=== PATIENT | male | born 1950 | race Caucasian/White ===

== ENCOUNTER → 2024-01-17 | Outpatient (CLI) | payer OTHER, SELFPAY ==
[2024-01-17 16:38] LABS: Basophils # (Auto) 0.1 Thou/mm3 (0.0-0.2); Basophils % (Auto) 1 % (0-2.5); Eosinophils # (Auto) 0.2 Thou/mm3 (0.0-0.5); Eosinophils % (Auto) 3 % (0-10); Hematocrit 36.3 % (41.0-53.0); Hemoglobin 12.1 g/dL (13.5-16.0); Immature Granulocytes % (Auto) 0 % (0-0); Immature Granulocytes Auto 0.01 Thou/mm3 (0.00-0.00); Lymphocytes # (Auto) 1.8 Thou/mm3 (1.0-4.8); Lymphocytes % (Auto) 34 % (10-50); Mean Corpuscular HGB Conc 33.3 g/dl (31.0-37.0); Mean Corpuscular Hemoglobin 30.6 pg (25.0-35.0); Mean Corpuscular Volume 92 fL (80-100); Monocytes # (Auto) 0.6 Thou/mm3 (0.0-0.8); Monocytes % (Auto) 12 % (0-12); Neutrophils # (Auto) 2.6 Thou/mm3 (1.8-7.7); Neutrophils % (Auto) 50 % (37-80); Nucleated Red Blood Cell % 0 /100 WBC (0); Platelet Count 246 Thou/mm3 (140-440); RDW Standard Deviation 44.9 fL (35.1-43.9); Red Blood Count 3.95 Miln/mm3 (4.50-5.90); White Blood Count 5.2 Thou/mm3 (3.8-10.6)
[2024-01-17 17:13] LABS: Albumin, Serum 4.1 gm/dL (3.4-4.8); Anion Gap 5 (7-16); BUN/Creatinine Ratio 16 Ratio (12-20); Blood Urea Nitrogen 21 mg/dL (9-23); Calcium 9.1 mg/dL (8.3-10.6); Calcium (Corrected) 9.1 mg/dL (8.5-10.1); Carbon Dioxide 26.2 mMol/L (20.0-31.0); Chloride 105 mMol/L (98-107); Creatinine (Component) 1.3 mg/dL (0.6-1.3); Glucose 94 mg/dL (74-106); Osmolality,Calculated 274 (275-295); Phosphorous 3.8 mg/dL (2.4-5.1); Potassium 4.4 mMol/L (3.4-5.1); Sodium 136 mMol/L (136-145); eGFR 58 See Note
[2024-01-17 19:48] LABS: Total Iron Binding Capacity 245 mcg/dL (250-425)
[2024-01-17 19:59] LABS: Iron 42 mcg/dL (65-175); Percent Iron Saturation 17 % (20-55); Unsaturated Iron Binding 203 (225-295)
== END | disposition home or self-care (01) ==
LOC: COPL 15:22
PROVIDERS: PCP Family Medicine; Referring Provider Internal Medicine; Visit Provider Internal Medicine
DX: N40.0 Benign prostatic hyperplasia without lower urinary tract symptoms (principal); N18.32 Chronic kidney disease, stage 3b; N13.30 Unspecified hydronephrosis
CPT/HCPCS: 36415; 80069; 83540; 83550; 85025

== ENCOUNTER 2024-01-20 09:19 | Outpatient (AMB) | payer OTHER, SELFPAY ==
[2024-01-20 09:48] VITALS: BP 130/81; PULSE 86; RESP 18; TEMP 36.6; O2SAT 98; BMI 23.1
--- NOTE | 2024-01-20 09:48 | PD.ORTHCLVIS ---
Vital signs 01/20/24 09:48 Height 1.78 m Height Method Stated Weight 73.17 kg Weight Measurement Method Standing Scale BMI 23.1 BP 130/81 Blood Pressure Source Automatic Cuff Blood Pressure Location Right Upper Arm Position Sitting Respiration 18 Pulse 86 Pulse Source Monitor Temp 97.9 F Temp Source Temporal Artery Scan Pulse Oximetry (%) 98 Oxygen Delivery Method Room Air Med/Allergies Allergies & Medications Allergies No Known Allergies Allergy (Verified 01/20/24 09:49) Medication Reconciliation lorazepam 1 mg tablet 1 mg PO .PRN 01/01/19 [History Confirmed 01/20/24] levothyroxine 125 mcg tablet 125 mcg PO QDAY 01/04/20 [History Confirmed 01/20/24] cyclobenzaprine 10 mg tablet 1 tab PO DAILY 09/28/21 [History Confirmed 01/20/24] gabapentin 300 mg capsule 1 cap PO BID 09/28/21 [History Confirmed 01/20/24] hydrocodone 7.5 mg-acetaminophen 325 mg tablet 1 tab PO Q6H PRN Pain 09/28/21 [History Confirmed 01/20/24] Subjective Visit Visit for: follow up visit (PRE OP) Immunization / Flu Flu Vaccine in the Last 12 Months: Yes Flu Vaccine Exclusion Criteria: Already Received History of Present Illness Chief complaint: LEFT KNEE PAIN Manpreet is a pleasant 73-year-old male with bilateral knee pain. The knee pain is worse on the left. He has had 2 prior arthroscopic surgeries. The pain has been ongoing for over 3 years. The pain is primarily in the medial aspect of his knee. There is varus deformity. The pain is affecting his quality life and happiness he has tried meloxicam, surgery, and anti-inflammatories. He has also had over 6 injections Personal History Occupation: TEACHER Hobbies: MUSIC/PIANO Red flag PMH: smoker (FORMER SMOKER 35 YEARS AGO ) Pain Pain level (0-10): 2 Pain duration: ON AND OFF Pain location: inside (medial) Pain quality: aching Pain timing: night, increases with activity and stairs Associated signs & symptoms: none Ambulatory data Ambulatory device: none Treatments Improvement with previous injections: No Improvement with PT: No Improvement with NSAIDS: no Review of Systems Review of Systems: All systems negative unless otherwise noted in HPI. Exam Exam Patient is in no acute distress and is cooperative with the examination today. Breathing is nonlabored. In no respiratory distress. Bilateral extremities were evaluated and demonstrates sensation intact to light touch. Palpable pedal pulses are present. No significant edema is present. Bilateral hips were examined. The patient has no pain with log roll of the hips. Internal rotation to 30 degrees and external rotation to 30 degrees is painless. Negative FADIR. The left knee was examined. The left knee is in [varus] alignment. Range of motion from [0-115] degrees. Knee is stable to varus and valgus as well as AP translation with <5mm. Patient has a [negative] McMurrays. There is [no] pain with patellofemoral compression and [no] crepitus noted. The knee is [tender] to palpation [medially]. The right knee was also examined. The right knee is in [varus] alignment. Range of motion from [0-120] degrees. Knee is stable to varus and valgus as well as AP translation with <5mm. Patient has a [negative] McMurrays. There is [no] pain with patellofemoral compression and [no] crepitus noted. The knee is [tender] to palpation [medially]. Bilateral knee x-rays demonstrate significant joint space narrowing medially. There is complete obliteration of the joint space and varus deformity Assessment and Plan Problem List (1) Degenerative arthritis of knee, bilateral: Status: Acute Plan: Patient is a pleasant 73-year-old male with bilateral knee pain and bilateral knee arthritis. The knee pain is worse on the left. We discussed nonoperative and operative options. We previously discussed surgery in great detail and scheduled him for surgery. He would like to postpone his surgery as he is doing very well currently Advanced Care Planning Discussion Advance care planning discussed with:: patient Office Procedures GNS Level of Care Nursing/Assessment Patient Status: Established Patient Nursing Assessment/Reassesment: Medication Reconciliation, Update PMH in EMR and Vital Signs Coordination of Care: Complex Care and Chronic Disease 1-5, Education Complex Pt/Fam, Consent,records obtained, informed consent, 1 Ins Authorization, Results/Orders obtained and Staff clarify orders Established Patient Charge Established Patient Point Assignment: 110 Established Patient Point Charge: EP Level 3 (80-115) Past Medical History Past Medical History Have you ever been diagnosed with any of the following: Neurological Problems Meningitis: No Seizures: No Paralysis: No Migraine: No Cardiology Problems Congestive Heart Failure: No Edema: No Cellulitis: No Respiratory Problems Chronic Obstructive Pulmonary Disease (COPD): No Asthma: No Tuberculosis: No Pulmonary Embolism: No Sleep Apnea: No Smoking: No Smoking Cessation Counseling: No Smoking Exposure: No Stomache/Intestinal Problems Hepatitis: Yes Diverticulosis: Yes Hemorrhoids: Yes Gastroesophageal Reflux Disease: Yes Genital/Urinary Problems Renal Disease: No Benign Prostatic Hyperplasia: No Musculoskeletal Problems Arthritis: Yes Fractures: No Head,Eye,Nose,Throat Problems Cataracts: Yes Endocrine Problems Diabetes Mellitus Type 1: No Diabetes Mellitus Type 2: No Hypothyroidism: Yes (TAKES MED) Blood Problems Anemia: No Sickle Cell Disease: No Psychologic Problems Depression: Yes Anxiety: Yes Post Traumatic Stress Disorder: No Other Problems Hospitalization: No Shingles: No Falls: No Blood Transfusions: No Blood Transfusion Reaction: No Anesthesia Reactions: No Chemotherapy: No Radiation Therapy: No MRSA: No Chicken Pox: No Measles: Yes Mumps: Yes Cancer: No Surgical History Pacemaker: No Thyroidectomy: No
== END 2024-01-20 10:37 | disposition home or self-care (01) ==
LOC: HODSRG 09:19
PROVIDERS: PCP Family Medicine; Referring Provider Family Medicine; Supervising Provider Orthopaedic Surgery Adult Reconstructive Orthopaedic Surgery; Visit Provider Orthopaedic Surgery Adult Reconstructive Orthopaedic Surgery
DX: M17.0 Bilateral primary osteoarthritis of knee (principal); M25.562 Pain in left knee; M25.561 Pain in right knee; K21.9 Gastro-esophageal reflux disease without esophagitis; E03.9 Hypothyroidism, unspecified
CPT/HCPCS: 99213; G0463

== ENCOUNTER 2024-02-24 14:01 | Outpatient (AMB) | payer OTHER, SELFPAY ==
[2024-02-24 14:10] VITALS: BP 133/83; PULSE 83; RESP 19; TEMP 36.1; O2SAT 98; BMI 23.1
--- NOTE | 2024-02-24 14:10 | RHCORTHONT_ITS ---
Vital signs 02/24/24 14:10 Height 1.78 m Height Method Stated Weight 73.227 kg Weight Measurement Method Standing Scale BMI 23.1 BP 133/83 H Blood Pressure Source Automatic Cuff Blood Pressure Location Left Upper Arm Position Sitting Respiration 19 Pulse 83 Pulse Source Monitor Temp 96.9 F Temp Source Temporal Artery Scan Pulse Oximetry (%) 98 Oxygen Delivery Method Room Air Med/Allergies Allergies & Medications Allergies No Known Allergies Allergy (Verified 02/24/24 14:11) Medication Reconciliation lorazepam 1 mg tablet 1 mg PO .PRN 01/01/19 [History Confirmed 02/24/24] levothyroxine 125 mcg tablet 125 mcg PO QDAY 01/04/20 [History Confirmed 02/24/24] cyclobenzaprine 10 mg tablet 1 tab PO DAILY 09/28/21 [History Confirmed 02/24/24] gabapentin 300 mg capsule 1 cap PO BID 09/28/21 [History Confirmed 02/24/24] hydrocodone 7.5 mg-acetaminophen 325 mg tablet 1 tab PO Q6H PRN Pain 09/28/21 [History Confirmed 02/24/24] Exam Exam Patient is in no acute distress and is cooperative with the examination today. Breathing is nonlabored. In no respiratory distress. Bilateral extremities were evaluated and demonstrates sensation intact to light touch. Palpable pedal pulses are present. No significant edema is present. Bilateral hips were examined. The patient has no pain with log roll of the hips. Internal rotation to 30 degrees and external rotation to 30 degrees is painless. Negative FADIR. The left knee was examined. The left knee is in [varus] alignment. Range of motion from [0-115] degrees. Knee is stable to varus and valgus as well as AP translation with <5mm. Patient has a [negative] McMurrays. There is [no] pain with patellofemoral compression and [no] crepitus noted. The knee is [tender] to palpation [medially]. The right knee was also examined. The right knee is in [varus] alignment. Range of motion from [0-120] degrees. Knee is stable to varus and valgus as well as AP translation with <5mm. Patient has a [negative] McMurrays. There is [no] pain with patellofemoral compression and [no] crepitus noted. The knee is [tender] to palpation [medially]. Bilateral knee x-rays demonstrate significant joint space narrowing medially. There is complete obliteration of the joint space and varus deformity Assessment and Plan Problem List (1) Degenerative arthritis of knee, bilateral: Status: Acute Plan: Patient is a pleasant 73-year-old male with bilateral knee pain and bilateral knee arthritis. The knee pain is worse on the left. We discussed nonoperative and operative options. We previously discussed surgery in great detail and scheduled him for surgery. He would like to postpone his surgery as he is doing very well currently. She would like bilateral knee injections today Recommend knee cortisone injections as patient would like to proceed with conservative treatment at this time. The risks and benefits of the procedure were reviewed with the patient and patient gave verbal consent to continue with the procedure. Procedure: performed by Dr. Persaud Using sterile technique the Bilateral knees were thoroughly prepped with alcohol, and approximately 1 cc of Kenalog 40 mg/mL and 4 cc of 1% lidocaine was injected into each knee without resistance into the medial tibial femoral joint space. The patient tolerated the procedure. Advanced Care Planning Discussion Advance care planning discussed with:: patient Office Procedures GNS Level of Care Nursing/Assessment Patient Status: Established Patient Nursing Assessment/Reassesment: Medication Reconciliation, Update PMH in EMR and Vital Signs Coordination of Care: Complex Care and Chronic Disease 1-5, Education Complex Pt/Fam, Consent,records obtained, informed consent, Results/Orders obtained and Staff clarify orders Established Patient Charge Established Patient Point Assignment: 95 Established Patient Point Charge: EP Level 3 (80-115) Surgical Proc/IM SQ injection Major Surgical Procedure: Yes (BILATERAL KNEE INJECTIONS ) Medication Given Medication Given Medication Given: Yes Documented Dose Given: 8 Route: Infiitration Medication Given Medication Given Medication Given: Yes Documented Dose Given: 2 Route: Infiitration Office Meds Xylocaine 10 mg/mL (1 %) injection solution Performing Provider: Jarad Persaud MD Performing Location: [facility] Administered by: Jarad Persaud MD on 02/24/24 14:38 Dose Route Admin Location Dispensed Lot Number Expiration Date [facility] Medical Review Coordinator 40 mL Infiltration 40 mL [id number] [employer] triamcinolone acetonide 40 mg/mL suspension for injection Performing Provider: Jarad Persaud MD Performing Location: [facility] Administered by: Jarad Persaud MD on 02/24/24 14:38 Dose Route Admin Location Dispensed Lot Number Expiration Date [facility] Medical Review Coordinator 80 mg intra-articular 2 mL [id number] TEVA PARENTERAL MA Intake Visit Data Collection New Patient or Established: Established Patient (seen at [facility] within 3 years) Reason for Visit:: F/U KNEE PAIN/INJECTION Seen by Clinical Staff ONLY (RN/MA): No Lacing Cutter Required: No PCP or OBGYN visit in last 3 months: Yes Hx Now: No Do You Feel Safe at Home: Yes Authorities Contacted: N/A Questionairres Past Medical History Past Medical History Have you ever been diagnosed with any of the following: Neurological Problems Meningitis: No Seizures: No Paralysis: No Migraine: No Cardiology Problems Congestive Heart Failure: No Edema: No Cellulitis: No Respiratory Problems Chronic Obstructive Pulmonary Disease (COPD): No Asthma: No Tuberculosis: No Pulmonary Embolism: No Sleep Apnea: No Smoking: No Smoking Cessation Counseling: No Smoking Exposure: No Stomache/Intestinal Problems Hepatitis: Yes Diverticulosis: Yes Hemorrhoids: Yes Gastroesophageal Reflux Disease: Yes Genital/Urinary Problems Renal Disease: No Benign Prostatic Hyperplasia: No Musculoskeletal Problems Arthritis: Yes Fractures: No Head,Eye,Nose,Throat Problems Cataracts: Yes Endocrine Problems Diabetes Mellitus Type 1: No Diabetes Mellitus Type 2: No Hypothyroidism: Yes (TAKES MED) Blood Problems Anemia: No Sickle Cell Disease: No Psychologic Problems Depression: Yes Anxiety: Yes Post Traumatic Stress Disorder: No Other Problems Hospitalization: No Shingles: No Falls: No Blood Transfusions: No Blood Transfusion Reaction: No Anesthesia Reactions: No Chemotherapy: No Radiation Therapy: No MRSA: No Chicken Pox: No Measles: Yes Mumps: Yes Cancer: No Surgical History Pacemaker: No Thyroidectomy: No Subjective Visit Visit for: follow up visit and knee Immunization / Flu Flu Vaccine in the Last 12 Months: Yes Flu Vaccine Exclusion Criteria: Already Received History of Present Illness Chief complaint: bilateral knee injections Patient is a 74yo female with bilateral knee pain and bilateral knee osteoarthritis. He is doing well. He would like to get bilateral knee injections. He is still working and would like to wait until February of Next year before proceeding with surgery. Pain Pain level (0-10): 5 Pain duration: COMES AND GOES Pain location: inside (medial) Pain quality: sharp and aching Pain timing: night, increases with activity and stairs Associated signs & symptoms: stiffness Ambulatory data Ambulatory device: none Treatments Improvement with previous injections: No Improvement with PT: No Improvement with NSAIDS: no Review of Systems Review of Systems: All systems negative unless otherwise noted in HPI.
== END 2024-02-24 14:32 | disposition home or self-care (01) ==
LOC: HODSRG 14:01
PROVIDERS: PCP Family Medicine; Referring Provider Family Medicine; Supervising Provider Orthopaedic Surgery Adult Reconstructive Orthopaedic Surgery; Visit Provider Orthopaedic Surgery Adult Reconstructive Orthopaedic Surgery
DX: M17.0 Bilateral primary osteoarthritis of knee (principal); M25.562 Pain in left knee; M25.561 Pain in right knee; E03.9 Hypothyroidism, unspecified; K21.9 Gastro-esophageal reflux disease without esophagitis
CPT/HCPCS: 20610; 99213; J3301; J3490; G0463

== ENCOUNTER 2024-03-18 15:22 | Emergency (ER) | payer OTHER, SELFPAY ==
[2024-03-18 15:41] VITALS: BP 158/84; PULSE 79; RESP 18; TEMP 36.8; O2SAT 98; BMI 23.6
--- NOTE | 2024-03-18 16:11 | EDNOTE_ITS ---
ED Neck Injury Pain RME/HPI General Chief Complaint: Neck Pain/Injury Stated Complaint: CHRONIC NECK/BACK PAIN FOR 3 DAYS Time Seen by Provider: 03/18/24 15:34 Source: patient Arrival date/time: 03/18/24 15:22 This is a 74-year-old male presents to the emergency department with complaints of chronic neck pain worsened over 3 days. Reports he normally takes tramadol, Flexeril has taken it once last night however his pain has not improved. He does report he has history of chronic spinal stenosis in which he has had an MRI and CT in the past last 1 was in October. Patient denies any shortness of breath no numbness or tingling to bilateral arms, no fever or chills.. He does have an appointment on Tuesday for follow-up with his PCP. He requesting a prescription for prednisone in which has helped his symptoms in the past. Mode of arrival: ambulatory Related Data Home Medications ?Medication ?Instructions ?Recorded ?Confirmed lorazepam 1 mg tablet 1 mg PO .PRN 01/01/19 02/24/24 levothyroxine 125 mcg tablet 125 mcg PO QDAY 01/04/20 02/24/24 cyclobenzaprine 10 mg tablet 1 tab PO DAILY 09/28/21 02/24/24 gabapentin 300 mg capsule 1 cap PO BID 09/28/21 02/24/24 hydrocodone 7.5 mg-acetaminophen 1 tab PO Q6H PRN Pain 09/28/21 02/24/24 325 mg tablet Previous Rx's ?Medication ?Instructions ?Recorded prednisone 20 mg tablet 20 mg PO QDAY 5 days #10 tabs 03/18/24 Allergies Allergy/AdvReac Type Severity Reaction Status Date / Time No Known Allergies Allergy Verified 03/18/24 15:25 Review of Systems Review of Systems Systems Reviewed: All systems reviewed, normal except as documented Narrative Review of Systems: Gen: No fever, no chills, no weight loss EYES: No discharge, no visual changes, no pain HEENT: No ear pain, no congestion, no sore throat, + chronic neck pain PULM: No shortness of breath, no cough, no congestion CV: No chest pain, no dyspnea on exertion, no palpitations GI: No nausea, no vomiting, no diarrhea, no pain, no constipation : No frequency, no urgency,? no dysuria Musc/skel: No joint pain, no back pain Skin: No rash? ED Exam Narrative Physical exam: General: In moderate discomfort due to pain, not in any acute distress Head normocephalic HEENT: Eyes pupils are PERRLA EOMs are intact, swallow symmetrical phonation is somewhat guarded, uvula is midline. All of the subsystems of HEENT are within acceptable limits Neck: Tenderness to palpation of the bilateral paraspinal regions, no spinous process tenderness with palpation. The patient has significant pain with left and right lateral rotation right being of a lesser degree., No erythema no edema no JVD Chest equal chest rise nontender to palpation Respiratory: Clear to auscultation no wheezes crackles or rubs CV: Rate rhythm is regular no murmurs rubs or clicks Extremities: Moving all extremity against resistance cap refill less than 2 seconds neurosensory intact Neuro: Awake alert oriented x3 Glascow coma 15 no focal deficits Course Quality Measures none Orders Category Date Time Status CYCLObenzaPRINE [Flexeril] Med 03/18/24 16:10 Discontinued 5 mg PO X1 ONE MethylPREDNISolone.* [SoluMEDROL Inj] Med 03/18/24 16:10 Discontinued 125 mg IM X1 ONE Vital Signs Vital signs: Vital Signs Temperature 98.3 F 03/18/24 15:41 Pulse Rate 79 03/18/24 15:41 Respiratory Rate 18 03/18/24 15:41 Blood Pressure 158/84 H 03/18/24 15:41 Pulse Oximetry (%) 98 03/18/24 15:41 Oxygen Delivery Method Room Air 03/18/24 15:41 Neck Pain MDM Narrative MDM Narrative:: This is a 74-year-old male presents to the emergency department with complaints of chronic neck pain worsened over 3 days. Reports he normally takes tramadol, Flexeril has taken it once last night however his pain has not improved. He does report he has history of chronic spinal stenosis in which he has had an MRI and CT in the past last one was in October. Patient denies any shortness of breath no numbness or tingling to bilateral arms. He does have an appointment on Tuesday for follow-up with his PCP. Patient reports he has not had a neurosurgery referral as an outpatient. However he will request tomorrow when he has an appointment. I will go ahead and give him some pain control, steroids and muscle relaxer while in ED. Patient patient's vital signs stable no acute distress. ER precautions given to patient return if there is any worsening symptoms despite the use of his medication or steroids. I did advise patient to return in a.m. if his symptoms worsen for MRI. Patient data External records reviewed:: [facility] previous records (Reviewed MRI and previous imaging.) Clinical information provided by:: patient Social determinants that could affect healthcare access:: none Patient has the following chronic illnesses:: Chronic pain, hypothyroidism, BPH, apical stenosis How is presenting disease/condition affected by chronic disease/condition?: exacerbated by Evaluation data The following diagnostics were reviewed and interpreted by me:: other (specify) Lab and/or radiology exams considered but not ordered:: Considered x-ray however this is a chronic condition. Will treat his pain. Interpretation Summary: None Medications / Prescriptions Medications or Prescriptions considered but not ordered:: No Medication administrations:: Medication Administration History Discontinued Medications Cyclobenzaprine HCl (Cyclobenzaprine 5 Mg Tablet) 5 mg PO X1 ONE Stop: 03/18/24 16:11 Last Admin: 03/18/24 16:54 Dose: 5 mg Documented By: Methylprednisolone Sodium Succinate (Methylprednisolone Sod Succ 62.5 Mg/Ml 2ml Vial) 125 mg IM X1 ONE Stop: 03/18/24 16:11 Last Admin: 03/18/24 16:54 Dose: 125 mg Documented By: All medications administered and effective Consultations Consultation(s) initiated? (list below): No Diagnosis Neck Differential Diagnosis: disc disorder of cervical region, whiplash injury to neck, closed subluxation of cervical spine, torticollis and strain of neck muscle Most likely diagnosis given after review of the tests above:: Cervical rectal colopathy, cervical stenosis Admission Indicated Admission indicated?: not indicated Admission Request Was there a request for admission?: No Disposition Plan Disposition Plan: Discharge Discharge Attestation Discharge Attestation: The patient and all family members were given an opportunity to ask questions and understood the discharge instructions. Discharge instructions specifically effects, indications for sooner follow up or return to the emergency department, and the expected course of current diagnosis. Patient condition: Stable Discharge Plan Plan Patient Disposition: HOME (Self Care) Patient condition on transfer: Stable Prescriptions/Referrals Prescriptions/Med Rec: New prednisone 20 mg tablet 20 mg PO QDAY 5 Days Qty: 10 0RF No Action lorazepam 1 mg tablet 1 mg PO .PRN cyclobenzaprine 10 mg tablet 1 tab PO DAILY hydrocodone-acetaminophen 7.5-325 mg tablet 1 tab PO Q6H PRN (Reason: Pain) gabapentin 300 mg capsule 1 cap PO BID Patient Comments: TAKE 1 CAPSULE BY MOUTH THREE TIMES A DAY levothyroxine 125 mcg Tablet 125 mcg PO QDAY Referrals: Jose Nunn MD [Primary Care Provider] - In 1 week Problem List Clinical Impression: Disc disorder of cervical region, Cervical radiculopathy Patient/Caregiver Discharge Instructions Discharge Activity: activity as tolerated Education Materials: ED Neck Pain, ED Radiculopathy, Cervical Additional Instructions: -You will need to rest and have activities modification avoid heavy lifting twisting motions or prolonged sitting or standing. -Will need to follow-up with your doctor tommorow Might need physical therapy May require a NeuroSurgery consults Might need referral for MRI outpatient, Diagnostic imaging (like MRI) might be used to assess the extent of the bulging disc. -Medications sent please use as directed Can include ibuprofen, muscle relaxant Lifestyle modifications Return to the emergency department this any worsening symptoms change in condition. Print Language: Maldivian Stand Alone Forms: Leydi Award Info., Patient Portal Info Letter PA/MARKETING DATA SPECIALIST Supervising Physician SWETHA/MADELEINE Supervising Physician: dr Ontiveros
[2024-03-18] MEDS: CYCLObenzaPRINE 5 MG TABLET PO (16:54)
[2024-03-18] MEDS: MethylPREDNISolone SOD SUCC 62.5 MG/ML 2ML VIAL 125 MG IM (16:54)
== END 2024-03-18 16:55 | disposition home or self-care (01) ==
PROVIDERS: Emergency Provider Emergency Medicine; PCP Family Medicine
DX: M54.12 Radiculopathy, cervical region (principal)
CPT/HCPCS: 96372; 99283; J2919; A9270

== ENCOUNTER → 2024-03-21 | Outpatient (CLI) | payer OTHER, SELFPAY ==
[2024-03-21 17:50] LABS: Amphetamine/Methamp Scrn,U Negative (Negative); Barbiturate Screen,Urine Negative (Negative); Benzodiazepines Screen,Urine Negative (Negative); Benzoylecgonine Screen, Ur Negative (Negative); Fentanyl Screen,Urine Negative (Negative); Opiate Screen,Urine Negative (Negative); THC Screen,Urine Negative (Negative)
== END | disposition home or self-care (01) ==
LOC: SLDO 17:10
PROVIDERS: PCP Family Medicine; Referring Provider Family Medicine; Visit Provider Family Medicine
DX: Z71.51 Drug abuse counseling and surveillance of drug abuser (principal)
CPT/HCPCS: 80307

== ENCOUNTER → 2024-04-27 | Outpatient (CLI) | payer OTHER, SELFPAY ==
[2024-04-27 14:24] LABS: Glucose Estimated Average 105 mg/dL (80-131); Hemoglobin A1C 5.3 % Hgb (4.8-6.0)
[2024-04-27 14:26] LABS: Basophils # (Auto) 0.1 Thou/mm3 (0.0-0.2); Basophils % (Auto) 1 % (0-2.5); Eosinophils # (Auto) 0.2 Thou/mm3 (0.0-0.5); Eosinophils % (Auto) 2 % (0-10); Hematocrit 37.1 % (41.0-53.0); Hemoglobin 12.4 g/dL (13.5-16.0); Immature Granulocytes % (Auto) 0 % (0-0); Immature Granulocytes Auto 0.01 Thou/mm3 (0.00-0.00); Lymphocytes % (Auto) 28 % (10-50); Mean Corpuscular HGB Conc 33.4 g/dl (31.0-37.0); Mean Corpuscular Hemoglobin 30.4 pg (25.0-35.0); Mean Corpuscular Volume 91 fL (80-100); Monocytes # (Auto) 0.7 Thou/mm3 (0.0-0.8); Monocytes % (Auto) 10 % (0-12); Neutrophils # (Auto) 4.1 Thou/mm3 (1.8-7.7); Neutrophils % (Auto) 59 % (37-80); Nucleated Red Blood Cell % 0 /100 WBC (0); Platelet Count 290 Thou/mm3 (140-440); RDW Standard Deviation 48.8 fL (35.1-43.9); Red Blood Count 4.08 Miln/mm3 (4.50-5.90); White Blood Count 7.1 Thou/mm3 (3.8-10.6)
[2024-04-27 14:27] LABS: Alanine Aminotransferase 12 U/L (10-49); Albumin, Serum 3.7 gm/dL (3.4-4.8); Albumin/Globulin Ratio 1.8 (1.2-2.2); Alkaline Phosphatase 75 U/L (46-116); Anion Gap 6 (7-16); Aspartate Amino Transferase 13 U/L (0-34); BUN/Creatinine Ratio 15 Ratio (12-20); Bilirubin,Total 0.4 mg/dL (0.3-1.2); Blood Urea Nitrogen 20 mg/dL (9-23); Calcium 9.1 mg/dL (8.3-10.6); Calcium (Corrected) 9.3 mg/dL (8.5-10.1); Carbon Dioxide 30.5 mMol/L (20.0-31.0); Cardiac Risk Estimate 2.2 RATIO (4.0-6.7); Chloride 104 mMol/L (98-107); Cholesterol 159 mg/dL (132-200); Creatinine (Component) 1.3 mg/dL (0.6-1.3); Globulin 2.1 gm/dL (2.3-3.5); Glucose 91 mg/dL (74-106); HDL Cholesterol 72 mg/dL (40-60); LDL Cholesterol,Calculated 72 mg/dL (0-130); Osmolality,Calculated 282 (275-295); Potassium 4.7 mMol/L (3.4-5.1); Sodium 140 mMol/L (136-145); Total Protein 5.8 gm/dL (5.7-8.2); Triglycerides 74 mg/dL (30-150); eGFR 57 See Note
[2024-05-02 19:53] LABS: PSA, Free 0.64 ng/mL; PSA, Total 10.7 ng/mL (< OR = 4.0)
== END | disposition home or self-care (01) ==
LOC: COPL 12:35
PROVIDERS: PCP Student in an Organized Health Care Education/Training Program; Referring Provider Student in an Organized Health Care Education/Training Program; Visit Provider Student in an Organized Health Care Education/Training Program
DX: M54.2 Cervicalgia (principal); N18.9 Chronic kidney disease, unspecified; R97.20 Elevated prostate specific antigen [PSA]
CPT/HCPCS: 36415; 80053; 80061; 82043; 82570; 83036; 84153; 84154; 85025

== ENCOUNTER 2024-05-25 10:53 | Outpatient (AMB) | payer OTHER, SELFPAY ==
--- NOTE | 2024-05-25 11:25 | ORTHONT_ITS ---
Vital signs 05/25/24 11:37 Height 1.78 m Height Method Stated Weight 75.75 kg Weight Measurement Method Standing Scale BMI 23.9 BP 116/72 Blood Pressure Source Automatic Cuff Blood Pressure Location Right Upper Arm Position Sitting Respiration 18 Pulse 90 Pulse Source Monitor Temp 97.6 F Temp Source Temporal Artery Scan Pulse Oximetry (%) 97 Oxygen Delivery Method Room Air Med/Allergies Allergies & Medications Allergies No Known Allergies Allergy (Verified 05/25/24 11:38) Medication Reconciliation lorazepam 1 mg tablet 1 mg PO .PRN 01/01/19 [History Confirmed 05/25/24] levothyroxine 125 mcg tablet 125 mcg PO QDAY 01/04/20 [History Confirmed 05/25/24] cyclobenzaprine 10 mg tablet 1 tab PO DAILY 09/28/21 [History Confirmed 05/25/24] gabapentin 300 mg capsule 1 cap PO BID 09/28/21 [History Confirmed 05/25/24] hydrocodone 7.5 mg-acetaminophen 325 mg tablet 1 tab PO Q6H PRN Pain 09/28/21 [History Confirmed 05/25/24] Exam Exam Patient is in no acute distress and is cooperative with the examination today. Breathing is nonlabored. In no respiratory distress. Bilateral extremities were evaluated and demonstrates sensation intact to light touch. Palpable pedal pulses are present. No significant edema is present. Bilateral hips were examined. The patient has no pain with log roll of the hips. Internal rotation to 30 degrees and external rotation to 30 degrees is painless. Negative FADIR. The left knee was examined. The left knee is in [varus] alignment. Range of motion from [0-115] degrees. Knee is stable to varus and valgus as well as AP translation with <5mm. Patient has a [negative] McMurrays. There is [no] pain with patellofemoral compression and [no] crepitus noted. The knee is [tender] to palpation [medially]. The right knee was also examined. The right knee is in [varus] alignment. Range of motion from [0-120] degrees. Knee is stable to varus and valgus as well as AP translation with <5mm. Patient has a [negative] McMurrays. There is [no] pain with patellofemoral compression and [no] crepitus noted. The knee is [tender] to palpation [medially]. Bilateral knee x-rays demonstrate significant joint space narrowing medially. There is complete obliteration of the joint space and varus deformity Assessment and Plan Problem List (1) Degenerative arthritis of knee, bilateral: Status: Acute Plan: Patient is a pleasant 73-year-old male with bilateral knee pain and bilateral knee arthritis. The knee pain is worse on the left. We discussed nonoperative and operative options. We previously discussed surgery in great detail and scheduled him for surgery. He would like to postpone his surgery as he is doing very well currently. She would like bilateral knee injections today Recommend knee cortisone injection as patient would like to proceed with conservative treatment at this time. The risks and benefits of the procedure were reviewed with the patient and patient gave verbal consent to continue with the procedure. Procedure: performed by Dr. Persaud Using sterile technique the left knee was thoroughly prepped with alcohol, and approximately 1 cc of Kenalog 40 mg/mL and 4 cc of 1% lidocaine was injected without resistance into the medial tibial femoral joint space. The patient tolerated the procedure. Advanced Care Planning Discussion Advance care planning discussed with:: patient Office Procedures GNS Level of Care Nursing/Assessment Patient Status: Established Patient Nursing Assessment/Reassesment: Medication Reconciliation, Update PMH in EMR and Vital Signs Coordination of Care: Complex Care and Chronic Disease 1-5, Education Complex Pt/Fam, Consent,records obtained, informed consent, Results/Orders obtained and Staff clarify orders Established Patient Charge Established Patient Point Assignment: 95 Established Patient Point Charge: EP Level 3 (80-115) Surgical Proc/IM SQ injection Major Surgical Procedure: Yes Medication Given Medication Given Medication Given: Yes Documented Dose Given: 4 Route: Infiitration Medication Given Medication Given Medication Given: Yes Documented Dose Given: 1 Route: Infiitration Office Meds Xylocaine 10 mg/mL (1 %) injection solution Performing Provider: Jarad Persaud MD Performing Location: [facility] Administered by: Jarad Persaud MD on 05/25/24 11:39 Dose Route Admin Location Dispensed Lot Number Expiration Date [facility] [employer] 20 mL Infiltration 20 mL [id number] 08/06/27 81710-814-68 [facility] triamcinolone acetonide 40 mg/mL suspension for injection Performing Provider: Jarad Persaud MD Performing Location: [facility] Administered by: Jarad Persaud MD on 05/25/24 11:39 Dose Route Admin Location Dispensed Lot Number Expiration Date [facility] [employer] 40 mg intra-articular knee 1 mL [id number] 12/05/25 0120-0375-70 [facility] [place] Intake Visit Data Collection New Patient or Established: Established Patient (seen at [facility] within 3 years) Reason for Visit:: bilateral knee pain Seen by Clinical Staff ONLY (RN/MA): No Verbal consent obtained for Telemed visit?: No [employer] Required: No PCP or OBGYN visit in last 3 months: Yes Hx Now: No Do You Feel Safe at Home: Yes Authorities Contacted: N/A Questionairres Past Medical History Past Medical History Have you ever been diagnosed with any of the following: Neurological Problems Meningitis: No Seizures: No Paralysis: No Migraine: No Cardiology Problems Congestive Heart Failure: No Edema: No Cellulitis: No Respiratory Problems Chronic Obstructive Pulmonary Disease (COPD): No Asthma: No Tuberculosis: No Pulmonary Embolism: No Sleep Apnea: No Smoking: No Smoking Cessation Counseling: No Smoking Exposure: No Stomache/Intestinal Problems Hepatitis: Yes Diverticulosis: Yes Hemorrhoids: Yes Gastroesophageal Reflux Disease: Yes Genital/Urinary Problems Renal Disease: No Benign Prostatic Hyperplasia: No Musculoskeletal Problems Arthritis: Yes Fractures: No Head,Eye,Nose,Throat Problems Cataracts: Yes Endocrine Problems Diabetes Mellitus Type 1: No Diabetes Mellitus Type 2: No Hypothyroidism: Yes (TAKES MED) Blood Problems Anemia: No Sickle Cell Disease: No Psychologic Problems Depression: Yes Anxiety: Yes Post Traumatic Stress Disorder: No Other Problems Hospitalization: No Shingles: No Falls: No Blood Transfusions: No Blood Transfusion Reaction: No Anesthesia Reactions: No Chemotherapy: No Radiation Therapy: No MRSA: No Chicken Pox: No Measles: Yes Mumps: Yes Cancer: No Surgical History Pacemaker: No Thyroidectomy: No Subjective Visit Visit for: follow up visit and knee Immunization / Flu Flu Vaccine in the Last 12 Months: Yes Flu Vaccine Exclusion Criteria: Already Received History of Present Illness Chief complaint: bilateral knee injections Patient is a 74yo female with bilateral knee pain and bilateral knee osteoarthritis. He is doing well. He would like to get A left knee injection as the knee injection has worn off. He is still working and would like to wait until February of Next year before proceeding with surgery. Personal History Red flag PMH: none BMI Counceling provided: No Pain Pain level (0-10): 5 Pain duration: COMES AND GOES Pain location: inside (medial) Pain quality: sharp and aching Pain timing: night, increases with activity and stairs Associated signs & symptoms: stiffness Ambulatory data Ambulatory device: none Treatments Improvement with previous injections: No Improvement with PT: No Improvement with NSAIDS: no Review of Systems Review of Systems: All systems negative unless otherwise noted in HPI.
[2024-05-25 11:37] VITALS: BP 116/72; PULSE 90; RESP 18; TEMP 36.4; O2SAT 97; BMI 23.9
== END 2024-05-25 12:10 | disposition home or self-care (01) ==
PROVIDERS: PCP Family Medicine; Referring Provider Family Medicine; Supervising Provider Orthopaedic Surgery Adult Reconstructive Orthopaedic Surgery; Visit Provider Orthopaedic Surgery Adult Reconstructive Orthopaedic Surgery
DX: M17.0 Bilateral primary osteoarthritis of knee (principal)
CPT/HCPCS: 20610; 99213; J3301; J3490; G0463

== ENCOUNTER → 2024-06-18 | Outpatient (CLI) | payer OTHER, SELFPAY ==
[2024-06-18 10:54] LABS: Misc Send Out* See Sep Rpt
[2024-06-18 10:56] LABS: Misc Send Out* See Sep Rpt
== END | disposition home or self-care (01) ==
LOC: SLDO 10:26
PROVIDERS: Referring Provider Student in an Organized Health Care Education/Training Program; Visit Provider Student in an Organized Health Care Education/Training Program
DX: M54.2 Cervicalgia (principal); F41.9 Anxiety disorder, unspecified
CPT/HCPCS: 80346; 80373; G0480

== ENCOUNTER → 2024-08-16 | Outpatient (BNVA) | payer OTHER, SELFPAY | END | disposition home or self-care (01) | PROVIDERS: PCP Student in an Organized Health Care Education/Training Program; Referring Provider Student in an Organized Health Care Education/Training Program; Visit Provider Urology | DX: N31.9 Neuromuscular dysfunction of bladder, unspecified (principal); N13.30 Unspecified hydronephrosis; C61 Malignant neoplasm of prostate; N18.9 Chronic kidney disease, unspecified; F41.9 Anxiety disorder, unspecified; K21.9 Gastro-esophageal reflux disease without esophagitis; E03.9 Hypothyroidism, unspecified | CPT/HCPCS: 99212; G0463 ==

== ENCOUNTER → 2024-09-03 | Outpatient (CLI) | payer OTHER, SELFPAY ==
[2024-09-03 12:05] LABS: Basophils % (Auto) 1 % (0-2.5); Eosinophils # (Auto) 0.2 Thou/mm3 (0.0-0.5); Eosinophils % (Auto) 3 % (0-10); Hematocrit 36.2 % (41.0-53.0); Hemoglobin 12.5 g/dL (13.5-16.0); Immature Granulocytes % (Auto) 0 % (0-0); Immature Granulocytes Auto 0.02 Thou/mm3 (0.00-0.00); Lymphocytes # (Auto) 2.3 Thou/mm3 (1.0-4.8); Lymphocytes % (Auto) 34 % (10-50); Mean Corpuscular HGB Conc 34.5 g/dl (31.0-37.0); Mean Corpuscular Hemoglobin 32.4 pg (25.0-35.0); Mean Corpuscular Volume 94 fL (80-100); Monocytes # (Auto) 0.8 Thou/mm3 (0.0-0.8); Monocytes % (Auto) 12 % (0-12); Neutrophils # (Auto) 3.4 Thou/mm3 (1.8-7.7); Neutrophils % (Auto) 50 % (37-80); Nucleated Red Blood Cell % 0 /100 WBC (0); Platelet Count 228 Thou/mm3 (140-440); RDW Standard Deviation 48.5 fL (35.1-43.9); Red Blood Count 3.86 Miln/mm3 (4.50-5.90); White Blood Count 6.8 Thou/mm3 (3.8-10.6)
[2024-09-03 12:40] LABS: Ferritin 79 ng/mL (10.5-307.3); Folate 13.75 ng/mL (>5.38); Iron 82 mcg/dL (65-175); Percent Iron Saturation 34 % (20-55); Total Iron Binding Capacity 237 mcg/dL (250-425); Unsaturated Iron Binding 155 (225-295); Vitamin B12 278 pg/mL (211-911)
[2024-09-03 12:42] LABS: Alanine Aminotransferase 11 U/L (10-49); Albumin, Serum 3.6 gm/dL (3.4-4.8); Albumin/Globulin Ratio 1.6 (1.2-2.2); Alkaline Phosphatase 48 U/L (46-116); Anion Gap 5 (7-16); Aspartate Amino Transferase 16 U/L (0-34); BUN/Creatinine Ratio 10 Ratio (12-20); Bilirubin,Total 1.1 mg/dL (0.3-1.2); Blood Urea Nitrogen 13 mg/dL (9-23); Calcium 8.8 mg/dL (8.3-10.6); Calcium (Corrected) 9.1 mg/dL (8.5-10.1); Carbon Dioxide 27.9 mMol/L (20.0-31.0); Chloride 107 mMol/L (98-107); Creatinine (Component) 1.3 mg/dL (0.6-1.3); Globulin 2.2 gm/dL (2.3-3.5); Glucose 94 mg/dL (74-106); Magnesium 1.8 mg/dL (1.6-2.6); Osmolality,Calculated 279 (275-295); Potassium 4.2 mMol/L (3.4-5.1); Sodium 140 mMol/L (136-145); Thyroid Stimulating Hormone 2.49 uIU/mL (0.55-4.78); Total Protein 5.8 gm/dL (5.7-8.2); eGFR 57 See Note
== END | disposition home or self-care (01) ==
LOC: COPL 11:15
PROVIDERS: PCP Student in an Organized Health Care Education/Training Program; Referring Provider Student in an Organized Health Care Education/Training Program; Visit Provider Student in an Organized Health Care Education/Training Program
DX: N18.9 Chronic kidney disease, unspecified (principal); E03.9 Hypothyroidism, unspecified; R53.83 Other fatigue; M62.81 Muscle weakness (generalized)
CPT/HCPCS: 36415; 80053; 81001; 82607; 82728; 82746; 83540; 83550; 83735; 84443; 85025

== ENCOUNTER → 2024-09-12 | Outpatient (CLI) | payer OTHER, SELFPAY ==
[2024-09-12 15:23] LABS: Prostate Specific Antigen 11.39 ng/mL (0-4.00)
== END | disposition home or self-care (01) ==
LOC: COPL 14:14
PROVIDERS: PCP Family Medicine; Referring Provider Surgery; Visit Provider Surgery
DX: C61 Malignant neoplasm of prostate (principal)
CPT/HCPCS: 36415; 84153

== ENCOUNTER → 2024-09-14 | Outpatient (BNVA) | payer OTHER, SELFPAY | END | disposition home or self-care (01) | PROVIDERS: PCP Family Medicine; Referring Provider Family Medicine; Visit Provider Urology | DX: C61 Malignant neoplasm of prostate (principal); N31.9 Neuromuscular dysfunction of bladder, unspecified; R33.9 Retention of urine, unspecified | CPT/HCPCS: 99212; G0463 ==

== ENCOUNTER → 2024-11-23 | Outpatient (CLI) | payer OTHER, SELFPAY ==
--- NOTE | 2024-11-23 15:30 | XR_ITS ---
Examination: Bone scan whole body, radioisotope Date and time of exam: November 23, 2024, 1104 hrs., Comparison February 2020 Indications: Diagnosis malignant prostate 2021, restaging Technique: Study has been performed with intravenous administration of 24.8 mci 99M technetium MDP. Anterior, posterior whole body images are obtained. Images have been obtained including the lower extremities. Findings: Lumbar dextroscoliosis Increased isotope accumulation in the proximal right humerus Minor asymmetric uptake about the knees and ankles Impression: Positive bone scan but nonspecific findings Recommend plain films right shoulder follow-up
== END | disposition home or self-care (01) ==
LOC: SNUC 08:32
PROVIDERS: PCP Student in an Organized Health Care Education/Training Program; Referring Provider Urology; Visit Provider Urology
DX: R93.7 Abnormal findings on diagnostic imaging of other parts of musculoskeletal system (principal); C61 Malignant neoplasm of prostate
CPT/HCPCS: 78306; A9503

== ENCOUNTER → 2024-11-26 | Outpatient (CLI) | payer OTHER, SELFPAY ==
[2024-11-26 09:18] LABS: Anion Gap 6 (7-16); BUN/Creatinine Ratio 11 Ratio (12-20); Blood Urea Nitrogen 14 mg/dL (9-23); Calcium 9.5 mg/dL (8.3-10.6); Carbon Dioxide 28.3 mMol/L (20.0-31.0); Chloride 105 mMol/L (98-107); Creatinine (Component) 1.3 mg/dL (0.6-1.3); Glucose 87 mg/dL (74-106); Osmolality,Calculated 277 (275-295); Potassium 4.1 mMol/L (3.4-5.1); Sodium 139 mMol/L (136-145); eGFR 57 See Note
== END | disposition home or self-care (01) ==
PROVIDERS: PCP Urology; Referring Provider Internal Medicine; Visit Provider Internal Medicine
DX: C61 Malignant neoplasm of prostate (principal)
CPT/HCPCS: 36415; 80048

== ENCOUNTER → 2024-11-27 | Outpatient (CLI) | payer OTHER, SELFPAY ==
--- NOTE | 2024-11-27 08:59 | XR_ITS ---
Examination: CT abdomen, without intravenous contrast. CT pelvis, without intravenous contrast. CT abdomen, with intravenous contrast. CT pelvis, with intravenous contrast. 2-D sagittal coronal reconstructions. Date and time of exam:November 27, 2024 1019 hours, comparison CT pelvis February 19, 2022 INDICATIONS: Diagnosis malignant neoplasm prostate, preop CTDI: vol (mGy) 26.8 DLP: (mGycm) 1067 Technique: Multiple 3.0 axial images of the abdomen and pelvis without intravenous contrast, 3.0 mm slice thickness. Multiple 3.0 postcontrast images abdomen and pelvis also obtained, post intravenous injection 60 cc [id number] 2-D sagittal and coronal reconstructions. Low dose protocols were performed. One or more of the following dose reduction techniques were used; automated exposure control, adjustment of the mA and/or KV according to patient size, use of iterative reconstruction technique. Findings: No focal liver or splenic lesions No gallstones No pancreatic or adrenal mass Mild left hydronephrosis No pathologic abdominal or pelvic lymphadenopathy Aorta normal size Urinary bladder wall thickening up to 12 mm Transverse prostate dimension 4.1 cm No osteoblastic metastatic disease IMPRESSION: Mild left hydronephrosis No abdominal or pelvic lymphadenopathy Mild prostatomegaly Distended urinary bladder with urinary bladder wall thickening, consider cystitis, outflow obstruction secondary to prostatomegaly
== END | disposition home or self-care (01) ==
PROVIDERS: PCP Family Medicine; Referring Provider Urology; Visit Provider Urology
DX: N13.30 Unspecified hydronephrosis (principal); N40.0 Benign prostatic hyperplasia without lower urinary tract symptoms; N32.89 Other specified disorders of bladder
CPT/HCPCS: 74178; A4649; Q9967

== ENCOUNTER → 2024-12-03 | Outpatient (CLI) | payer OTHER, SELFPAY ==
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
== END | disposition home or self-care (01) ==
PROVIDERS: PCP Internal Medicine; Referring Provider Urology; Visit Provider Urology
DX: M19.011 Primary osteoarthritis, right shoulder (principal); M25.811 Other specified joint disorders, right shoulder; C61 Malignant neoplasm of prostate
CPT/HCPCS: 73030

== ENCOUNTER → 2024-12-17 | Outpatient (BNVA) | payer OTHER, SELFPAY | END | disposition home or self-care (01) | PROVIDERS: PCP Student in an Organized Health Care Education/Training Program; Referring Provider Student in an Organized Health Care Education/Training Program; Visit Provider Urology | DX: C61 Malignant neoplasm of prostate (principal); Z90.79 Acquired absence of other genital organ(s) | CPT/HCPCS: 81003; 99212; G0463 ==

== ENCOUNTER 2025-01-07 03:50 | Emergency (ER) | payer OTHER, SELFPAY ==
[2025-01-07 03:51] VITALS: BMI 21.9
[2025-01-07 04:09] VITALS: BP 173/95; PULSE 98; RESP 16; TEMP 36.4; O2SAT 98
--- NOTE | 2025-01-07 04:09 | XR_ITS ---
Examination: CT abdomen and pelvis without contrast. Coronal 3-D reconstructions. Sagittal 2-D reconstructions. Date and time of exam: January 07, 2025, 0428 hours, comparison 11/27/2024 INDICATIONS: Right lower pelvic pain, incarcerated hernia pain, recent prostate surgery with lump in the left groin CTDI: vol (mGy): 5.44 DLP: (mGycm): 343 Technique: Axial images of the abdomen have been obtained, 3 mm slice thickness Intravenous contrast material has not been administered. Low dose protocols were performed. One or more of the following dose reduction techniques were used; automated exposure control, adjustment of the mA and/or KV according to patient size, use of iterative reconstruction technique. Findings: No focal liver or splenic lesions No gallstones No pancreatic or adrenal mass Moderate left hydronephrosis no renal or ureteral calculi Aortic calcification no aneurysmal dilatation No bowel obstruction Large cystic lesion in the left hemipelvis, 8 x 9 cm, smaller cystic lesion right anterior hemipelvis 3 x 2 cm Marked thickening of the urinary bladder wall Fluid-containing left femoral hernia with no bowel obstruction TURP surgical defect Prominent osteopenia IMPRESSION: Moderate left hydronephrosis no renal calculi Large cystic lesions in the pelvis which may represent lymphoceles, clinical correlation advised Marked thickening of the urinary bladder wall, differential would include cystitis, urinary tract outflow obstruction secondary to prostatomegaly Fluid-filled left femoral hernia which does not contain bowel
--- NOTE | 2025-01-07 04:13 | PD.EDRME ---
Rapid Medical Screening Exam RME Arrival date/time: 01/07/25 03:50 This is a case of 74-year-old male who came in in the emergency room due to lower back pain and right groin pain and swelling suggestive of possible inguinal hernia with mild abdominal pain worsening of the symptoms this patient decided to sought consult here in the emergency room Chief Complaint: Skin/Abscess/Foreign Body Vital signs: Vital Signs Temperature 97.6 F 01/07/25 04:09 Pulse Rate 98 01/07/25 04:09 Respiratory Rate 16 01/07/25 04:09 Blood Pressure 173/95 H 01/07/25 04:09 Pulse Oximetry (%) 98 01/07/25 04:09 Oxygen Delivery Method Room Air 01/07/25 04:09 Exam: Mild to moderate tenderness L1-L5 patient abdominal exam is benign nonsurgical no guarding no rebound no rigidity mild tenderness suprapubic area patient have swelling left right inguinal Clinical Impression: Chronic low back pain rule out left inguinal hernia
--- NOTE | 2025-01-07 04:32 | EDNOTE_ITS ---
ED Skin Abcess FB-RME/HPI General Chief complaint: Skin/Abscess/Foreign Body Stated complaint: RECENT PROSTATE SURGERY, LUMP ON LEFT GROIN Time Seen by Provider: 01/07/25 04:18 Arrival date/time: 01/07/25 03:50 RME / HPI RME / HPI narrative: 01/07/25 03:50 This is a case of 74-year-old male who came in in the emergency room due to lower back pain and right groin pain and swelling suggestive of possible inguinal hernia with mild abdominal pain worsening of the symptoms this patient decided to sought consult here in the emergency room See MDM for Dr. Kebede's HPI documentation. Related Data Home Medications ?Medication ?Instructions ?Recorded ?Confirmed lorazepam 1 mg tablet 1 mg PO .PRN 01/01/19 levothyroxine 125 mcg tablet 125 mcg PO QDAY 01/04/20 12/17/24 cyclobenzaprine 10 mg tablet 1 tab PO DAILY 09/28/21 1 gabapentin 300 mg capsule 1 cap PO BID 09/28/21 tramadol 200 mg tablet,extended 200 mg PO QDAY 5 12/17/24 release 24 hr Allergies Allergy/AdvReac Type Severity Reaction Status Date / Time No Known Allergies Allergy Verified 09/14/24 08:27 Review of Systems Review of Systems Systems Reviewed: All systems reviewed, normal except as documented Past Medical History Past Medical History NEUROLOGIC: Negative Neurological Disorders, Meningitis, Seizures, Paralysis or Migraine CARDIAC: Negative Cardiac Disorders, Congestive Heart Failure, Edema or Cellulitis RESPIRATORY: Negative Chronic Obstructive Pulmonary Disease (COPD), Asthma, Tuberculosis, Pulmonary Embolism, Sleep Apnea, Smoking, Smoking Cessation Counseling or Smoking Exposure GASTROINTESTINAL: Positive Gastrointestinal Disorders, Hepatitis, Diverticulosis, Hemorrhoids and Gastroesophageal Reflux Disease GENITOURINARY: Negative Genitourinary Disorders, Renal Disease or Benign Prostatic Hyperplasia MUSCULOSKELETAL: Positive Musculoskeletal Disorders and Arthritis; Negative Fractures ENT: Positive Cataracts ENDOCRINE: Positive Endocrine Disorders and Hypothyroidism (TAKES MED); Negative Diabetes Mellitus Type 1 or Diabetes Mellitus Type 2 HEMATOLOGIC: Negative Blood Disorders, Anemia or Sickle Cell Disease PSYCHO/SOCIAL: Positive Depression and Anxiety; Negative Post Traumatic Stress Disorder OTHER HISTORY: Positive Measles and Mumps; Negative Hospitalization, Autoimmune Disease, Shingles, Falls, Blood Transfusions, Blood Transfusion Reaction, Anesthesia Reactions, Chemotherapy, Radiation Therapy, MRSA, Chicken Pox or Cancer Family History FAMILY HISTORY: Positive Family Respiratory Disorders, Family Cardiac Disorders, Family Gastrointestinal Problems, Family Cancer and Family Surgery; Negative Family Psychiatric Problems or Family Anesthesia Reaction Surgical History SURGICAL: Positive Nose Surgery; Negative Cardiac Surgery, Pacemaker, Endocrine Surgery, Thyroidectomy, Ear Surgery, Abdominal Surgery or Vasectomy Social History SMOKING STATUS: Never smoker ED Exam Narrative Physical exam: See [facility] for Dr. Kebede's physical exam documentation. Course Quality Measures none Orders Category Date Time Status CT abdomen pelvis wo con Stat Exams 01/07/25 04:09 Completed Vital Signs Vital signs: Vital Signs Temperature 97.6 F 01/07/25 04:09 Pulse Rate 98 01/07/25 04:09 Respiratory Rate 16 01/07/25 04:09 Blood Pressure 173/95 H 01/07/25 04:09 Pulse Oximetry (%) 98 01/07/25 04:09 Oxygen Delivery Method Room Air 01/07/25 04:09 Skin / Abscess / Foreign Body MDM Narrative [facility] Narrative:: This section includes all my notes and documentations, including HPI, PE, and ED course. Zurdo Kebede MD HPI: 74yo male here with left groin bulge with pain in the past few hours. No nausea or vomiting. No abdominal pain. No other complaints. ROS: All negative except as documented in HPI. Physical Exam: General: Alert and oriented. No acute distress when remaining still. Eyes: Conjunctivae and lids clear. ENT: No nasal congestion. Neck: Supple. Heart: RRR. Lungs: No respiratory distress. Good air movement. No rhonchi, wheezing, rales. Abdomen: Soft and nontender. Normal bowel sounds. No distension. No rebound or guarding. Back: No CVA tenderness. Skin: Warm and dry. Neuro: Alert and oriented X 3. Genitalia: Left inguinal hernia noted. I reviewed all diagnostic test results. My review of the CT abdomen pelvis report is left femoral hernia not containing bowel. At this point, diagnoses include: Left inguinal hernia Hernia successfully reduced. Patient felt much better. Recommended outpatient follow-up Based on my best medical judgment, made decision no further evaluation or treatment indicated at this time. Patient understands and agrees to the discharge instructions customized and printed, see below. Discharge Instructions from Dr. Kebede: -- You had left inguinal hernia (intestines coming outside through the inguinal tunnel). But it has been reduced, meaning the intestines went back inside. -- Even if the intestines were outside. There is no emergency unless the intestines get twisted, cutting off the blood supply. -- Avoid intra-abdominal pressure (from coughing too hard, pushing too hard during bowel movements, lifting anything heavy, etc). -- You can wear support briefs. -- See a private doctor on 01/08/2025 for recheck. Ask for help to see a surgeon, to discuss elective surgery to prevent future emergencies. -- Seek immediate medical care with new episode of groin bulging or with any concerns. Zurdo Kebede MD Patient data External records reviewed:: [facility] previous records (Per chart review, patient has no relevant previous ED visits.) Clinical information provided by:: patient Social determinants that could affect healthcare access:: none Patient has the following chronic illnesses:: prostate CA How is presenting disease/condition affected by chronic disease/condition?: uneffected by Evaluation data The following diagnostics were reviewed and interpreted by me:: lab results and radiology exam(s) Lab and/or radiology exams considered but not ordered:: none Interpretation Summary: I reviewed all diagnostic test results. My review of the CT abdomen pelvis report is left femoral hernia not containing bowel. Medications / Prescriptions Medications or Prescriptions considered but not ordered:: none Medication administrations:: none Consultations Consultation(s) initiated? (list below): No Diagnosis Skin/Abscess Differential Diagnosis: abscess of skin or subcutaneous tissue, cellulitis, insect bites and other (Hernia) Most likely diagnosis given after review of the tests above:: Left inguinal hernia, reduced. Admission Indicated Admission indicated?: not indicated Explain why admission is indicated or not indicated:: With significant improvement and no condition needing emergent intervention, there was no indication for admission. Admission Request Was there a request for admission?: No Disposition Plan Disposition Plan: Discharge Discharge Attestation Discharge Attestation: The patient and all family members were given an opportunity to ask questions and understood the discharge instructions. Discharge instructions specifically effects, indications for sooner follow up or return to the emergency department, and the expected course of current diagnosis. Patient condition: Stable Discharge Plan Plan Patient Disposition: HOME (Self Care) Prescriptions/Referrals Prescriptions/Med Rec: No Action lorazepam 1 mg tablet 1 mg PO .PRN tramadol 200 mg tablet extended release 24 hr 200 mg PO QDAY cyclobenzaprine 10 mg tablet 1 tab PO DAILY gabapentin 300 mg capsule 1 cap PO BID Patient Comments: TAKE 1 CAPSULE BY MOUTH THREE TIMES A DAY levothyroxine 125 mcg Tablet 125 mcg PO QDAY Referrals: Anand Nunn MD [Primary Care Provider, Family Practice] - In 1 week Problem List Clinical Impression: Left inguinal hernia Patient/Caregiver Discharge Instructions Discharge Activity: activity as tolerated Education Materials: ED Hernia (Adult) Additional Instructions: Discharge Instructions from Dr. Kebede: -- You had left inguinal hernia (intestines coming outside through the inguinal tunnel). But it has been reduced, meaning the intestines went back inside. -- Even if the intestines were outside. There is no emergency unless the intestines get twisted, cutting off the blood supply. -- Avoid intra-abdominal pressure (from coughing too hard, pushing too hard during bowel movements, lifting anything heavy, etc).? -- You can wear support briefs. -- See a private doctor on 01/08/2025 for recheck. Ask for help to see a surgeon, to discuss elective surgery to prevent future emergencies. -- Seek immediate medical care with new episode of groin bulging or with any concerns. Print Language: Setswana Stand Alone Forms: [employer] Award Info., Patient Portal Info Letter
--- NOTE | 2025-01-07 07:22 | PRELIM_ITS ---
CT scan of the abdomen and pelvis without intravenous contrast (axial sections with sagittal and coronal reformats) January 07, 2025 0428 hours Clinical History: Incaerated hernia. Comparison: November 27, 2024 Findings: The lung bases are clear. Stable small cystic lesion in the right inferior liver lobe measuring 1.2 cm. Increased left moderate hydroureteronephrosis without evidence of obstructing calculus. New large well-defined homogeneous cystic lesion in the left anterior hemipelvis adjacent to the left lateral bladder wall measuring 8.2 x 6.0 x 9.3 cm New small well-defined cystic lesion in the right anterior hemipelvis adjacent to the right lateral wall measuring 2.6 x 1.8 cm. Stable diffuse wall thickening of the urinary bladder with surrounding fat stranding. The urinary bladder is compressed and displaced to the right side by the large cystic lesion in the left hemipelvis as described above. The gallbladder, pancreas, spleen, right kidney and adrenals are unremarkable on this noncontrast study. No evidence of bowel obstruction. The appendix is most clearly visualized, no defined evidence inflammatory changes in the right lower quadrant to suggest acute appendicitis. Chronic diverticulosis is noted. There is no mesenteric or retroperitoneal adenopathy. There is no free fluid or free air. 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 New small fluid-filled left femoral hernia. Stable mild bilateral inguinal lymphadenectomy Stable small bilateral hydrocele. Impression: Increased left moderate hydroureteronephrosis without evidence of obstructing calculus. Recommend neurologist consultation and follow-up New well-defined cystic lesions in bilateral hemipelvic regions suggesting seromas/ lymphoceles. New small fluid-filled left femoral hernia without evidence of incarceration. Persistent acute on chronic cystitis. Recommend clinical and laboratory correlation. Other findings as described above Report Electronically Signed By: Galen Blackwell 01/07/2025 7:21:33 AM [EST]
== END 2025-01-07 05:28 | disposition home or self-care (01) ==
PROVIDERS: Emergency Provider Emergency Medicine; PCP Family Medicine
DX: K40.90 Unilateral inguinal hernia, without obstruction or gangrene, not specified as recurrent (principal)
CPT/HCPCS: 74176; 80053; 81001; 83690; 85025; 99282

== ENCOUNTER 2025-01-22 08:44 | Emergency (ER) | payer OTHER, SELFPAY ==
[2025-01-22 08:50] VITALS: BP 130/59; PULSE 109; RESP 18; TEMP 36.7; O2SAT 97; BMI 23.6
--- NOTE | 2025-01-22 09:01 | PD.EDADULT ---
ED General RME/HPI General Chief complaint: General Adult/Misc Complain Stated complaint: CHECKING IN FOR SURGERY BY DR. CAMILO Time Seen by Provider: 01/22/25 08:51 Source: patient Arrival date/time: 01/22/25 08:44 74-year-old male with no known medical history presents to the emergency room with a chief complaint of tenderness and swelling to his left groin. Mode of arrival: ambulatory Limitations: no limitations Related Data Home Medications ?Medication ?Instructions ?Recorded ?Confirmed lorazepam 1 mg tablet 1 mg PO .PRN 01/01/19 12/17/24 levothyroxine 125 mcg tablet 125 mcg PO QDAY 01/04/20 12/17/24 cyclobenzaprine 10 mg tablet 1 tab PO DAILY 09/28/21 12/17/24 gabapentin 300 mg capsule 1 cap PO BID 09/28/21 12/17/24 tramadol 200 mg tablet,extended 200 mg PO QDAY 08/16/24 12/17/24 release 24 hr Previous Rx's ?Medication ?Instructions ?Recorded hydrocodone 5 mg-acetaminophen 325 1 tab PO BID PRN pain #14 tabs 01/22/25 mg tablet Allergies Allergy/AdvReac Type Severity Reaction Status Date / Time No Known Allergies Allergy Verified 01/22/25 08:47 Review of Systems Review of Systems Systems Reviewed: All systems reviewed, normal except as documented Constitutional Constitutional: Reports system reviewed and no additional complaints, except as documented, Denies fatigue, Denies fever(s), Denies headache(s) and Denies weakness Eyes Eyes: Reports system reviewed and no additional complaints, except as documented, Denies blurry vision and Denies change in vision ENT Ears, Nose, Mouth, and Throat: Reports system reviewed and no additional complaints, except as documented, Denies otalgia, Denies headache(s), Denies nasal congestion, Denies throat swelling and Denies vertigo Cardiovascular Cardiovascular: Reports system reviewed and no additional complaints, except as documented, Denies chest pain, Denies dyspnea and Denies dyspnea on exertion Respiratory Respiratory: Reports system reviewed and no additional complaints, except as documented, Denies chest congestion, Denies cough, Denies dyspnea, Denies dyspnea on exertion and Denies wheezing Gastrointestinal Gastrointestinal: Reports system reviewed and no additional complaints, except as documented, Denies abdominal pain, Denies cramping, Denies nausea and Denies vomiting Genitourinary Genitourinary: Reports system reviewed and no additional complaints, except as documented, Denies dysuria and Denies hematuria Musculoskeletal Musculoskeletal: Reports system reviewed and no additional complaints, except as documented and Denies back pain Integumentary/Breasts Skin/Breast: Reports system reviewed and no additional complaints, except as documented and Denies wounds Neurologic Neurologic: Reports system reviewed and no additional complaints, except as documented, Denies confusion, Denies headache(s), Denies lack of coordination, Denies vertigo and Denies weakness Psychiatric Psychiatric: Reports system reviewed and no additional complaints, except as documented, Denies anxiety, Denies confusion, Denies depression, Denies paranoia, Denies suicidal ideation and Denies tactile hallucinations Endocrine Endocrine: Reports system reviewed and no additional complaints, except as documented and Denies fatigue Hematologic/Lymphatic Hematologic/Lymphatic: Reports system reviewed and no additional complaints, except as documented and Denies lymphadenopathy Allergic/Immunologic Allergic/Immunologic: Reports system reviewed and no additional complaints, except as documented, Denies throat swelling, Denies urticaria and Denies wheezing Past Medical History Past Medical History NEUROLOGIC: Negative Neurological Disorders, Meningitis, Seizures, Paralysis or Migraine CARDIAC: Negative Cardiac Disorders, Congestive Heart Failure, Edema or Cellulitis RESPIRATORY: Negative Chronic Obstructive Pulmonary Disease (COPD), Asthma, Tuberculosis, Pulmonary Embolism, Sleep Apnea, Smoking, Smoking Cessation Counseling or Smoking Exposure GASTROINTESTINAL: Positive Gastrointestinal Disorders, Hepatitis, Diverticulosis, Hemorrhoids and Gastroesophageal Reflux Disease GENITOURINARY: Positive Prostate Cancer; Negative Genitourinary Disorders, Renal Disease or Benign Prostatic Hyperplasia MUSCULOSKELETAL: Positive Musculoskeletal Disorders and Arthritis; Negative Fractures ENT: Positive Cataracts ENDOCRINE: Positive Endocrine Disorders and Hypothyroidism; Negative Diabetes Mellitus Type 1 or Diabetes Mellitus Type 2 HEMATOLOGIC: Negative Blood Disorders, Anemia or Sickle Cell Disease PSYCHO/SOCIAL: Positive Depression and Anxiety; Negative Post Traumatic Stress Disorder OTHER HISTORY: Positive Measles, Mumps and Prostate Cancer; Negative Hospitalization, Autoimmune Disease, Shingles, Falls, Blood Transfusions, Blood Transfusion Reaction, Anesthesia Reactions, Chemotherapy, Radiation Therapy, MRSA, Chicken Pox or Cancer Family History FAMILY HISTORY: Positive Family Respiratory Disorders, Family Cardiac Disorders, Family Gastrointestinal Problems, Family Cancer and Family Surgery; Negative Family Psychiatric Problems or Family Anesthesia Reaction Surgical History SURGICAL: Positive Nose Surgery; Negative Cardiac Surgery, Pacemaker, Endocrine Surgery, Thyroidectomy, Ear Surgery, Abdominal Surgery or Vasectomy Social History SMOKING STATUS: Never smoker ED Exam General Limitations: Present no limitations General appearance: Present alert and in no apparent distress Head Head exam: Present atraumatic Eye Eye exam: Present normal appearance, PERRL and EOMI ENT ENT exam: Present normal exam, normal oropharynx and mucous membranes moist Neck Neck exam: Present normal inspection, full ROM and trachea midline Chest Chest inspection: Present normal inspection and symmetric chest wall rise Respiratory Respiratory exam: Present normal lung sounds bilaterally Cardiovascular Cardiovascular exam: Present regular rate, normal rhythm and normal heart sounds Abdominal Exam Abdominal exam: Present soft, tenderness and normal bowel sounds; Absent distention, guarding, rebound or rigidity Abdominal tenderness: Present LLQ and suprapubic Extremities Exam Extremities exam: Present normal inspection and full ROM Back Exam Back exam: Present normal inspection and full ROM Neurological Exam Neurological exam: Present alert, oriented X3 and CN II-XII intact Psychiatric Psychiatric exam: Present normal affect and normal mood Skin Skin exam: Present warm, dry, intact and normal color Course Quality Measures none Orders Category Date Time Status CT abdomen pelvis wo con Stat Exams 01/22/25 09:15 Completed CBC Stat Lab 01/22/25 09:26 Completed CMP [Comprehensive Metabolic Panel] Stat Lab 01/22/25 09:26 Completed Lipase Stat Lab 01/22/25 09:26 Completed PT [Prothrombin Time with INR] Stat Lab 01/22/25 09:26 Completed PTT [Partial Thromboplastin Time] Stat Lab 01/22/25 09:26 Completed HYDROcodone*/APAP 5/325 [[place] 5/325] Med 01/22/25 10:42 Discontinued 1 tab PO X1 ONE Vital Signs Vital signs: Vital Signs Temperature 98.1 F 01/22/25 08:50 Pulse Rate 109 H 01/22/25 08:50 Respiratory Rate 18 01/22/25 08:50 Blood Pressure 130/59 L 01/22/25 08:50 Pulse Oximetry (%) 97 01/22/25 08:50 Oxygen Delivery Method Room Air 01/22/25 08:50 Discharge Plan Plan Patient Disposition: HOME (Self Care) Discharge Disposition comment: Stable Prescriptions/Referrals Prescriptions/Med Rec: New hydrocodone-acetaminophen 5-325 mg tablet 1 tab PO BID MDD 10mg PRN (Reason: pain) Qty: 14 0RF No Action lorazepam 1 mg tablet 1 mg PO .PRN tramadol 200 mg tablet extended release 24 hr 200 mg PO QDAY cyclobenzaprine 10 mg tablet 1 tab PO DAILY gabapentin 300 mg capsule 1 cap PO BID Patient Comments: TAKE 1 CAPSULE BY MOUTH THREE TIMES A DAY levothyroxine 125 mcg Tablet 125 mcg PO QDAY Referrals: Anand Nunn MD [Primary Care Provider, [facility]] - In 1 week Problem List Clinical Impression: Pelvic mass in male Patient/Caregiver Discharge Instructions Additional Instructions: Please follow-up with your general surgeon in the next [address] of your abdomen and pelvis was completed and found a large pelvic mass. I spoke to your surgeon today and you have a scheduled surgery on 01/29/2025. The surgeons office will reach out to you later this week with further details. Pain medication was sent to your pharmacy please pick it up and take it as indicated For any evidence of worsening signs or symptoms return to the emergency room immediately Print Language: Irish Stand Alone Forms: [employer] Info., Work/School Release, Patient Portal Info Letter MDM Narrative MDM hospital course (for use when minimal MDM required): 74-year-old male with no known medical history presents to the emergency room with a chief complaint of tenderness and swelling to his left groin. Patient is hemodynamically stable and in no apparent distress. Patient is afebrile Physical examination shows tenderness and swelling to the left groin. Patient states he has an appointment with Dr. Camilo today for surgery to remove a mass in his groin. I called Dr. Camilo our surgeon on-call and he states that the patient surgery is next Tuesday and not today. A CT of the abdomen and pelvis was completed and shows a mass in the groin area. The patient has a follow-up appointment with Dr. Camilo and will have this mass removed on Tuesday. Pain medication was sent to the patient's pharmacy Patient was discharged and educated to follow-up with primary care provider in the next 24 to 48 hours and return to the emergency room for any evidence of worsening signs or symptoms Clinical Information Provided by: patient Medical Records reviewed None Meds/Rx considered, not ordered None Labs/Rad/Tests considered, not ordered None Chronic Illness/Social Conditions which may negatively complicate care or outcome(s)-explain: None or not applicable EKG EKG not done Labs Labs: none Imaging Imaging interpretation: none Imaging Interpretation(s): Findings: No focal liver or splenic lesions No gallstones No pancreatic mass Minimal nodular thickening left adrenal gland Moderate left hydronephrosis, likely secondary to large cystic mass in the pelvis, 8.8 cm, displacing and indenting the urinary bladder Mild urinary bladder wall thickening The cystic mass in the pelvis extends into a left inguinal hernia No bladder mass Moderate osteopenia IMPRESSION: Moderate left hydronephrosis which appears to be secondary to large cystic mass in the pelvis 8.8 cm displacing and indenting urinary bladder The cystic mass may represent a lymphocele, clinical correlation advised This cystic mass appears to extend into the left inguinal hernia Medication Administration(s) Medication Administration History Discontinued Medications Hydrocodone Bitart/Acetaminophen (Hydrocodone/Apap 5/325 Tablet) 1 tab PO X1 ONE Stop: 01/22/25 10:43 Last Admin: 01/22/25 10:47 Dose: 1 tab Documented By: Rx given Diagnosis Differential Diagnosis ED Complaint MDM: Pelvic mass
--- NOTE | 2025-01-22 09:15 | XR_ITS ---
Examination: CT abdomen and pelvis without contrast. Coronal 3-D reconstructions. Sagittal 2-D reconstructions. Date and time of exam: January 22, 2025, 1007 hours INDICATIONS: Onset left lower abdominal pain today COMPARISON: January 07, 2025 CTDI: vol (mGy): 6.1 DLP: (mGycm): 358 Technique: Axial images of the abdomen have been obtained, 3 mm slice thickness Intravenous contrast material has not been administered. Low dose protocols were performed. One or more of the following dose reduction techniques were used; automated exposure control, adjustment of the mA and/or KV according to patient size, use of iterative reconstruction technique. Findings: No focal liver or splenic lesions No gallstones No pancreatic mass Minimal nodular thickening left adrenal gland Moderate left hydronephrosis, likely secondary to large cystic mass in the pelvis, 8.8 cm, displacing and indenting the urinary bladder Mild urinary bladder wall thickening The cystic mass in the pelvis extends into a left inguinal hernia No bladder mass Moderate osteopenia IMPRESSION: Moderate left hydronephrosis which appears to be secondary to large cystic mass in the pelvis 8.8 cm displacing and indenting urinary bladder The cystic mass may represent a lymphocele, clinical correlation advised This cystic mass appears to extend into the left inguinal hernia
[2025-01-22 09:43] LABS: Basophils # (Auto) 0.0 Thou/mm3 (0.0-0.2); Basophils % (Auto) 0 % (0-2.5); Eosinophils # (Auto) 0.0 Thou/mm3 (0.0-0.5); Eosinophils % (Auto) 0 % (0-10); Hematocrit 38.1 % (41.0-53.0); Hemoglobin 12.4 g/dL (13.5-16.0); Immature Granulocytes Auto 0.04 Thou/mm3 (0.00-0.00); Lymphocytes # (Auto) 0.8 Thou/mm3 (1.0-4.8); Lymphocytes % (Auto) 7 % (10-50); Mean Corpuscular HGB Conc 32.5 g/dl (31.0-37.0); Mean Corpuscular Hemoglobin 30.8 pg (25.0-35.0); Mean Corpuscular Volume 95 fL (80-100); Monocytes # (Auto) 1.3 Thou/mm3 (0.0-0.8); Monocytes % (Auto) 12 % (0-12); Neutrophils # (Auto) 8.6 Thou/mm3 (1.8-7.7); Neutrophils % (Auto) 80 % (37-80); Nucleated Red Blood Cell # 0.00 Thou/mm3 (0.00-0.00); Nucleated Red Blood Cell % 0 /100 WBC (0); Platelet Count 352 Thou/mm3 (140-440); RDW Standard Deviation 45.1 fL (35.1-43.9); Red Blood Count 4.02 Miln/mm3 (4.50-5.90); White Blood Count 10.8 Thou/mm3 (3.8-10.6)
[2025-01-22 09:50] LABS: INR 1.0 (0.9-1.3); Partial Thromboplastin Time 33.3 Seconds (22.0-36.0); Prothrombin Time 10.8 Seconds (9.0-12.2)
[2025-01-22 10:05] LABS: Alanine Aminotransferase < 7 U/L (10-49); Albumin, Serum 4.6 gm/dL (3.4-4.8); Albumin/Globulin Ratio 1.9 (1.2-2.2); Alkaline Phosphatase 93 U/L (46-116); Anion Gap 13 (7-16); Aspartate Amino Transferase 11 U/L (0-34); BUN/Creatinine Ratio 9 Ratio (12-20); Bilirubin,Total 0.7 mg/dL (0.3-1.2); Blood Urea Nitrogen 14 mg/dL (9-23); Calcium 9.4 mg/dL (8.3-10.6); Calcium (Corrected) 9.4 mg/dL (8.5-10.1); Carbon Dioxide 24.4 mMol/L (20.0-31.0); Chloride 97 mMol/L (98-107); Creatinine (Component) 1.5 mg/dL (0.6-1.3); Estimated Creatinine Clearance 42.6 mL/min (>60); Globulin 2.4 gm/dL (2.3-3.5); Glucose 97 mg/dL (74-106); Lipase 22 U/L (12-53); Osmolality,Calculated 268 (275-295); Potassium 4.8 mMol/L (3.4-5.1); Sodium 134 mMol/L (136-145); Total Protein 7.0 gm/dL (5.7-8.2); eGFR 48 See Note
[2025-01-22] MEDS: HYDROcodone/APAP 5/325 TABLET 1 TAB PO (10:47)
== END 2025-01-22 11:13 | disposition home or self-care (01) ==
PROVIDERS: Nurse Practitioner Family; Emergency Provider Emergency Medicine; PCP Family Medicine
DX: R19.00 Intra-abdominal and pelvic swelling, mass and lump, unspecified site (principal)
CPT/HCPCS: 36415; 74176; 80053; 81001; 83690; 85025; 85610; 85730; 87086; 99283; A9270

== ENCOUNTER 2025-01-29 09:35 | Day surgery (SDC) | payer OTHER, SELFPAY ==
--- NOTE | 2025-01-28 07:00 | EKG_ITS ---
[facility] Test Date: 2025-01-28 Pat Name: RAMIREZ MARTELL Department: Room: - Gender: Male Critical [facility] 1950 Requested By: Adrian Camilo Order Number: [id number] Reading MD: Adrian Camilo Measurements Intervals [place] Rate: 97 P: ME: QRS: 21 QRSD: 94 T: 49 QT: 340 QTc: 434 Interpretive Statements ATRIAL FIBRILLATION ABNORMAL RHYTHM ECG Compared to ECG 06/18/2021 19:56:40 Sinus rhythm no longer present /store/S0/[id number].pdf
[2025-01-28 07:28] VITALS: BMI 23.4
[2025-01-28 09:10] LABS: Basophils # (Auto) 0.1 Thou/mm3 (0.0-0.2); Basophils % (Auto) 1 % (0-2.5); Eosinophils # (Auto) 0.2 Thou/mm3 (0.0-0.5); Eosinophils % (Auto) 3 % (0-10); Hematocrit 35.7 % (41.0-53.0); Hemoglobin 11.7 g/dL (13.5-16.0); Immature Granulocytes Auto 0.01 Thou/mm3 (0.00-0.00); Lymphocytes # (Auto) 1.5 Thou/mm3 (1.0-4.8); Lymphocytes % (Auto) 23 % (10-50); Mean Corpuscular HGB Conc 32.8 g/dl (31.0-37.0); Mean Corpuscular Hemoglobin 30.3 pg (25.0-35.0); Mean Corpuscular Volume 93 fL (80-100); Monocytes # (Auto) 0.9 Thou/mm3 (0.0-0.8); Monocytes % (Auto) 13 % (0-12); Neutrophils # (Auto) 4.1 Thou/mm3 (1.8-7.7); Neutrophils % (Auto) 60 % (37-80); Nucleated Red Blood Cell # 0.00 Thou/mm3 (0.00-0.00); Nucleated Red Blood Cell % 0 /100 WBC (0); Platelet Count 475 Thou/mm3 (140-440); RDW Standard Deviation 43.8 fL (35.1-43.9); Red Blood Count 3.86 Miln/mm3 (4.50-5.90); White Blood Count 6.8 Thou/mm3 (3.8-10.6)
[2025-01-28 09:30] LABS: Alanine Aminotransferase < 7 U/L (10-49); Albumin, Serum 4.2 gm/dL (3.4-4.8); Albumin/Globulin Ratio 1.7 (1.2-2.2); Alkaline Phosphatase 84 U/L (46-116); Anion Gap 9 (7-16); Aspartate Amino Transferase 12 U/L (0-34); BUN/Creatinine Ratio 12 Ratio (12-20); Bilirubin,Total 0.4 mg/dL (0.3-1.2); Blood Urea Nitrogen 16 mg/dL (9-23); Calcium 9.1 mg/dL (8.3-10.6); Calcium (Corrected) 9.1 mg/dL (8.5-10.1); Carbon Dioxide 28.0 mMol/L (20.0-31.0); Chloride 100 mMol/L (98-107); Creatinine (Component) 1.3 mg/dL (0.6-1.3); Estimated Creatinine Clearance 47.5 mL/min (>60); Globulin 2.5 gm/dL (2.3-3.5); Glucose 105 mg/dL (74-106); Osmolality,Calculated 275 (275-295); Potassium 4.1 mMol/L (3.4-5.1); Sodium 137 mMol/L (136-145); Total Protein 6.7 gm/dL (5.7-8.2); eGFR 57 See Note
--- NOTE | 2025-01-28 15:20 | SUR.PREOP ---
Pt notified to come in at 0930 tomorrow for surgery.
[2025-01-29] VITALS (8 sets, daily range): BP systolic 118–138; BP diastolic 64–86; PULSE 85–95; RESP 12–18; TEMP 36.1–36.7; O2SAT 97–99; BMI 23.3
--- NOTE | 2025-01-29 10:30 | CHAP ---
Visited with patient and gave encouragement. Patient did want prayer, just a chance to talk.
--- NOTE | 2025-01-29 12:35 | ESOP_ITS ---
Date of Procedure 01/29/25 Pre Op Diagnosis Incarcerated left femoral hernia Post Op Diagnosis Incarcerated left femoral hernia Procedure Primary repair of incarcerated left femoral hernia Findings Incarcerated left femoral hernia with fluid-filled sac. There was no evidence of inguinal adenopathy at this time Procedure Description Patient brought into the operating room in supine position. After administration of general endotracheal anesthesia, patient's left groin prepped and draped in standard surgical manner. After administration of local anesthesia approximately 4 cm incision was made over the femoral hernia defect. Dissection was deepened into soft tissue and Benjamín's fascia was divided. There was no evidence of lymphadenopathy. The hernia sac was identified and circumferentially dissected out surrounding tissue. The sac was opened, there were some fluid that was emanating from the sac, the fluid was suctioned. The sac was ligated near the defect. The defect was very small less than 1 cm. Because the defect was too small to accommodate a mesh plug I elected to primarily repair it. The inferior aspect of the inguinal ligament was approximated to the Dion's ligament with interrupted sutures using 0 Prolene to close the defect. Hemostasis was adequate and satisfactory. Benjamín's fascia reapproximated with interrupted sutures using 2-0 Vicryl. Subcutaneous tissue closed with interrupted sutures using 3-0 Vicryl and incision was closed with 4 Monocryl in subcuticular fashion. Dermabond and sterile pressure dressings applied. Patient tolerated procedure well. He was extubated, breathing spontaneously without difficulty and was transferred to postanesthesia care in stable condition. Instruments, needles and sponge counts were reported to be correct x 2. Anesthesia GETA and local Pathology / specimen Other (Hernia sac) Estimated Blood Loss 5 Condition Stable Disposition PACU Surgeon Adrian Camilo MD Surgical Staff Operation Date: 01/29/25 11:30 Case Staff HUMAN RESOURCE STATISTICIAN: Ezio Aguila RN First Assistant: Gloria Olvera
--- NOTE | 2025-01-29 12:40 | SUR.PHASEI ---
pt arrived to PACU via gurney drowsy but arouses to voice, breathing unlabored, dressing to left groin clean, dry, and intact, report from Jhoana EDWARDS and Azar STARK
--- NOTE | 2025-01-29 13:00 | SUR.PHASEI ---
pt tolerating ice chips without difficulty swallowing or n/v
--- NOTE | 2025-01-29 13:19 | SUR.PHASEII ---
report to Christine RN
--- NOTE | 2025-01-29 14:25 | SUR.PHASEII ---
1319: Assumed care. Pt fully awake, oriented x3. VS stable. Sitting up tolerating po fluids with no difficulty swallowing and no n/v. Dressing to right upper femoral region dry, clean, intact. 1405: VS stable. Dressing remains dry, clean, intact. Denies pain. Pt dressed and abdominal binder placed. Pt assisted to transport chair. Ambulation steady. Pt and friend stated understanding of discharge instructions. Pt also instructed to picker and sorter load and unload his prescription at [facility]. Pt discharged from Pacu in stable condition.
== END 2025-01-29 14:05 | disposition home or self-care (01) ==
PROVIDERS: Anesthesiology; PCP Family Medicine; Referring Provider Surgery; Visit Provider Surgery
PROC: (CPT 49553; principal; 2025-01-29 11:30)
DX: K41.30 Unilateral femoral hernia, with obstruction, without gangrene, not specified as recurrent (principal); Z01.810 Encounter for preprocedural cardiovascular examination; E03.9 Hypothyroidism, unspecified; M54.9 Dorsalgia, unspecified; G89.29 Other chronic pain
CPT/HCPCS: 49553; 36415; 80053; 85025; 93005; A4649; J0131; J0690; J1171; J2250; J2704; J3010; J3490; J1596

== ENCOUNTER 2025-02-04 11:59 | Inpatient (IN) | payer OTHER, MEDICARE, SELFPAY ==
[2025-02-04 12:00] VITALS: BMI 22.8
[2025-02-04 12:09] VITALS: BP 114/76; PULSE 91; RESP 17; TEMP 36.5; O2SAT 99
--- NOTE | 2025-02-04 12:16 | XR_ITS ---
Examination: Duplex scan of the lower extremity, unilateral left Date and time of exam: February 04, 2025, 1326 hours INDICATION: Left leg swelling and pain beginning 3 weeks ago Technique: Duplex scan of the extremity veins using B-mode/grayscale imaging and Doppler spectral analysis and color flow Attention is directed to internal echogenicity, compression and augmentation involving these veins, color flow assessment, spectral analysis Findings: Positive for acute thrombus in the left common femoral, superficial femoral, popliteal, peroneal as well as superficial greater saphenous vein IMPRESSION: Extensive acute deep vein thrombus
--- NOTE | 2025-02-04 12:18 | PD.EDRME ---
Rapid Medical Screening Exam [facility] Arrival date/time: 02/04/25 11:59 74-year-old male with history of hypothyroidism, arthritis, presents to the emergency room with a chief complaint of tenderness and swelling to his left lower extremity x 2 days. Patient also recently had a recent hernia repair I have greeted and performed a focused initial assessment of this patient. A comprehensive ED assessment and evaluation of the patient, analysis of all test results, and completion of the medical decision making process will be conducted by additional ED providers. Chief Complaint: Extremity Injury, Lower Time Seen by Provider: 02/04/25 12:05 Vital signs: Vital Signs Temperature 97.7 F 02/04/25 12:09 Pulse Rate 91 02/04/25 12:09 Respiratory Rate 17 02/04/25 12:09 Blood Pressure 114/76 02/04/25 12:09 Pulse Oximetry (%) 99 02/04/25 12:09 Vital signs reviewed by provider: Yes Exam: Left lower extremity swelling and tenderness. Positive Homans' sign Clear bilaterally Clinical Impression: DVT/cellulitis
[2025-02-04 13:26] LABS: Basophils # (Auto) 0.0 Thou/mm3 (0.0-0.2); Basophils % (Auto) 1 % (0-2.5); Eosinophils # (Auto) 0.3 Thou/mm3 (0.0-0.5); Eosinophils % (Auto) 5 % (0-10); Hematocrit 35.2 % (41.0-53.0); Hemoglobin 11.5 g/dL (13.5-16.0); Immature Granulocytes Auto 0.01 Thou/mm3 (0.00-0.00); Lymphocytes # (Auto) 1.6 Thou/mm3 (1.0-4.8); Lymphocytes % (Auto) 23 % (10-50); Mean Corpuscular HGB Conc 32.7 g/dl (31.0-37.0); Mean Corpuscular Hemoglobin 30.5 pg (25.0-35.0); Mean Corpuscular Volume 93 fL (80-100); Monocytes # (Auto) 0.9 Thou/mm3 (0.0-0.8); Monocytes % (Auto) 12 % (0-12); Neutrophils # (Auto) 4.0 Thou/mm3 (1.8-7.7); Neutrophils % (Auto) 59 % (37-80); Nucleated Red Blood Cell # 0.00 Thou/mm3 (0.00-0.00); Nucleated Red Blood Cell % 0 /100 WBC (0); Platelet Count 461 Thou/mm3 (140-440); RDW Standard Deviation 44.6 fL (35.1-43.9); Red Blood Count 3.77 Miln/mm3 (4.50-5.90); White Blood Count 6.8 Thou/mm3 (3.8-10.6)
[2025-02-04 13:55] LABS: INR 1.0 (0.9-1.3); Partial Thromboplastin Time 29.3 Seconds (22.0-36.0); Prothrombin Time 10.3 Seconds (9.0-12.2)
[2025-02-04 14:03] LABS: D-Dimer 3240 ng/mL (<600)
[2025-02-04 14:30] LABS: Alanine Aminotransferase < 7 U/L (10-49); Albumin, Serum 4.0 gm/dL (3.4-4.8); Albumin/Globulin Ratio 1.6 (1.2-2.2); Alkaline Phosphatase 86 U/L (46-116); Anion Gap 7 (7-16); Aspartate Amino Transferase 15 U/L (0-34); BUN/Creatinine Ratio 10 Ratio (12-20); Bilirubin,Total 0.2 mg/dL (0.3-1.2); Blood Urea Nitrogen 14 mg/dL (9-23); Calcium 9.0 mg/dL (8.3-10.6); Calcium (Corrected) 9.0 mg/dL (8.5-10.1); Carbon Dioxide 27.6 mMol/L (20.0-31.0); Chloride 109 mMol/L (98-107); Creatinine (Component) 1.4 mg/dL (0.6-1.3); Estimated Creatinine Clearance 45.3 mL/min (>60); Globulin 2.5 gm/dL (2.3-3.5); Glucose 94 mg/dL (74-106); Osmolality,Calculated 287 (275-295); Potassium 4.8 mMol/L (3.4-5.1); Sodium 144 mMol/L (136-145); Total Protein 6.5 gm/dL (5.7-8.2); eGFR 52 See Note
[2025-02-04 18:04] VITALS: BP 134/85; PULSE 82; RESP 18; TEMP 36.4; O2SAT 98
--- NOTE | 2025-02-04 19:03 | EKG_ITS ---
[facility] Test Date: 2025-02-04 Pat Name: RAMIREZ MARTELL Department: Room: - Gender: Male [employer] Equipment [employer]: : 1950 Requested By: Felix Gillette Order Number: [id number] Reading MD: Felix Gillette Measurements Intervals [place] Rate: 79 P: [place]: QRS: 1 QRSD: 89 T: 40 QT: 380 QTc: 437 Interpretive Statements ATRIAL FIBRILLATION POSSIBLE RIGHT VENTRICULAR CONDUCTION DELAY [RSR (QR) IN V1/V2] ABNORMAL RHYTHM ECG Compared to ECG 01/28/2025 09:11:32 No significant changes /store/S0/[id number]/[id number].pdf
--- NOTE | 2025-02-04 19:06 | PD.EDRME ---
Rapid Medical Screening Exam [facility] Arrival date/time: 02/04/25 11:59 02/04/25 11:59 74-year-old male with history of hypothyroidism, arthritis, presents to the emergency room with a chief complaint of tenderness and swelling to his left lower extremity x 7 days. Patient also recently had a recent hernia repair I have greeted and performed a focused initial assessment of this patient. A comprehensive ED assessment and evaluation of the patient, analysis of all test results, and completion of the medical decision making process will be conducted by additional ED providers. Chief Complaint: Extremity Injury, Lower Time Seen by Provider: 02/04/25 12:05 Vital signs: Vital Signs Temperature 97.7 F 02/04/25 12:09 Pulse Rate 91 02/04/25 12:09 Respiratory Rate 17 02/04/25 12:09 Blood Pressure 114/76 02/04/25 12:09 Pulse Oximetry (%) 99 02/04/25 12:09 RME Narrative: 02/04/25 11:59 74-year-old male with history of prostate cancer followed by Dr. Mckeon and [facility] providers status post prostatectomy, inguinal hernia status postsurgery 1 week ago, CKD stage IIIb, chronic back pain since secondary to back injury, hypothyroidism, arthritis, presents to the emergency room with a chief complaint of tenderness and swelling to his left lower extremity since Wednesday, January 29, 2025. Patient states that lower extremity swelling started prior to the surgery and that over time it has progressively worsened and is associated with 5 out of 10 achy pain. Patient denies sedentary lifestyle and ADLs are intact. Recently diagnosed with prostate cancer and follows with [facility] providers, has an appointment with [facility] clinic in [facility] for follow-up. He is status post prostatectomy without any chemotherapy or radiation at this point and states that he does not have any spread of the prostate cancer. Patient also apparently follows up with lehr cutter, Dr. Coe for CKD but apparently initially had obstructive uropathy secondary to prostatomegaly. Patient CKD is apparently improving On examination, patient is awake and answering questions appropriately and other than lower back pain and some left lower extremity tenderness denies having any concerning symptoms such as chest pain. Patient also does state he has some shortness of breath that comes and goes but vitals are pretty stable other than mild hypertension. Lung and heart auscultation is largely unremarkable with breath sounds heard bilaterally. Patient does not have any abdominal tenderness on palpation. Lower extremity exam shows a pretty unremarkable right lower extremity; ever, left extremity has 2+ pitting edema up to thigh region with some erythematous discoloration; pedal pulses intact bilaterally. #Acute DVT #DVT of common femoral vein #Hypercoagulable state secondary to prostate cancer, status post surgery #Inguinal hernia repair #CKD stage IIIb #Chronic pain As noted above Plan: Will start IV heparin drip with bolus depending on PT level Pain management Monitor oxygen status with low threshold for developing PE Telemetry monitoring Called admitting hospitalist team regarding patient they have agreed to see the patient for possible admission. Patient seen and assessed with attending Dr. Jim Gillette, DO PGY-2 Internal Medicine - [facility] Exam: Left lower extremity swelling and tenderness. Positive Homans' sign Clear bilaterally Clinical Impression: DVT/cellulitis
--- NOTE | 2025-02-04 19:48 | PD.EDLOWEX ---
Lower Extremity Injury RME/HPI General Chief Complaint: Extremity Injury, Lower Stated Complaint: left leg pain Time Seen by Provider: 02/04/25 12:05 Arrival date/time: 02/04/25 11:59 RME / HPI RME / HPI Narrative: 02/04/25 11:59 02/04/25 11:59 74-year-old male with history of hypothyroidism, arthritis, presents to the emergency room with a chief complaint of tenderness and swelling to his left lower extremity x 7 days. Patient also recently had a recent hernia repair I have greeted and performed a focused initial assessment of this patient. A comprehensive ED assessment and evaluation of the patient, analysis of all test results, and completion of the medical decision making process will be conducted by additional ED providers. HPI: 02/04/25 11:59 74-year-old male with history of prostate cancer followed by Dr. Mckeon and [facility] providers status post prostatectomy, inguinal hernia status postsurgery 1 week ago, CKD stage IIIb, chronic back pain since secondary to back injury, hypothyroidism, arthritis, presents to the emergency room with a chief complaint of tenderness and swelling to his left lower extremity since Wednesday, January 29, 2025. Patient states that lower extremity swelling started prior to the surgery and that over time it has progressively worsened and is associated with 5 out of 10 achy pain. Patient denies sedentary lifestyle and ADLs are intact. Recently diagnosed with prostate cancer and follows with [facility] providers, has an appointment with [facility] clinic in [facility] for follow-up. He is status post prostatectomy without any chemotherapy or radiation at this point and states that he does not have any spread of the prostate cancer. Patient also apparently follows up with cuff maker, Dr. Coe for CKD but apparently initially had obstructive uropathy secondary to prostatomegaly. Patient CKD is apparently improving On examination, patient is awake and answering questions appropriately and other than lower back pain and some left lower extremity tenderness denies having any concerning symptoms such as chest pain. Patient also does state he has some shortness of breath that comes and goes but vitals are pretty stable other than mild hypertension. Lung and heart auscultation is largely unremarkable with breath sounds heard bilaterally. Patient does not have any abdominal tenderness on palpation. Lower extremity exam shows a pretty unremarkable right lower extremity; ever, left extremity has 2+ pitting edema up to thigh region with some erythematous discoloration; pedal pulses intact bilaterally. #Acute DVT #DVT of common femoral vein #Hypercoagulable state secondary to prostate cancer, status post surgery #Inguinal hernia repair #CKD stage IIIb #Chronic pain As noted above Plan: Will start IV heparin drip with bolus depending on PT level Pain management Monitor oxygen status with low threshold for developing PE Telemetry monitoring Called admitting hospitalist team regarding patient they have agreed to see the patient for possible admission. Patient seen and assessed with attending Dr. Jim Gillette, DO PGY-2 Internal Medicine - [facility] Exam: Left lower extremity swelling and tenderness. Positive Homans' sign Clear bilaterally Impression: DVT/cellulitis Related Data Home Medications ?Medication ?Instructions ?Recorded ?Confirmed lorazepam 1 mg tablet 1 mg PO .PRN 01/01/19 01/28/25 levothyroxine 125 mcg tablet 125 mcg PO QDAY 01/04/20 01/29/25 cyclobenzaprine 10 mg tablet 1 tab PO DAILY 09/28/21 01/29/25 tramadol 50 mg tablet 50 mg PO Q8H PRN pain 01/28/25 01/29/25 Previous Rx's ?Medication ?Instructions ?Recorded hydrocodone 5 mg-acetaminophen 325 1 tab PO BID PRN pain #14 tabs 01/22/25 mg tablet docusate sodium 100 mg capsule 100 mg PO BID #40 caps 01/29/25 (Colace) hydrocodone 5 mg-acetaminophen 325 1 tab PO Q6H PRN pain (scale score 01/29/ mg tablet 7-10) #15 tabs ibuprofen 600 mg tablet 600 mg PO Q8H PRN pain (scale 01/29/25 score 4-6) #15 tabs Allergies Allergy/AdvReac Type Severity Reaction Status Date / Time No Known Allergies Allergy Verified 02/04/25 12:02 Course Orders Category Date Time Status COVID-19 Screening Questionnaire NOW Care 02/04/25 19:11 Active Decision to Admit X1 Care 02/04/25 19:11 Active EKG (ED ONLY) *Do not use* NOW Care 02/04/25 19:03 Active Notify provider NOW Care 02/04/25 19:05 Active EKG (ED Only) Stat Exams 02/04/25 19:03 Ordered US venous doppler LE LT Stat Exams 02/04/25 12:16 Completed CBC Stat Lab 02/04/25 13:00 Completed CMP [Comprehensive Metabolic Panel] Stat Lab 02/04/25 13:00 Completed D-Dimer Stat Lab 02/04/25 13:00 Completed PT [Prothrombin Time with INR] Stat Lab 02/04/25 13:00 Completed PTT [Partial Thromboplastin Time] Stat Lab 02/04/25 13:00 Completed Heparin Inj Med 02/04/25 19:05 Discontinued 5,600 unit IV X1 ONE Heparin/D5w 25K 250 ML Ivpb [Heparin in D5w Ivpb] Med 02/04/25 19:15 Active 25,000 unit in 250 ml IV 18 units/kg/hr Vital Signs Vital signs: Vital Signs Temperature 97.7 F 02/04/25 12:09 Pulse Rate 91 02/04/25 12:09 Respiratory Rate 17 02/04/25 12:09 Blood Pressure 114/76 02/04/25 12:09 Pulse Oximetry (%) 99 02/04/25 12:09 Extremity Injury, Lower MDM Narrative MDM Narrative:: 02/04/25 11:59 74-year-old male with history of prostate cancer followed by Dr. Mckeon and [facility] providers status post prostatectomy, inguinal hernia status postsurgery 1 week ago, CKD stage IIIb, chronic back pain since secondary to back injury, hypothyroidism, arthritis, presents to the emergency room with a chief complaint of tenderness and swelling to his left lower extremity since Wednesday, January 29, 2025. Patient states that lower extremity swelling started prior to the surgery and that over time it has progressively worsened and is associated with 5 out of 10 achy pain. Patient denies sedentary lifestyle and ADLs are intact. Recently diagnosed with prostate cancer and follows with [facility] providers, has an appointment with [facility] clinic in [facility] for follow-up. He is status post prostatectomy without any chemotherapy or radiation at this point and states that he does not have any spread of the prostate cancer. Patient also apparently follows up with cuff maker, Dr. Coe for CKD but apparently initially had obstructive uropathy secondary to prostatomegaly. Patient CKD is apparently improving On examination, patient is awake and answering questions appropriately and other than lower back pain and some left lower extremity tenderness denies having any concerning symptoms such as chest pain. Patient also does state he has some shortness of breath that comes and goes but vitals are pretty stable other than mild hypertension. Lung and heart auscultation is largely unremarkable with breath sounds heard bilaterally. Patient does not have any abdominal tenderness on palpation. Lower extremity exam shows a pretty unremarkable right lower extremity; ever, left extremity has 2+ pitting edema up to thigh region with some erythematous discoloration; pedal pulses intact bilaterally. #Acute DVT #DVT of common femoral vein #Hypercoagulable state secondary to prostate cancer, status post surgery #Inguinal hernia repair #CKD stage IIIb #Chronic pain As noted above Plan: Will start IV heparin drip with bolus depending on PT level Pain management Monitor oxygen status with low threshold for developing PE Telemetry monitoring Called admitting hospitalist team regarding patient they have agreed to see the patient for possible admission. Patient seen and assessed with attending Dr. Jim Gillette, DO PGY-2 Internal Medicine - [facility] Medications / Prescriptions Medication administrations:: Medication Administration History Heparin Sodium/Dextrose (Heparin In D5w Ivpb) 25,000 unit in 250 mls @ 12.655 mls/hr IV .[id number] [facility]; Protocol Stop: 02/18/25 19:14 Discontinued Medications Heparin Sodium (Porcine) (Heparin Sod Inj 5000 Unit/Ml Vial) 5,600 unit 80 unit/kg (5600 unit) IV X1 ONE; Protocol Stop: 02/04/25 19:06 Disposition Plan Disposition Plan: Admit Discharge Plan Prescriptions/Referrals Prescriptions/Med Rec: No Action lorazepam 1 mg tablet 1 mg PO .PRN cyclobenzaprine 10 mg tablet 1 tab PO DAILY levothyroxine 125 mcg Tablet 125 mcg PO QDAY tramadol 50 mg tablet 50 mg PO Q8H PRN (Reason: pain) Patient Comments: TAKE 1 TABLET BY MOUTH 3 TIMES A DAY NEEDED FOR BACK PAIN M54.50 docusate sodium [Colace] 100 mg capsule 100 mg PO BID Qty: 40 0RF hydrocodone-acetaminophen 5-325 mg tablet 1 tab PO Q6H MDD 4 PRN (Reason: pain (scale score 7-10)) Qty: 15 0RF ibuprofen 600 mg tablet 600 mg PO Q8H PRN (Reason: pain (scale score 4-6)) Qty: 15 0RF hydrocodone-acetaminophen 5-325 mg tablet 1 tab PO BID MDD 10mg PRN (Reason: pain) Qty: 14 0RF Referrals: Jose Nunn MD [Primary Care Provider, Family Practice] - In 1 week Patient/Caregiver Discharge Instructions Print Language: Niuean
--- NOTE | 2025-02-04 19:51 | ECHO_ITS ---
Patient Info Name: Manpreet Hancock Age: 74 years : 1950 Gender: Male Ht: 175 cm Wt: 7 kg BSA: 0.53 m2 BP: 138 / 69 mmHg HR: 83 bpm Exam Date: 02/05/2025 6:30 AM Admit Date: 02/04/2025 Site: [facility] Room Number: 365 Patient Status: I Technical Quality: Fair Exam Type: CA echo doppler complete Fitter Placer: Addie Trevino Ordering Physician: Tim Gonzalez Study Info Indications DVT - Primary Location: [id number] Left Ventricular Outflow Tract Name Value Normal LVOT 2D LVOT Diameter 2.1 cm LVOT Doppler LVOT Peak Velocity 76 cm/s LVOT Mean Gradient 1 mmHg LVOT VTI 17 cm LVOT VTI/AV VTI Ratio 1.0 LVOT Stroke Volume 60 ml Pulmonic Valve Name Value Normal PV Doppler PV Peak Velocity 63 cm/s Mitral Valve Name Value Normal MV Doppler MV Decel [place] 250 cm/s2 MV PHT 60 ms MV Area (PHT) 3.6 cm2 4.0-5.0 MV Diastolic Function MV E Peak Velocity 52 cm/s MV A Peak Velocity 67 cm/s MV E/A 0.8 MV Annular TDI MV Septal e' Velocity 6.3 cm/s MV E/e' (Septal) 8.2 MV Lateral e' Velocity 6.3 cm/s MV E/e' (Lateral) 8.2 MV e' Average 6.31 cm/s MV E/e' (Average) 8.2 Tricuspid Valve Name Value Normal TV Regurgitation Doppler TR Peak Velocity 159 cm/s Estimated PAP/RSVP RA Pressure 8 mmHg <=5 PA Systolic Pressure 18 mmHg <36 RV Systolic Pressure 18 mmHg <36 TV Annular TDI TV Lateral Eduarda s' Velocity 24.2 cm/s >=9.5 Aortic Valve Name Value Normal AV Doppler AV Peak Velocity 83 cm/s AV Mean Gradient 2 mmHg AV VTI 17 cm AV Area (Cont Eq VTI) 3.6 cm2 >=3.0 AV Area (Cont Eq Trent) 3.2 cm2 AV DI (Trent) 0.92 AV Regurgitation 2D LVOT Area 3.5 cm2 Ventricles Name Value Normal LV Dimensions 2D/MM IVS Diastolic Thickness (2D) 0.8 cm 0.6-1.0 LVID Diastole (2D) 5.2 cm 4.2-5.8 LVIW Diastolic Thickness (2D) 0.9 cm 0.6-1.0 LVID Systole (2D) 4.0 cm 2.5-4.0 LVOT Diameter 2.1 cm LV Mass (2D Cubed) 156.93 g 88.00-224.00 LV Mass Index (2D Cubed) 297 g/m2 49-115 Relative Wall Thickness (2D) 0.35 <=0.42 IVS/LVIW Diastolic Thickness (2D) 0.89 0.00-1.50 LV Fractional Shortening/Ejection Fraction 2D/MM LV Fractional Shortening (2D) 23 % 25-43 LV EF (2D Skyichrossanaz) 46 % RV Dimensions 2D/MM TV Lateral Eduarda s' Velocity 24.2 cm/s >=9.5 Atria Name Value Normal LA Dimensions LA Volume (4C A-L) 31 ml Left Ventricle Left ventricular chamber dimension is normal. Left ventricular systolic function is normal with visually estimated ejection fraction of 50-55%. There is normal geometry noted in the left ventricle. Left ventricular segmental wall motion is normal. There is grade I diastolic dysfunction in the left ventricle. Right Ventricle Right ventricular chamber dimension is normal. Right ventricular systolic function is normal. Left Atrium Left atrial chamber dimension is normal. Right Atrium Right atrial chamber dimension is normal. Aortic Valve The aortic valve is trileaflet. There is no aortic valve sclerosis. There is no aortic valve stenosis with a peak velocity of 83 cm/s, mean gradient of 2 mmHg, and aortic valve area of 3.6 cm2. There is no aortic valve regurgitation. Pulmonic Valve The pulmonic valve is normal. There is no pulmonic valve stenosis. There is no pulmonic regurgitation. Mitral Valve The mitral valve has a calcified annulus. There is no mitral valve stenosis. There is trace mitral valve regurgitation. Tricuspid Valve The tricuspid valve leaflets are normal. There is no tricuspid valve stenosis. There is trace tricuspid valve regurgitation. No pulmonary hypertension, estimated pulmonary arterial systolic pressure is 18 mmHg and systemic blood pressure of 138 mmHg in systole. Pericardium/Pleural The pericardium appears normal. There is no pericardial effusion. No pleural effusion visualized. Inferior Vena Cava Not well visualized inferior vena cava with >50% collapse upon inspiration consistent with normal right atrial pressure, 8 mmHg. Aorta The aortic measurements are indexed to age and body surface area. The aortic root at the sinus of Valsalva is not well visualized. The prox ascending aorta is not well visualized. Summary 1. Left ventricle size is normal and systolic function is normal. Estimated ejection fraction is 50-55%. There is grade I diastolic dysfunction. 2. Right ventricle chamber size is normal and systolic function is normal. Estimated RVSP is 18 mmHg. 3. There is trace MR and trace TR. Mild MAC. 4. The left atrium and right atrium appear normal. 5. Not well visualized IVC with estimated RA pressure 8 mmHg. Report Signatures Finalized by Jose Roberto Beverly on 02/05/2025 01:31 PM
--- NOTE | 2025-02-04 19:53 | PD.EDADULT ---
ED General RME/HPI General Chief complaint: Extremity Injury, Lower Stated complaint: left leg pain Time Seen by Provider: 02/04/25 12:05 Arrival date/time: 02/04/25 11:59 RME / HPI RME / HPI narrative: 02/04/25 11:59 02/04/25 11:59 74-year-old male with history of hypothyroidism, arthritis, presents to the emergency room with a chief complaint of tenderness and swelling to his left lower extremity x 7 days. Patient also recently had a recent hernia repair I have greeted and performed a focused initial assessment of this patient. A comprehensive ED assessment and evaluation of the patient, analysis of all test results, and completion of the medical decision making process will be conducted by additional ED providers. HPI: 02/04/25 11:59 74-year-old male with history of prostate cancer followed by Dr. Mckeon and [facility] providers status post prostatectomy, inguinal hernia status postsurgery 1 week ago, CKD stage IIIb, chronic back pain since secondary to back injury, hypothyroidism, arthritis, presents to the emergency room with a chief complaint of tenderness and swelling to his left lower extremity since Wednesday, January 29, 2025. Patient states that lower extremity swelling started prior to the surgery and that over time it has progressively worsened and is associated with 5 out of 10 achy pain. Patient denies sedentary lifestyle and ADLs are intact. Recently diagnosed with prostate cancer and follows with [facility] providers, has an appointment with [facility] clinic in [facility] for follow-up. He is status post prostatectomy without any chemotherapy or radiation at this point and states that he does not have any spread of the prostate cancer. Patient also apparently follows up with [facility] developer, Dr. Coe for CKD but apparently initially had obstructive uropathy secondary to prostatomegaly. Patient CKD is apparently improving On examination, patient is awake and answering questions appropriately and other than lower back pain and some left lower extremity tenderness denies having any concerning symptoms such as chest pain. Patient also does state he has some shortness of breath that comes and goes but vitals are pretty stable other than mild hypertension. Lung and heart auscultation is largely unremarkable with breath sounds heard bilaterally. Patient does not have any abdominal tenderness on palpation. Lower extremity exam shows a pretty unremarkable right lower extremity; ever, left extremity has 2+ pitting edema up to thigh region with some erythematous discoloration; pedal pulses intact bilaterally. Initial differentials included: DVT, lymphedema, venous insufficiency, musculoskeletal injury Imaging studies confirmed presence of acute DVT, extensive disease including left common femoral vein #Acute DVT #DVT of common femoral vein #Hypercoagulable state secondary to prostate cancer, status post surgery #Inguinal hernia repair #CKD stage IIIa #Chronic pain As noted above Plan: Will start IV heparin drip with bolus depending on PT level Pain management Monitor oxygen status with low threshold for developing PE Telemetry monitoring Called admitting hospitalist team regarding patient they have agreed to see the patient for possible admission. Patient seen and assessed with attending Dr. Jim Gillette, DO PGY-2 Internal Medicine - [facility] Exam: Left lower extremity swelling and tenderness. Positive Homans' sign Clear bilaterally Impression: DVT/cellulitis Related Data Home Medications ?Medication ?Instructions ?Recorded ?Confirmed lorazepam 1 mg tablet 1 mg PO .PRN 01/01/19 01/28/25 levothyroxine 125 mcg tablet 125 mcg PO QDAY 01/04/20 01/29/25 cyclobenzaprine 10 mg tablet 1 tab PO DAILY 09/28/21 01/29/25 tramadol 50 mg tablet 50 mg PO Q8H PRN pain 01/28/25 01/29/25 Previous Rx's ?Medication ?Instructions ?Recorded hydrocodone 5 mg-acetaminophen 325 1 tab PO BID PRN pain #14 tabs 01/22/25 mg tablet docusate sodium 100 mg capsule 100 mg PO BID #40 caps 01/29/25 (Colace) hydrocodone 5 mg-acetaminophen 325 1 tab PO Q6H PRN pain (scale score 01/29/25 mg tablet 7-10) #15 tabs ibuprofen 600 mg tablet 600 mg PO Q8H PRN pain (scale 01/29/25 score 4-6) #15 tabs Allergies Allergy/AdvReac Type Severity Reaction Status Date / Time No Known Allergies Allergy Verified 02/04/25 12:02 ED Exam Narrative Physical exam: Physical Exam: GENERAL: Awake, answering questions appropriately, appears stated age HEENT: NC/AT. Moist mucosa. PERRLA/EOMI. CARDIO: Heart RRR, no obvious murmurs, no JVD. PULM: No coughing or visible SOB. Lungs CTA B/L. GI: Abdomen soft, NT/ND, +BS. SKIN/MSK/EXT: +2 pitting edema noted on left lower extremity up to thigh with mild erythema. No wounds/discoloration/rashes/amputations. +Pedal pulses present B/L. NEURO: Oriented x3, Moves extremities x4, no focal neurologic deficits noted Course Quality Measures VTE prophylaxis Orders Category Date Time Status Admit to Inpatient Status Routine Admission 02/04/25 19:48 Active Patient Condition Routine Admission 02/04/25 19:48 Ordered COVID-19 Screening Questionnaire NOW Care 02/04/25 19:11 Completed Decision to Admit X1 Care 02/04/25 19:11 Completed EKG (ED ONLY) *Do not use* NOW Care 02/04/25 19:03 Completed Miscellaneous Nursing Order NOW Care 02/04/25 19:48 Active Notify provider NEEDED Care 02/04/25 19:48 Active Notify provider NOW Care 02/04/25 19:05 Active Notify provider NOW Care 02/04/25 19:53 Active Diet Regular Diet 02/04/25 Dinner Active CA echo doppler complete Routine Exams 02/04/25 19:51 Ordered EKG (ED Only) Stat Exams 02/04/25 19:03 Draft US venous doppler LE LT Stat Exams 02/04/25 12:16 Completed BNP [B-Type Natriuretic Peptide] Routine Lab 02/05/25 05:00 Ordered CBC AM DRAW Lab 02/05/25 05:00 Ordered CBC AM DRAW Lab 02/06/25 05:00 Ordered CBC AM DRAW Lab 02/07/25 05:00 Ordered CBC Stat Lab 02/04/25 13:00 Completed CMP [Comprehensive Metabolic Panel] Stat Lab 02/04/25 13:00 Completed Comprehensive Metabolic Panel AM DRAW Lab 02/05/25 05:00 Ordered Comprehensive Metabolic Panel AM DRAW Lab 02/06/25 05:00 Ordered Comprehensive Metabolic Panel AM DRAW Lab 02/07/25 05:00 Ordered D-Dimer Stat Lab 02/04/25 13:00 Completed Lipid Panel AM DRAW Lab 02/05/25 05:00 Ordered Magnesium AM DRAW Lab 02/05/25 05:00 Ordered PT [Prothrombin Time with INR] Stat Lab 02/04/25 13:00 Completed PTT [Partial Thromboplastin Time] Stat Lab 02/04/25 13:00 Completed Partial Thromboplastin Time AM DRAW Lab 02/06/25 05:00 Ordered Prothrombin Time with INR AM DRAW Lab 02/06/25 05:00 Ordered Thyroid Stimulating Hormone AM DRAW Lab 02/05/25 05:00 Ordered Troponin I Routine Lab 02/04/25 13:00 Completed Heparin Inj Med 02/04/25 19:05 Discontinued 5,600 unit IV X1 ONE Heparin/D5w 25K 250 ML Ivpb [Heparin in D5w Ivpb] Med 02/04/25 19:15 Active 25,000 unit in 250 ml IV 18 units/kg/hr Ondansetron Inj [Zofran Inj] Med 02/04/25 19:48 Active 4 mg IVP Q6H PRN Pantoprazole [Protonix] Med 02/05/25 09:00 Active 40 mg PO QDAY Senna [Senokot] Med 02/04/25 19:48 Active 1 tab PO QDAY PRN Code Status Routine Oth 02/04/25 19:48 Ordered Vital Signs Vital signs: Vital Signs Temperature 97.7 F 02/04/25 12:09 Pulse Rate 91 02/04/25 12:09 Respiratory Rate 17 02/04/25 12:09 Blood Pressure 114/76 02/04/25 12:09 Pulse Oximetry (%) 99 02/04/25 12:09 Discharge Plan Plan Patient Disposition: Admit Acute Care w/in Hospital Problem List Clinical Impression: DVT (deep venous thrombosis) MD Attestation MD Attestation I, Dr. Posada, have reviewed the history, exam, and assessment of the patient. I have evaluated the patient independently and agree with the plan of care documented by the resident Dr. Gillette. All diagnostic studies were reviewed and discussed. I confirm the diagnosis as documented by the resident. I was present during the Medical Decision Making for this patient. The patient?s plan of care was created between myself and the resident and consistent with our discussion of the patient?s case. MDM Narrative MDM hospital course (for use when minimal MDM required): 02/04/25 11:59 74-year-old male with history of prostate cancer followed by Dr. Mckeon and [facility] providers status post prostatectomy, inguinal hernia status postsurgery 1 week ago, CKD stage IIIb, chronic back pain since secondary to back injury, hypothyroidism, arthritis, presents to the emergency room with a chief complaint of tenderness and swelling to his left lower extremity since Wednesday, January 29, 2025. Patient states that lower extremity swelling started prior to the surgery and that over time it has progressively worsened and is associated with 5 out of 10 achy pain. Patient denies sedentary lifestyle and ADLs are intact. Recently diagnosed with prostate cancer and follows with [facility] providers, has an appointment with [facility] clinic [facility] for follow-up. He is status post prostatectomy without any chemotherapy or radiation at this point and states that he does not have any spread of the prostate cancer. Patient also apparently follows up with career developer, Dr. Coe for CKD but apparently initially had obstructive uropathy secondary to prostatomegaly. Patient CKD is apparently improving On examination, patient is awake and answering questions appropriately and other than lower back pain and some left lower extremity tenderness denies having any concerning symptoms such as chest pain. Patient also does state he has some shortness of breath that comes and goes but vitals are pretty stable other than mild hypertension. Lung and heart auscultation is largely unremarkable with breath sounds heard bilaterally. Patient does not have any abdominal tenderness on palpation. Lower extremity exam shows a pretty unremarkable right lower extremity; ever, left extremity has 2+ pitting edema up to thigh region with some erythematous discoloration; pedal pulses intact bilaterally. Initial differentials included: DVT, lymphedema, venous insufficiency, musculoskeletal injury Imaging studies confirmed presence of acute DVT, extensive disease including left common femoral vein #Acute DVT #DVT of common femoral vein #Hypercoagulable state secondary to prostate cancer, status post surgery #Inguinal hernia repair #CKD stage IIIa #Chronic pain As noted above Plan: Will start IV heparin drip with bolus depending on PT level Pain management Monitor oxygen status with low threshold for developing PE Telemetry monitoring Called admitting hospitalist team regarding patient they have agreed to see the patient for possible admission. Patient seen and assessed with attending Dr. Jim Gillette, DO PGY-2 Internal Medicine - [facility] Labs Lab(s) Interpretation(s): Normocytic anemia likely anemia of chronic disease secondary to CKD stage IIIa, thrombocytopenia likely secondary to reactive process, CKD stage IIIa with creatinine 1.4, eGFR 52 Imaging Imaging Interpretation(s): Venous Doppler study showed acute DVT, extensive along with associated to the common femoral vein. Medication Administration(s) Medication Administration History Acetaminophen (Acetaminophen 325 Mg Tablet) 650 mg PO Q6H PRN PRN Reason: pain 1-3 or Temp>100.4 Stop: 03/06/25 19:47 Cyclobenzaprine HCl (Cyclobenzaprine 5 Mg Tablet) 10 mg PO QPM PRN PRN Reason: MUSCLE CRAMPS Stop: 03/07/25 20:59 Last Admin: 02/04/25 21:58 Dose: 10 mg Documented By: JORDAN Heparin Sodium/Dextrose (Heparin In D5w Ivpb) 25,000 unit in 250 mls @ 12.655 mls/hr IV .[id number] [facility]; Protocol Stop: 02/18/25 19:14 Last Admin: 02/04/25 22:17 Dose: 18 units/kg/hr, 12.655 mls/hr Documented By: JORDAN Co-signed By: LB Levothyroxine Sodium (Levothyroxine Sodium 125 Mcg Tablet) 125 mcg PO ACBR [facility] Stop: 03/07/25 05:59 Ondansetron HCl (Ondansetron Inj 2 Mg/Ml Inj 2 Ml) 4 mg IVP Q6H PRN; Protocol PRN Reason: NAUSEA OR VOMITING Stop: 03/06/25 19:47 Pantoprazole Sodium (Pantoprazole 40 Mg Tablet) 40 mg PO QDAY [facility] Stop: 03/07/25 08:59 Sennosides (Senna Tablet) 1 tab PO QDAY PRN; Protocol PRN Reason: constipation Stop: 03/06/25 19:47 Tramadol HCl (Tramadol Hcl 50 Mg Tablet) 50 mg PO Q6HR PRN PRN Reason: pain 7-10 Stop: 02/09/25 21:27 Last Admin: 02/04/25 21:57 Dose: 50 mg Documented By: JORDAN Discontinued Medications Heparin Sodium (Porcine) (Heparin Sod Inj 5000 Unit/Ml Vial) 5,600 unit 80 unit/kg (5600 unit) IV X1 ONE; Protocol Stop: 02/04/25 19:06 Last Admin: 02/04/25 22:02 Dose: 5,600 unit Documented By: JORDAN Co-signed By: LB
[2025-02-04 20:16] VITALS: BP 152/102; PULSE 81; RESP 16; TEMP 36.4; O2SAT 100
--- NOTE | 2025-02-04 20:20 | ESHP_ITS ---
<Statement entered by Willie Modi MD - 02/06/25 07:45> I have discussed and was present for the essential components of the history, physical examination, diagnosis, and treatment plan with the resident. I agree with the patient's care as documented by the resident and amended herein by me. Willie Modi MD FACP <Statement entered by Tim Gonzalez MD - 02/05/25 03:59> A 74-year-old male with significant past medical history of hypothyroidism, osteoarthritis, prostate cancer status post radical prostatectomy on 12/05/2024, neurogenic bladder with In and out catheter as needed but urinary retention got better after prostatectomy per patient, status post inguinal hernia repair done on 01/29/2025, CKD stage IIIb, varicose veins s/p sclerotherapy presented to the hospital with chief complaints of swelling of left lower extremity and pain since 2 weeks. Reported that since 1 week before the surgery, patient noted that his left lower extremity is swollen which is gradually progressing and also associated with the pain. Denies recent travel, immobilization. Vitals at the time of admission are stable. Labs at the time of admission are significant for D-dimer 3240, platelet count 461, creatinine 1.4. Left lower extremity venous Doppler showed extensive DVT in the left common femoral, superficial femoral, popliteal, peroneal as well as superficial greater saphenous vein. Patient is admitted into the hospital for acute DVT and was started on heparin drip as per protocol. Troponin is negative. No history of shortness of breath able to walk without any difficulty as of now. Less suspicion of pulmonary embolism as of now. Will continue to monitor if the swelling worsens or noted to have any acute lobe ischemia, will consult cardiology for mechanical thrombectomy. If remains stable, will transition to Eliquis. Patient reported that he had history of arrhythmia but unsure of the exact condition. Denied any blood thinner usage but per chart review, patient noted to use Eliquis 2.5 mg twice daily. EKG done at the time of admission showed atrial fibrillation with controlled ventricular rate. Echocardiogram is ordered # Acute left lower extremity DVT # Atrial fibrillation with controlled ventricular rate # Hypothyroidism # Status post inguinal hernia repair # Prostate cancer status post total prostatectomy # Chronic back pain status postlaminectomy I have personally seen and examined the patient, agree with residents assessment and plan Patient plan of care was discussed with the attending physician, Dr. Rian Gonzalez, PGY2 Documentation for date of: 02/04/25 HPI History of Present Illness Chief complaint: Left lower extremity pain and swelling History of present illness: This patient is a 74-year-old male with a history of hypothyroidism, arthritis, prostate cancer status post radical prostatectomy (performed by Dr. Cordero at [facility] on 12/05/2024, patient follows Dr. Mckeon currently), neurogenic bladder (secondary to laminectomy performed back in 2002, patient self catheterizes), incarcerated left femoral hernia status post hernia repair (01/29/2025), CKD stage IIIb (sees Dr. Coe for nephrology), chronic lower back pain, and varicose veins who presented to [facility] ED on 02/04 for left lower extremity swelling and tenderness. Patient was admitted for management of left lower extremity acute DVT. The patient noted that he has been having pain in his left thigh area a few days before his surgical repair of his incarcerated hernia on 01/29. After the hernia repair, the patient's pain in his left thigh continued, and he noted that it started to swell up slowly over time. Nothing has really helped with the pain, but walking and putting pressure on his left thigh does seem to make the pain worse. The patient initially injured the pain, but after recognizing that has become increasingly difficult to walk with the pain, he decided to seek help at [facility] ED. Patient notes that he used to be much more active, but did retire about 2 weeks before his radical prostatectomy in early December. The patient has not been prescribed any medication or any further radiation treatments for his prostate cancer as per the patient. Since the radical prostatectomy, he has not been as active and has been in bed more often, though he does note that he is not sleeping as much due to his sensation of restless legs and back pain. Additionally, the patient does take his levothyroxine medication early in the morning as soon as he wakes up, but will also eat breakfast shortly after getting out of bed. The patient does note significantly increased cold intolerance and fatigue with difficulty sleeping, noting that he has slept only about 3 hours over the past 3 days. ED Course: Vitals were within normal limits on presentation to ED. Initial labs were significant for hemoglobin of 11.5, platelet count of 461, and D-dimer 3240. Left lower extremity ultrasound venous Doppler found extensive acute DVT in multiple veins. ED physician started the patient on heparin drip. Past Surgical History: - Laminectomy, 2002 - Radical prostatectomy, Dr. Cordero at [facility] on 12/05/2024 - Hernia repair, Dr Camilo on 01/29/2025 Current Medication(s): - Lorazepam (for nerves ) - Pending further med rec Allergies (w/ Reactions): NKDA Family History: History of strokes and hypothyroidism on his mother side of the family Occupation: Retired Alcohol Intake: Yes Tobacco/Vape Use: Patient denies Other Drug Use: Patient denies Recent Travel History: Patient denies Review of Systems Review of Systems Systems Reviewed: All systems reviewed, normal except as documented Exam Vital Signs Temp Pulse Resp BP Pulse Ox O2 Del Method 97.5 F 81 16 152/102 H 100 Room Air 02/04/25 20:16 02/04/25 20:16 02/04/25 20:16 02/04/25 20:16 02/04/25 20:16 02/04/25 20:16 Narrative Exam Physical Exam: General: Alert, no acute distress. Skin: Warm, dry, intact. Head: Normocephalic, atraumatic. Eye: Normal conjunctiva, PERRL. Cardiovascular: Regular rate and irregular rhythm, no murmur, +S1/S2. Respiratory: Lungs are clear to auscultation, respirations unlabored, no crackles, no wheezing. Gastrointestinal: Soft, nontender, non-distended. No guarding or rebound tenderness. Extremities: 2+ pitting edema in LLE up to thighs, no cyanosis, no clubbing. Prominent veins in RLE. Slight erythema noted on left knee with light tenderness to palpation of anterior thigh. Neuro: No focal deficits observed. Conversant, moving all extremities. No overt cerebellar signs/incoordination. Psychiatric: Cooperative, appropriate affect. Results: Labs 02/04/25 13:00 02/04/25 13:00 Labs: Short CBC 02/04/25 Range/Units 13:00 WBC 6.8 (3.8-10.6) Thou/mm3 Hgb 11.5 L (13.5-16.0) g/dL Hct 35.2 L (41.0-53.0) % Plt Count 461 H (140-440) Thou/mm3 BMP 02/04/25 13:00 Sodium 144 Potassium 4.8 Chloride 109 H Carbon Dioxide 27.6 BUN 14 Creatinine 1.4 H Glucose 94 Calcium 9.0 Liver Function 02/04/25 Range/Units 13:00 Total Bilirubin 0.2 L (0.3-1.2) mg/dL AST 15 (0-34) U/L ALT < 7 L (10-49) U/L Alkaline Phosphatase 86 (46-116) U/L Albumin 4.0 (3.4-4.8) gm/dL Quality Measures Quality Measures VTE prophylaxis Advance care planning discussed with:: patient Medications Home Medications and Allergies Home Medications ?Medication ?Instructions ?Recorded ?Confirmed ?Type lorazepam 1 mg tablet 1 mg PO .PRN 01/01/19 History levothyroxine 125 mcg tablet 125 mcg PO QDAY 01/04/20 02/04/25 History cyclobenzaprine 10 mg tablet 1 tab PO DAILY 09/28/21 1 04/07/24 History tramadol 50 mg tablet 50 mg PO Q8H PRN pain 02/04/25 History psyllium husk 0.4 gram capsule 0.4 g PO QDAY 02/04/25 02/04/25 History (Daily Fiber) diclofenac sodium 1 % topical gel 2 g topical QID 05/0102/05/25 History (Arthritis Pain (diclofenac)) prednisone 20 mg tablet 20 mg PO QDAY PRN stiffness 02/05/25 02/05/25 History Allergies Allergy/AdvReac Type Severity Reaction Status Date / Time No Known Allergies Allergy Verified 02/04/25 12:02 Visit Medications Acetaminophen (Acetaminophen 325 Mg Tablet) 650 mg PO Q6H PRN PRN Reason: pain 1-3 or Temp>100.4 Stop: 03/06/25 19:47 Heparin Sodium/Dextrose (Heparin In D5w Ivpb) 25,000 unit in 250 mls @ 12.655 mls/hr IV .[id number] [facility]; Protocol Stop: 02/18/25 19:14 Ondansetron HCl (Ondansetron Inj 2 Mg/Ml Inj 2 Ml) 4 mg IVP Q6H PRN; Protocol PRN Reason: NAUSEA OR VOMITING Stop: 03/06/25 19:47 Pantoprazole Sodium (Pantoprazole 40 Mg Tablet) 40 mg PO QDAY BETH Stop: 03/07/25 08:59 Sennosides (Senna Tablet) 1 tab PO QDAY PRN; Protocol PRN Reason: constipation Stop: 03/06/25 19:47 Discontinued Medications Heparin Sodium (Porcine) (Heparin Sod Inj 5000 Unit/Ml Vial) 5,600 unit 80 unit/kg (5600 unit) IV X1 ONE; Protocol Stop: 02/04/25 19:06 Assessment & Plan Plan This patient is a 74-year-old male with a history of hypothyroidism, arthritis, prostate cancer status post radical prostatectomy (performed by Dr. Cordero at [facility] on 12/05/2024, patient follows Dr. Mckeon currently), neurogenic bladder (secondary to laminectomy performed back in 2002, patient self catheterizes), incarcerated left femoral hernia status post hernia repair (01/29/2025), CKD stage IIIb (sees Dr. Coe for nephrology), chronic lower back pain, and varicose veins who presented to [facility] ED on 02/04 for left lower extremity swelling and tenderness. Patient was admitted for management of left lower extremity acute DVT. #Extensive LLE DVT Patient notes left lower extremity pain and swelling that started about a week ago with increasing swelling over time. Pain on palpation of left thigh with erythema over the patient's left knee. Patient reports being more sedentary ever since he retired prior to December of this year and increasing fatigue with difficulty sleeping. Diagnostics: Ultrasound venous duplex of left lower extremity shows extensive DVT in multiple veins D-dimer in ED elevated at 3240, patient breathing comfortably on room air without any desaturations Troponin within normal limits Treatment: Heparin bolus of 80 units/kg followed by heparin drip, plan to transition to oral anticoagulation prior to discharge BMP ordered, pending Lipid panel ordered, pending Echocardiogram ordered, pending #Atrial fibrilation, without RVR Patient noted to have irregular rhythm on cardiac auscultation on admission. Patient has been told that he has had irregular heartbeat in the past, but does not know if he has been ever diagnosed officially with atrial fibrillation and does not see a captain airline pilot for his irregular heartbeat pattern. Diagnostics: CHADSVASC score 2 points, stroke risk 2.2 %/year and 2.9% risk of stroke/TIA/systemic embolism HAS-BLED score 1 point, 3.4% risk, anticoagulation should be considered EKG taken 01/28/2025 shows atrial fibrillation EKG taken 02/04 shows atrial fibrillation Per home meds outside records, the patient has been prescribed Eliquis 2.5 mg twice daily, but patient did not mention taking any anticoagulation Treatment: Continue heparin drip for management of extensive LLE DVT, transition to oral coagulations prior to discharge Patient to follow up with outpatient cardiology #CKD Stage IIIb Patient noted to have a history of CKD and follows Dr. Coe for nephrology outpatient. Diagnostic: Creatinine 1.4, within baseline around 1.3 Treatment: Renally dose medications, avoid nephrotoxic drugs Patient to follow-up with outpatient nephrology #Hypothyroidism Patient endorses a history of hypothyroidism and takes levothyroxine at home, however he takes it early when he awakens and will eat shortly after. Patient endorses worsening cold intolerance and increased fatigue recently, and has difficulty sleeping and endorsing sleeping only about 3 hours over the past 3 days. Diagnostic: TSH ordered, pending Treatment: Resumed home levothyroxine 125 mg ACBR Patient will follow-up outpatient Counseled patient on appropriate timing of levothyroxine #Neurogenic bladder Patient endorses a neurogenic bladder ever since he had a laminectomy back in 2002, to which the patient self catheterizes. Patient endorses improvement after radical prostatectomy. Treatment: Patient to follow-up outpatient Will consider in and out catheterization as needed #Chronic lower back pain #Arthritis Patient does endorse chronic lower back pain and arthritis, to which he takes ibuprofen at home for management. Per home meds outside documents, patient was prescribed cyclobenzaprine, tramadol, and [place] in addition to the ibuprofen, but the patient did not endorse taking these medications at this time. Treatment: Cyclobenzaprine 10 mg nightly as needed for back pain Tramadol 50 mg every 6 hours as needed #Varicose veins, RLE As seen on exam and patient endorses a history of this. Treatment: Patient to follow-up outpatient #Prostate cancer s/p radical prostatectomy 12/05/2024 Patient has had prostate cancer and is status post radical prostatectomy performed by Dr. Cordero at [facility] on 12/05/2024. Patient follows Dr. Mckeon outpatient for urology and states that he is not taking any medication and has no plans for chemotherapy or radiation therapy. Treatment: Patient to continue following with Dr. Mckeon outpatient urology #Left hernia repair, previously incarcerated left femoral hernia s/p repair 01/29/25 Patient had recent hernia repair due to incarceration of bowel by Dr. Camilo. No complaints at this time. Treatment: Patient to follow up with outpatient general surgery Will continue to monitor, if worsening then consider consult to general surgery DVT Prophylaxis: Heparin gtt. GI Prophylaxis: Protonix daily Bowel: Senna PRN Diet: Regular [place]: N/A Lines: PIV Antibiotics: N/A Code Status: FULL Reason for Hospitalization: Extensive LLE DVT Other Barriers to Discharge: DVT Patient plan of care was discussed with the senior resident Dr. Gonzalez (PGY-2) and attending physician Dr. Modi. Brady Kim, PGY1
[2025-02-04 20:27] LABS: Troponin I < 0.020 ng/mL (0.0-0.045)
[2025-02-04 21:53] VITALS: BP 154/84; PULSE 85; RESP 18; O2SAT 100
[2025-02-04] MEDS: HEPARIN SOD INJ 5000 UNIT/ML VIAL 5600 UNIT IV (22:02)
[2025-02-04] MEDS: Heparin/D5w 25K 250 ML Ivpb 25,000 UNIT/250 ML BAG 12.655 UNIT IV (22:17)
[2025-02-04 23:15] VITALS: BMI 22.6
[2025-02-04 23:30] VITALS: PULSE 81
[2025-02-05] VITALS (7 sets, daily range): BP systolic 125–155; BP diastolic 65–96; PULSE 71–94; RESP 16–18; TEMP 36.2–36.7; O2SAT 95–98; BMI 22.6
[2025-02-05] MEDS: LEVOTHYROXINE SODIUM 125 MCG TABLET PO (05:03)
[2025-02-05 06:22] LABS: Basophils # (Auto) 0.1 Thou/mm3 (0.0-0.2); Basophils % (Auto) 1 % (0-2.5); Eosinophils # (Auto) 0.4 Thou/mm3 (0.0-0.5); Eosinophils % (Auto) 6 % (0-10); Hematocrit 32.7 % (41.0-53.0); Hemoglobin 10.7 g/dL (13.5-16.0); Immature Granulocytes Auto 0.02 Thou/mm3 (0.00-0.00); Lymphocytes # (Auto) 2.3 Thou/mm3 (1.0-4.8); Lymphocytes % (Auto) 33 % (10-50); Mean Corpuscular HGB Conc 32.7 g/dl (31.0-37.0); Mean Corpuscular Hemoglobin 30.7 pg (25.0-35.0); Mean Corpuscular Volume 94 fL (80-100); Monocytes # (Auto) 0.9 Thou/mm3 (0.0-0.8); Monocytes % (Auto) 13 % (0-12); Neutrophils # (Auto) 3.2 Thou/mm3 (1.8-7.7); Neutrophils % (Auto) 47 % (37-80); Nucleated Red Blood Cell # 0.00 Thou/mm3 (0.00-0.00); Nucleated Red Blood Cell % 0 /100 WBC (0); Platelet Count 445 Thou/mm3 (140-440); RDW Standard Deviation 44.8 fL (35.1-43.9); Red Blood Count 3.48 Miln/mm3 (4.50-5.90); White Blood Count 6.9 Thou/mm3 (3.8-10.6)
[2025-02-05 06:56] LABS: Partial Thromboplastin Time 71.9 Seconds (22.0-36.0)
[2025-02-05 07:12] LABS: B-Type Natriuretic Peptide 66 pg/mL (0-100)
[2025-02-05] MEDS: PANTOPRAZOLE 40 MG TABLET PO (08:08)
[2025-02-05 08:10] LABS: Alanine Aminotransferase 7 U/L (10-49); Albumin, Serum 3.6 gm/dL (3.4-4.8); Alkaline Phosphatase 82 U/L (46-116); Anion Gap 9 (7-16); Aspartate Amino Transferase 14 U/L (0-34); BUN/Creatinine Ratio 11 Ratio (12-20); Bilirubin,Total 0.3 mg/dL (0.3-1.2); Blood Urea Nitrogen 13 mg/dL (9-23); Calcium 8.8 mg/dL (8.3-10.6); Calcium (Corrected) 9.1 mg/dL (8.5-10.1); Carbon Dioxide 27.3 mMol/L (20.0-31.0); Chloride 106 mMol/L (98-107); Creatinine (Component) 1.2 mg/dL (0.6-1.3); Estimated Creatinine Clearance 52.3 mL/min (>60); Glucose 80 mg/dL (74-106); Magnesium 1.8 mg/dL (1.6-2.6); Osmolality,Calculated 282 (275-295); Potassium 3.9 mMol/L (3.4-5.1); Sodium 142 mMol/L (136-145); Thyroid Stimulating Hormone 2.84 uIU/mL (0.55-4.78); eGFR > 60 See Note
[2025-02-05 08:57] LABS: Cardiac Risk Estimate 2.6 RATIO (4.0-6.7); Cholesterol 133 mg/dL (132-200); HDL Cholesterol 52 mg/dL (40-60); LDL Cholesterol,Calculated 70 mg/dL (0-130); Triglycerides 55 mg/dL (30-150)
[2025-02-05 09:32] LABS: Free T4 (Free Thyroxine) 1.12 ng/dL (0.89-1.76)
[2025-02-05] MEDS: Magnesium Sulfate 2 GM Ivpb 2 GM/50 ML BAG IV (10:55)
--- NOTE | 2025-02-05 12:26 | PC.SS ---
SS met with patient regarding his d/c plan. Pt is alert/oriented. Pt was admitted for Acute DVT. Pt confirmed demographic and contact information is correct on facesheet. Pt resides alone. Pt ambulates independently without assistance or DME. Pt is ok with all ADLs. Patient?s pharmacy of choice is [facility] on [address]. Pt named his sister in law, Fabiola Hancock medical decision maker if he is unable. SS provided pt with d/c options for home or SNF. Patient?s choice is to return home upon d/c. Pt does not have an advance directive, SS offered, and pt was receptive. Pt states she is not diabetic and is not on dialysis. Pt states he followed up with physician volleyball assistant coach, Brice Mason in January and next appointment is Feb 15, 2025. D/C plan: Return home Next of Kin: Fabiola Hancock, sister in law, phone# [phone] PCP: Dr. Jose Nunn Address: Correct on facesheet
[2025-02-05 13:01] LABS: Partial Thromboplastin Time 91.7 Seconds (22.0-36.0)
[2025-02-05 13:04] LABS: Albumin/Globulin Ratio 1.4 (1.2-2.2); Globulin 2.6 gm/dL (2.3-3.5); Total Protein 6.2 gm/dL (5.7-8.2)
--- NOTE | 2025-02-05 13:55 | ESPR_ITS ---
<Statement entered by González Mendez MD - 02/05/25 16:49> I saw and examined patient personally and supervised PGY 1 resident, Dr. Goff with formulating a management plan. I agree with the documentation with the exceptions as listed below. Manpreet Samson 74M pmhx significant for hypothyroidism, arthritis, prostate cancer status post radical prostatectomy (performed by Dr. Cordero at [facility] on 12/05/2024, patient follows Dr. Mckeon currently), neurogenic bladder (secondary to laminectomy performed back in 2002, patient self catheterizes, less following prostatectomy), incarcerated left femoral hernia status post hernia repair (01/29/2025), CKD stage IIIa (sees Dr. Coe for nephrology), chronic lower back pain, and varicose veins who presented to [facility] ED on 02/04 for left lower extremity swelling and tenderness, admitted for management of left lower extremity acute DVT. Problem list 1. Extensive, provoked left lower extremity DVT 2. Incarcerated left inguinal s/p repair 01/29/2025 3. Prostate cancer s/p radical prostatectomy 12/05/2024 4. Longstanding atrial fibrillation 5. CKD stage III AA 6. Hypothyroidism 7. History of neurogenic bladder For patient's DVT, currently on heparin infusion. Cardiology, Dr. Bridger Mcconnell was consulted for evaluation for possible thrombectomy. Plan of care discussed with Attending Dr. Bud Mendez MD PGY 2 Disclaimer: This note was dictated by speech recognition. Minor errors in card doffer may be present due to voice recognition software. Documentation for date of: 02/05/25 Subjective Subjective Interval history: Patient admitted overnight. Patient seen and examined at bedside. Patient states that about a week prior to left inguinal hernia repair surgery was experiencing left lower extremity swelling and mild pain. He stated that after surgery swelling became much worse and leg was slightly red with continued mild pain. Endorses that he took Eliquis for about 1 week or so post op completing course and taking appropriately. Has a very strong family history of CVA. Does have atrial fibrillation, does not take any anticoagulation. Currently patient is on heparin GGT, consult cardiology for possible thrombectomy versus medical management. Patient is back pain, neck pain and arthritis; cyclobenzaprine, tramadol and diclofenac gel as needed. Exam Vital Signs Temp Pulse Resp BP Pulse Ox O2 Del Method 97.2 F 94 16 140/96 H 95 Room Air 02/05/25 08:00 02/05/25 08:00 02/05/25 08:00 02/05/25 08:00 02/05/25 08:00 02/05/25 08:00 Narrative Exam GENERAL: AOx3, no acute distress HEENT: mucous membranes moist, bilateral sclera anicteric CARDIOVASCULAR: regular rate and irregular rhythm, S1/S2 present, no murmurs appreciated PULMONARY: clear to auscultation bilaterally, no rales/rhonchi/wheezes ABDOMINAL: soft, non-tender, non-distended, no rebound/guarding, bowel sounds present EXTREMITIES: 1+ pitting edema LLE up to thighs, RLE varicose veins no edema, BLE not TTP, mild LLE erythema compared to R, pedal pulses 2+ bilaterally, L inguinal repair incision clean and intact, no drainage or erythema SKIN: warm and dry, intact, no rashes NEURO: CN II-XII grossly intact, no focal deficits, alert, following commands Objective Labs 02/05/25 04:41 02/05/25 04:41 Labs: Laboratory Results - last 24 hr 02/04/25 02/05/25 02/05/25 13:00 04:41 12:14 WBC 6.9 RBC 3.48 L Hgb 10.7 L Hct 32.7 L MCV 94 MCH 30.7 MCHC 32.7 RDW Std Deviation 44.8 H Plt Count 445 H Neut % (Auto) 47 Lymph % (Auto) 33 [place] % (Auto) 13 H Eos % (Auto) 6 Baso % (Auto) 1 Neut # (Auto) 3.2 Lymph # (Auto) 2.3 [place] # (Auto) 0.9 H Eos # (Auto) 0.4 Baso # (Auto) 0.1 Immature Gran # (Auto) 0.02 H Absolute Nucleated RBC 0.00 Immature Gran % 0 Nucleated RBC % 0 PT 10.3 INR 1.0 APTT 29.3 71.9 H D 91.7 H D D-Dimer 3240 H Sodium 144 142 Potassium 4.8 3.9 D Chloride 109 H 106 Carbon Dioxide 27.6 27.3 Anion Gap 7 9 BUN 14 13 Creatinine 1.4 H 1.2 Estim Creat Clear Calc 45.3 L 52.3 L eGFR 52 L > 60 BUN/Creatinine Ratio 10 L 11 L Glucose 94 80 Calculated Osmolality 287 282 Calcium 9.0 8.8 Corrected Calcium 9.0 9.1 Magnesium 1.8 Total Bilirubin 0.2 L 0.3 AST 15 14 ALT < 7 L 7 L Alkaline Phosphatase 86 82 Troponin I < 0.020 B-Natriuretic Peptide 66 Total Protein 6.5 6.2 Albumin 4.0 3.6 Globulin 2.5 2.6 Albumin/Globulin Ratio 1.6 1.4 Triglycerides 55 Cholesterol 133 LDL Cholesterol, Calc 70 HDL Cholesterol 52 Cholesterol/HDL Ratio 2.6 L TSH 2.84 Free T4 1.12 Quality Measures Quality Measures VTE prophylaxis Advance care planning discussed with:: patient Assessment & Plan Assessment Current Active Medications: Generic Name Dose Route Start Last Admin Trade Name Freq PRN Reason Stop Dose Admin Acetaminophen 650 mg 02/04/25 20:07 Acetaminophen 325 Mg Tablet PO 03/06/25 19:47 Q6H PRN pain 1-3 or Temp>100.4 Cyclobenzaprine HCl 10 mg 02/04/25 21:29 02/04/25 21:58 Cyclobenzaprine 5 Mg Tablet PO 03/07/25 20:59 10 mg QPM PRN Administration MUSCLE CRAMPS Diclofenac Sodium 1 gm 02/05/25 09:39 Diclofenac 1% Top Gel 100 Gm Tube TOP 03/07/25 13:59 TID PRN Neck pain Heparin Sodium/Dextrose 25,000 unit in 250 mls @ 12.655 mls/hr 02/04/25 19:15 02/05/25 13:29 Heparin In D5w Ivpb IV 02/18/25 19:14 16 units/kg/hr .[id number] BETH 11.249 mls/hr Protocol Administration 18 UNITS/KG/HR Levothyroxine Sodium 125 mcg 02/05/25 06:00 02/05/25 05:03 Levothyroxine Sodium 125 Mcg Tablet PO 03/07/25 05:59 125 mcg ACBR BETH Administration Ondansetron HCl 4 mg 02/04/25 19:48 Ondansetron Inj 2 Mg/Ml Inj 2 Ml IVP 03/06/25 19:47 Q6H PRN NAUSEA OR VOMITING Protocol Pantoprazole Sodium 40 mg 02/05/25 09:00 02/05/25 08:08 Pantoprazole 40 Mg Tablet PO 03/07/25 08:59 40 mg QDAY BETH Administration Sennosides 1 tab 02/04/25 19:48 02/05/25 05:03 Senna Tablet PO 03/06/25 19:47 1 tab QDAY PRN Administration constipation Protocol Tramadol HCl 50 mg 02/04/25 21:28 02/05/25 05:03 Tramadol Hcl 50 Mg Tablet PO 02/09/25 21:27 50 mg Q6HR PRN Administration pain 7-10 Plan Manpreet Pexler 74M pmhx significant for hypothyroidism, arthritis, prostate cancer status post radical prostatectomy (performed by Dr. Cordero at [facility] on 12/05/2024, patient follows Dr. Mckeon currently), neurogenic bladder (secondary to laminectomy performed back in 2002, patient self catheterizes, less following prostatectomy), incarcerated left femoral hernia status post hernia repair (01/29/2025), CKD stage IIIa (sees Dr. Coe for nephrology), chronic lower back pain, and varicose veins who presented to [facility] ED on 02/04 for left lower extremity swelling and tenderness, admitted for management of left lower extremity acute DVT. #Extensive LLE DVT, Left common femoral, superficial femoral, popliteal, peroneal, greater saphenous vein thrombus 2/2 #Incarcerated L inguinal hernia s/p repair 01/29/25 #Prostate cancer s/p radical prostatectomy 12/05/2024 Patient notes left lower extremity pain and swelling that started about a week prior to inguinal hernia repair on 01/29 with increasing swelling over time. Worsened following inguinal hernia surgery with pain and swelling. Dr. Cordero operated 12/05/[address] Mckeon. Dr. Camilo operated 01/29/25 and took about a week of Eliquis post-op, completed course entirely. In ED D-dimer 3240, low suspicion for PE and US LLE shows extensive DVT in multiple veins. Pedal pulses 2+, mild erythema and no tenderness to palpation. Likely 2/2 recent surgeries of prostatectomy and inguinal hernia. However does have strong family hx of strokes (maternal uncle at 39 from massive stroke, maternal grandmother in 90s from stroke, mother has had strokes) so possible genetic involvement. Reports had prostate cancer s/p prostatectomy 12/05/24 with all nodes excised negative, so possible hypercoag state. Plan: - Heparin ggt, plan to transition to oral anticoagulation prior to discharge - Cardiology consulted, recs appreciated - F/u TTE #Atrial fibrillation, without RVR Per history. 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 Sees Dr. Mcconnell, saw recently for inguinal hernia clearance. EKGs on admission show atrial fibrillation. Denies hx of stroke but strong family hx as above. CHADSVASC score 2 points, stroke risk 2.2 %/year and 2.9% risk of stroke/TIA/systemic embolism HAS-BLED score 1 point, 3.4% risk, anticoagulation should be considered Plan: - Continue heparin drip for management of extensive LLE DVT, transition to oral coagulations prior to discharge - Cardiology consulted as above #CKD Stage IIIa Patient noted to have a history of CKD and follows Dr. Coe for nephrology outpatient. Admission Cr 1.4, within baseline around 1.3. Plan: - Renally dose medications, avoid nephrotoxic drugs - Patient to follow-up with outpatient nephrology #Hypothyroidism Patient endorses a history of hypothyroidism and takes levothyroxine at home, however he takes it early when he awakens and will eat shortly after. TSH and T4 wnl. Plan: - Resumed home levothyroxine 125 mg ACBR - Patient will follow-up outpatient - Counseled patient on appropriate timing of levothyroxine #Neurogenic bladder Patient endorses a neurogenic bladder ever since he had a laminectomy back in 2002, to which the patient self catheterizes. Patient endorses improvement after radical prostatectomy. Plan: - Does not want [place] at this time - CTM #Chronic lower back pain #Neck pain #Arthritis Patient does endorse chronic lower back pain and arthritis, to which he takes ibuprofen at home for management. Per home meds outside documents, patient was prescribed cyclobenzaprine, tramadol, and [place] in addition to the ibuprofen, but the patient did not endorse taking these medications at this time. Plan: - Cyclobenzaprine 10 mg nightly as needed for back pain - Tramadol 50 mg every 6 hours as needed - Diclofenac gel 1g TID prn #Varicose veins, RLE As seen on exam and patient endorses a history of this. Plan: - Recommend outpatient follow up DVT Prophylaxis: Heparin gtt. GI Prophylaxis: Protonix daily Bowel: Senna PRN Diet: Regular Lines: PIV Code Status: FULL Disposition: med tele for extensive DVT, pending cardio consult, heparin ggt Patient plan of care was discussed with the senior resident Dr. Mendez (PGY-2) and attending physician Dr. Farrell. Larisa Goff DO Internal Medicine PGY-1 Attending Provider Attestation/Addendum I have discussed and was present for the essential components of the history, physical examination, diagnosis, and treatment plan with the resident. I agree with the patient's care as documented by the resident and amended herein by me. Christian Farrell DO. Although this document has been carefully reviewed, there may still be some phonetic and other typographical errors. These errors are purely grammatical due to imperfections in the software program and should not be construed in any way to compromise the substance of the patient's medical care during this visit.
--- NOTE | 2025-02-05 18:23 | ESCONSULT_ITS ---
<Statement entered by Jose E Mcconnell MD - 02/11/25 09:05> I personally examined the patient evaluate the patient with resident physician Dr. Gonzaelz patient is admitted the hospital following prostatectomy developed extensive deep vein thrombosis left lower extremity severe swelling left common femoral vein has extensive thrombus painful swelling phlegmasia cerulea dolens will recommend thrombectomy continue heparin and will start the patient on heparin drip and proceed with thrombectomy scheduled for tomorrow. HPI Data of Consult Consult date: 02/05/25 Requesting Physician: Mynor Farrell DO Admitting Provider: Willie Modi MD Attending Provider: Mynor Farrell DO Primary Care Provider: Jose Nunn MD Consult Narrative Reason for consult: DVT History of present illness: Patient is 74 yr male with PMH of hypothyroidism, osteoarthritis, prostate cancer status post radical prostatectomy on 12/05/2024, neurogenic bladder with In and out catheter as needed but urinary retention got better after prostatectomy per patient, status post inguinal hernia repair done on 01/29/2025, CKD stage IIIb, varicose veins s/p sclerotherapy presented to ED due to LLE swelling that worsened since past 2 weeks. Pain had initally started about one month ago. Also endorsing pain and erythema. He denies any previous DVT or PE. Denies any long distance traveling but has had recent surgery (inguinal repair) on 01/29/25. No SOB or chest pain. Vitals at the time of admission were stable. Labs were significant for D-dimer 3240, platelet count 461, creatinine 1.4. Left lower extremity venous Doppler showed extensive DVT in the left common femoral, superficial femoral, popliteal, peroneal as well as superficial greater saphenous vein. Patient admitted for acute DVT and started on heparin drip as per protocol. Troponin were negative. EKG noted for a fib with rate 97. Patient has been prescribed Eliquis in past but is non compliant. Cardiology consulted for evaluation for LE thrombectomy. cc:: cc: Mynor Farrell DO Review of Systems Review of Systems Systems Reviewed: All systems reviewed, normal except as documented Exam Vital Signs Temp Pulse Resp BP Pulse Ox O2 Del Method 97.9 F 73 17 131/79 H 96 Room Air 02/05/25 16:00 02/05/25 16:00 02/05/25 16:00 02/05/25 16:00 02/05/25 16:00 02/05/25 16:00 Narrative Exam GENERAL: AOx3, no acute distress HEENT: mucous membranes moist, bilateral sclera anicteric CARDIOVASCULAR: regular rate and irregular rhythm, S1/S2 present, no murmurs appreciated PULMONARY: clear to auscultation bilaterally, no rales/rhonchi/wheezes ABDOMINAL: soft, non-tender, non-distended, no rebound/guarding, bowel sounds present EXTREMITIES: 1+ pitting edema LLE up to thighs, RLE varicose veins no edema, mild LLE erythema compared to R, pedal pulses 2+ bilaterally, L inguinal repair incision clean and intact, no drainage or erythema SKIN: warm and dry, intact, no rashes NEURO: CN II-XII grossly intact, no focal deficits, alert, following commands Results Labs 02/05/25 04:41 02/05/25 04:41 Labs: Short CBC 02/05/25 Range/Units 04:41 WBC 6.9 (3.8-10.6) Thou/mm3 Hgb 10.7 L (13.5-16.0) g/dL Hct 32.7 L (41.0-53.0) % Plt Count 445 H (140-440) Thou/mm3 BMP 02/05/25 04:41 Sodium 142 Potassium 3.9 D Chloride 106 Carbon Dioxide 27.3 BUN 13 Creatinine 1.2 Glucose 80 Calcium 8.8 Cardiac Enzymes 02/04/25 Range/Units 13:00 Troponin I < 0.020 (0.0-0.045) ng/mL Liver Function 02/05/25 Range/Units 04:41 Total Bilirubin 0.3 (0.3-1.2) mg/dL AST 14 (0-34) U/L ALT 7 L (10-49) U/L Alkaline Phosphatase 82 (46-116) U/L Albumin 3.6 (3.4-4.8) gm/dL Quality Measures Quality Measures VTE prophylaxis Advance care planning discussed with:: patient Medications Home Medications and Allergies Home Medications ?Medication ?Instructions ?Recorded ?Confirmed ?Type lorazepam 1 mg tablet 1 mg PO .PRN 01/01/19 History levothyroxine 125 mcg tablet 125 mcg PO QDAY 01/04/20 02/04/25 History cyclobenzaprine 10 mg tablet 1 tab PO DAILY 09/28/21 1 04/07/24 History tramadol 50 mg tablet 50 mg PO Q8H PRN pain 02/04/25 History psyllium husk 0.4 gram capsule 0.4 g PO QDAY 02/04/25 02/04/25 History (Daily Fiber) diclofenac sodium 1 % topical gel 2 g topical QID 05/0102/05/25 History (Arthritis Pain (diclofenac)) prednisone 20 mg tablet 20 mg PO QDAY PRN stiffness 02/05/25 02/05/25 History Allergies Allergy/AdvReac Type Severity Reaction Status Date / Time No Known Allergies Allergy Verified 02/04/25 12:02 Visit Medications Acetaminophen (Acetaminophen 325 Mg Tablet) 650 mg PO Q6H PRN PRN Reason: pain 1-3 or Temp>100.4 Stop: 03/06/25 19:47 Cyclobenzaprine HCl (Cyclobenzaprine 5 Mg Tablet) 10 mg PO QPM PRN PRN Reason: MUSCLE CRAMPS Stop: 03/07/25 20:59 Last Admin: 02/04/25 21:58 Dose: 10 mg Diclofenac Sodium (Diclofenac 1% Top Gel 100 Gm Tube) 1 gm TOP TID PRN PRN Reason: Neck pain Stop: 03/07/25 13:59 Heparin Sodium/Dextrose (Heparin In D5w Ivpb) 25,000 unit in 250 mls @ 12.655 mls/hr IV .[id number] [facility]; Protocol Stop: 02/18/25 19:14 Last Admin: 02/05/25 13:29 Dose: 16 units/kg/hr, 11.249 mls/hr Levothyroxine Sodium (Levothyroxine Sodium 125 Mcg Tablet) 125 mcg PO ACBR [facility] Stop: 03/07/25 05:59 Last Admin: 02/05/25 05:03 Dose: 125 mcg Ondansetron HCl (Ondansetron Inj 2 Mg/Ml Inj 2 Ml) 4 mg IVP Q6H PRN; Protocol PRN Reason: NAUSEA OR VOMITING Stop: 03/06/25 19:47 Pantoprazole Sodium (Pantoprazole 40 Mg Tablet) 40 mg PO QDAY [facility] Stop: 03/07/25 08:59 Last Admin: 02/05/25 08:08 Dose: 40 mg Sennosides (Senna Tablet) 1 tab PO QDAY PRN; Protocol PRN Reason: constipation Stop: 03/06/25 19:47 Last Admin: 02/05/25 05:03 Dose: 1 tab Tamsulosin HCl (Tamsulosin Hcl 0.4 Mg Capsule) 0.4 mg PO HS BETH Stop: 03/07/25 20:59 Tramadol HCl (Tramadol Hcl 50 Mg Tablet) 50 mg PO Q6HR PRN PRN Reason: pain 7-10 Stop: 02/09/25 21:27 Last Admin: 02/05/25 05:03 Dose: 50 mg Discontinued Medications Heparin Sodium (Porcine) (Heparin Sod Inj 5000 Unit/Ml Vial) 5,600 unit 80 unit/kg (5600 unit) IV X1 ONE; Protocol Stop: 02/04/25 19:06 Last Admin: 02/04/25 22:02 Dose: 5,600 unit Magnesium Sulfate (Magnesium Sulfate Ivpb) 2 gm in 50 mls @ 25 mls/hr IV X1 ONE Stop: 02/05/25 10:21 Last Admin: 02/05/25 10:55 Dose: 25 mls/hr Influenza Virus Vaccine Quadrival (Influenza Virus 0.5 Ml Syringe ) 0.5 ml IMi .ONCE ONE Stop: 02/04/25 23:36 Potassium Chloride (Potassium Chloride 20 Meq Tabcr) 20 meq PO X1 ONE Stop: 02/05/25 08:22 Last Admin: 02/05/25 10:55 Dose: 20 meq Assessment & Plan Plan Patient is 74 yr male with PMH of hypothyroidism, osteoarthritis, prostate cancer status post radical prostatectomy on 12/05/2024, neurogenic bladder with In and out catheter as needed but urinary retention got better after prostatectomy per patient, status post inguinal hernia repair done on 01/29/2025, CKD stage IIIb, varicose veins s/p sclerotherapy presented to ED due to LLE swelling that worsend since past 2 weeks. Initially swelling had started 1 month ago. Cardiology consulted for evaluation of possilbe LE thrombectomy. #Acute DVT, provoked Recent surgery placed patient at high risk for DVT. LLE pain first started around 4 weeks ago. Noticed to have extensive swelling. Labs were significant for D-dimer 3240, Left lower extremity venous Doppler showed extensive DVT in the left common femoral, superficial femoral, popliteal, peroneal as well as superficial greater saphenous vein. He was started on heparin drip. Noted that patient was started on Eliquis some time ago for Afib. However is not compliant. -plan for mechanical thrombectomy tomorrow AM -NPO midnight -continue heparin drip until 6 am -will need to remain on Eliquis for Afib as well #Atrial fibrillation, rate controlled Per history. Never took terminologist anticoagulation. EKGs on admission show atrial fibrillation. Denies hx of stroke but strong family hx as above. CHADSVASC score 2 points, stroke risk 2.2 %/year and 2.9% risk of stroke/TIA/systemic embolism HAS-BLED score 1 point, 3.4% risk, anticoagulation should be considered Plan: - Continue heparin drip for management of extensive LLE DVT, transition to oral coagulations prior to discharge #CKD Stage IIIa #Hypothyroidism #Neurogenic bladder #Chronic lower back pain #Neck pain #Arthritis #Varicose veins, RLE Primary care team to manage above conditions and ongoing care needs. The patient's management plan was discussed with my attending physician Dr. Mcconnell. Candace Danielson, PGY-2
[2025-02-05] MEDS: Heparin/D5w 25K 250 ML Ivpb 25,000 UNIT/250 ML BAG 11.249 UNIT IV (18:48)
[2025-02-05 19:03] LABS: Partial Thromboplastin Time 64.0 Seconds (22.0-36.0)
[2025-02-05] MEDS: TAMSULOSIN HCL 0.4 MG CAPSULE PO (20:10)
--- NOTE | 2025-02-05 22:04 | PC.NURSE ---
Dr. Nichols notified regarding patient complaint of headache and request for something to help him have a bowel movement.
[2025-02-05] MEDS: Milk Of Magnesia Susp 30 ML UDC PO (22:13)
[2025-02-05] MEDS: HYDROcodone/APAP 5/325 TABLET 1 TAB PO (23:01)
[2025-02-06] VITALS (18 sets, daily range): BP systolic 78–128; BP diastolic 51–94; PULSE 74–106; RESP 12–23; TEMP 36.6–37.1; O2SAT 94–100
[2025-02-06 04:14] LABS: INR 1.0 (0.9-1.3); Partial Thromboplastin Time 59.8 Seconds (22.0-36.0); Prothrombin Time 10.6 Seconds (9.0-12.2)
[2025-02-06 04:29] LABS: Alanine Aminotransferase < 7 U/L (10-49); Albumin, Serum 3.6 gm/dL (3.4-4.8); Albumin/Globulin Ratio 1.4 (1.2-2.2); Alkaline Phosphatase 81 U/L (46-116); Anion Gap 8 (7-16); Aspartate Amino Transferase 14 U/L (0-34); BUN/Creatinine Ratio 12 Ratio (12-20); Bilirubin,Total 0.3 mg/dL (0.3-1.2); Blood Urea Nitrogen 14 mg/dL (9-23); Calcium 8.6 mg/dL (8.3-10.6); Calcium (Corrected) 8.9 mg/dL (8.5-10.1); Carbon Dioxide 28.3 mMol/L (20.0-31.0); Chloride 106 mMol/L (98-107); Creatinine (Component) 1.2 mg/dL (0.6-1.3); Estimated Creatinine Clearance 51.5 mL/min (>60); Globulin 2.5 gm/dL (2.3-3.5); Glucose 109 mg/dL (74-106); Magnesium 1.9 mg/dL (1.6-2.6); Osmolality,Calculated 284 (275-295); Potassium 4.0 mMol/L (3.4-5.1); Sodium 142 mMol/L (136-145); Total Protein 6.1 gm/dL (5.7-8.2); eGFR > 60 See Note
[2025-02-06 06:06] LABS: Basophils # (Auto) 0.1 Thou/mm3 (0.0-0.2); Basophils % (Auto) 1 % (0-2.5); Eosinophils # (Auto) 0.3 Thou/mm3 (0.0-0.5); Eosinophils % (Auto) 4 % (0-10); Hematocrit 32.1 % (41.0-53.0); Hemoglobin 10.5 g/dL (13.5-16.0); Immature Granulocytes Auto 0.02 Thou/mm3 (0.00-0.00); Lymphocytes # (Auto) 1.9 Thou/mm3 (1.0-4.8); Lymphocytes % (Auto) 30 % (10-50); Mean Corpuscular HGB Conc 32.7 g/dl (31.0-37.0); Mean Corpuscular Hemoglobin 30.2 pg (25.0-35.0); Mean Corpuscular Volume 92 fL (80-100); Monocytes # (Auto) 0.9 Thou/mm3 (0.0-0.8); Monocytes % (Auto) 14 % (0-12); Neutrophils # (Auto) 3.3 Thou/mm3 (1.8-7.7); Neutrophils % (Auto) 51 % (37-80); Nucleated Red Blood Cell # 0.00 Thou/mm3 (0.00-0.00); Nucleated Red Blood Cell % 0 /100 WBC (0); Platelet Count 423 Thou/mm3 (140-440); RDW Standard Deviation 44.4 fL (35.1-43.9); Red Blood Count 3.48 Miln/mm3 (4.50-5.90); White Blood Count 6.5 Thou/mm3 (3.8-10.6)
--- NOTE | 2025-02-06 08:55 | PC.SS ---
Follow up note: On heprin dip. Cardio recommendations pending. Pt will return home upon dc.
--- NOTE | 2025-02-06 10:57 | PC.NURSE ---
1009: Pt received in [facility]. Report from Sana EDWARDS. Pt groggy, but awake. Resp even, unlabored. BP low 82/58. Bilateral pedal pulses strong, irregular. Dressing to left posterior knee dry, clean, intact. No c/o pain. 1035: Pt has c/o severe dizziness. 1036: Pt placed in trendelenburg position. With NS bolus infusing. BP 78/56. 1037: BP up 95/58. Pt stated dizzines subsiding. 1043: BP 105/58. Dizziness is gone. 1045: BP 116/68. Pt resting with no further complaints voiced. VS stable. Bilateral pedal pulses strong, irregular. Toes, and nails pink with good cap refill. Dressing remains dry, clean, intact.
[2025-02-06] MEDS: HYDROcodone/APAP 5/325 TABLET 1 TAB PO ×3 (11:25→20:00)
[2025-02-06 12:36] LABS: Partial Thromboplastin Time 29.3 Seconds (22.0-36.0)
[2025-02-06] MEDS: HEPARIN SOD INJ 5000 UNIT/ML VIAL 2800 UNIT IV (13:43)
[2025-02-06] MEDS: Heparin/D5w 25K 250 ML Ivpb 25,000 UNIT/250 ML BAG 12.507 UNIT IV (13:44)
--- NOTE | 2025-02-06 14:19 | ESPR_ITS ---
<Statement entered by González Mendez MD - 02/06/25 17:37> I saw and examined patient personally and supervised PGY 1 resident, Dr. Goff with formulating a management plan. I agree with the documentation with the exceptions as listed below. Manpreet Hancock 74M pmhx significant for hypothyroidism, arthritis, prostate cancer status post radical prostatectomy (performed by Dr. Cordero at [facility] on 12/05/2024, patient follows Dr. Mckeon currently), neurogenic bladder (secondary to laminectomy performed back in 2002, patient self catheterizes, less following prostatectomy), incarcerated left femoral hernia status post hernia repair (01/29/2025), CKD stage IIIa (sees Dr. Coe for nephrology), chronic lower back pain, and varicose veins who presented to [facility] ED on 02/04 for left lower extremity swelling and tenderness, admitted for management of left lower extremity acute DVT. Problem list 1. Extensive, provoked left lower extremity DVT s/p mechanical thrombectomy on 02/06 2. Incarcerated left inguinal s/p repair 01/29/2025 3. Prostate cancer s/p radical prostatectomy 12/05/2024 4. Longstanding atrial fibrillation 5. CKD stage III AA 6. Hypothyroidism 7. History of neurogenic bladder Patient underwent left lower extremity mechanical thrombectomy by bridge worker, Dr. Bridger Mcconnell today. Subsequently he was restarted on heparin infusion. Large 8.8 cm lymphocele seen on CT 01/18 likely causing clots and moderate L hydronephrosis. Plan to postpone iliofemoral vein stent as cystic mass may be causing obstruction and stent may not be needed. Urology consulted and IR planned to drain tomorrow at 1030. Continue with [place] and tramadol as needed for pain control. Plan of care discussed with Attending Dr. Bud Mendez MD PGY 2 Disclaimer: This note was dictated by speech recognition. Minor errors in log scaler may be present due to voice recognition software. Documentation for date of: 02/06/25 Subjective Subjective Interval history: No acute overnight events. Patient seen examined at bedside post thrombectomy. Patient is postop day 1 following left lower extremity thrombectomy. Endorses significant pain of left lower leg, relieved by Camden. VSS. Labs wnl. Morphine 1 mg every 4 hours as needed added for breakthrough pain. Continue heparin GGT until 6 am until then and plan to transition to oral anticoagulation prior to discharge. Per cardiology, large 8.8 cm lymphocele seen on CT 01/18 likely causing clots and moderate L hydronephrosis. Plan to postpone iliofemoral vein stent as cystic mass may be causing obstruction and stent may not be needed. Urology consulted. IR to drain tomorrow at 10:30 am. Exam Vital Signs Temp Pulse Resp BP Pulse Ox O2 Del Method 98.7 F 81 15 128/94 H 99 Room Air 02/06/25 13:00 02/06/25 13:00 02/06/25 13:00 02/06/25 13:00 02/06/25 13:00 02/06/25 13:00 Narrative Exam GENERAL: AOx3, no acute distress HEENT: mucous membranes moist, bilateral sclera anicteric CARDIOVASCULAR: regular rate and irregular rhythm, S1/S2 present, no murmurs appreciated PULMONARY: clear to auscultation bilaterally, no rales/rhonchi/wheezes ABDOMINAL: soft, non-tender, non-distended, no rebound/guarding, bowel sounds present EXTREMITIES: 1+ pitting edema LLE up to thighs, RLE varicose veins no edema, BLE not TTP, mild LLE erythema compared to R, pedal pulses 2+ bilaterally, L inguinal repair incision clean and intact, no drainage or erythema, posterior L knee incision site clean and intact, covered SKIN: warm and dry, no rashes NEURO: CN II-XII grossly intact, no focal deficits, alert, following commands Objective Labs 02/06/25 17:46 02/06/25 02:00 Labs: Laboratory Results - last 24 hr 02/05/25 02/06/25 02/06/25 18:17 02:00 11:47 WBC 6.5 RBC 3.48 L Hgb 10.5 L Hct 32.1 L MCV 92 MCH 30.2 MCHC 32.7 RDW Std Deviation 44.4 H Plt Count 423 Neut % (Auto) 51 Lymph % (Auto) 30 [place] % (Auto) 14 H Eos % (Auto) 4 Baso % (Auto) 1 Neut # (Auto) 3.3 Lymph # (Auto) 1.9 [place] # (Auto) 0.9 H Eos # (Auto) 0.3 Baso # (Auto) 0.1 Immature Gran # (Auto) 0.02 H Absolute Nucleated RBC 0.00 Immature Gran % 0 Nucleated RBC % 0 PT 10.6 INR 1.0 APTT 64.0 H D 59.8 H 29.3 D Sodium 142 Potassium 4.0 Chloride 106 Carbon Dioxide 28.3 Anion Gap 8 BUN 14 Creatinine 1.2 Estim Creat Clear Calc 51.5 L eGFR > 60 BUN/Creatinine Ratio 12 Glucose 109 H Calculated Osmolality 284 Calcium 8.6 Corrected Calcium 8.9 Magnesium 1.9 Total Bilirubin 0.3 AST 14 ALT < 7 L Alkaline Phosphatase 81 Total Protein 6.1 Albumin 3.6 Globulin 2.5 Albumin/Globulin Ratio 1.4 Quality Measures Quality Measures VTE prophylaxis Advance care planning discussed with:: patient Assessment & Plan Assessment Current Active Medications: Generic Name Dose Route Start Last Admin Trade Name Freq PRN Reason Stop Dose Admin Acetaminophen 650 mg 02/04/25 20:07 Acetaminophen 325 Mg Tablet PO 03/06/25 19:47 Q6H PRN pain 1-3 or Temp>100.4 Hydrocodone Bitart/Acetaminophen 1 tab 02/06/25 11:12 02/06/25 11:25 Hydrocodone/Apap 5/325 Tablet PO 02/11/25 11:11 1 tab Q4HR PRN Administration PAIN SCALE 4-6 (Moderate Cyclobenzaprine HCl 10 mg 02/04/25 21:29 02/05/25 20:09 Cyclobenzaprine 5 Mg Tablet PO 03/07/25 20:59 10 mg QPM PRN Administration MUSCLE CRAMPS Diclofenac Sodium 1 gm 02/05/25 09:39 Diclofenac 1% Top Gel 100 Gm Tube TOP 03/07/25 13:59 TID PRN Neck pain Heparin Sodium/Dextrose 25,000 unit in 250 mls @ 12.507 mls/hr 02/06/25 12:00 02/06/25 13:44 Heparin In D5w Ivpb IV 02/20/25 11:59 18 units/kg/hr .Q20H BETH 12.507 mls/hr Protocol Administration 18 UNITS/KG/HR Levothyroxine Sodium 125 mcg 02/05/25 06:00 02/06/25 06:03 Levothyroxine Sodium 125 Mcg Tablet PO 03/07/25 05:59 Not Given ACBR BETH Lorazepam 1 mg 02/05/25 18:29 02/05/25 20:10 Lorazepam 0.5 Mg Tablet PO 02/10/25 18:28 1 mg HS PRN Administration INSOMNIA Ondansetron HCl 4 mg 02/04/25 19:48 Ondansetron Inj 2 Mg/Ml Inj 2 Ml IVP 03/06/25 19:47 Q6H PRN NAUSEA OR VOMITING Protocol Pantoprazole Sodium 40 mg 02/05/25 09:00 02/06/25 13:38 Pantoprazole 40 Mg Tablet PO 03/07/25 08:59 Not Given QDAY BETH Sennosides 1 tab 02/04/25 19:48 02/05/25 05:03 Senna Tablet PO 03/06/25 19:47 1 tab QDAY PRN Administration constipation Protocol Tamsulosin HCl 0.4 mg 02/05/25 21:00 02/05/25 20:10 Tamsulosin Hcl 0.4 Mg Capsule PO 03/07/25 20:59 0.4 mg HS BETH Administration Tramadol HCl 50 mg 02/04/25 21:28 02/05/25 05:03 Tramadol Hcl 50 Mg Tablet PO 02/09/25 21:27 50 mg Q6HR PRN Administration pain 7-10 Protocol Plan Manpreet Samson 74M pmhx significant for hypothyroidism, arthritis, prostate cancer status post radical prostatectomy (performed by Dr. Cordero at [facility] on 12/05/2024, patient follows Dr. Mckeon currently), neurogenic bladder (secondary to laminectomy performed back in 2002, patient self catheterizes, less following prostatectomy), incarcerated left femoral hernia status post hernia repair (01/29/2025), CKD stage IIIa (sees Dr. Coe for nephrology), chronic lower back pain, and varicose veins who presented to [facility] ED on 02/04 for left lower extremity swelling and tenderness, admitted for management of left lower extremity acute DVT s/p thrombectomy 02/06/25. #Extensive LLE DVT, Left common femoral, superficial femoral, popliteal, peroneal, greater saphenous vein thrombus s/p thrombectomy 02/06/25 2/2 #Large pelvic cystic mass 8.8 cm #Incarcerated L inguinal hernia s/p repair 01/29/25 #Prostate cancer s/p radical prostatectomy 12/05/2024 Patient notes left lower extremity pain and swelling that started about a week prior to inguinal hernia repair on 01/29 with increasing swelling over time. Worsened following inguinal hernia surgery with pain and swelling. Dr. Cordero operated 12/05/[address] Mckeon. Dr. Camilo operated 01/29/25 and took about a week of Eliquis post-op, completed course entirely. In ED D-dimer 3240, low suspicion for PE and US LLE shows extensive DVT in multiple veins. Pedal pulses 2+, mild erythema and no tenderness to palpation. TTE: LV size normal and systolic function normal. Estminated 50-55%, G1DD, RV size and systolic function normal. RVSP 18 mmHg. Trave MR and TR. Mild MAC. LA and RA normal. Not well visualized IVD with estimated RA pressure 8 mmHg. Likely 2/2 lymphocele vs recent surgeries of prostatectomy and inguinal hernia Plan: - Cardiology consulted, recs appreciated: thrombectomy done today, continue heparin ggt, large 8.8 cm lymphocele seen on CT 01/18 likely causing clots and moderate L hydronephrosis. Plan to postpone iliofemoral vein stent as cystic mass may be causing obstruction and stent may not be needed. Urology consulted and IR planned to drain tomorrow at 1030. - Pain scale: Tylenol, [place] 5 q4h prn, morphine 1 mg q4h prn #Atrial fibrillation, without RVR Per history. Never took superintendent container terminal anticoagulation. Sees Dr. Mcconnell, saw recently for inguinal hernia clearance. EKGs on admission show atrial fibrillation. Denies hx of stroke but strong family hx as above. CHADSVASC score 2 points, stroke risk 2.2 %/year and 2.9% risk of stroke/TIA/systemic embolism HAS-BLED score 1 point, 3.4% risk, anticoagulation should be considered Plan: - Continue heparin drip for management of extensive LLE DVT, transition to oral coagulations prior to discharge - Cardiology consulted as above #CKD Stage IIIa #Moderate L hydrohephrosis (01/22/25) Patient noted to have a history of CKD and follows Dr. Coe for nephrology outpatient. Admission Cr 1.4, within baseline around 1.3. Plan: - Renally dose medications, avoid nephrotoxic drugs - Patient to follow-up with outpatient nephrology #Hypothyroidism Patient endorses a history of hypothyroidism and takes levothyroxine at home, however he takes it early when he awakens and will eat shortly after. TSH and T4 wnl. Plan: - Resumed home levothyroxine 125 mg ACBR - Patient will follow-up outpatient - Counseled patient on appropriate timing of levothyroxine #Neurogenic bladder Patient endorses a neurogenic bladder ever since he had a laminectomy back in 2002, to which the patient self catheterizes. Patient endorses improvement after radical prostatectomy. Plan: - Does not want [place] at this time - CTM #Chronic lower back pain #Neck pain #Arthritis Patient does endorse chronic lower back pain and arthritis, to which he takes ibuprofen at home for management. Per home meds outside documents, patient was prescribed cyclobenzaprine, tramadol, and [place] in addition to the ibuprofen, but the patient did not endorse taking these medications at this time. Plan: - Cyclobenzaprine 10 mg nightly as needed for back pain - Diclofenac gel 1g TID prn - [place] 5 q4h prn as patient has hx of peptic ulcers #Varicose veins, RLE As seen on exam and patient endorses a history of this. Plan: - Recommend outpatient follow up DVT Prophylaxis: Heparin gtt. GI Prophylaxis: Protonix daily Bowel: Senna PRN Diet: Regular Lines: PIV Code Status: FULL Disposition: med tele pending stent placement Tuesday, heparin ggt Patient plan of care was discussed with the senior resident Dr. Mendez (PGY-2) and attending physician Dr. Farrell. Larisa Goff DO Internal Medicine PGY-1 Attending Provider Attestation/Addendum I have discussed and was present for the essential components of the history, physical examination, diagnosis, and treatment plan with the resident. I agree with the patient's care as documented by the resident and amended herein by me. Christian Farrell DO. Although this document has been carefully reviewed, there may still be some phonetic and other typographical errors. These errors are purely grammatical due to imperfections in the software program and should not be construed in any way to compromise the substance of the patient's medical care during this visit.
--- NOTE | 2025-02-06 15:46 | PC.NURSE ---
For 1240 hr: Pt had c/o pain at 1145hr. [place] given per order. Pt had been resting since with no further complaints. At 1150hr child care coordinator here to draw ordered labs. Pt tolerated procedure with no complaints voiced. Dressing posterior left knee remains dry, clean, intact. States pain level tolerable. Report to Ele EDWARDS. Pt transferred to 276 in stable condition.
--- NOTE | 2025-02-06 17:11 | ESPR_ITS ---
<Statement entered by Jose E Mcconnell MD - 02/12/25 12:46> The patient personally examined by me evaluated with resident physician patient is doing much better following thrombectomy continues to feel better no shortness of or chest pain hemoglobin monitored closely there was 400 mL of blood loss during the procedure thrombectomy. Evaluate the patient with resident physician PGY 2 Dr. Gonzalez agree with treatment plan recommendation as documented will continue to monitor the patient closely Documentation for date of: 02/06/25 Subjective Subjective Interval history: Patient is 74 yr male with PMH of hypothyroidism, osteoarthritis, prostate cancer status post radical prostatectomy on 12/05/2024, neurogenic bladder with In and out catheter as needed but urinary retention got better after prostatectomy per patient, status post inguinal hernia repair done on 01/29/2025, CKD stage IIIb, varicose veins s/p sclerotherapy presented to ED due to LLE swelling that worsened since past 2 weeks. Pain had initally started about one month ago. Also endorsing pain and erythema. He denies any previous DVT or PE. Denies any long distance traveling but has had recent surgery (inguinal repair) on 01/29/25. No SOB or chest pain. Vitals at the time of admission were stable. Labs were significant for D-dimer 3240, platelet count 461, creatinine 1.4. Left lower extremity venous Doppler showed extensive DVT in the left common femoral, superficial femoral, popliteal, peroneal as well as superficial greater saphenous vein. Patient admitted for acute DVT and started on heparin drip as per protocol. Troponin were negative. EKG noted for a fib with rate 97. Patient has been prescribed Eliquis in past but is non compliant. Cardiology consulted for evaluation for LE thrombectomy. 02/06: Patient underwent mechanical thrombectomy this morning. Significant amount of clot was removed. About 400cc blood loss. During procedure, there was resistance in advancing the guide wire through common iliac vein raising concern that lymphocele may be compressing left ureter along with left common iliac vein. Radiology was contacted for percutaneous drainage. Plan for procedure tomorrow morning at 10 AM. Patient will be NPO at midnight, heparin drip to be held at 6 AM, and resume heparin drip post procedure. Follow up with 5pm Hb to assess for blood loss. Transfuse 1 unit prbc if less than 8. Anticipate that vein compression will resolve after the drainage. Otherwise, patient will require venous stent. At bedside post thrombectomy, he is doing well. Denies any pain, no excessive bleeding from site. Labs and vitals were reviewed. Exam Vital Signs Temp Pulse Resp BP Pulse Ox O2 Del Method 98.7 F 81 15 128/94 H 99 Room Air 02/06/25 13:00 02/06/25 13:00 02/06/25 13:00 02/06/25 13:00 02/06/25 13:00 02/06/25 13:00 Narrative Exam GENERAL: AOx3, no acute distress HEENT: mucous membranes moist, bilateral sclera anicteric CARDIOVASCULAR: regular rate and irregular rhythm, S1/S2 present, no murmurs appreciated PULMONARY: clear to auscultation bilaterally, no rales/rhonchi/wheezes ABDOMINAL: soft, non-tender, non-distended, no rebound/guarding, bowel sounds present EXTREMITIES: 1+ pitting edema LLE up to thighs, RLE varicose veins no edema, mild LLE erythema compared to R, pedal pulses 2+ bilaterally, L inguinal repair incision clean and intact, no drainage or erythema, posterior L knee incision site clean and intact, covered SKIN: warm and dry, no rashes NEURO: CN II-XII grossly intact, no focal deficits, alert, following commands Objective Labs 02/06/25 02:00 02/06/25 02:00 Labs: Laboratory Results - last 24 hr 02/05/25 02/06/25 02/06/25 18:17 02:00 11:47 WBC 6.5 RBC 3.48 L Hgb 10.5 L Hct 32.1 L MCV 92 MCH 30.2 MCHC 32.7 RDW Std Deviation 44.4 H Plt Count 423 Neut % (Auto) 51 Lymph % (Auto) 30 [place] % (Auto) 14 H Eos % (Auto) 4 Baso % (Auto) 1 Neut # (Auto) 3.3 Lymph # (Auto) 1.9 [place] # (Auto) 0.9 H Eos # (Auto) 0.3 Baso # (Auto) 0.1 Immature Gran # (Auto) 0.02 H Absolute Nucleated RBC 0.00 Immature Gran % 0 Nucleated RBC % 0 PT 10.6 INR 1.0 APTT 64.0 H D 59.8 H 29.3 D Sodium 142 Potassium 4.0 Chloride 106 Carbon Dioxide 28.3 Anion Gap 8 BUN 14 Creatinine 1.2 Estim Creat Clear Calc 51.5 L eGFR > 60 BUN/Creatinine Ratio 12 Glucose 109 H Calculated Osmolality 284 Calcium 8.6 Corrected Calcium 8.9 Magnesium 1.9 Total Bilirubin 0.3 AST 14 ALT < 7 L Alkaline Phosphatase 81 Total Protein 6.1 Albumin 3.6 Globulin 2.5 Albumin/Globulin Ratio 1.4 Quality Measures Quality Measures VTE prophylaxis Advance care planning discussed with:: patient Assessment & Plan Assessment Current Active Medications: Generic Name Dose Route Start Last Admin Trade Name Freq PRN Reason Stop Dose Admin Acetaminophen 650 mg 02/04/25 20:07 Acetaminophen 325 Mg Tablet PO 03/06/25 19:47 Q6H PRN pain 1-3 or Temp>100.4 Hydrocodone Bitart/Acetaminophen 1 tab 02/06/25 15:11 02/06/25 15:29 Hydrocodone/Apap 5/325 Tablet PO 02/11/25 11:11 1 tab Q4HR PRN Administration PAIN SCALE 4-10(Mod-Sev Cyclobenzaprine HCl 10 mg 02/04/25 21:29 02/05/25 20:09 Cyclobenzaprine 5 Mg Tablet PO 03/07/25 20:59 10 mg QPM PRN Administration MUSCLE CRAMPS Diclofenac Sodium 1 gm 02/05/25 09:39 Diclofenac 1% Top Gel 100 Gm Tube TOP 03/07/25 13:59 TID PRN Neck pain Heparin Sodium/Dextrose 25,000 unit in 250 mls @ 12.507 mls/hr 02/06/25 12:00 02/06/25 13:44 Heparin In D5w Ivpb IV 02/20/25 11:59 18 units/kg/hr .Q20H BETH 12.507 mls/hr Protocol Administration 18 UNITS/KG/HR Magnesium Sulfate 2 gm in 50 mls @ 25 mls/hr 02/06/25 16:41 Magnesium Sulfate Ivpb IV 02/06/25 18:40 X1 ONE Levothyroxine Sodium 125 mcg 02/05/25 06:00 02/06/25 06:03 Levothyroxine Sodium 125 Mcg Tablet PO 03/07/25 05:59 Not Given ACBR BETH Lorazepam 1 mg 02/05/25 18:29 02/05/25 20:10 Lorazepam 0.5 Mg Tablet PO 02/10/25 18:28 1 mg HS PRN Administration INSOMNIA Morphine Sulfate 2 mg 02/06/25 15:09 Morphine Sulf Inj 4 Mg/Ml Vial IVP Q4HR PRN BREAKTHROUGH PAIN Protocol Ondansetron HCl 4 mg 02/04/25 19:48 Ondansetron Inj 2 Mg/Ml Inj 2 Ml IVP 03/06/25 19:47 Q6H PRN NAUSEA OR VOMITING Protocol Pantoprazole Sodium 40 mg 02/05/25 09:00 02/06/25 13:38 Pantoprazole 40 Mg Tablet PO 03/07/25 08:59 Not Given QDAY BETH Sennosides 1 tab 02/04/25 19:48 02/05/25 05:03 Senna Tablet PO 03/06/25 19:47 1 tab QDAY PRN Administration constipation Protocol Tamsulosin HCl 0.4 mg 02/05/25 21:00 02/05/25 20:10 Tamsulosin Hcl 0.4 Mg Capsule PO 03/07/25 20:59 0.4 mg HS BETH Administration Plan Patient is 74 yr male with PMH of hypothyroidism, osteoarthritis, prostate cancer status post radical prostatectomy on 12/05/2024, neurogenic bladder with In and out catheter as needed but urinary retention got better after prostatectomy per patient, status post inguinal hernia repair done on 01/29/2025, CKD stage IIIb, varicose veins s/p sclerotherapy presented to ED due to LLE swelling that worsend since past 2 weeks. Initially swelling had started 1 month ago. Cardiology consulted for evaluation of possilbe LE thrombectomy. #Acute DVT, provoked #s/p mechanical thrombectomy #Lymphocele Recent surgery placed patient at high risk for DVT. LLE pain first started around 4 weeks ago. Noticed to have extensive swelling. Labs were significant for D-dimer 3240, Left lower extremity venous Doppler showed extensive DVT in the left common femoral, superficial femoral, popliteal, peroneal as well as superficial greater saphenous vein. He was started on heparin drip. Noted that patient was started on Eliquis some time ago for Afib. However is not compliant. Thrombectomy completed on 02/06 -IR percutaneous drainage of lymphocele -repeat Hb 5pm -transfuse 1 unit prbc if Hb <8 -NPO midnight -continue heparin drip until 6 am -resume heparin drip after procedure -CT A/P with contrast on Tuesday to asses venous patency -will need to remain on Eliquis for Afib as well #Atrial fibrillation, rate controlled Per history. Never took superintendent container terminal anticoagulation. EKGs on admission show atrial fibrillation. Denies hx of stroke but strong family hx as above. CHADSVASC score 2 points, stroke risk 2.2 %/year and 2.9% risk of stroke/TIA/systemic embolism HAS-BLED score 1 point, 3.4% risk, anticoagulation should be considered Plan: - Continue heparin drip for management of extensive LLE DVT, transition to oral coagulations prior to discharge #CKD Stage IIIa #Hypothyroidism #Neurogenic bladder #Chronic lower back pain #Neck pain #Arthritis #Varicose veins, RLE Primary care team to manage above conditions and ongoing care needs. The patient's management plan was discussed with my attending physician Dr. Mcconnell. Candace Danielson, PGY-2
[2025-02-06] MEDS: Magnesium Sulfate 2 GM Ivpb 2 GM/50 ML BAG IV (17:17)
[2025-02-06 18:02] LABS: Basophils # (Auto) 0.0 Thou/mm3 (0.0-0.2); Basophils % (Auto) 1 % (0-2.5); Eosinophils # (Auto) 0.1 Thou/mm3 (0.0-0.5); Eosinophils % (Auto) 1 % (0-10); Hematocrit 28.6 % (41.0-53.0); Hemoglobin 9.2 g/dL (13.5-16.0); Immature Granulocytes Auto 0.02 Thou/mm3 (0.00-0.00); Lymphocytes # (Auto) 1.2 Thou/mm3 (1.0-4.8); Lymphocytes % (Auto) 16 % (10-50); Mean Corpuscular HGB Conc 32.2 g/dl (31.0-37.0); Mean Corpuscular Hemoglobin 30.0 pg (25.0-35.0); Mean Corpuscular Volume 93 fL (80-100); Monocytes # (Auto) 0.7 Thou/mm3 (0.0-0.8); Monocytes % (Auto) 10 % (0-12); Neutrophils # (Auto) 5.2 Thou/mm3 (1.8-7.7); Neutrophils % (Auto) 72 % (37-80); Nucleated Red Blood Cell # 0.00 Thou/mm3 (0.00-0.00); Nucleated Red Blood Cell % 0 /100 WBC (0); Platelet Count 381 Thou/mm3 (140-440); RDW Standard Deviation 45.1 fL (35.1-43.9); Red Blood Count 3.07 Miln/mm3 (4.50-5.90); White Blood Count 7.2 Thou/mm3 (3.8-10.6)
--- NOTE | 2025-02-06 18:39 | PC.NURSE ---
At approximately 1835, I was walking by patient's room 276, patient was standing up on the side of the bed attempting to use the bathroom for BM, I hurried into the room and had patient lay back down with left leg straight. Patient was upset for not being able to use bathroom. Patient has agreed to use of urinal and bedpan until seen by Dr. Mcconnell following day.
--- NOTE | 2025-02-06 19:18 | PC.NURSE ---
Contacted Dr. Jane Mcconnell, patient attempting to use restroom and is upset. Dr. Mcconnell stated that it is ok for patient to ambulate to and from restroom.
[2025-02-06 20:14] LABS: Partial Thromboplastin Time 74.5 Seconds (22.0-36.0)
[2025-02-06] MEDS: Milk Of Magnesia Susp 30 ML UDC PO (21:50)
[2025-02-06] MEDS: TAMSULOSIN HCL 0.4 MG CAPSULE PO (21:50)
[2025-02-07] VITALS (11 sets, daily range): BP systolic 95–128; BP diastolic 56–73; PULSE 70–101; RESP 13–24; TEMP 36.1–36.9; O2SAT 95–100
[2025-02-07] MEDS: HYDROcodone/APAP 5/325 TABLET 1 TAB PO ×4 (00:11→19:27)
[2025-02-07] MEDS: LEVOTHYROXINE SODIUM 125 MCG TABLET PO (05:16)
[2025-02-07 05:56] LABS: Basophils # (Auto) 0.0 Thou/mm3 (0.0-0.2); Basophils % (Auto) 0 % (0-2.5); Eosinophils # (Auto) 0.2 Thou/mm3 (0.0-0.5); Eosinophils % (Auto) 2 % (0-10); Hematocrit 24.4 % (41.0-53.0); Immature Granulocytes Auto 0.02 Thou/mm3 (0.00-0.00); Lymphocytes # (Auto) 1.3 Thou/mm3 (1.0-4.8); Lymphocytes % (Auto) 18 % (10-50); Mean Corpuscular HGB Conc 33.2 g/dl (31.0-37.0); Mean Corpuscular Hemoglobin 30.7 pg (25.0-35.0); Mean Corpuscular Volume 92 fL (80-100); Monocytes # (Auto) 0.8 Thou/mm3 (0.0-0.8); Monocytes % (Auto) 11 % (0-12); Neutrophils # (Auto) 5.1 Thou/mm3 (1.8-7.7); Neutrophils % (Auto) 68 % (37-80); Nucleated Red Blood Cell # 0.00 Thou/mm3 (0.00-0.00); Nucleated Red Blood Cell % 0 /100 WBC (0); Platelet Count 345 Thou/mm3 (140-440); RDW Standard Deviation 44.7 fL (35.1-43.9); Red Blood Count 2.64 Miln/mm3 (4.50-5.90); White Blood Count 7.4 Thou/mm3 (3.8-10.6)
[2025-02-07 06:19] LABS: Partial Thromboplastin Time 67.8 Seconds (22.0-36.0)
[2025-02-07 06:31] LABS: Alanine Aminotransferase < 7 U/L (10-49); Albumin, Serum 3.3 gm/dL (3.4-4.8); Albumin/Globulin Ratio 1.6 (1.2-2.2); Alkaline Phosphatase 72 U/L (46-116); Anion Gap 7 (7-16); Aspartate Amino Transferase 13 U/L (0-34); BUN/Creatinine Ratio 17 Ratio (12-20); Bilirubin,Total 0.2 mg/dL (0.3-1.2); Blood Urea Nitrogen 20 mg/dL (9-23); Calcium 8.2 mg/dL (8.3-10.6); Calcium (Corrected) 8.8 mg/dL (8.5-10.1); Carbon Dioxide 29.5 mMol/L (20.0-31.0); Chloride 106 mMol/L (98-107); Creatinine (Component) 1.2 mg/dL (0.6-1.3); Estimated Creatinine Clearance 51.5 mL/min (>60); Globulin 2.1 gm/dL (2.3-3.5); Glucose 123 mg/dL (74-106); Magnesium 2.2 mg/dL (1.6-2.6); Osmolality,Calculated 286 (275-295); Potassium 4.2 mMol/L (3.4-5.1); Sodium 142 mMol/L (136-145); Total Protein 5.4 gm/dL (5.7-8.2); eGFR > 60 See Note
[2025-02-07 07:52] LABS: Hemoglobin 8.1 g/dL (13.5-16.0)
--- NOTE | 2025-02-07 08:51 | XR_ITS ---
Examination: CT-guided percutaneous catheter drainage left pelvic lymphocele CT pelvis without intravenous contrast INDICATIONS: Large lymphocele producing mass effect in the pelvis, displacing the urinary bladder on CT examination January 22, 2025 Date and time of procedure: February 07, 2025, 1039 hours Informed consent provided. A timeout was completed verifying correct patient, procedure, site and positioning. Technique: Axial 3 mm sections were obtained for localization of the left pelvic lymphocele Appropriate area is marked. The patient's site was prepped and draped in sterile fashion Maximal sterile barrier technique utilized, including hand hygiene Local anesthesia was obtained with 1% lidocaine. Low dose protocols were performed. One or more of the following dose reduction techniques were used; automated exposure control, adjustment of the mA and/or KV according to patient size, use of iterative reconstruction technique. Utilizing CT fluoroscopic guidance 5 [place] catheter percutaneously placed in the fluid collection in the pelvis 250 cc fluid removed Patient appears in stable condition during this procedure. At completion of the procedure, the patient is in satisfactory condition. Estimated blood loss 0 cc Complete pathology report to follow. Impression: Successful CT-guided percutaneous catheter drainage of left pelvic lymphocele 250 cc clear fluid removed, material sent for culture and sensitivity, cytology
[2025-02-07] MEDS: fentaNYL CIT INJ 50 mCg/ML AMP 2ML IVP (10:54)
[2025-02-07] MEDS: LIDOCAINE INJ PF 1% 30 ML VIAL 10 ML EPID (11:02)
--- NOTE | 2025-02-07 12:10 | PC.NURSE ---
hand off report given to ele rn. patient transferred back to room via gurney. patient tolerated procedure well. patient alert and oriented. gcs of 15. Ele brewer and I assessed dressing and site. site is soft, flat, non-tender, and no signs of hematoma present. dressing is clean dry and intact.
--- NOTE | 2025-02-07 13:00 | XR_ITS ---
Examination: CTA abdomen, with intravenous contrast. CTA pelvis, with intravenous contrast. 2-D sagittal and coronal reconstructions. 3-D reconstructions. Date and time of exam: February 07, 2025, 1831 hours, comparison January 22, 2025 2 INDICATIONS: Clinical diagnosis DVT, post prostate surgery with large lymphocele drained under CT guidance today CTDI vol (mgy) 22.8 DLP (MGycm) 1123 Technique: Multiple CTA images, 2.0 mm slice thickness, obtained chest, abdomen, pelvis, with the high-resolution 64 slice scanner. 100 cc Isovue-370 is administered intravenously. Delayed venous images obtained Sagittal and coronal 2-D reconstructions are obtained. 3-D reconstructions, angiographic images are obtained. 3-D postprocessing, including vascular maximum intensity projections. Low dose protocols were performed. One or more of the following dose reduction techniques were used; automated exposure control, adjustment of the mA and/or KV according to patient size, use of iterative reconstruction technique. Findings: Mild enlargement cardiac contour Mitral valvular calcification No visualized liver or splenic lesion No gallstones No pancreatic or adrenal mass The left hydronephrosis noted on the January 22, 2025 exam is no longer identified Aorta normal size The lymphocele has decreased in size although it appears to have partially recurred compared to the drainage CT study this afternoon The urinary bladder is markedly thickened There remains fluid in the left inguinal hernia region Delayed venous images demonstrate clot in the left common femoral left external iliac left common iliac veins as well as left superficial femoral vein The right venous system in the pelvis is opacified No clot in the inferior vena cava is noted IMPRESSION: The patient's left hydronephrosis has resolved, the lymphocele in the pelvis is smaller compared to the prior study There is deep venous thrombus in the left superficial femoral left common femoral, left external iliac and left common iliac veins The inferior vena cava is opacified with contrast
--- NOTE | 2025-02-07 13:40 | ESPR_ITS ---
<Statement entered by González Mendez MD - 02/07/25 17:30> I saw and examined patient personally and supervised PGY 1 resident, Dr. Goff with formulating a management plan. I agree with the documentation with the exceptions as listed below. Manpreet Hancock 74M pmhx significant for hypothyroidism, arthritis, prostate cancer status post radical prostatectomy (performed by Dr. Cordero at [facility] on 12/05/2024, patient follows Dr. Mckeon currently), neurogenic bladder (secondary to laminectomy performed back in 2002, patient self catheterizes, less following prostatectomy), incarcerated left femoral hernia status post hernia repair (01/29/2025), CKD stage IIIa (sees Dr. Coe for nephrology), chronic lower back pain, and varicose veins who presented to [facility] ED on 02/04 for left lower extremity swelling and tenderness, admitted for management of left lower extremity acute DVT. Problem list 1. Extensive, provoked left lower extremity DVT s/p mechanical thrombectomy on 02/06 2. Lymphocele s/p IR guided aspiration on 02/07 3. Incarcerated left inguinal s/p repair 01/29/2025 4. Prostate cancer s/p radical prostatectomy 12/05/2024 5. Longstanding atrial fibrillation 6. CKD stage III AA 7. Hypothyroidism 8. History of neurogenic bladder Patient underwent successful IR guided aspiration of lymphocele today. Fluid was sent for Gram stain and cytology. As per cardiology recommendations, CT angiogram abdomen pelvis was ordered to assess for patency of venous flow. Depending on results patient may need possible iliofemoral stent placement prior to discharge. Anticipate discharge within next 24 to 48 hours. Plan of care discussed with Attending Dr. Bud Mendez MD PGY 2 Disclaimer: This note was dictated by speech recognition. Minor errors in livestock farm manager may be present due to voice recognition software. Documentation for date of: 02/07/25 Subjective Subjective Interval history: No acute overnight events. Patient seen and examined at bedside. Patient complains of back pain as well as left lower extremity pain relieved by [place]. Denies chest pain, shortness of breath or palpitations. IR drained lymphocele and pelvis removed to 50 cc and cytology was ordered. CT angio pelvis to see if iliofemoral vein is patent and it was not cardiology plans for stent placement. Urology consulted. Continue heparin gtt. following IR drainage. F/u PM H&H, per cardiology transfuse if Hgb <8. Exam Vital Signs Temp Pulse Resp BP Pulse Ox O2 Del Method O2 Flow Rate 98.5 F 97 13 114/71 97 Room Air 3 02/07/25 08:00 02/07/25 11:13 02/07/25 11:13 02/07/25 11:13 02/07/25 11:13 02/07/25 11:13 02/07/25 11:05 Narrative Exam GENERAL: AOx3, no acute distress HEENT: mucous membranes moist, bilateral sclera anicteric CARDIOVASCULAR: regular rate and irregular rhythm, S1/S2 present, no murmurs appreciated PULMONARY: clear to auscultation bilaterally, no rales/rhonchi/wheezes ABDOMINAL: soft, non-tender, non-distended, no rebound/guarding, bowel sounds present EXTREMITIES: 1+ pitting edema LLE up to thighs, RLE varicose veins no edema, BLE not TTP, improved LLE erythema compared to R, pedal pulses 2+ bilaterally, L inguinal repair incision clean and intact, no drainage or erythema, posterior L knee incision site clean and intact, covered SKIN: warm and dry, no rashes NEURO: CN II-XII grossly intact, no focal deficits, alert, following commands Objective Labs 02/07/25 04:40 02/07/25 04:40 Labs: Laboratory Results - last 24 hr 02/06/25 02/06/25 02/07/25 17:46 19:31 04:40 WBC 7.2 7.4 RBC 3.07 L 2.64 L Hgb 9.2 L 8.1 L Hct 28.6 L 24.4 L MCV 93 92 MCH 30.0 30.7 MCHC 32.2 33.2 RDW Std Deviation 45.1 H 44.7 H Plt Count 381 D 345 D Neut % (Auto) 72 68 Lymph % (Auto) 16 18 [place] % (Auto) 10 11 Eos % (Auto) 1 2 Baso % (Auto) 1 0 Neut # (Auto) 5.2 5.1 Lymph # (Auto) 1.2 1.3 [place] # (Auto) 0.7 0.8 Eos # (Auto) 0.1 0.2 Baso # (Auto) 0.0 0.0 Immature Gran # (Auto) 0.02 H 0.02 H Absolute Nucleated RBC 0.00 0.00 Immature Gran % 0 0 Nucleated RBC % 0 0 APTT 74.5 H D 67.8 H Sodium 142 Potassium 4.2 Chloride 106 Carbon Dioxide 29.5 Anion Gap 7 BUN 20 Creatinine 1.2 Estim Creat Clear Calc 51.5 L eGFR > 60 BUN/Creatinine Ratio 17 Glucose 123 H Calculated Osmolality 286 Calcium 8.2 L Corrected Calcium 8.8 Magnesium 2.2 Total Bilirubin 0.2 L AST 13 ALT < 7 L Alkaline Phosphatase 72 Total Protein 5.4 L Albumin 3.3 L Globulin 2.1 L Albumin/Globulin Ratio 1.6 Blood Type Antibody Screen Blood Bank Wristband ID 02/07/25 11:58 WBC RBC Hgb Hct MCV MCH MCHC RDW Std Deviation Plt Count Neut % (Auto) Lymph % (Auto) [place] % (Auto) Eos % (Auto) Baso % (Auto) Neut # (Auto) Lymph # (Auto) [place] # (Auto) Eos # (Auto) Baso # (Auto) Immature Gran # (Auto) Absolute Nucleated RBC Immature Gran % Nucleated RBC % APTT Sodium Potassium Chloride Carbon Dioxide Anion Gap BUN Creatinine Estim Creat Clear Calc eGFR BUN/Creatinine Ratio Glucose Calculated Osmolality Calcium Corrected Calcium Magnesium Total Bilirubin AST ALT Alkaline Phosphatase Total Protein Albumin Globulin Albumin/Globulin Ratio Blood Type A Positive Antibody Screen NEGATIVE Blood Bank Wristband ID Yes Quality Measures Quality Measures VTE prophylaxis Advance care planning discussed with:: patient Assessment & Plan Assessment Current Active Medications: Generic Name Dose Route Start Last Admin Trade Name Freq PRN Reason Stop Dose Admin Acetaminophen 650 mg 02/04/25 20:07 Acetaminophen 325 Mg Tablet PO 03/06/25 19:47 Q6H PRN pain 1-3 or Temp>100.4 Hydrocodone Bitart/Acetaminophen 1 tab 02/06/25 15:11 02/07/25 08:23 Hydrocodone/Apap 5/325 Tablet PO 02/11/25 11:11 1 tab Q4HR PRN Administration PAIN SCALE 4-10(Mod-Sev Cyclobenzaprine HCl 10 mg 02/04/25 21:29 02/06/25 21:50 Cyclobenzaprine 5 Mg Tablet PO 03/07/25 20:59 10 mg QPM PRN Administration MUSCLE CRAMPS Diclofenac Sodium 1 gm 02/05/25 09:39 Diclofenac 1% Top Gel 100 Gm Tube TOP 03/07/25 13:59 TID PRN Neck pain Heparin Sodium (Porcine) 5,000 unit 02/07/25 12:28 Heparin Sod Inj 5000 Unit/Ml Vial IV 02/07/25 12:29 X1 ONE Heparin Sodium/Dextrose 25,000 unit in 250 mls @ 12.507 mls/hr 02/07/25 12:30 Heparin In D5w Ivpb IV 02/21/25 12:29 .Q20H BETH Protocol 18 UNITS/KG/HR Levothyroxine Sodium 125 mcg 02/05/25 06:00 02/07/25 05:16 Levothyroxine Sodium 125 Mcg Tablet PO 03/07/25 05:59 125 mcg ACBR BETH Administration Lorazepam 1 mg 02/05/25 18:29 02/06/25 21:50 Lorazepam 0.5 Mg Tablet PO 02/10/25 18:28 1 mg HS PRN Administration INSOMNIA Morphine Sulfate 2 mg 02/06/25 15:09 Morphine Sulf Inj 4 Mg/Ml Vial IVP Q4HR PRN BREAKTHROUGH PAIN Protocol Ondansetron HCl 4 mg 02/04/25 19:48 Ondansetron Inj 2 Mg/Ml Inj 2 Ml IVP 03/06/25 19:47 Q6H PRN NAUSEA OR VOMITING Protocol Pantoprazole Sodium 40 mg 02/05/25 09:00 02/07/25 09:00 Pantoprazole 40 Mg Tablet PO 03/07/25 08:59 Not Given QDAY BETH Sennosides 1 tab 02/04/25 19:48 02/05/25 05:03 Senna Tablet PO 03/06/25 19:47 1 tab QDAY PRN Administration constipation Protocol Tamsulosin HCl 0.4 mg 02/05/25 21:00 02/06/25 21:50 Tamsulosin Hcl 0.4 Mg Capsule PO 03/07/25 20:59 0.4 mg HS BETH Administration Plan Manpreet Samson 74M pmhx significant for hypothyroidism, arthritis, prostate cancer status post radical prostatectomy (performed by Dr. Cordero at [facility] on 12/05/2024, patient follows Dr. Mckeon currently), neurogenic bladder (secondary to laminectomy performed back in 2002, patient self catheterizes, less following prostatectomy), incarcerated left femoral hernia status post hernia repair (01/29/2025), CKD stage IIIa (sees Dr. Coe for nephrology), chronic lower back pain, and varicose veins who presented to [facility] ED on 02/04 for left lower extremity swelling and tenderness, admitted for management of left lower extremity acute DVT s/p thrombectomy 02/06/25. #Extensive LLE DVT, Left common femoral, superficial femoral, popliteal, peroneal, greater saphenous vein thrombus s/p thrombectomy 02/06/25 2/2 #Large pelvic cystic mass 8.8 cm s/p IR drainage 02/07/25 #Incarcerated L inguinal hernia s/p repair 01/29/25 #Prostate cancer s/p radical prostatectomy 12/05/2024 Patient notes left lower extremity pain and swelling that started about a week prior to inguinal hernia repair on 01/29 with increasing swelling over time. Worsened following inguinal hernia surgery with pain and swelling. Dr. Cordero operated 12/05/[address] Mckeon. Dr. Camilo operated 01/29/25 and took about a week of Eliquis post-op, completed course entirely. In ED D-dimer 3240, low suspicion for PE and US LLE shows extensive DVT in multiple veins. Pedal pulses 2+, mild erythema and no tenderness to palpation. TTE: LV size normal and systolic function normal. Estminated 50-55%, G1DD, RV size and systolic function normal. RVSP 18 mmHg. Trave MR and TR. Mild MAC. LA and RA normal. Not well visualized IVD with estimated RA pressure 8 mmHg. Likely 2/2 lymphocele vs recent surgeries of prostatectomy and inguinal hernia Plan: - Cardiology consulted, recs appreciated: thrombectomy done 02/06, continue heparin ggt, large 8.8 cm lymphocele seen on CT 01/18 likely causing clots and moderate L hydronephrosis, IR drainage with cytology with [address] angio pelvis to see if ileofemoral vein patent, if not plan for stent. - Transfuse if Hgb <8, f/u PM H&H - Urology consulted - Pain scale: Tylenol, [place] 5 q4h prn, morphine 1 mg q4h prn #Atrial fibrillation, without RVR Per history. Never took usp anticoagulation. Sees Dr. Mcconnell, saw recently for inguinal hernia clearance. EKGs on admission show atrial fibrillation. Denies hx of stroke but strong family hx as above. CHADSVASC score 2 points, stroke risk 2.2 %/year and 2.9% risk of stroke/TIA/systemic embolism HAS-BLED score 1 point, 3.4% risk, anticoagulation should be considered Plan: - Continue heparin drip for management of extensive LLE DVT, transition to oral coagulations prior to discharge - Cardiology consulted as above #CKD Stage IIIa #Moderate L hydrohephrosis (01/22/25) Patient noted to have a history of CKD and follows Dr. Coe for nephrology outpatient. Admission Cr 1.4, within baseline around 1.3. Plan: - Renally dose medications, avoid nephrotoxic drugs - Patient to follow-up with outpatient nephrology #Hypothyroidism Patient endorses a history of hypothyroidism and takes levothyroxine at home, however he takes it early when he awakens and will eat shortly after. TSH and T4 wnl. Plan: - Resumed home levothyroxine 125 mg ACBR - Patient will follow-up outpatient - Counseled patient on appropriate timing of levothyroxine #Neurogenic bladder Patient endorses a neurogenic bladder ever since he had a laminectomy back in 2002, to which the patient self catheterizes. Patient endorses improvement after radical prostatectomy. Plan: - Does not want [place] at this time - CTM #Chronic lower back pain #Neck pain #Arthritis Patient does endorse chronic lower back pain and arthritis, to which he takes ibuprofen at home for management. Per home meds outside documents, patient was prescribed cyclobenzaprine, tramadol, and [place] in addition to the ibuprofen, but the patient did not endorse taking these medications at this time. Plan: - Cyclobenzaprine 10 mg nightly as needed for back pain - Diclofenac gel 1g TID prn - [place] 5 q4h prn as patient has hx of peptic ulcers #Varicose veins, RLE As seen on exam and patient endorses a history of this. Plan: - Recommend outpatient follow up DVT Prophylaxis: Heparin gtt. GI Prophylaxis: Protonix daily Bowel: Senna PRN Diet: Regular Lines: PIV Code Status: FULL Disposition: med tele pending stent placement Tuesday, heparin ggt Patient plan of care was discussed with the senior resident Dr. Mnedez (PGY-2) and attending physician Dr. Farrell. Larisa Goff, DO Internal Medicine PGY-1
--- NOTE | 2025-02-07 14:13 | ESPR_ITS ---
<Statement entered by Jose E Mcconnell MD - 02/12/25 12:47> The patient is personally examined evaluated by me appears to be doing much better not having chest pain shortness underwent successful drainage of the lymphocele serosal appears to be doing fairly well following this not have any chest pain shortness of will continue to monitor the patient will repeat a CT scan to assess iliac vein compression and common iliac artery occlusion. Evaluated patient with resident physician PGY 2 will continue to monitor the patient agree with the treatment plan recommendation as documented by Dr. Gonzalez Documentation for date of: 02/07/25 Subjective Subjective Interval history: Patient is 74 yr male with PMH of hypothyroidism, osteoarthritis, prostate cancer status post radical prostatectomy on 12/05/2024, neurogenic bladder with In and out catheter as needed but urinary retention got better after prostatectomy per patient, status post inguinal hernia repair done on 01/29/2025, CKD stage IIIb, varicose veins s/p sclerotherapy presented to ED due to LLE swelling that worsened since past 2 weeks. Pain had initally started about one month ago. Also endorsing pain and erythema. He denies any previous DVT or PE. Denies any long distance traveling but has had recent surgery (inguinal repair) on 01/29/25. No SOB or chest pain. Vitals at the time of admission were stable. Labs were significant for D-dimer 3240, platelet count 461, creatinine 1.4. Left lower extremity venous Doppler showed extensive DVT in the left common femoral, superficial femoral, popliteal, peroneal as well as superficial greater saphenous vein. Patient admitted for acute DVT and started on heparin drip as per protocol. Troponin were negative. EKG noted for a fib with rate 97. Patient has been prescribed Eliquis in past but is non compliant. Cardiology consulted for evaluation for LE thrombectomy. 02/06: Patient underwent mechanical thrombectomy this morning. Significant amount of clot was removed. About 400cc blood loss. During procedure, there was resistance in advancing the guide wire through common iliac vein raising concern that lymphocele may be compressing left ureter along with left common iliac vein. Radiology was contacted for percutaneous drainage. Plan for procedure tomorrow morning at 10 AM. Patient will be NPO at midnight, heparin drip to be held at 6 AM, and resume heparin drip post procedure. Follow up with 5pm Hb to assess for blood loss. Transfuse 1 unit prbc if less than 8. Anticipate that vein compression will resolve after the drainage. Otherwise, patient will require venous stent. At bedside post thrombectomy, he is doing well. Denies any pain, no excessive bleeding from site. Labs and vitals were reviewed. 02/07: Patient examined at bedside. States that he is feeling much better, no pain. He underwent CT-guided percutaneous catheter drainage left pelvic lymphocele this morning. 250cc of fluid was drained and sent for cytology. Hb has downtrended to 8.1 this morning, likely dilutional and due to blood loss from thrombectomy. Will order CT with contrast to evaluate venous patency. If still appears to have decreased flow, he will require venous stent. Exam Vital Signs Temp Pulse Resp BP Pulse Ox O2 Del Method O2 Flow Rate 98.5 F 97 13 114/71 97 Room Air 3 02/07/25 08:00 02/07/25 11:13 02/07/25 11:13 02/07/25 11:13 02/07/25 11:13 02/07/25 11:13 02/07/25 11:05 Narrative Exam GENERAL: AOx3, no acute distress HEENT: mucous membranes moist, bilateral sclera anicteric CARDIOVASCULAR: regular rate and irregular rhythm, S1/S2 present, no murmurs appreciated PULMONARY: clear to auscultation bilaterally, no rales/rhonchi/wheezes ABDOMINAL: soft, non-tender, non-distended, no rebound/guarding, bowel sounds present EXTREMITIES: 1+ pitting edema LLE up to thighs, RLE varicose veins no edema, mild LLE erythema compared to R, pedal pulses 2+ bilaterally, L inguinal repair incision clean and intact, no drainage or erythema, posterior L knee incision site clean and intact, covered SKIN: warm and dry, no rashes NEURO: CN II-XII grossly intact, no focal deficits, alert, following commands Objective Labs 02/07/25 18:13 02/07/25 04:40 Labs: Laboratory Results - last 24 hr 02/06/25 02/06/25 02/07/25 17:46 19:31 04:40 WBC 7.2 7.4 RBC 3.07 L 2.64 L Hgb 9.2 L 8.1 L Hct 28.6 L 24.4 L MCV 93 92 MCH 30.0 30.7 MCHC 32.2 33.2 RDW Std Deviation 45.1 H 44.7 H Plt Count 381 D 345 D Neut % (Auto) 72 68 Lymph % (Auto) 16 18 [place] % (Auto) 10 11 Eos % (Auto) 1 2 Baso % (Auto) 1 0 Neut # (Auto) 5.2 5.1 Lymph # (Auto) 1.2 1.3 [place] # (Auto) 0.7 0.8 Eos # (Auto) 0.1 0.2 Baso # (Auto) 0.0 0.0 Immature Gran # (Auto) 0.02 H 0.02 H Absolute Nucleated RBC 0.00 0.00 Immature Gran % 0 0 Nucleated RBC % 0 0 APTT 74.5 H D 67.8 H Sodium 142 Potassium 4.2 Chloride 106 Carbon Dioxide 29.5 Anion Gap 7 BUN 20 Creatinine 1.2 Estim Creat Clear Calc 51.5 L eGFR > 60 BUN/Creatinine Ratio 17 Glucose 123 H Calculated Osmolality 286 Calcium 8.2 L Corrected Calcium 8.8 Magnesium 2.2 Total Bilirubin 0.2 L AST 13 ALT < 7 L Alkaline Phosphatase 72 Total Protein 5.4 L Albumin 3.3 L Globulin 2.1 L Albumin/Globulin Ratio 1.6 Blood Type Antibody Screen Blood Bank Wristband ID 02/07/25 11:58 WBC RBC Hgb Hct MCV MCH MCHC RDW Std Deviation Plt Count Neut % (Auto) Lymph % (Auto) [place] % (Auto) Eos % (Auto) Baso % (Auto) Neut # (Auto) Lymph # (Auto) [place] # (Auto) Eos # (Auto) Baso # (Auto) Immature Gran # (Auto) Absolute Nucleated RBC Immature Gran % Nucleated RBC % APTT Sodium Potassium Chloride Carbon Dioxide Anion Gap BUN Creatinine Estim Creat Clear Calc eGFR BUN/Creatinine Ratio Glucose Calculated Osmolality Calcium Corrected Calcium Magnesium Total Bilirubin AST ALT Alkaline Phosphatase Total Protein Albumin Globulin Albumin/Globulin Ratio Blood Type A Positive Antibody Screen NEGATIVE Blood Bank Wristband ID Yes Quality Measures Quality Measures VTE prophylaxis Advance care planning discussed with:: patient Assessment & Plan Assessment Current Active Medications: Generic Name Dose Route Start Last Admin Trade Name Freq PRN Reason Stop Dose Admin Acetaminophen 650 mg 02/04/25 20:07 Acetaminophen 325 Mg Tablet PO 03/06/25 19:47 Q6H PRN pain 1-3 or Temp>100.4 Hydrocodone Bitart/Acetaminophen 1 tab 12/03/25 15:11 02/07/25 08:23 Hydrocodone/Apap 5/325 Tablet PO 02/11/25 11:11 1 tab Q4HR PRN Administration PAIN SCALE 4-10(Mod-Sev Cyclobenzaprine HCl 10 mg 02/04/25 21:29 02/06/25 21:50 Cyclobenzaprine 5 Mg Tablet PO 03/07/25 20:59 10 mg QPM PRN Administration MUSCLE CRAMPS Diclofenac Sodium 1 gm 02/05/25 09:39 Diclofenac 1% Top Gel 100 Gm Tube TOP 03/07/25 13:59 TID PRN Neck pain Heparin Sodium (Porcine) 5,000 unit 02/07/25 12:28 Heparin Sod Inj 5000 Unit/Ml Vial IV 02/07/25 12:29 X1 ONE Heparin Sodium/Dextrose 25,000 unit in 250 mls @ 12.507 mls/hr 02/07/25 12:30 Heparin In D5w Ivpb IV 02/21/25 12:29 .Q20H BETH Protocol 18 UNITS/KG/HR Levothyroxine Sodium 125 mcg 02/05/25 06:00 02/07/25 05:16 Levothyroxine Sodium 125 Mcg Tablet PO 03/07/25 05:59 125 mcg ACBR BETH Administration Lorazepam 1 mg 02/05/25 18:29 02/06/25 21:50 Lorazepam 0.5 Mg Tablet PO 02/10/25 18:28 1 mg HS PRN Administration INSOMNIA Morphine Sulfate 2 mg 02/06/25 15:09 Morphine Sulf Inj 4 Mg/Ml Vial IVP Q4HR PRN BREAKTHROUGH PAIN Protocol Ondansetron HCl 4 mg 02/04/25 19:48 Ondansetron Inj 2 Mg/Ml Inj 2 Ml IVP 03/06/25 19:47 Q6H PRN NAUSEA OR VOMITING Protocol Pantoprazole Sodium 40 mg 02/05/25 09:00 02/07/25 09:00 Pantoprazole 40 Mg Tablet PO 03/07/25 08:59 Not Given QDAY BETH Sennosides 1 tab 02/04/25 19:48 02/05/25 05:03 Senna Tablet PO 03/06/25 19:47 1 tab QDAY PRN Administration constipation Protocol Tamsulosin HCl 0.4 mg 02/05/25 21:00 02/06/25 21:50 Tamsulosin Hcl 0.4 Mg Capsule PO 03/07/25 20:59 0.4 mg HS BETH Administration Plan Patient is 74 yr male with PMH of hypothyroidism, osteoarthritis, prostate cancer status post radical prostatectomy on 12/05/2024, neurogenic bladder with In and out catheter as needed but urinary retention got better after prostatectomy per patient, status post inguinal hernia repair done on 01/29/2025, CKD stage IIIb, varicose veins s/p sclerotherapy presented to ED due to LLE swelling that worsend since past 2 weeks. Initially swelling had started 1 month ago. Cardiology consulted for evaluation of possilbe LE thrombectomy. #Acute DVT, provoked #s/p mechanical thrombectomy #Lymphocele s/p percutaneous drainage Recent surgery placed patient at high risk for DVT. LLE pain first started around 4 weeks ago. Noticed to have extensive swelling. Labs were significant for D-dimer 3240, Left lower extremity venous Doppler showed extensive DVT in the left common femoral, superficial femoral, popliteal, peroneal as well as superficial greater saphenous vein. He was started on heparin drip. Noted that patient was started on Eliquis some time ago for Afib. However is not compliant. Thrombectomy completed on 02/06 -IR percutaneous drainage of lymphocele this morning--drained 250cc fluid -trend Hb -transfuse 1 unit prbc if Hb <8 -continue heparin drip -CT A/P with contrast to asses venous patency -will need to remain on Eliquis for Afib as well #Atrial fibrillation, rate controlled Per history. Never took penitentiary anticoagulation. EKGs on admission show atrial fibrillation. Denies hx of stroke but strong family hx as above. CHADSVASC score 2 points, stroke risk 2.2 %/year and 2.9% risk of stroke/TIA/systemic embolism HAS-BLED score 1 point, 3.4% risk, anticoagulation should be considered Plan: - Continue heparin drip for management of extensive LLE DVT, transition to oral coagulations prior to discharge #CKD Stage IIIa #Hypothyroidism #Neurogenic bladder #Chronic lower back pain #Neck pain #Arthritis #Varicose veins, RLE Primary care team to manage above conditions and ongoing care needs. The patient's management plan was discussed with my attending physician Dr. Mcconnell. Candace Danielson, PGY-2
[2025-02-07 14:15] LABS: Partial Thromboplastin Time 30.3 Seconds (22.0-36.0)
[2025-02-07] MEDS: HEPARIN SOD INJ 5000 UNIT/ML VIAL IV (14:57)
[2025-02-07] MEDS: Heparin/D5w 25K 250 ML Ivpb 25,000 UNIT/250 ML BAG 12.507 UNIT IV (14:57)
--- NOTE | 2025-02-07 15:42 | ESOP_ITS ---
RE: RAMIREZ MARTELL : 1950 DATE OF OPERATION: 02/06/2025 PROCEDURES PERFORMED: 1. Ultrasound-guided access of the left femoral vein and selective cannulation of left popliteal vein, catheter placement. 2. Conscious sedation, 2 hour duration. 3. Mechanical computer assisted vacuum thrombectomy (CAVT) of the left popliteal vein and the left femoral vein and the left external iliac vein, CPT code 73336. 4. Left lower extremity venogram. 5. Catheter placement in the left iliac vein and left inferior vena cava and left vena cava angiogram. HISTORY AND INDICATIONS: The patient is a 74-year-old male with a past medical history of chronic atrial fibrillation, hypothyroidism, osteoarthritis, who had a history of prostate carcinoma, who underwent robotic radical prostatectomy on 12/05/2024 at [facility] by Dr. Cordero, who apparently also had some urinary retention subsequently. After 12/05/2024, patient developed swelling of the left lower extremity about 2 weeks following the procedure and came to the emergency room on 2 different occasions, January first week and also in middle, 01/22/2025 with left lower extremity swelling and left groin swelling; there was possible hernia. Two times, CT of the abdomen and pelvis were repeated, showed evidence of what appeared to be lymphocele 8 x 6 cm, possibly obstructing the left iliac vein as well as the left ureter with hydronephrosis. Lower extremity venous ultrasound showed evidence of extensive deep vein thrombosis of left common femoral vein, left femoral and popliteal vein, as well as peroneal system and greater saphenous vein, which appears to be at least 3-4 weeks old or even more. Patient continued to have severe painful swelling of the left lower extremity with complete occlusion of the common femoral vein, hence it was felt that patient is a candidate for mechanical thrombectomy with computer assisted vacuum thrombectomy device by Phil and may require drainage of the lymphocele as well. Risks, benefits, and alternatives were explained. Patient agreed to have the procedure performed. PROCEDURE DETAILS: Patient was brought to the cardiac catheterization laboratory. Informed consent was obtained. Conscious sedation with 2 mg of Versed, 100 mcg of fentanyl was given. He was placed in prone position and left popliteal vein was imaged with ultrasound and documented. There is a noncompressible popliteal vein thrombus present in the left popliteal vein. Under ultrasound guidance and micropuncture technique, guidewire was placed in the left popliteal vein and using a 4-Bahraini sheath, a stiff angle Glidewire was then used and passed with a loop technique into the left external iliac vein. Microcatheter was used to help placement of this stiff guidewire. Subsequently, a 16-Bahraini short Cook sheath was advanced into the left popliteal vein. A 16-Bahraini flash Penumbra thrombectomy catheter was then advanced into the sheath and thrombectomy was performed. Patient was given a total of 7000 units of heparin IV during the procedure. Mechanical thrombectomy was possible with multiple passes, both in popliteal vein, femoral vein, all the way to external iliac vein. Large amount of thrombus was removed including old thrombus with white appearance. Subsequently, there was a resistance to left common iliac vein. I was able to pass a guidewire and cross the lesion which is occluded in the left common femoral vein. Guidewire was placed in the inferior vena cava. A 6-Bahraini FR4 diagnostic catheter was placed in the inferior vena cava and vena cava angiogram was then performed. Subsequently, mechanical thrombectomy of the left external iliac vein, left common iliac vein was also performed. It appears like there was a mechanical obstruction of the left common iliac vein due to lymphocele. I could feel the resistance, but able to pass the 16-Bahraini flash catheter by Penumbra, but there was no clot at that point. As soon as the Penumbra was removed, the vein occludes with no antegrade flow. Venogram showed that the contrast hangs up and that the left common iliac vein is completely pinched and occluded due to external compression possibly from lymphocele. Upon reviewing the CT and abdomen and pelvis imaging showed that there is an 8 cm diameter in that area pushing the bladder as well as ureters obstruction as well as iliac vein obstruction with external compression. Subsequently, the multiple passes then performed again in popliteal vein and femoral vein. Contrast angiogram showed evidence of widely patent femoral popliteal vein and external iliac vein has mild narrowing. Left common iliac vein has external compression causing impedance of the flow. At this point, the procedure was completed. Extensive thrombus, approximately 300-400 grams of tissue was removed. Estimated blood loss was approximately 300-400 mL. A [id number] suture was placed and the 16-Bahraini sheath was then removed. Hemostasis was secured. A 40 mg of protamine was given to reverse anticoagulation. Subsequently, 2 hours following the procedure, we started the IV heparin drip. I discussed the case with the radiologist as well as the urologist. Radiologist, Dr. Aden, urologist Dr. Meeks reviewed the films, felt that the patient has left iliac compression secondary to pelvic mass, which is the lymphocele, following the robotic prostatectomy. The mass is amenable to be drained by CT guidance. Dr. aden will be performing the procedure tomorrow. we will probably image the CT of the pelvic and abdomen with contrast, looking for the resolution of the compression of the iliac vein and we will take it from there. No indication of the mechanical obstruction secondary to external compression which should be removed first. If the patient still has iliac vein compression, possible May-Thurner syndrome, may be a candidate for iliac vein stent placement at a later date. But for now, successful thrombectomy of the left femoral popliteal veins as well as external iliac vein with excellent angiographic results. FINAL SUMMARY: Successful mechanical thrombectomy, computer assisted vacuum thrombectomy of the left popliteal vein, left superficial femoral vein and external iliac vein, left common femoral vein. CONDITION: Stable. ESTIMATED BLOOD LOSS: 300-400 mL. Large amount of clot burden was removed with good results. DT: 22:04:41 TT: 23:03:00 Ref: [id number] - TID: [id number] [facility]
[2025-02-07 19:02] LABS: Hematocrit 30.4 % (41.0-53.0); Hemoglobin 9.6 g/dL (13.5-16.0)
[2025-02-07] MEDS: TAMSULOSIN HCL 0.4 MG CAPSULE PO (20:39)
[2025-02-07 22:16] LABS: Partial Thromboplastin Time 66.6 Seconds (22.0-36.0)
[2025-02-08] VITALS (11 sets, daily range): BP systolic 98–123; BP diastolic 53–84; PULSE 62–92; RESP 12–19; TEMP 36.2–36.6; O2SAT 95–98
[2025-02-08] MEDS: HYDROcodone/APAP 5/325 TABLET 1 TAB PO ×5 (00:01→20:08)
[2025-02-08 03:49] LABS: Basophils # (Auto) 0.0 Thou/mm3 (0.0-0.2); Basophils % (Auto) 1 % (0-2.5); Eosinophils # (Auto) 0.3 Thou/mm3 (0.0-0.5); Eosinophils % (Auto) 5 % (0-10); Hematocrit 22.8 % (41.0-53.0); Immature Granulocytes Auto 0.01 Thou/mm3 (0.00-0.00); Lymphocytes # (Auto) 1.5 Thou/mm3 (1.0-4.8); Lymphocytes % (Auto) 31 % (10-50); Mean Corpuscular HGB Conc 31.6 g/dl (31.0-37.0); Mean Corpuscular Hemoglobin 29.6 pg (25.0-35.0); Mean Corpuscular Volume 94 fL (80-100); Monocytes # (Auto) 0.7 Thou/mm3 (0.0-0.8); Monocytes % (Auto) 15 % (0-12); Neutrophils # (Auto) 2.2 Thou/mm3 (1.8-7.7); Neutrophils % (Auto) 48 % (37-80); Nucleated Red Blood Cell # 0.00 Thou/mm3 (0.00-0.00); Nucleated Red Blood Cell % 0 /100 WBC (0); Platelet Count 336 Thou/mm3 (140-440); RDW Standard Deviation 45.3 fL (35.1-43.9); Red Blood Count 2.43 Miln/mm3 (4.50-5.90); White Blood Count 4.7 Thou/mm3 (3.8-10.6)
[2025-02-08 03:56] LABS: Hemoglobin 7.2 g/dL (13.5-16.0)
[2025-02-08 04:07] LABS: Alanine Aminotransferase 9 U/L (10-49); Albumin, Serum 3.3 gm/dL (3.4-4.8); Albumin/Globulin Ratio 1.7 (1.2-2.2); Alkaline Phosphatase 68 U/L (46-116); Anion Gap 6 (7-16); Aspartate Amino Transferase 17 U/L (0-34); BUN/Creatinine Ratio 14 Ratio (12-20); Bilirubin,Total 0.2 mg/dL (0.3-1.2); Blood Urea Nitrogen 18 mg/dL (9-23); Calcium 8.3 mg/dL (8.3-10.6); Calcium (Corrected) 8.9 mg/dL (8.5-10.1); Carbon Dioxide 26.6 mMol/L (20.0-31.0); Chloride 107 mMol/L (98-107); Creatinine (Component) 1.3 mg/dL (0.6-1.3); Estimated Creatinine Clearance 47.5 mL/min (>60); Globulin 2.0 gm/dL (2.3-3.5); Glucose 96 mg/dL (74-106); Magnesium 2.2 mg/dL (1.6-2.6); Osmolality,Calculated 281 (275-295); Potassium 4.4 mMol/L (3.4-5.1); Sodium 140 mMol/L (136-145); Total Protein 5.3 gm/dL (5.7-8.2); eGFR 57 See Note
[2025-02-08 04:19] LABS: INR 1.0 (0.9-1.3); Partial Thromboplastin Time 76.4 Seconds (22.0-36.0); Prothrombin Time 10.8 Seconds (9.0-12.2)
[2025-02-08] MEDS: LEVOTHYROXINE SODIUM 125 MCG TABLET PO (05:20)
[2025-02-08] MEDS: PANTOPRAZOLE 40 MG TABLET PO (09:25)
[2025-02-08 09:54] LABS: Partial Thromboplastin Time 80.7 Seconds (22.0-36.0)
[2025-02-08] MEDS: Heparin/D5w 25K 250 ML Ivpb 25,000 UNIT/250 ML BAG 11.118 UNIT IV (10:13)
[2025-02-08 10:50] LABS: Hematocrit 26.8 % (41.0-53.0)
[2025-02-08 11:02] LABS: Hemoglobin 8.7 g/dL (13.5-16.0)
--- NOTE | 2025-02-08 15:49 | ESPR_ITS ---
<Statement entered by Jose E Mcconnell MD - 02/11/25 09:04> I personally examined the patient evaluate the patient with resident physician PGY 2 Dr. Gonzalez patient is doing better now leg swelling improved significantly following removal of the serosal and lymphocele CT scan showed evidence of left common iliac vein stenosis possible presence of minor thrombus but difficult to assess if the vein is patent or not but vein appears to be definitely stenosed will require possible intervention later on if the patient is feeling well clinical improvement will discharge the patient to have outpatient follow-up possibly next 2 to 3 weeks if there is no significant improvement we will bring him back for iliac vein stent placement full dose anticoagulation Eliquis 10 mg twice daily will be gone for about 7 to 10 days and will monitor the patient closely as an outpatient. Documentation for date of: 02/08/25 Subjective Subjective Interval history: Patient is 74 yr male with PMH of hypothyroidism, osteoarthritis, prostate cancer status post radical prostatectomy on 12/05/2024, neurogenic bladder with In and out catheter as needed but urinary retention got better after prostatectomy per patient, status post inguinal hernia repair done on 01/29/2025, CKD stage IIIb, varicose veins s/p sclerotherapy presented to ED due to LLE swelling that worsened since past 2 weeks. Pain had initally started about one month ago. Also endorsing pain and erythema. He denies any previous DVT or PE. Denies any long distance traveling but has had recent surgery (inguinal repair) on 01/29/25. No SOB or chest pain. Vitals at the time of admission were stable. Labs were significant for D-dimer 3240, platelet count 461, creatinine 1.4. Left lower extremity venous Doppler showed extensive DVT in the left common femoral, superficial femoral, popliteal, peroneal as well as superficial greater saphenous vein. Patient admitted for acute DVT and started on heparin drip as per protocol. Troponin were negative. EKG noted for a fib with rate 97. Patient has been prescribed Eliquis in past but is non compliant. Cardiology consulted for evaluation for LE thrombectomy. 02/06: Patient underwent mechanical thrombectomy this morning. Significant amount of clot was removed. About 400cc blood loss. During procedure, there was resistance in advancing the guide wire through common iliac vein raising concern that lymphocele may be compressing left ureter along with left common iliac vein. Radiology was contacted for percutaneous drainage. Plan for procedure tomorrow morning at 10 AM. Patient will be NPO at midnight, heparin drip to be held at 6 AM, and resume heparin drip post procedure. Follow up with 5pm Hb to assess for blood loss. Transfuse 1 unit prbc if less than 8. Anticipate that vein compression will resolve after the drainage. Otherwise, patient will require venous stent. At bedside post thrombectomy, he is doing well. Denies any pain, no excessive bleeding from site. Labs and vitals were reviewed. 02/07: Patient examined at bedside. States that he is feeling much better, no pain. He underwent CT-guided percutaneous catheter drainage left pelvic lymphocele this morning. 250cc of fluid was drained and sent for cytology. Hb has downtrended to 8.1 this morning, likely dilutional and due to blood loss from thrombectomy. Will order CT with contrast to evaluate venous patency. If still appears to have decreased flow, he will require venous stent. 02/08: Patient examined at bedside. Has no major complaints feeling well. Has noticed improved urinary output since percutaneous drainage. Hemoglobin down trended to 7.2 currently receiving 1 unit PRBC. Vitals are stable. CTA abdomen pelvis showing left hydronephrosis resolved, lymphocele smaller compared to prior study. DVT in left superficial femoral, left common femoral, left external iliac and left common iliac veins. IVC is opacified with contrast. Plan for patient to receive heparin drip for 1 more day. Discharged with Eliquis 10 mg twice daily for 7 days continue with 5 mg twice daily. Patient can follow-up with cardiology after his discharge will need venous stent placement. Exam Vital Signs Temp Pulse Resp BP Pulse Ox O2 Del Method O2 Flow Rate 97.4 F 92 16 120/66 98 Room Air 3 02/08/25 14:31 02/08/25 14:31 02/08/25 14:31 02/08/25 14:31 02/08/25 14:31 02/08/25 12:00 02/07/25 20:00 Narrative Exam GENERAL: AOx3, no acute distress HEENT: mucous membranes moist, bilateral sclera anicteric CARDIOVASCULAR: regular rate and irregular rhythm, S1/S2 present, no murmurs appreciated PULMONARY: clear to auscultation bilaterally, no rales/rhonchi/wheezes ABDOMINAL: soft, non-tender, non-distended, no rebound/guarding, bowel sounds present EXTREMITIES: 1+ pitting edema LLE up to thighs, RLE varicose veins no edema, mild LLE erythema compared to R, pedal pulses 2+ bilaterally, L inguinal repair incision clean and intact, no drainage or erythema, posterior L knee incision site clean and intact, covered SKIN: warm and dry, no rashes NEURO: CN II-XII grossly intact, no focal deficits, alert, following commands Objective Labs 02/08/25 16:28 02/08/25 03:16 Labs: Laboratory Results - last 24 hr 02/07/25 02/07/25 02/07/25 11:58 18:13 21:13 WBC RBC Hgb 9.6 L Hct 30.4 L MCV MCH MCHC RDW Std Deviation Plt Count Neut % (Auto) Lymph % (Auto) Wayne % (Auto) Eos % (Auto) Baso % (Auto) Neut # (Auto) Lymph # (Auto) Wayne # (Auto) Eos # (Auto) Baso # (Auto) Immature Gran # (Auto) Absolute Nucleated RBC Immature Gran % Nucleated RBC % PT INR APTT 66.6 H D Sodium Potassium Chloride Carbon Dioxide Anion Gap BUN Creatinine Estim Creat Clear Calc eGFR BUN/Creatinine Ratio Glucose Calculated Osmolality Calcium Corrected Calcium Magnesium Total Bilirubin AST ALT Alkaline Phosphatase Total Protein Albumin Globulin Albumin/Globulin Ratio Blood Type A Positive Antibody Screen NEGATIVE Crossmatch See Detail Blood Bank Wristband ID Yes 02/08/25 02/08/25 03:16 08:55 WBC 4.7 RBC 2.43 L Hgb 7.2 L D 8.7 L D Hct 22.8 L 26.8 L MCV 94 MCH 29.6 MCHC 31.6 RDW Std Deviation 45.3 H Plt Count 336 Neut % (Auto) 48 Lymph % (Auto) 31 Wayne % (Auto) 15 H Eos % (Auto) 5 Baso % (Auto) 1 Neut # (Auto) 2.2 Lymph # (Auto) 1.5 Wayne # (Auto) 0.7 Eos # (Auto) 0.3 Baso # (Auto) 0.0 Immature Gran # (Auto) 0.01 H Absolute Nucleated RBC 0.00 Immature Gran % 0 Nucleated RBC % 0 PT 10.8 INR 1.0 APTT 76.4 H 80.7 H Sodium 140 Potassium 4.4 Chloride 107 Carbon Dioxide 26.6 Anion Gap 6 L BUN 18 Creatinine 1.3 Estim Creat Clear Calc 47.5 L eGFR 57 L BUN/Creatinine Ratio 14 Glucose 96 Calculated Osmolality 281 Calcium 8.3 Corrected Calcium 8.9 Magnesium 2.2 Total Bilirubin 0.2 L AST 17 ALT 9 L Alkaline Phosphatase 68 Total Protein 5.3 L Albumin 3.3 L Globulin 2.0 L Albumin/Globulin Ratio 1.7 Blood Type Antibody Screen Crossmatch Blood Bank Wristband ID Quality Measures Quality Measures VTE prophylaxis Advance care planning discussed with:: patient Assessment & Plan Assessment Current Active Medications: Generic Name Dose Route Start Last Admin Trade Name Freq PRN Reason Stop Dose Admin Acetaminophen 650 mg 02/04/25 20:07 Acetaminophen 325 Mg Tablet PO 03/06/25 19:47 Q6H PRN pain 1-3 or Temp>100.4 Hydrocodone Bitart/Acetaminophen 1 tab 02/06/25 15:11 02/08/25 15:46 Hydrocodone/Apap 5/325 Tablet PO 02/11/25 11:11 1 tab Q4HR PRN Administration PAIN SCALE 4-10(Mod-Sev Cyclobenzaprine HCl 10 mg 02/04/25 21:29 02/08/25 00:01 Cyclobenzaprine 5 Mg Tablet PO 03/07/25 20:59 10 mg QPM PRN Administration MUSCLE CRAMPS Diclofenac Sodium 1 gm 02/05/25 09:39 Diclofenac 1% Top Gel 100 Gm Tube TOP 03/07/25 13:59 TID PRN Neck pain Heparin Sodium/Dextrose 25,000 unit in 250 mls @ 12.507 mls/hr 02/07/25 12:30 02/08/25 10:13 Heparin In D5w Ivpb IV 02/21/25 12:29 16 units/kg/hr .Q20H BETH 11.118 mls/hr Protocol Administration 18 UNITS/KG/HR Levothyroxine Sodium 125 mcg 02/05/25 06:00 02/08/25 05:20 Levothyroxine Sodium 125 Mcg Tablet PO 03/07/25 05:59 125 mcg ACBR BETH Administration Lorazepam 1 mg 02/05/25 18:29 02/07/25 20:44 Lorazepam 0.5 Mg Tablet PO 02/10/25 18:28 1 mg HS PRN Administration INSOMNIA Morphine Sulfate 2 mg 02/06/25 15:09 Morphine Sulf Inj 4 Mg/Ml Vial IVP Q4HR PRN BREAKTHROUGH PAIN Protocol Ondansetron HCl 4 mg 02/04/25 19:48 Ondansetron Inj 2 Mg/Ml Inj 2 Ml IVP 03/06/25 19:47 Q6H PRN NAUSEA OR VOMITING Protocol Pantoprazole Sodium 40 mg 02/05/25 09:00 02/08/25 09:25 Pantoprazole 40 Mg Tablet PO 03/07/25 08:59 40 mg QDAY BETH Administration Sennosides 1 tab 02/04/25 19:48 02/08/25 14:04 Senna Tablet PO 03/06/25 19:47 1 tab QDAY PRN Administration constipation Protocol Tamsulosin HCl 0.4 mg 02/05/25 21:00 02/07/25 20:39 Tamsulosin Hcl 0.4 Mg Capsule PO 03/07/25 20:59 0.4 mg HS BETH Administration Plan Patient is 74 yr male with PMH of hypothyroidism, osteoarthritis, prostate cancer status post radical prostatectomy on 12/05/2024, neurogenic bladder with In and out catheter as needed but urinary retention got better after prostatectomy per patient, status post inguinal hernia repair done on 01/29/2025, CKD stage IIIb, varicose veins s/p sclerotherapy presented to ED due to LLE swelling that worsend since past 2 weeks. Initially swelling had started 1 month ago. Cardiology consulted for evaluation of possilbe LE thrombectomy. #Acute DVT, provoked #s/p mechanical thrombectomy #Lymphocele s/p percutaneous drainage Recent surgery placed patient at high risk for DVT. LLE pain first started around 4 weeks ago. Noticed to have extensive swelling. Labs were significant for D-dimer 3240, Left lower extremity venous Doppler showed extensive DVT in the left common femoral, superficial femoral, popliteal, peroneal as well as superficial greater saphenous vein. He was started on heparin drip. Noted that patient was started on Eliquis some time ago for Afib. However is not compliant. Thrombectomy completed on 02/06 CTA A/P--left hydronephrosis resolved, lymphocele smaller compared to prior study. DVT in left superficial femoral, left common femoral, left external iliac and left common iliac veins. IVC is opacified with contrast. IR percutaneous drainage of lymphocele drained 250cc fluid -trend Hb -transfuse 1 unit prbc if Hb <8 -continue heparin drip for one more day -dc on Eliquis 10 twice daily for 7 days followed by 5 mg daily -Follow-up outpatient with Dr. Mcconnell for venous stent placement #Atrial fibrillation, rate controlled Per history. 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 EKGs on admission show atrial fibrillation. Denies hx of stroke but strong family hx as above. CHADSVASC score 2 points, stroke risk 2.2 %/year and 2.9% risk of stroke/TIA/systemic embolism HAS-BLED score 1 point, 3.4% risk, anticoagulation should be considered Plan: - Continue heparin drip for management of extensive LLE DVT, transition to oral coagulations prior to discharge #CKD Stage IIIa #Hypothyroidism #Neurogenic bladder #Chronic lower back pain #Neck pain #Arthritis #Varicose veins, RLE Primary care team to manage above conditions and ongoing care needs. The patient's management plan was discussed with my attending physician Dr. Mcconnell. Candace Danielson, PGY-2
[2025-02-08 16:58] LABS: Partial Thromboplastin Time 49.4 Seconds (22.0-36.0)
[2025-02-08 17:12] LABS: Hematocrit 28.5 % (41.0-53.0); Hemoglobin 9.2 g/dL (13.5-16.0)
--- NOTE | 2025-02-08 17:29 | PC.NURSE ---
Per Dr. Goff wait for post transfusion H&H to come back before starting next bag of blood.
[2025-02-08] MEDS: HEPARIN SOD INJ 5000 UNIT/ML VIAL 2780 UNIT IVP (17:31)
--- NOTE | 2025-02-08 18:05 | PC.NURSE ---
Dr. Goff aware of hemoglobin 9.2 after one unit, orders to hold second unit of blood.
--- NOTE | 2025-02-08 18:28 | ESPR_ITS ---
<Statement entered by González Mendez MD - 02/08/25 22:30> I saw and examined patient personally and supervised PGY 1 resident, Dr. Goff with formulating a management plan. I agree with the documentation as listed below. Plan of care discussed with Attending Dr. Bud Mendez MD PGY 2 Disclaimer: This note was dictated by speech recognition. Minor errors in senior it security analyst may be present due to voice recognition software. Documentation for date of: 02/08/25 Subjective Subjective Interval history: No acute overnight events. Patient seen examined at bedside. Patient reports left lower extremity pain and chronic back pain, both managed by [place]. No new complaints. VSS. Hemoglobin in AM 7.2 and for cardiac recommendations to keep hemoglobin above 8, plan to transfuse 1 PRBC today, posttransfusion H&H 9.2. CTA abdomen pelvis showed persistent extensive DVT. Per cardiology, will continue heparin ggt for today, plan to transition to Eliquis on discharge (10 mg BID for 7 days), and will need iliofemoral vein stent placement outpatient. Exam Vital Signs Temp Pulse Resp BP Pulse Ox O2 Del Method O2 Flow Rate 97.6 F 90 18 123/84 95 Room Air 3 02/08/25 16:30 02/08/25 16:30 02/08/25 16:30 02/08/25 16:30 02/08/25 16:30 02/08/25 16:00 02/07/25 20:00 Narrative Exam GENERAL: AOx3, no acute distress HEENT: mucous membranes moist, bilateral sclera anicteric CARDIOVASCULAR: regular rate and irregular rhythm, S1/S2 present, no murmurs appreciated PULMONARY: clear to auscultation bilaterally, no rales/rhonchi/wheezes ABDOMINAL: soft, non-tender, non-distended, no rebound/guarding, bowel sounds present EXTREMITIES: 1+ pitting edema LLE up to thighs, RLE varicose veins no edema, BLE not TTP, LLE erythema resolved, pedal pulses 2+ bilaterally, L inguinal repair incision clean and intact, no drainage or erythema, posterior L knee incision site clean and intact, covered SKIN: warm and dry, no rashes NEURO: CN II-XII grossly intact, no focal deficits, alert, following commands Objective Labs 02/08/25 16:28 02/08/25 03:16 Labs: Laboratory Results - last 24 hr 02/07/25 02/07/25 02/07/25 11:58 18:13 21:13 WBC RBC Hgb 9.6 L Hct 30.4 L MCV MCH MCHC RDW Std Deviation Plt Count Neut % (Auto) Lymph % (Auto) [place] % (Auto) Eos % (Auto) Baso % (Auto) Neut # (Auto) Lymph # (Auto) [place] # (Auto) Eos # (Auto) Baso # (Auto) Immature Gran # (Auto) Absolute Nucleated RBC Immature Gran % Nucleated RBC % PT INR APTT 66.6 H D Sodium Potassium Chloride Carbon Dioxide Anion Gap BUN Creatinine Estim Creat Clear Calc eGFR BUN/Creatinine Ratio Glucose Calculated Osmolality Calcium Corrected Calcium Magnesium Total Bilirubin AST ALT Alkaline Phosphatase Total Protein Albumin Globulin Albumin/Globulin Ratio Blood Type A Positive Antibody Screen NEGATIVE Crossmatch See Detail Blood Bank Wristband ID Yes 02/08/25 02/08/25 02/08/25 03:16 08:55 16:28 WBC 4.7 RBC 2.43 L Hgb 7.2 L D 8.7 L D 9.2 L Hct 22.8 L 26.8 L 28.5 L MCV 94 MCH 29.6 MCHC 31.6 RDW Std Deviation 45.3 H Plt Count 336 Neut % (Auto) 48 Lymph % (Auto) 31 [place] % (Auto) 15 H Eos % (Auto) 5 Baso % (Auto) 1 Neut # (Auto) 2.2 Lymph # (Auto) 1.5 [place] # (Auto) 0.7 Eos # (Auto) 0.3 Baso # (Auto) 0.0 Immature Gran # (Auto) 0.01 H Absolute Nucleated RBC 0.00 Immature Gran % 0 Nucleated RBC % 0 PT 10.8 INR 1.0 APTT 76.4 H 80.7 H 49.4 H D Sodium 140 Potassium 4.4 Chloride 107 Carbon Dioxide 26.6 Anion Gap 6 L BUN 18 Creatinine 1.3 Estim Creat Clear Calc 47.5 L eGFR 57 L BUN/Creatinine Ratio 14 Glucose 96 Calculated Osmolality 281 Calcium 8.3 Corrected Calcium 8.9 Magnesium 2.2 Total Bilirubin 0.2 L AST 17 ALT 9 L Alkaline Phosphatase 68 Total Protein 5.3 L Albumin 3.3 L Globulin 2.0 L Albumin/Globulin Ratio 1.7 Blood Type Antibody Screen Crossmatch Blood Bank Wristband ID Quality Measures Quality Measures VTE prophylaxis Advance care planning discussed with:: patient Assessment & Plan Assessment Current Active Medications: Generic Name Dose Route Start Last Admin Trade Name Freq PRN Reason Stop Dose Admin Acetaminophen 650 mg 02/04/25 20:07 Acetaminophen 325 Mg Tablet PO 03/06/25 19:47 Q6H PRN pain 1-3 or Temp>100.4 Hydrocodone Bitart/Acetaminophen 1 tab 02/06/25 15:11 02/08/25 15:46 Hydrocodone/Apap 5/325 Tablet PO 02/11/25 11:11 1 tab Q4HR PRN Administration PAIN SCALE 4-10(Mod-Sev Cyclobenzaprine HCl 10 mg 02/04/25 21:29 02/08/25 00:01 Cyclobenzaprine 5 Mg Tablet PO 03/07/25 20:59 10 mg QPM PRN Administration MUSCLE CRAMPS Diclofenac Sodium 1 gm 02/05/25 09:39 Diclofenac 1% Top Gel 100 Gm Tube TOP 03/07/25 13:59 TID PRN Neck pain Heparin Sodium/Dextrose 25,000 unit in 250 mls @ 12.507 mls/hr 02/07/25 12:30 02/08/25 17:31 Heparin In D5w Ivpb IV 02/21/25 12:29 18 units/kg/hr .Q20H BETH 12.507 mls/hr Protocol Titration 18 UNITS/KG/HR Levothyroxine Sodium 125 mcg 02/05/25 06:00 02/08/25 05:20 Levothyroxine Sodium 125 Mcg Tablet PO 03/07/25 05:59 125 mcg ACBR BETH Administration Lorazepam 1 mg 02/05/25 18:29 02/07/25 20:44 Lorazepam 0.5 Mg Tablet PO 02/10/25 18:28 1 mg HS PRN Administration INSOMNIA Morphine Sulfate 2 mg 02/06/25 15:09 Morphine Sulf Inj 4 Mg/Ml Vial IVP Q4HR PRN BREAKTHROUGH PAIN Protocol Ondansetron HCl 4 mg 02/04/25 19:48 Ondansetron Inj 2 Mg/Ml Inj 2 Ml IVP 03/06/25 19:47 Q6H PRN NAUSEA OR VOMITING Protocol Pantoprazole Sodium 40 mg 02/05/25 09:00 02/08/25 09:25 Pantoprazole 40 Mg Tablet PO 03/07/25 08:59 40 mg QDAY BETH Administration Sennosides 1 tab 02/04/25 19:48 02/08/25 14:04 Senna Tablet PO 03/06/25 19:47 1 tab QDAY PRN Administration constipation Protocol Tamsulosin HCl 0.4 mg 02/05/25 21:00 02/07/25 20:39 Tamsulosin Hcl 0.4 Mg Capsule PO 03/07/25 20:59 0.4 mg HS BETH Administration Plan Manpreet Samson 74M pmhx significant for hypothyroidism, arthritis, prostate cancer status post radical prostatectomy (performed by Dr. Cordero at [facility] on 12/05/2024, patient follows Dr. Mckeon currently), neurogenic bladder (secondary to laminectomy performed back in 2002, patient self catheterizes, less following prostatectomy), incarcerated left femoral hernia status post hernia repair (01/29/2025), CKD stage IIIa (sees Dr. Coe for nephrology), chronic lower back pain, and varicose veins who presented to [facility] ED on 02/04 for left lower extremity swelling and tenderness, admitted for management of left lower extremity acute DVT s/p thrombectomy 02/06/25. #Extensive LLE DVT, Left common femoral, superficial femoral, popliteal, peroneal, greater saphenous vein thrombus s/p thrombectomy 02/06/2504/08 #Large pelvic cystic mass 8.8 cm s/p IR drainage 02/07/25 #Incarcerated L inguinal hernia s/p repair 01/29/25 #Prostate cancer s/p radical prostatectomy 12/05/2024 Patient notes left lower extremity pain and swelling that started about a week prior to inguinal hernia repair on 01/29 with increasing swelling over time. Worsened following inguinal hernia surgery with pain and swelling. Dr. Cordero operated 12/05/[address] Mckeon. Dr. Camilo operated 01/29/25 and took about a week of Eliquis post-op, completed course entirely. In ED D-dimer 3240, low suspicion for PE and US LLE shows extensive DVT in multiple veins. Pedal pulses 2+, mild erythema and no tenderness to palpation. TTE: LV size normal and systolic function normal. Estminated 50-55%, G1DD, RV size and systolic function normal. RVSP 18 mmHg. Trave MR and TR. Mild MAC. LA and RA normal. Not well visualized IVD with estimated RA pressure 8 mmHg. 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 continue heparin ggt for today, plan to transition to Eliquis on discharge (10 mg BID for 7 days), and will need iliofemoral vein stent placement outpatient - Transfuse if Hgb <8 - Urology consulted - Pain scale: Tylenol, [place] 5 q4h prn, morphine 1 mg q4h prn #Atrial fibrillation, without RVR Per history. Never took termite treater anticoagulation. Sees Dr. Mcconnell, saw recently for inguinal hernia clearance. EKGs on admission show atrial fibrillation. Denies hx of stroke but strong family hx as above. CHADSVASC score 2 points, stroke risk 2.2 %/year and 2.9% risk of stroke/TIA/systemic embolism HAS-BLED score 1 point, 3.4% risk, anticoagulation should be considered Plan: - Continue heparin drip for management of extensive LLE DVT, transition to oral coagulations prior to discharge as above - Cardiology consulted as above #CKD Stage IIIa #Moderate L hydrohephrosis (01/22/25) Patient noted to have a history of CKD and follows Dr. Coe for nephrology outpatient. Admission Cr 1.4, within baseline around 1.3. Plan: - Renally dose medications, avoid nephrotoxic drugs - Patient to follow-up with outpatient nephrology #Hypothyroidism Patient endorses a history of hypothyroidism and takes levothyroxine at home, however he takes it early when he awakens and will eat shortly after. TSH and T4 wnl. Plan: - Resumed home levothyroxine 125 mg ACBR - Patient will follow-up outpatient - Counseled patient on appropriate timing of levothyroxine #Neurogenic bladder Patient endorses a neurogenic bladder ever since he had a laminectomy back in 2002, to which the patient self catheterizes. Patient endorses improvement after radical prostatectomy. Plan: - Does not want [place] at this time - CTM #Chronic lower back pain #Neck pain #Arthritis Patient does endorse chronic lower back pain and arthritis, to which he takes ibuprofen at home for management. Per home meds outside documents, patient was prescribed cyclobenzaprine, tramadol, and [place] in addition to the ibuprofen, but the patient did not endorse taking these medications at this time. Plan: - Cyclobenzaprine 10 mg nightly as needed for back pain - Diclofenac gel 1g TID prn - [place] 5 q4h prn as patient has hx of peptic ulcers #Varicose veins, RLE As seen on exam and patient endorses a history of this. Plan: - Recommend outpatient follow up DVT Prophylaxis: Heparin gtt. GI Prophylaxis: Protonix daily Bowel: Senna PRN Diet: Regular Lines: PIV Code Status: FULL Disposition: med tele pending stent placement Tuesday, heparin ggt Patient plan of care was discussed with the senior resident Dr. Mendez (PGY-2) and attending physician Dr. Farrell. Larisa Goff DO Internal Medicine PGY-1 Attending Provider Attestation/Addendum I have discussed and was present for the essential components of the history, physical examination, diagnosis, and treatment plan with the resident. I agree with the patient's care as documented by the resident and amended herein by me. Christian Farrell DO. Although this document has been carefully reviewed, there may still be some phonetic and other typographical errors. These errors are purely grammatical due to imperfections in the software program and should not be construed in any way to compromise the substance of the patient's medical care during this visit.
[2025-02-08] MEDS: TAMSULOSIN HCL 0.4 MG CAPSULE PO (20:08)
--- NOTE | 2025-02-08 22:05 | ESCONSULT_ITS ---
RE: RAMIREZ MARTELL : 1950 DATE OF CONSULTATION: 02/08/2025 CHIEF COMPLAINT: Tenderness and swelling of left lower extremity 7 days prior to his admission in the hospital through the emergency room. Patient is status post hernia repair recently. HISTORY OF PRESENT ILLNESS: This is a 74-year-old gentleman. This patient had significant comorbid conditions. This included: 1. Hypothyroidism. 2. Arthritis. 3. Chronic kidney disease, stage III. He is following up with Dr. Coe. 4. Chronic back pain since 1979 secondary to back injury. Patient was diagnosed with prostate cancer. He underwent robotic-assisted radical prostatectomy and bilateral pelvic lymph node dissections done at [facility] by Dr. Cordero on 12/05/2024. Patient was doing well. Pathology report from [facility] is reviewed by me. This revealed acinar adenocarcinoma of the prostate gland with Marsha score of 3+4=7, grade group 2. Stage of the cancer is pT2 N0 MX [place] score of 3+4=7. He had urinary incontinence postoperatively, which is expected and it takes about 3-6 months to regain control of the urination. This patient had inguinal hernia repair done. He recently started having pain in the lower extremity with swelling, 5 out of 10. Patient denied sedentary lifestyle and ADLs are intact. He has no history of gross hematuria, dysuria, fever, or chills. PHYSICAL EXAMINATION: GENERAL: Condition is satisfactory. Orientation x3. HEENT: Normocephalic, atraumatic. Eyes: No anemia or jaundice. NECK: Supple. Trachea is central. Thyroid is not enlarged. ABDOMEN: Tenderness on the left side. EXTREMITIES: Revealed edema, swelling of left lower extremity. Patient had edema of the lower extremity with pitting edema 2, up to the thigh region and some emphysematous discoloration. Diagnosis of DVT was made. Differential included lymphedema, venous insufficiency, musculoskeletal injury. Imaging study has confirmed the presence of acute DVT, extensive including left common femoral vein. Patient was started on IV heparin drip with bolus on PT level and pain management in the emergency room. Patient had a CAT scan of the abdomen and pelvis done. This revealed large lymphocele of left pelvis, 8 cm, pressing on the bladder and left hydronephrosis. Patient was seen by Dr. Mcconnell. He explored and removed the blood clots from the left femoral vein. Patient started on anticoagulation. Subsequently, patient had drainage of the lymphocele; 250 mL of fluid was drained and it was sent for culture sensitivity. In the emergency room, his temperature was 97.7, pulse rate 91, respirations 17, blood pressure 114/76, pulse oximetry 99%. RECOMMENDATIONS: I have been in touch with Dr. Mcconnell who is the stationary engineer refrigeration on the case and plan is to continue with the anticoagulation. My recommendation will also be to repeat CAT scan of the abdomen and pelvis in 2 weeks' time to assess the hydronephrosis. Depending upon the finding, I will make further recommendation. From his prostate cancer point of view and postop robotic radical prostatectomy, he will have PSA in 2.5 months and he will follow up with me in my office for prostate cancer followup. DT: 17:40:02 TT: 22:04:00 Ref: [id number] - TID: [id number]
[2025-02-09] VITALS: BP 111/72; PULSE 73; PULSE 85; RESP 15; TEMP 36.2; O2SAT 98
[2025-02-09] MEDS: HYDROcodone/APAP 5/325 TABLET 1 TAB PO ×2 (00:14→06:02)
[2025-02-09 00:25] LABS: Partial Thromboplastin Time 78.3 Seconds (22.0-36.0)
[2025-02-09 04:00] VITALS: BP 125/70; PULSE 82; RESP 16; TEMP 36.1; O2SAT 98
[2025-02-09] MEDS: LEVOTHYROXINE SODIUM 125 MCG TABLET PO (05:29)
[2025-02-09] MEDS: Heparin/D5w 25K 250 ML Ivpb 25,000 UNIT/250 ML BAG 12.507 UNIT IV (06:24)
[2025-02-09 07:58] LABS: Basophils # (Auto) 0.0 Thou/mm3 (0.0-0.2); Basophils % (Auto) 1 % (0-2.5); Eosinophils # (Auto) 0.3 Thou/mm3 (0.0-0.5); Eosinophils % (Auto) 6 % (0-10); Hematocrit 26.6 % (41.0-53.0); Immature Granulocytes Auto 0.01 Thou/mm3 (0.00-0.00); Lymphocytes # (Auto) 1.5 Thou/mm3 (1.0-4.8); Lymphocytes % (Auto) 32 % (10-50); Mean Corpuscular HGB Conc 32.3 g/dl (31.0-37.0); Mean Corpuscular Hemoglobin 30.1 pg (25.0-35.0); Mean Corpuscular Volume 93 fL (80-100); Monocytes # (Auto) 0.7 Thou/mm3 (0.0-0.8); Monocytes % (Auto) 15 % (0-12); Neutrophils # (Auto) 2.1 Thou/mm3 (1.8-7.7); Neutrophils % (Auto) 46 % (37-80); Nucleated Red Blood Cell # 0.00 Thou/mm3 (0.00-0.00); Nucleated Red Blood Cell % 0 /100 WBC (0); Platelet Count 287 Thou/mm3 (140-440); RDW Standard Deviation 46.5 fL (35.1-43.9); Red Blood Count 2.86 Miln/mm3 (4.50-5.90); White Blood Count 4.6 Thou/mm3 (3.8-10.6)
[2025-02-09 07:59] LABS: Hemoglobin 8.6 g/dL (13.5-16.0)
[2025-02-09 08:00] VITALS: BP 117/70; PULSE 67; PULSE 90; RESP 16; TEMP 36.8; O2SAT 98
[2025-02-09 08:12] LABS: Alanine Aminotransferase 18 U/L (10-49); Albumin, Serum 3.4 gm/dL (3.4-4.8); Albumin/Globulin Ratio 1.5 (1.2-2.2); Alkaline Phosphatase 72 U/L (46-116); Anion Gap 9 (7-16); Aspartate Amino Transferase 33 U/L (0-34); BUN/Creatinine Ratio 13 Ratio (12-20); Bilirubin,Total 0.3 mg/dL (0.3-1.2); Blood Urea Nitrogen 17 mg/dL (9-23); Calcium 8.5 mg/dL (8.3-10.6); Calcium (Corrected) 9.0 mg/dL (8.5-10.1); Carbon Dioxide 26.5 mMol/L (20.0-31.0); Chloride 107 mMol/L (98-107); Creatinine (Component) 1.3 mg/dL (0.6-1.3); Estimated Creatinine Clearance 46.8 mL/min (>60); Globulin 2.2 gm/dL (2.3-3.5); Glucose 96 mg/dL (74-106); Magnesium 2.0 mg/dL (1.6-2.6); Osmolality,Calculated 284 (275-295); Potassium 4.1 mMol/L (3.4-5.1); Sodium 142 mMol/L (136-145); Total Protein 5.6 gm/dL (5.7-8.2); eGFR 57 See Note
[2025-02-09 08:26] LABS: INR 1.0 (0.9-1.3); Partial Thromboplastin Time 75.3 Seconds (22.0-36.0); Prothrombin Time 10.8 Seconds (9.0-12.2)
[2025-02-09] MEDS: PANTOPRAZOLE 40 MG TABLET PO (09:15)
[2025-02-09 12:00] VITALS: BP 114/68; PULSE 86; RESP 17; TEMP 36.5; O2SAT 97
--- NOTE | 2025-02-09 13:24 | ESDS_ITS ---
Planned Discharge Date 02/09/25 DS: Providers Provider Date of admission: 02/04/25 20:04 Primary care physician: Jose Nunn MD Admitting Provider: Willie Modi MD Attending Provider on Admission: Mynor Farrell DO Consults: 02/04/25 23:56 Referral Registered Dietitian Routine Comment: 02/05/25 11:48 Consult to Cardiology Routine Comment: LLE extensive DVT Consulting Provider: Jose E Mcconnell Attending Provider on DC: Mynor Farrell DO Discharging Provider: Mynor Farrell DO DS: Diagnosis Problem List Completed Was Problem List Reviewed/Reconciled?: Yes Hospital Course Hospital Course Hospital course: Summary: Manpreet Hancock 74M pmhx significant for hypothyroidism, arthritis, prostate cancer status post radical prostatectomy (performed by Dr. Cordero at [facility] on 12/05/2024, patient follows Dr. Mckeon currently), neurogenic bladder (secondary to laminectomy performed back in 2002, patient self catheterizes, less following prostatectomy), incarcerated left femoral hernia status post hernia repair (01/29/2025), CKD stage IIIa (sees Dr. Coe for nephrology), chronic lower back pain, and varicose veins who presented to [facility] ED on 02/04 for left lower extremity swelling and tenderness, admitted for management of left lower extremity acute DVT s/p thrombectomy 02/06/25. Patient presented with left lower extremity pain and swelling that started about a week prior to inguinal hernia repair on 01/29/[address] Camilo with increasing swelling and pain over time and worsened following inguinal hernia surgery. Patient reports taking Eliquis for about 1 week postop and completed course entirely. In ED D-dimer 3240 and LLE US showed extensive DVT of left common femoral, superficial femoral, popliteal, peroneal, and greater saphenous veins. Patient was placed on heparin gtt. and cardiology was consulted. Patient underwent thrombectomy on 02/06/2025 with 400cc blood loss and during operation, large cystic mass noted to be compressing pelvic structures which was also seen on previous imaging in 11/2024. On 02/2025, patient underwent IR drainage of pelvic cystic mass with 250 cc removed and cytology ordered. However on repeat CTA abdomen pelvis showed resolution of left hydronephrosis, decrease size and lymphocele although may have possibly reaccumulated, and presence of DVT in left superficial femoral, left common femoral, left external iliac and left common iliac veins. Per cardiology, will likely follow-up outpatient given recent thrombectomy and is to be discharged with oral anticoagulation. Of note, per cardiology recommendations patient is to maintain hemoglobin above 8 however on 02/08/2025, hemoglobin 7.2 and transfused 1 PRBC with satisfactory post transfusion H&H. On discharge, patient is hemodynamically stable, labs and vitals reviewed to be stable and patient is ready to be discharged home. Imaging: LLE US: Positive for acute thrombus in left common femoral, superficial femoral, popliteal, peroneal and superficial greater saphenous vein TTE: LV size normal and systolic function normal. Estminated 50-55%, G1DD, RV size and systolic function normal. RVSP 18 mmHg. Trave MR and TR. Mild MAC. LA and RA normal. Not well visualized IVD with estimated RA pressure 8 mmHg. CTA A/P: Left hydronephrosis resolved, lymphocele pelvis is smaller however may have reaccumulated, DVT in left superficial femoral, left common femoral, left external iliac and left common iliac veins Discharge Recommendations: - Please take all medications as prescribed - START Eliquis 10 mg twice daily for 7 days then transition to 5 mg twice daily - Continue all home medications except as above - Please follow up with your PCP within one week of discharge - Please follow up with your cardiology Dr. Mcconnell within one week of discharge and follow up outpatient stent placement - If your symptoms worsen, please seek immediate medical attention and return to your nearest emergency room. - If you do not have a PCP, you may follow up at the [facility] at [address] [place] [address] [address] [address], Hospital Diagnoses: #Extensive LLE DVT, Left common femoral, superficial femoral, popliteal, peroneal, greater saphenous vein thrombus s/p thrombectomy 02/06/2504/08 #Large pelvic cystic mass 8.8 cm s/p IR drainage 02/07/25 #Incarcerated L inguinal hernia s/p repair 01/29/25 #Prostate cancer s/p radical prostatectomy 12/05/2024 #Atrial fibrillation, without RVR #CKD Stage IIIa #Moderate L hydrohephrosis, resolved #Hypothyroidism #Neurogenic bladder #Chronic lower back pain #Neck pain #Arthritis #Varicose veins, RLE Plan of care discussed with attending Dr. Farrell, and PGY-3 Dr. Salvador. Larisa Goff, Internal Medicine, PGY-1 Senior Resident Attestation: I discussed with and supervised the programming internship physician involved in the care of this patient. I personally saw and examined the patient and discussed the assessment and plan with the entire medicine team, including my attending. I agree with the discharge plan as documented above. Nasim Salvador MD PGY3 Internal Medicine Time Spent with Patient Time attestation: Total time spent providing and/or coordinating discharge services: Time spent: Less than 30 minutes Exam Vital Signs Temp Pulse Resp BP Pulse Ox O2 Del Method O2 Flow Rate 97.7 F 86 17 114/68 97 Room Air 3 02/09/25 12:00 02/09/25 12:00 02/09/25 12:00 02/09/25 12:00 02/09/25 12:00 02/09/25 12:00 02/07/25 20:00 Narrative Exam GENERAL: AOx3, no acute distress HEENT: mucous membranes moist, bilateral sclera anicteric CARDIOVASCULAR: regular rate and irregular rhythm, S1/S2 present, no murmurs appreciated PULMONARY: clear to auscultation bilaterally, no rales/rhonchi/wheezes ABDOMINAL: soft, non-tender, non-distended, no rebound/guarding, bowel sounds present EXTREMITIES: mild pitting edema LLE up to thighs, RLE varicose veins no edema, BLE not TTP, LLE erythema resolved, pedal pulses 2+ bilaterally, L inguinal repair incision clean and intact, no drainage or erythema, posterior L knee incision site clean and intact, covered SKIN: warm and dry, no rashes NEURO: CN II-XII grossly intact, no focal deficits, alert, following commands Discharge Plan Plan Patient Disposition: HOME (Self Care) Care Plan Goals: Please follow-up with your PCP within 1 week of discharge Please follow-up with first responder within 1 week of discharge. You will be scheduled for possible stent placement on your leg veins. You have been started on: -Eliquis 10 mg twice daily for 1 week, then 5 mg twice daily for 3 to 6 months as per the recommended by first responder We have stopped your ibuprofen Continue taking all other medicines as prescribed -Recommended to return back to emergency department if your symptoms persists or worsens Prescriptions/Referrals Prescriptions/Med Rec: [place] DVT-PE Treat 30D Start 5 mg (74 tabs) tablets,dose pack 5 mg PO BID Qty: 74 0RF Continued lorazepam 1 mg tablet 1 mg PO .PRN cyclobenzaprine 10 mg tablet 1 tab PO DAILY levothyroxine 125 mcg Tablet 125 mcg PO QDAY tramadol 50 mg tablet 50 mg PO Q8H PRN (Reason: pain) Patient Comments: TAKE 1 TABLET BY MOUTH 3 TIMES A DAY NEEDED FOR BACK PAIN M54.50 docusate sodium [Colace] 100 mg capsule 100 mg PO BID Qty: 40 0RF hydrocodone-acetaminophen 5-325 mg tablet 1 tab PO Q6H MDD 4 PRN (Reason: pain (scale score 7-10)) Qty: 15 0RF hydrocodone-acetaminophen 5-325 mg tablet 1 tab PO BID MDD 10mg PRN (Reason: pain) Qty: 14 0RF psyllium husk [Daily Fiber] 0.4 gram capsule 0.4 g PO QDAY prednisone 20 mg tablet 20 mg PO QDAY PRN (Reason: stiffness) Patient Comments: TAKE 1 TABLET BY MOUTH EVERY DAY Rx Instructions: 20 mg orally PRN; diclofenac sodium [Arthritis Pain (diclofenac)] 1 % gel 2 g topical QID Rx Instructions: apply to single elbow, wrist or hand; for hand includes palm/fingers/back of hand Discontinued ibuprofen 600 mg tablet 600 mg PO Q8H PRN (Reason: pain (scale score 4-6)) Qty: 15 0RF Referrals: Jose Nunn MD [Primary Care Provider, Family Practice] Patient/Caregiver Discharge Instructions Education Materials: DVT Dc Print Language: Omani Stand Alone Forms: Leydi Award Info., Patient Portal Info Letter Discharge Order Discharge Orders: Discharge (Routine); Ordered 02/09/25 Ordered By: Nasim Salvador Quality Discharge Quality Measures VTE therapy MD Attestestation MD Attestation I have discussed and was present for the essential components of the discharge history, physical examination, diagnosis, and discharge treatment plan with the resident. I agree with the patient's discharge care as documented by the resident and amended herein by me. Christian Farrell DO. The patient understood all discharge instructions, all questions were answered satisfactorily. The patient was instructed to return to the Emergency Department is symptoms worsened or persisted. Patient discharged on Eliquis, 10 mg p.o. twice daily for the first 7 days and 5 mg p.o. twice daily after that. Patient will need close follow-up with cardiology, Dr. Mcconnell within 1 week of discharge for possible stent placement. Patient was stable, afebrile, tolerating p.o. intake and ambulatory at time of discharge home. Although this document has been carefully reviewed, there may still be some phonetic and other typographical errors. These errors are purely grammatical due to imperfections in the software program and should not be construed in any way to compromise the substance of the patient's medical care during this visit.
--- NOTE | 2025-02-09 14:29 | PC.NURSE ---
Patient refused flu vaccine stating he will get at pharmacy.
== END 2025-02-09 12:50 | disposition home or self-care (01) | DRG 271 ==
LOC: SERX 19:00 → SERHOLD 20:04 → S3NX 23:07 → S2NX 02-06 06:18
PROVIDERS: Internal Medicine Cardiovascular Disease; Nurse Practitioner Family; Admitting Provider Internal Medicine; PCP Family Medicine; Visit Provider Student in an Organized Health Care Education/Training Program
DX: I82.412 Acute embolism and thrombosis of left femoral vein (principal); D68.69 Other thrombophilia; I48.20 Chronic atrial fibrillation, unspecified; I87.1 Compression of vein; I82.452 Acute embolism and thrombosis of left peroneal vein; I82.432 Acute embolism and thrombosis of left popliteal vein; E03.9 Hypothyroidism, unspecified; I12.9 Hypertensive chronic kidney disease with stage 1 through stage 4 chronic kidney disease, or unspecified chronic kidney disease; N18.32 Chronic kidney disease, stage 3b; N31.9 Neuromuscular dysfunction of bladder, unspecified; M54.50 Low back pain, unspecified; D63.1 Anemia in chronic kidney disease; I89.8 Other specified noninfective disorders of lymphatic vessels and lymph nodes; N40.0 Benign prostatic hyperplasia without lower urinary tract symptoms; N13.9 Obstructive and reflux uropathy, unspecified; M19.09 Primary osteoarthritis, other specified site; G89.29 Other chronic pain; I83.90 Asymptomatic varicose veins of unspecified lower extremity; Z90.79 Acquired absence of other genital organ(s); Z87.11 Personal history of peptic ulcer disease; Z91.199 Patient's noncompliance with other medical treatment and regimen due to unspecified reason; Z79.899 Other long term (current) drug therapy; Z85.46 Personal history of malignant neoplasm of prostate
CPT/HCPCS: 36415; 74174; 75625; 75989; 80053; 80061; 83605; 83615; 83690; 83735; 83880; 84100; 84145; 84439; 84443; 84484; 85014; 85018; 85025; 85379; 85610; 85730; 86850; 86900; 86901; 86923; 87070; 87075; 87081; 87205; 93005; 93225; 93306; 93971; 99152; 99153; 99283; A4649; C1769; C1887; C1894; J0168; J0461; J1643; J1644; J2250; J2312; J2371; J2720; J3010; J3475; J3490; P9016; Q9967; A9270; J2305

== ENCOUNTER → 2025-02-12 | Outpatient (BNVA) | payer OTHER, SELFPAY | END | disposition home or self-care (01) | PROVIDERS: PCP Family Medicine; Referring Provider Family Medicine; Visit Provider Physician Assistant | DX: N13.30 Unspecified hydronephrosis (principal); C61 Malignant neoplasm of prostate; Z90.79 Acquired absence of other genital organ(s); I82.409 Acute embolism and thrombosis of unspecified deep veins of unspecified lower extremity; I48.20 Chronic atrial fibrillation, unspecified; E03.9 Hypothyroidism, unspecified; M19.90 Unspecified osteoarthritis, unspecified site; N18.9 Chronic kidney disease, unspecified; Z87.891 Personal history of nicotine dependence | CPT/HCPCS: 99212; Q3014; G0463 ==

== ENCOUNTER 2025-02-14 17:51 | Inpatient (IN) | payer OTHER, MEDICARE, SELFPAY ==
[2025-02-14 17:52] VITALS: BMI 23.6
[2025-02-14 18:06] VITALS: BP 117/78; PULSE 98; RESP 18; TEMP 36.6; O2SAT 96
--- NOTE | 2025-02-14 18:15 | XR_ITS ---
Examination: Duplex scan of the lower extremity, unilateral left Date and time of exam: February 14, 2025, 1909 hours INDICATIONS: Leg swelling and pain redness 2 days, positive for DVT February 04, 2025 Technique: Duplex scan of the extremity veins using B-mode/grayscale imaging and Doppler spectral analysis and color flow Attention is directed to internal echogenicity, compression and augmentation involving these veins, color flow assessment, spectral analysis Findings: Positive for DVT involving the entire deep venous system. IMPRESSION: Again noted extensive DVT involving the entire deep venous system
[2025-02-14 19:09] LABS: Basophils # (Auto) 0.0 Thou/mm3 (0.0-0.2); Basophils % (Auto) 1 % (0-2.5); Eosinophils # (Auto) 0.3 Thou/mm3 (0.0-0.5); Eosinophils % (Auto) 6 % (0-10); Hematocrit 27.7 % (41.0-53.0); Hemoglobin 8.9 g/dL (13.5-16.0); Immature Granulocytes Auto 0.01 Thou/mm3 (0.00-0.00); Lymphocytes # (Auto) 0.9 Thou/mm3 (1.0-4.8); Lymphocytes % (Auto) 21 % (10-50); Mean Corpuscular HGB Conc 32.1 g/dl (31.0-37.0); Mean Corpuscular Hemoglobin 30.1 pg (25.0-35.0); Mean Corpuscular Volume 94 fL (80-100); Monocytes # (Auto) 0.6 Thou/mm3 (0.0-0.8); Monocytes % (Auto) 12 % (0-12); Neutrophils # (Auto) 2.7 Thou/mm3 (1.8-7.7); Neutrophils % (Auto) 60 % (37-80); Nucleated Red Blood Cell # 0.00 Thou/mm3 (0.00-0.00); Nucleated Red Blood Cell % 0 /100 WBC (0); Platelet Count 340 Thou/mm3 (140-440); RDW Standard Deviation 47.2 fL (35.1-43.9); Red Blood Count 2.96 Miln/mm3 (4.50-5.90); White Blood Count 4.5 Thou/mm3 (3.8-10.6)
[2025-02-14 19:20] LABS: Alanine Aminotransferase 21 U/L (10-49); Albumin, Serum 3.8 gm/dL (3.4-4.8); Albumin/Globulin Ratio 1.5 (1.2-2.2); Alkaline Phosphatase 89 U/L (46-116); Anion Gap 7 (7-16); Aspartate Amino Transferase 18 U/L (0-34); BUN/Creatinine Ratio 13 Ratio (12-20); Bilirubin,Total 0.4 mg/dL (0.3-1.2); Blood Urea Nitrogen 17 mg/dL (9-23); Calcium 8.9 mg/dL (8.3-10.6); Calcium (Corrected) 9.1 mg/dL (8.5-10.1); Carbon Dioxide 28.3 mMol/L (20.0-31.0); Chloride 106 mMol/L (98-107); Creatinine (Component) 1.3 mg/dL (0.6-1.3); Estimated Creatinine Clearance 48.3 mL/min (>60); Globulin 2.6 gm/dL (2.3-3.5); Glucose 114 mg/dL (74-106); Osmolality,Calculated 283 (275-295); Potassium 4.5 mMol/L (3.4-5.1); Sodium 141 mMol/L (136-145); Total Protein 6.4 gm/dL (5.7-8.2); eGFR 57 See Note
--- NOTE | 2025-02-14 22:47 | PD.EDEXREM ---
ED Extremity Problem RME/HPI General Chief complaint: Extremity Problem,Nontraumatic Stated complaint: LEFT LEG SWOLLEN AND RED Time Seen by Provider: 02/14/25 18:06 Source: patient Arrival date/time: 02/14/25 17:51 Mode of arrival: ambulatory Limitations: no limitations RME / HPI RME / HPI Narrative: This patient is a pleasant 75-year-old male who arrives to the ED today for continued evaluation of left leg and left groin swelling concerns. Patient was at this facility recently for a extensive DVT event. Patient had extensive venous work done as well as lymphatic drainage. Dr. Mcconnell performed the vascular component of that procedure. Patient states he had initially good resolution of symptoms, but states over the past few days they have returned and now he has significant pain in the left-sided groin and leg. Vital signs were stable arrival. Related Data Home Medications ?Medication ?Instructions ?Recorded ?Confirmed lorazepam 1 mg tablet 1 mg PO .PRN 01/01/19 02/12/25 levothyroxine 125 mcg tablet 125 mcg PO QDAY 01/04/20 02/12/25 cyclobenzaprine 10 mg tablet 1 tab PO DAILY 09/28/21 02/12/25 tramadol 50 mg tablet 50 mg PO Q8H PRN pain 01/28/25 02/12/25 psyllium husk 0.4 gram capsule 0.4 g PO QDAY 02/04/25 02/12/25 (Daily Fiber) diclofenac sodium 1 % topical gel 2 g topical QID 02/05/25 02/12/25 (Arthritis Pain (diclofenac)) prednisone 20 mg tablet 20 mg PO QDAY PRN stiffness 02/05/25 02/12/25 Previous Rx's ?Medication ?Instructions ?Recorded apixaban 5 mg (74 tabs) tablets in 5 mg PO BID #74 tabs 02/09/25 a dose pack (Eliquis DVT-PE Treat 30D Start) Allergies Allergy/AdvReac Type Severity Reaction Status Date / Time No Known Allergies Allergy Verified 02/14/25 17:52 Review of Systems Review of Systems Systems Reviewed: All systems reviewed, normal except as documented Past Medical History Past Medical History NEUROLOGIC: Negative Neurological Disorders, Meningitis, Seizures, Paralysis or Migraine CARDIAC: Positive Deep Vein Thrombosis; Negative Cardiac Disorders, Congestive Heart Failure, Edema or Cellulitis RESPIRATORY: Negative Chronic Obstructive Pulmonary Disease (COPD), Asthma, Tuberculosis, Pulmonary Embolism, Sleep Apnea, Smoking, Smoking Cessation Counseling or Smoking Exposure GASTROINTESTINAL: Positive Gastrointestinal Disorders, Hepatitis, Diverticulosis, Hemorrhoids and Gastroesophageal Reflux Disease GENITOURINARY: Positive Renal Disease and Prostate Cancer; Negative Genitourinary Disorders or Benign Prostatic Hyperplasia MUSCULOSKELETAL: Positive Musculoskeletal Disorders and Arthritis; Negative Fractures ENT: Positive Cataracts ENDOCRINE: Positive Endocrine Disorders and Hypothyroidism; Negative Diabetes Mellitus Type 1 or Diabetes Mellitus Type 2 HEMATOLOGIC: Negative Blood Disorders, Anemia or Sickle Cell Disease PSYCHO/SOCIAL: Positive Depression and Anxiety; Negative Post Traumatic Stress Disorder OTHER HISTORY: Positive Measles, Mumps and Prostate Cancer; Negative Hospitalization, Autoimmune Disease, Shingles, Falls, Blood Transfusions, Blood Transfusion Reaction, Anesthesia Reactions, Chemotherapy, Radiation Therapy, MRSA, Chicken Pox or Cancer Family History FAMILY HISTORY: Positive Family Respiratory Disorders, Family Cardiac Disorders, Family Gastrointestinal Problems, Family Cancer and Family Surgery; Negative Family Psychiatric Problems or Family Anesthesia Reaction Surgical History SURGICAL: Positive Nose Surgery (Deviated septum), Abdominal Surgery and Arthroscopy (Left knee); Negative Cardiac Surgery, Pacemaker, Endocrine Surgery, Thyroidectomy, Ear Surgery or Vasectomy Social History SMOKING STATUS: Former smoker ED Exam Narrative Physical exam: Patient has significant swelling noted to the left leg and groin region General Limitations: Present no limitations General appearance: Present alert and in distress (Mild to moderate assess due to leg pain concerns.) Head Head exam: Present atraumatic Eye Eye exam: Present normal appearance, PERRL and EOMI ENT ENT exam: Present normal exam, normal oropharynx and mucous membranes moist Neck Neck exam: Present normal inspection, full ROM and trachea midline Chest Chest inspection: Present normal inspection and symmetric chest wall rise Respiratory Respiratory exam: Present normal lung sounds bilaterally Cardiovascular Cardiovascular exam: Present regular rate, normal rhythm and normal heart sounds Abdominal Exam Abdominal exam: Present soft and normal bowel sounds Extremities Exam Extremities exam: Present other (Patient displays significant edema from the left ankle up through the thigh with taut tissue noted. Swelling extends into the left groin/inguinal region. No definitive erythema noted throughout the leg.) Back Exam Back exam: Present normal inspection and full ROM Neurological Exam Neurological exam: Present alert, oriented X3 and CN II-XII intact Psychiatric Psychiatric exam: Present normal affect and normal mood Skin Skin exam: Present warm, dry, intact and normal color Course Quality Measures none Orders Category Date Time Status US venous doppler LE LT Stat Exams 02/14/25 18:15 Completed CBC Stat Lab 02/14/25 18:40 Completed CMP [Comprehensive Metabolic Panel] Stat Lab 02/14/25 18:40 Completed As noted above Vital Signs Vital signs: Vital Signs Temperature 97.9 F 02/14/25 18:06 Pulse Rate 98 02/14/25 18:06 Respiratory Rate 18 02/14/25 18:06 Blood Pressure 117/78 02/14/25 18:06 Pulse Oximetry (%) 96 02/14/25 18:06 Oxygen Delivery Method Room Air 02/14/25 18:06 As noted above Extremity Problem Patient data External records reviewed:: [facility] previous records Clinical information provided by:: patient Social determinants that could affect healthcare access:: none Patient has the following chronic illnesses:: History of DVTs How is presenting disease/condition affected by chronic disease/condition?: exacerbated by Evaluation data The following diagnostics were reviewed and interpreted by me:: lab results and radiology exam(s) Lab and/or radiology exams considered but not ordered:: None Interpretation Summary: Serum laboratories were unremarkable while Doppler study confirmed extensive DVT concerns Medications / Prescriptions Medications or Prescriptions considered but not ordered:: None Medication administrations:: Dilaudid Consultations Consultation(s) initiated? (list below): Yes Consultation #1 (Physician, Specialty, Details): Dr. Mcconnell Time: 22:30 Diagnosis Extremity Problem Differential Diagnosis: deep vein thrombosis of lower extremity and other (Lymphocele) Most likely diagnosis given after review of the tests above:: DVT and lymphocele Admission Indicated Admission indicated?: indicated Explain why admission is indicated or not indicated:: Patient will require surgical intervention Admission Request Was there a request for admission?: Yes Admission Attestation Admission request attestation: Discussed case with Dr. Nichols from Hospitalist service regarding admission. Discussed patients ED course, exam findings, labs, and radiology results. The Hospitalist agrees to accept the patient for admission. Disposition Plan Disposition Plan: Admit Discharge Plan Plan Patient Disposition: Admit Acute Care w/in Hospital Prescriptions/Referrals Prescriptions/Med Rec: No Action lorazepam 1 mg tablet 1 mg PO .PRN cyclobenzaprine 10 mg tablet 1 tab PO DAILY levothyroxine 125 mcg Tablet 125 mcg PO QDAY tramadol 50 mg tablet 50 mg PO Q8H PRN (Reason: pain) Patient Comments: TAKE 1 TABLET BY MOUTH 3 TIMES A DAY NEEDED FOR BACK PAIN M54.50 psyllium husk [Daily Fiber] 0.4 gram capsule 0.4 g PO QDAY prednisone 20 mg tablet 20 mg PO QDAY PRN (Reason: stiffness) Patient Comments: TAKE 1 TABLET BY MOUTH EVERY DAY Rx Instructions: 20 mg orally PRN; diclofenac sodium [Arthritis Pain (diclofenac)] 1 % gel 2 g topical QID Rx Instructions: apply to single elbow, wrist or hand; for hand includes palm/fingers/back of hand Rebecca DVT-PE Treat 30D Start 5 mg (74 tabs) tablets,dose pack 5 mg PO BID Qty: 74 0RF Referrals: Jose Nunn MD [Primary Care Provider, Family Practice] - In 1 week Problem List Clinical Impression: Deep vein thrombosis of lower extremity Patient/Caregiver Discharge Instructions Education Materials: DVT Complications Print Language: Malian Stand Alone Forms: [facility] Award Info., Patient Portal Info Letter
[2025-02-14 23:31] LABS: INR 1.0 (0.9-1.3); Partial Thromboplastin Time 34.5 Seconds (22.0-36.0); Prothrombin Time 11.1 Seconds (9.0-12.2)
[2025-02-14 23:47] VITALS: BP 139/90; PULSE 93; RESP 18; O2SAT 94
[2025-02-14 23:56] VITALS: PULSE 83
[2025-02-15] VITALS (12 sets, daily range): BP systolic 113–139; BP diastolic 63–82; PULSE 67–87; RESP 14–97; TEMP 36.4–37.2; O2SAT 93–99; BMI 23.5
[2025-02-15] MEDS: Heparin/D5w 25K 250 ML Ivpb 25,000 UNIT/250 ML BAG 13.064 UNIT IV (00:42)
--- NOTE | 2025-02-15 00:43 | ESHP_ITS ---
Documentation for date of: 02/15/25 [facility] History of Present Illness History of present illness: HPI: 74-year-old male with a history of hypothyroidism, arthritis, prostate cancer status post radical prostatectomy (performed by Dr. Cordero at [facility] on 12/05/2024, patient follows Dr. Mckeon currently), neurogenic bladder (secondary to laminectomy performed back in 2002, patient self catheterizes), incarcerated left femoral hernia status post hernia repair (01/29/2025), CKD stage IIIb (sees Dr. Coe for nephrology), chronic lower back pain, and varicose veins who presented to the ED the evening of 02/14/2025 with left lower extremity pain and swelling. The patient underwent mechanical computer-assisted vacuum thrombectomy of the left popliteal vein and left femoral vein and the left external iliac vein on 02/07/2025. Extensive thrombus of approximately 300-400 g was removed. The patient was discharged on Eliquis. 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 Patient endorsed pain and swelling in the left lower extremity. He will be admitted for IR and cardiology evaluation and started on a heparin drip Patient was admitted for recurrent left lower extremity DVT. ED Course: * Significant vitals on arrival: Vitals within normal limits on arrival * Significant labs: Hemoglobin 8.9, hematocrit 27.7 * Imaging: Venous Doppler showed extensive DVT involving the entire deep venous system * ED intervention: Patient was started on a heparin drip History: * Past medical history: As above in HPI * Surgical history: As above in HPI * Social history: Denies alcohol tobacco or drug use. Allergies: * No known drug allergies. Home Medications: (Pending Med Rec) * Eliquis, was discharged on 02/09/2025 and instructed to take Eliquis 10 mg twice daily for 7 days followed by 5 mg twice daily * Cyclobenzaprine 1 tab daily * Diclofenac topical * Levothyroxine 125 mg daily * Lorazepam 1 mg as needed * Prednisone 20 mg daily as needed * Fiber supplement * Tramadol 50 mg every 8 hours as needed CODE STATUS: Full Code Review of Systems Review of Systems Narrative Review of Systems: Review of Systems: * General: Denies fevers, chills. * HEENT: Denies headache, congestion, or sore throat. * Cardiac: Denies chest pain or palpitations. * Pulmonary: Denies shortness of breath or cough. * GI: Denies nausea, vomiting, diarrhea, constipation, melena, or hematochezia. * : Denies dysuria, hematuria, frequency, or urgency. * MSK: Left lower extremity pain, swelling, and stiffness. * Neuro: Denies weakness, numbness, vision changes, or speech difficulty. Exam Vital Signs Temp Pulse Resp BP Pulse Ox O2 Del Method 97.9 F 83 18 139/90 H 94 L Room Air 02/14/25 18:06 02/14/25 23:56 02/14/25 23:47 02/14/25 23:47 02/14/25 23:47 02/14/25 23:47 Narrative Exam General: Awake and in no acute distress. Conversational and non-toxic appearing. Neurologic: GCS 15. Alert and oriented x3, no gross neurological deficit, and patient able to move all 4 extremities. HEENT: Normocephalic, atraumatic, mucous membranes moist. Pupils reactive to light. Heart: Regular rate and rhythm, normal S1 and S2, no murmurs. Lungs: Clear to auscultation bilaterally with no wheezing or crackles. Abdomen: Soft, nondistended, nontender, positive bowel sounds. No guarding or rebound tenderness. Extremities: Left lower extremity notably larger than the right up to the hip, 2+ pitting edema, cold to the touch, dorsalis pedis pulse 2+. Surgical bandages in place posterior left calf, left suprapubic area. Right lower extremity has no edema. 2+ dorsalis pedis pulse. Skin: Warm. Dry. No rash or ecchymoses. Results: Labs 02/16/25 05:12 02/16/25 05:12 Labs: Short CBC 02/14/25 Range/Units 18:40 WBC 4.5 (3.8-10.6) Thou/mm3 Hgb 8.9 L (13.5-16.0) g/dL Hct 27.7 L (41.0-53.0) % Plt Count 340 D (140-440) Thou/mm3 BMP 02/14/25 18:40 Sodium 141 Potassium 4.5 Chloride 106 Carbon Dioxide 28.3 BUN 17 Creatinine 1.3 Glucose 114 H Calcium 8.9 Liver Function 02/14/25 Range/Units 18:40 Total Bilirubin 0.4 (0.3-1.2) mg/dL AST 18 (0-34) U/L ALT 21 (10-49) U/L Alkaline Phosphatase 89 (46-116) U/L Albumin 3.8 (3.4-4.8) gm/dL Quality Measures Quality Measures VTE therapy Advance care planning discussed with:: patient Medications Home Medications and Allergies Home Medications ?Medication ?Instructions ?Recorded ?Confirmed ?Type lorazepam 1 mg tablet 1 mg PO .PRN 01/01/19 History levothyroxine 125 mcg tablet 125 mcg PO QDAY 01/04/20 02/15/25 History cyclobenzaprine 10 mg tablet 1 tab PO DAILY 09/28/21 1 04/18/24 History tramadol 50 mg tablet 50 mg PO Q8H PRN pain 02/15/25 History psyllium husk 0.4 gram capsule 0.4 g PO QDAY 02/04/25 02/15/25 History (Daily Fiber) diclofenac sodium 1 % topical gel 2 g topical QID 05/0102/15/25 History (Arthritis Pain (diclofenac)) prednisone 20 mg tablet 20 mg PO QDAY PRN stiffness 02/05/25 02/15/25 History Allergies Allergy/AdvReac Type Severity Reaction Status Date / Time No Known Allergies Allergy Verified 02/14/25 17:52 Visit Medications Acetaminophen (Acetaminophen 325 Mg Tablet) 650 mg PO Q6H PRN PRN Reason: Fever >100.4 Stop: 03/17/25 00:37 Heparin Sodium (Porcine) (Heparin Sod Inj 5000 Unit/Ml Vial) 5,800 unit 80 unit/kg (5800 unit) IV X1 ONE; Protocol Stop: 02/14/25 23:59 Heparin Sodium/Dextrose (Heparin In D5w Ivpb) 25,000 unit in 250 mls @ 13.064 mls/hr IV .Q19H9M [facility]; Protocol Stop: 02/28/25 23:44 Last Admin: 02/15/25 00:42 Dose: 18 units/kg/hr, 13.064 mls/hr Morphine Sulfate (Morphine Sulf Inj 4 Mg/Ml Vial) 2 mg IVP Q4HR PRN PRN Reason: PAIN 6-10 Ondansetron HCl (Ondansetron Inj 2 Mg/Ml Inj 2 Ml) 4 mg IVP Q6H PRN; Protocol PRN Reason: NAUSEA OR VOMITING Stop: 03/17/25 00:37 Pantoprazole Sodium (Pantoprazole Inj 40 Mg Vial) 40 mg IVP QDAY BETH Stop: 03/17/25 08:59 Discontinued Medications Hydromorphone HCl (Hydromorphone Inj 2 Mg/Ml Vial) 0.5 mg IM X1 ONE Stop: 02/14/25 22:50 Last Admin: 02/15/25 00:28 Dose: Not Given Assessment & Plan Plan Summary: 74-year-old male with a history of hypothyroidism, arthritis, prostate cancer status post radical prostatectomy (performed by Dr. Cordero at [facility] on 12/05/2024, patient follows Dr. Mckeon currently), neurogenic bladder (secondary to laminectomy performed back in 2002, patient self catheterizes), incarcerated left femoral hernia status post hernia repair (01/29/2025), CKD stage IIIb (sees Dr. Coe for nephrology), chronic lower back pain, and varicose veins who presented to the ED the evening of 02/14/2025 with left lower extremity pain and swelling. Patient had an extensive thrombus removed on 02/07/25. 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 Patient was admitted for recurrent left lower extremity DVT. #Extensive LLE DVT * Patient underwent mechanical computer-assisted vacuum thrombectomy of the left common femoral, superficial femoral, popliteal, peroneal, and greater saphenous vein on 02/07/25 * Extensive thrombus of approximately 300-400 g was removed. * The patient was discharged on Eliquis. * Patient presented to ED with left lower extremity pain swelling and stiffness * Venous Doppler showed extensive DVT involving the entire deep venous system. * There is concern for obstruction of arterial flow given the physical exam findings of 2+ pitting edema and cold extremity Plan: * Heparin drip * Morphine 2 mg IV every 4 hours as needed for pain * Cardiology consulted #Large pelvic cystic mass 8.8 cm s/p IR drainage 02/07/25 * CT abdomen pelvis on 02/07/25 showed an 8 cm diameter mass pushing on the bladder and ureters causing hydronephrosis and iliac vein obstruction with external compression * Patient underwent successful CT-guided percutaneous catheter drainage of the left pelvic lymphocele on 02/07/25 * Patient had associated hydrocele prior to drainage, improved after drainage * Again noted on USG today Plan: * Consider IR consult after cardiology evaluation for possible draining again. #Hypothyroidism * Thyroid labs within normal limits on 02/05/2025 Plan: * Resumed home levothyroxine 125 mcg daily #Atrial fibrillation, without RVR * Per chart review of patient's history * Patient takes Eliquis * [id number] score 3: * Age over 75 (+2) * Male (0) * Vascular disease history (+1) * Has bled score 2 * Age over 65 (+1) * Medication use predisposing to bleeding (+1) Plan: * Switched to heparin drip now in case cardiology decides on procedure #CKD Stage IIIa * Follows Dr. Coe * Creatinine 1.3 on admission and appears to be his baseline * BUN 17 Plan: * Renally dose medications * Avoid nephrotoxic agents * Follow-up outpatient nephrology #Neurogenic bladder * Patient self catheterizes Plan: * No Logan at this time, will monitor #Chronic lower back pain * Per patient history Plan: * Consider restarting home meds after med rec #Incarcerated L inguinal hernia s/p repair 01/29/25 #Prostate cancer s/p radical prostatectomy 12/05/2024 * Per chart review patient's history Plan: * No direct invention at this time Hospital Maintenance: DVT ppx: Heparin drip GI ppx: Pantoprazole 40 mg IV daily Diet: N.p.o. IV lines: Peripheral IVs Code status: Full code Dispo: Med/tele, cardiology consulted, extensive DVT recurrence, started heparin drip. Patient was seen and discussed with my attending physician Dr. Hayley PADILLA. Jared Nichols DO PGY-1. Attending Provider Attestation/Addendum After examination of the patient and review of the clinical data I feel that this patient needs admission to the hospital for further treatment/evaluation. Plan of care discussed with patient and is in agreement. I Padmini Hardy MD, attest that I was physically present for paul portions of evaluation, and examined patient, labs and imagings and plan of care were discussed with IM residents team, and I agree with the findings and plans documented above.
[2025-02-15] MEDS: MORPHINE SULF INJ 4 MG/ML VIAL 2 MG IVP ×3 (06:46→19:57)
[2025-02-15 08:02] LABS: Basophils # (Auto) 0.0 Thou/mm3 (0.0-0.2); Basophils % (Auto) 1 % (0-2.5); Eosinophils # (Auto) 0.4 Thou/mm3 (0.0-0.5); Eosinophils % (Auto) 9 % (0-10); Hematocrit 27.4 % (41.0-53.0); Immature Granulocytes Auto 0.01 Thou/mm3 (0.00-0.00); Lymphocytes # (Auto) 1.3 Thou/mm3 (1.0-4.8); Lymphocytes % (Auto) 30 % (10-50); Mean Corpuscular HGB Conc 31.8 g/dl (31.0-37.0); Mean Corpuscular Hemoglobin 29.7 pg (25.0-35.0); Mean Corpuscular Volume 94 fL (80-100); Monocytes # (Auto) 0.7 Thou/mm3 (0.0-0.8); Monocytes % (Auto) 16 % (0-12); Neutrophils # (Auto) 1.8 Thou/mm3 (1.8-7.7); Neutrophils % (Auto) 44 % (37-80); Nucleated Red Blood Cell # 0.00 Thou/mm3 (0.00-0.00); Nucleated Red Blood Cell % 0 /100 WBC (0); Platelet Count 317 Thou/mm3 (140-440); RDW Standard Deviation 47.6 fL (35.1-43.9); Red Blood Count 2.93 Miln/mm3 (4.50-5.90); White Blood Count 4.2 Thou/mm3 (3.8-10.6)
[2025-02-15] MEDS: LEVOTHYROXINE SODIUM 125 MCG TABLET PO (08:07)
[2025-02-15 08:22] LABS: Magnesium 1.9 mg/dL (1.6-2.6)
[2025-02-15 08:54] LABS: Hemoglobin 8.7 g/dL (13.5-16.0)
[2025-02-15 11:25] LABS: Partial Thromboplastin Time 78.0 Seconds (22.0-36.0)
--- NOTE | 2025-02-15 14:32 | PD.HHPROG ---
Documentation for date of: 02/15/25 Subjective - Hospitalist Subjective Interval history: Patient evaluated at bedside with cardiology. Patient reports since discharge she has had increased lower extremity swelling and pain which prompted him to come back to the emergency room. He endorses compliance with Eliquis and has not missed doses. He states he can minimally bear weight and sensation is intact throughout. He denies fever/chills. Pain currently controlled. Afebrile. BP 116/71. Pulse 67. RR 18. He denies chest pain and shortness of breath. Review of Systems Review of Systems Systems Reviewed: All systems reviewed, normal except as documented Exam Vital Signs Temp Pulse Resp BP Pulse Ox O2 Del Method 97.6 F 67 18 116/71 95 Room Air 02/15/25 11:53 02/15/25 11:53 02/15/25 11:53 02/15/25 11:53 02/15/25 11:53 02/15/25 11:53 Narrative General: Awake and in no acute distress. Conversational HEENT: Normocephalic, atraumatic, mucous membranes moist. PERRLA Heart: Regular rate and rhythm, normal S1 and S2, no murmurs. Lungs: Clear to auscultation bilaterally with no wheezing or crackles. Abdomen: Soft, nondistended, nontender, positive bowel sounds. No guarding or rebound tenderness. Extremities: Left lower extremity notably larger than the right up to the hip, 2+ pitting edema, cold to the touch, dorsalis pedis pulse 2+. Surgical bandages in place posterior left calf, left suprapubic area. Right lower extremity has no edema. 2+ dorsalis pedis pulse. Skin: Warm. Dry. No rash or ecchymoses. Neurologic: GCS 15. Alert and oriented x3, no gross neurological deficit, and patient able to move all 4 extremities. Objective - Hospitalist Labs Diagram: 02/15/25 07:50 02/14/25 18:40 Labs: Laboratory Results - last 24 hr 02/14/25 02/15/25 18:40 07:50 WBC 4.5 4.2 RBC 2.96 L 2.93 L Hgb 8.9 L 8.7 L Hct 27.7 L 27.4 L MCV 94 94 MCH 30.1 29.7 MCHC 32.1 31.8 RDW Std Deviation 47.2 H 47.6 H Plt Count 340 D 317 Neut % (Auto) 60 44 Lymph % (Auto) 21 30 [place] % (Auto) 12 16 H Eos % (Auto) 6 9 Baso % (Auto) 1 1 Neut # (Auto) 2.7 1.8 Lymph # (Auto) 0.9 L 1.3 [place] # (Auto) 0.6 0.7 Eos # (Auto) 0.3 0.4 Baso # (Auto) 0.0 0.0 Immature Gran # (Auto) 0.01 H 0.01 H Absolute Nucleated RBC 0.00 0.00 Immature Gran % 0 0 Nucleated RBC % 0 0 PT 11.1 INR 1.0 APTT 34.5 D 78.0 H D Sodium 141 Potassium 4.5 Chloride 106 Carbon Dioxide 28.3 Anion Gap 7 BUN 17 Creatinine 1.3 Estim Creat Clear Calc 48.3 L eGFR 57 L BUN/Creatinine Ratio 13 Glucose 114 H Calculated Osmolality 283 Calcium 8.9 Corrected Calcium 9.1 Magnesium 1.9 Total Bilirubin 0.4 AST 18 ALT 21 Alkaline Phosphatase 89 Total Protein 6.4 Albumin 3.8 Globulin 2.6 Albumin/Globulin Ratio 1.5 Assessment & Plan Plan: Patient 74-year-old male with a history of hypothyroidism, arthritis, prostate cancer status post radical prostatectomy (performed by Dr. Cordero at [facility] on 12/05/2024, patient follows Dr. Mckeon currently), neurogenic bladder (secondary to laminectomy performed back in 2002, patient self catheterizes), incarcerated left femoral hernia status post hernia repair (01/29/2025), CKD stage IIIb (sees Dr. Coe for nephrology), chronic lower back pain, and varicose veins who presented to the ED the evening of 02/14/2025 with left lower extremity pain and swelling. #Extensive LLE DVT Patient underwent mechanical computer-assisted vacuum thrombectomy of the left common femoral, superficial femoral, popliteal, peroneal, and greater saphenous vein on 02/07/25 Extensive thrombus of approximately 300-400 g was removed. The patient was discharged on Eliquis. Patient presented to ED with left lower extremity pain swelling and stiffness Venous Doppler showed extensive DVT involving the entire deep venous system. There is concern for obstruction of arterial flow given the physical exam findings of 2+ pitting edema and cold extremity Plan: Continue pain management. Continue heparin gtt. and target APTT of 60 to 80 seconds. Suspect worsening DVT is likely related to large pelvic mass decreasing venous return and we will obtain CTA of abdomen pelvis and left lower extremity with venous phase. In-house cardiology following with plans for possible stent placement depending on CTA findings. Likely patient will require lifelong coagulation given the extensive nature of patient's DVT. He may benefit from a hypercoagulable panel at a later date. Monitor for signs of bleeding. #Large pelvic cystic mass - 8.8 cm s/p IR drainage 02/07/25 CT abdomen pelvis on 02/07/25 showed an 8 cm diameter mass pushing on the bladder and ureters causing hydronephrosis and iliac vein obstruction with external compression Patient underwent successful CT-guided percutaneous catheter drainage of the left pelvic lymphocele on 02/07/25 Patient had associated hydrocele prior to drainage, improved after drainage Again noted on USG today Plan: Follow-up CTA results and patient may require repeat IR drainage of lymph #Paroxysmal Atrial fibrillation Per chart review of patient's history Patient takes Eliquis [id number] score 3: Age over 75 (+2) Male (0) Vascular disease history (+1) Has bled score 2 Age over 65 (+1) Medication use predisposing to bleeding (+1) Plan: Continue heparin gtt. and does not appear to take any rate or rhythm control medications at this time. #Hypothyroidism Thyroid labs within normal limits on 02/05/2025 Plan: Continue home levothyroxine 125 mcg daily #CKD Stage IIIa Follows nephrology Dr. Coe Creatinine 1.3 on admission and appears to be his baseline BUN 17 Plan: Renally dose medications Avoid nephrotoxic agents Follow-up outpatient nephrology #Chronic lower back pain Per patient history Plan: Pain management as needed #Incarcerated L inguinal hernia s/p repair 01/29/25 #Prostate cancer s/p radical prostatectomy 12/05/2024 Per chart review patient's history Plan: No direct invention at this time DVT ppx: Heparin drip GI ppx: Pantoprazole 40 mg IV daily Diet: N.p.o. IV lines: Peripheral IVs Code status: Full code Dispo: Med/tele, cardiology consulted, extensive DVT recurrence, started heparin drip. Dr. Mady MD Time Spent with Patient Time: Total time spent is greater than 50% in coordination of care (as documented) at patient's floor/unit and/or counseling patient: Time with patient: 25 - 35 minutes Reason for Continued Stay Reason for continued stay: other Quality Measures Quality Measures VTE therapy Advance care planning discussed with:: patient
--- NOTE | 2025-02-15 17:09 | XR_ITS ---
Examination: CTA abdominal aorta iliofemoral runoff. 2-D sagittal coronal reconstructions. 3-D reconstructions, vascular Date and time: February 15, 2025, 1757 hours INDICATIONS: Bilateral leg pain and swelling this week Technique: Multiple CTA images of the abdominal aorta iliofemoral runoff arterial vessels, 2.0 mm slice thickness, post intravenous administration 130 cc [id number] 2-D sagittal coronal reconstructions. 3-D reconstructions, vascular 3-D postprocessing, including vascular maximum intensity projection images, 3-D volume rendering Low dose protocols were performed. One or more of the following dose reduction techniques were used; automated exposure control, adjustment of the mA and/or KV according to patient size, use of iterative reconstruction technique. Findings: No visualized liver or splenic lesion No gallstones Pancreatic duct is mildly dilated no pancreatic mass or peripancreatic edema Normal adrenal glands Moderate left hydronephrosis likely related to the recurrent lymphocele in the pelvis Urinary bladder wall thickening Fluid-containing left inguinal hernia No abdominal aortic aneurysmal dilatation No significant stenoses origins celiac superior mesenteric axes or renal arteries No critical stenoses common iliac external iliac internal iliac or common femoral arteries. Bilateral superficial femoral arteries are intact as well as popliteal arteries Trifurcation arteries below the knee fill bilaterally to the ankles Incidental note thrombus with filling defect involving the left popliteal, left superficial femoral left common femoral veins with extensive edema in the subcutaneous tissues surrounding the left lower extremity Benign lipoma medial to the right femur measuring 3 x 10 cm IMPRESSION: Moderate left hydronephrosis related to the recurrent lymphocele in the pelvis Cystitis pattern Fluid-containing left inguinal hernia Negative for significant obstructive arterial disease Incidental note thrombus in the left popliteal, left superficial left common femoral veins with extensive edema in the subcutaneous tissues left lower extremity
[2025-02-15 18:09] LABS: Partial Thromboplastin Time 96.9 Seconds (22.0-36.0)
[2025-02-15] MEDS: Heparin/D5w 25K 250 ML Ivpb 25,000 UNIT/250 ML BAG 11.612 UNIT IV (18:58)
[2025-02-16] VITALS (7 sets, daily range): BP systolic 109–146; BP diastolic 77–85; PULSE 66–90; RESP 16–98; TEMP 36.2–37; O2SAT 95–98
--- NOTE | 2025-02-16 00:56 | ESCONSULT_ITS ---
RE: RAMIREZ MARTELL : 1950 DATE OF CONSULTATION: 02/16/2025 CONSULTING PHYSICIAN: Hospitalist. REASON FOR CONSULTATION: Evaluation of recurrent deep vein thrombosis and iliac vein stenosis. CHIEF COMPLAINT: Severe swelling of the left leg. HISTORY OF PRESENT ILLNESS: The patient is a 75-year-old male with a past medical history of prostate carcinoma who underwent robotic prostatectomy at [facility] on 01/04/2025. After a couple of weeks, the patient started having left lower extremity swelling. Subsequently, there was some question of inguinal hernia, he underwent surgery and on 02/04/2025, the patient was rehospitalized with severe leg swelling and was found to have acute extensive deep vein thrombosis involving the left common femoral vein and superficial femoral vein. He underwent thrombectomy on 02/06/2025 of the common femoral vein as well as popliteal vein and iliac veins, but there was evidence of possible iliac vein obstruction and stenosis. The patient did have a lymphocele and serocele, which was drained by CT guidance. Patient improved significantly. He was discharged home, last 1 week on Eliquis 10 mg p.o. b.i.d. He continued to have severe swelling, worsening of swelling of the left lower extremity, and also some groin swelling and came to the hospital again with extensive deep vein thrombosis. Patient did have extensive left iliac vein obstruction possibly due to stenosis post surgery, due to cautery causing stenosis or other mechanism, but the left common iliac artery was severely narrowed. Stent placement was not performed since it was felt maybe an external obstruction, but it appears like the patient had common iliac obstruction and came to the hospital with severe swelling and extensive deep vein thrombosis of the left lower extremity. Lower extremity venous duplex scan showed extensive thrombosis. CTA also of the abdomen showed evidence of thrombus in the left popliteal, left superficial, and common femoral veins with extensive edema of subcutaneous tissue and in the left lower extremity. There was also evidence of moderate left hydronephrosis, due to recurrent lymphocele. There was no evidence of peripheral arterial disease. There was evidence of possibly a fluid-containing left inguinal hernia, which is also present. Patient started on IV heparin and planning to possible thrombectomy again with possible iliac stent placement since there is definitely iliac stenosis in previous thrombectomy. ALLERGIES: NONE. MEDICATIONS: ____ mg twice daily, has also been taking levothyroxine 125 mcg daily, and lorazepam for anxiety. PAST MEDICAL HISTORY: 1. Hypothyroidism. 2. Prostate carcinoma, underwent robotic prostatectomy, 01/04/2025. 3. Recurrent deep vein thrombosis, iliac vein stenosis, lymphocele post surgery. 4. Hydronephrosis. SOCIAL HISTORY: Patient is a nonsmoker. Does not drink alcoholic beverages. Other past medical history includes history of atrial fibrillation, chronic, persistent. Negative cardiac workup. PHYSICAL EXAMINATION: GENERAL: Well-nourished male, alert, awake, in no acute distress. VITAL SIGNS: Blood pressure 139/82, pulse 79. NECK: Supple. No JVD. Carotid pulses well felt, no bruits. CHEST: Symmetrical. LUNGS: Clear. HEART: S1, S2 regular, atrial fibrillation. ABDOMEN: Thin and soft. EXTREMITIES: Showed evidence of extensive deep vein thrombosis, the left lower extremity swelling. There is also some swelling in the inguinal region as well. LABORATORY DATA: Showed slight anemia, hemoglobin is at 8.7, hematocrit 27. The chemistry panel showed normal BUN and creatinine. ASSESSMENT: 1. Recurrent acute deep vein thrombosis involving the left lower extremity, common femoral vein, and extensive popliteal vein thrombosis as well. 2. 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 3. Status post robotic prostatectomy with lymphocele. 4. Inguinal hernia with fluid present. RECOMMENDATIONS: The patient will be continued on IV heparin over the next few days. I will plan on performing thrombectomy and left iliac vein stent placement as well at that time since there was severe stenosis. It was felt to be due to external compression, but now appears to be more secondary to iliac vein stenosis, possibly a postsurgical complication. Recommendation is to continue heparin over the next 2-3 days and monitor hemoglobin. If the hemoglobin drops below 8, we would like to transfuse, hemoglobin up to 9.5-10 g as the patient may have to have thrombectomy that may encounter some blood loss as well. DT: 00:01:58 TT: 00:55:00 Ref: [id number] - TID: [id number]
[2025-02-16 01:54] LABS: Partial Thromboplastin Time 66.6 Seconds (22.0-36.0)
[2025-02-16 05:44] LABS: Basophils # (Auto) 0.0 Thou/mm3 (0.0-0.2); Basophils % (Auto) 1 % (0-2.5); Eosinophils # (Auto) 0.3 Thou/mm3 (0.0-0.5); Eosinophils % (Auto) 8 % (0-10); Hematocrit 27.4 % (41.0-53.0); Immature Granulocytes Auto 0.01 Thou/mm3 (0.00-0.00); Lymphocytes # (Auto) 1.3 Thou/mm3 (1.0-4.8); Lymphocytes % (Auto) 29 % (10-50); Mean Corpuscular HGB Conc 32.1 g/dl (31.0-37.0); Mean Corpuscular Hemoglobin 29.7 pg (25.0-35.0); Mean Corpuscular Volume 93 fL (80-100); Monocytes # (Auto) 0.7 Thou/mm3 (0.0-0.8); Monocytes % (Auto) 16 % (0-12); Neutrophils # (Auto) 2.1 Thou/mm3 (1.8-7.7); Neutrophils % (Auto) 46 % (37-80); Nucleated Red Blood Cell # 0.00 Thou/mm3 (0.00-0.00); Nucleated Red Blood Cell % 0 /100 WBC (0); Platelet Count 324 Thou/mm3 (140-440); RDW Standard Deviation 46.7 fL (35.1-43.9); Red Blood Count 2.96 Miln/mm3 (4.50-5.90); White Blood Count 4.6 Thou/mm3 (3.8-10.6)
[2025-02-16 05:47] LABS: Hemoglobin 8.8 g/dL (13.5-16.0)
[2025-02-16 06:00] LABS: Anion Gap 9 (7-16); BUN/Creatinine Ratio 11 Ratio (12-20); Blood Urea Nitrogen 13 mg/dL (9-23); Calcium 8.8 mg/dL (8.3-10.6); Carbon Dioxide 25.9 mMol/L (20.0-31.0); Chloride 107 mMol/L (98-107); Creatinine (Component) 1.2 mg/dL (0.6-1.3); Estimated Creatinine Clearance 52.4 mL/min (>60); Glucose 89 mg/dL (74-106); Osmolality,Calculated 282 (275-295); Potassium 4.0 mMol/L (3.4-5.1); Sodium 142 mMol/L (136-145); eGFR > 60 See Note
[2025-02-16 06:12] LABS: INR 1.0 (0.9-1.3); Partial Thromboplastin Time 72.5 Seconds (22.0-36.0); Prothrombin Time 11.1 Seconds (9.0-12.2)
[2025-02-16] MEDS: LEVOTHYROXINE SODIUM 125 MCG TABLET PO (09:21)
--- NOTE | 2025-02-16 13:41 | ESPR_ITS ---
<Statement entered by Jas Horn MD - 02/16/25 16:01> No acute overnight events reported. Seen and examined at bedside and resting comfortably in bed. He does endorse some pain in his left lower extremity and then did take tramadol at home and started [place] here in house. Otherwise, he remains on room air, afebrile, and hemodynamically stable. CBC shows stable hemoglobin. CHEM panel unremarkable. Continuing heparin gtt for DVT and plans for cardiology to perform thrombectomy of left iliac vein with stent placement secondary to severe stenosis. Will transfuse if hemoglobin is < 8. ----- Note reviewed and agree with care plan as documented. Please refer to the note below for further details. Plan discussed with attending physician Dr. Mady Horn MD PGY-2 Internal Medicine Documentation for date of: 02/16/25 Subjective Subjective Interval history: Patient this morning doing well, states his pain is well controlled. Adjusted pain meds so he is getting norco po q6hr prn Vitals are stable. Plan to continue heparin drip and get stents with Dr. Mcconnell on Tuesday. Exam Vital Signs Temp Pulse Resp BP Pulse Ox O2 Del Method 97.1 F 82 18 146/77 H 98 Room Air 02/16/25 08:00 02/16/25 12:00 02/16/25 08:00 02/16/25 08:00 02/16/25 08:00 02/16/25 08:00 Narrative Exam General: No acute distress; A&Ox3 Skin: Warm, dry, intact, no obvious rash. HENT: NCAT, EOMI/PERRL, not icteric. External ears normal. No rhinorrhea. Moist mucous membranes Cardiovascular: Regular rate and rhythm, no murmur, +S1/S2. Respiratory: Lungs CTAB GI: Soft, nontender, non-distended. No guarding or rebound tenderness. : No suprapubic tenderness. No flank tenderness bilaterally. Extremities: LLE swolen, non-tender, 2+pitting edema, warm to touch, pulses present. Bandages along Left extremity. Right lower extremity notable for varicose veins (L-side as well, but less noticeable) Neuro: Grossly nonfocal. Moving all 4 extremities. CN not formally tested but appear grossly intact. Psychiatric: Cooperative, appropriate affect. Objective Labs 02/17/25 05:19 02/17/25 05:19 Labs: Laboratory Results - last 24 hr 02/15/25 02/16/25 02/16/25 17:32 01:09 05:12 WBC 4.6 RBC 2.96 L Hgb 8.8 L Hct 27.4 L MCV 93 MCH 29.7 MCHC 32.1 RDW Std Deviation 46.7 H Plt Count 324 Neut % (Auto) 46 Lymph % (Auto) 29 [place] % (Auto) 16 H Eos % (Auto) 8 Baso % (Auto) 1 Neut # (Auto) 2.1 Lymph # (Auto) 1.3 [place] # (Auto) 0.7 Eos # (Auto) 0.3 Baso # (Auto) 0.0 Immature Gran # (Auto) 0.01 H Absolute Nucleated RBC 0.00 Immature Gran % 0 Nucleated RBC % 0 PT 11.1 INR 1.0 APTT 96.9 H D 66.6 H D 72.5 H Sodium 142 Potassium 4.0 D Chloride 107 Carbon Dioxide 25.9 Anion Gap 9 BUN 13 Creatinine 1.2 Estim Creat Clear Calc 52.4 L eGFR > 60 BUN/Creatinine Ratio 11 L Glucose 89 Calculated Osmolality 282 Calcium 8.8 Quality Measures Quality Measures VTE therapy Advance care planning discussed with:: patient Assessment & Plan Assessment Current Active Medications: Generic Name Dose Route Start Last Admin Trade Name Freq PRN Reason Stop Dose Admin Acetaminophen 650 mg 02/15/25 00:38 Acetaminophen 325 Mg Tablet PO 03/17/25 00:37 Q6H PRN Fever >100.4 Cyclobenzaprine HCl 10 mg 02/15/25 22:05 02/16/25 01:27 Cyclobenzaprine 5 Mg Tablet PO 03/17/25 22:04 10 mg BID PRN Administration MUSCLE SPASMS Heparin Sodium/Dextrose 25,000 unit in 250 mls @ 13.064 mls/hr 02/14/25 23:45 02/16/25 06:57 Heparin In D5w Ivpb IV 02/28/25 23:44 16 units/kg/hr .Q19H9M BETH 11.612 mls/hr Protocol Titration 18 UNITS/KG/HR Levothyroxine Sodium 125 mcg 02/17/25 06:00 Levothyroxine Sodium 125 Mcg Tablet PO 03/19/25 05:59 0600 BETH Lorazepam 1 mg 02/15/25 22:05 02/15/25 22:24 Lorazepam 0.5 Mg Tablet PO 02/20/25 22:04 1 mg HS PRN Administration SLEEPLESSNESS Ondansetron HCl 4 mg 02/15/25 00:38 Ondansetron Inj 2 Mg/Ml Inj 2 Ml IVP 03/17/25 00:37 Q6H PRN NAUSEA OR VOMITING Protocol Pantoprazole Sodium 40 mg 02/15/25 09:00 02/16/25 09:21 Pantoprazole Inj 40 Mg Vial IVP 03/17/25 08:59 40 mg QDAY BETH Administration Plan Patient 74-year-old male with a history of hypothyroidism, arthritis, prostate cancer status post radical prostatectomy (performed by Dr. Cordero at [facility] on 12/05/2024, patient follows Dr. Mckeon currently), neurogenic bladder (secondary to laminectomy performed back in 2002, patient self catheterizes), incarcerated left femoral hernia status post hernia repair (01/29/2025), CKD stage IIIb (sees Dr. Coe for nephrology), chronic lower back pain, and varicose veins who presented to the ED the evening of 02/14/2025 with left lower extremity pain and swelling. #Extensive LLE DVT Patient underwent mechanical computer-assisted vacuum thrombectomy of the left common femoral, superficial femoral, popliteal, peroneal, and greater saphenous vein on 02/07/25 Extensive thrombus of approximately 300-400 g was removed. The patient was discharged on Eliquis. Patient presented to ED with left lower extremity pain swelling and stiffness Venous Doppler showed extensive DVT involving the entire deep venous system. There is concern for obstruction of arterial flow given the physical exam findings of 2+ pitting edema and cold extremity Plan: Continue pain management. Continue heparin gtt. and target APTT of 60 to 80 seconds. Suspect worsening DVT is likely related to large pelvic mass decreasing venous return and we will obtain CTA of abdomen pelvis and left lower extremity with venous phase. In-house cardiology following with plans for possible stent placement depending on CTA findings. Likely patient will require lifelong coagulation given the extensive nature of patient's DVT. He may benefit from a hypercoagulable panel at a later date. Monitor for signs of bleeding. -Continue heparin drip -Plan for Stents with Dr. Mcconnell Tuesday #Large pelvic cystic mass - 8.8 cm s/p IR drainage 02/07/25 CT abdomen pelvis on 02/07/25 showed an 8 cm diameter mass pushing on the bladder and ureters causing hydronephrosis and iliac vein obstruction with external compression Patient underwent successful CT-guided percutaneous catheter drainage of the left pelvic lymphocele on 02/07/25 Patient had associated hydrocele prior to drainage, improved after drainage Again noted on USG today Plan: Follow-up CTA results and patient may require repeat IR drainage of lymph #Paroxysmal Atrial fibrillation Per chart review of patient's history Patient takes Eliquis [id number] score 3: Age over 75 (+2) Male (0) Vascular disease history (+1) Has bled score 2 Age over 65 (+1) Medication use predisposing to bleeding (+1) Plan: Continue heparin gtt. and does not appear to take any rate or rhythm control medications at this time. #Hypothyroidism Thyroid labs within normal limits on 02/05/2025 Plan: Continue home levothyroxine 125 mcg daily #CKD Stage IIIa Follows nephrology Dr. Coe Creatinine 1.3 on admission and appears to be his baseline BUN 17 Plan: Renally dose medications Avoid nephrotoxic agents Follow-up outpatient nephrology #Chronic lower back pain Per patient history Plan: Pain management as needed #Incarcerated L inguinal hernia s/p repair 01/29/25 #Prostate cancer s/p radical prostatectomy 12/05/2024 Per chart review patient's history Plan: No direct invention at this time DVT ppx: Heparin drip GI ppx: Pantoprazole 40 mg IV daily Diet: N.p.o. IV lines: Peripheral IVs Code status: Full code Dispo: Med/tele, cardiology consulted, extensive DVT recurrence, started heparin drip. Patient plan of care was discussed with the attending physician, Dr. Earl & senior resident Dr. Justina Russo MD PGY-1 Attending Provider Attestation/Addendum I have examined the patient, reviewed labs and imaging findings, discussed the case with the resident(s), and reviewed entered orders. I agree with the plan of care as outlined in this note. Dr. Mady MD
[2025-02-16] MEDS: Heparin/D5w 25K 250 ML Ivpb 25,000 UNIT/250 ML BAG 11.612 UNIT IV (15:17)
[2025-02-16] MEDS: HYDROcodone/APAP 5/325 TABLET 1 TAB PO ×2 (15:55→21:59)
--- NOTE | 2025-02-16 16:09 | ESPR_ITS ---
<Statement entered by Jose E Mcconnell MD - 02/21/25 23:45> I personally examined and evaluated the patient PGY2 Dr. 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 Documentation for date of: 02/16/25 Subjective Subjective Interval history: Patient examined at bedside. Vitals reviewed and are stable. Hemoglobin 8.8, creatinine 1.2. All vitals were reviewed and stable. Has no shortness of breath or chest pain. He reports improvement in left lower extremity pain and swelling. On exam, left lower extremity has decreased edema, skin less tense, no significant tenderness to palpation. Prominent varicose veins on right extremity. Plan to continue heparin drip and undergo thrombectomy. Left iliac vein stent placement due to severe stenosis. Monitor hemoglobin. If continues to drop below 8 plan to transfuse 1 unit PRBC for goal hemoglobin 9.5-10. Exam Vital Signs Temp Pulse Resp BP Pulse Ox O2 Del Method 97.1 F 90 18 127/78 97 Room Air 02/16/25 12:00 02/16/25 12:00 02/16/25 12:00 02/16/25 12:00 02/16/25 12:00 02/16/25 08:00 Narrative Exam General: Alert and oriented x3. No acute distress, cooperative HEENT: NCAT, No JVD noted. Mucosa moist. Pupils are equal and reactive to light bilaterally Cardiovascular: Normal S1 and S2. Regular rate and rhythm. Respiratory: Lungs are clear to auscultation bilaterally. No wheezing or crackles heard. Abdomen: Soft, nontender, not distended, normal bowel sounds. Skin: Warm to touch, dry, no rashes noted Musculoskeletal: No gross injuries. Able to move all 4 extremities. No pitting edema. Right lower extremity varicose veins, no erythema or swelling in left lower extremity. Neuro: Alert and oriented x3. No focal neuro deficits. Psych: Normal affect and mood Objective Labs 02/16/25 05:12 02/16/25 05:12 Labs: Laboratory Results - last 24 hr 02/15/25 02/16/25 02/16/25 17:32 01:09 05:12 WBC 4.6 RBC 2.96 L Hgb 8.8 L Hct 27.4 L MCV 93 MCH 29.7 MCHC 32.1 RDW Std Deviation 46.7 H Plt Count 324 Neut % (Auto) 46 Lymph % (Auto) 29 [place] % (Auto) 16 H Eos % (Auto) 8 Baso % (Auto) 1 Neut # (Auto) 2.1 Lymph # (Auto) 1.3 [place]elia # (Auto) 0.7 Eos # (Auto) 0.3 Baso # (Auto) 0.0 Immature Gran # (Auto) 0.01 H Absolute Nucleated RBC 0.00 Immature Gran % 0 Nucleated RBC % 0 PT 11.1 INR 1.0 APTT 96.9 H D 66.6 H D 72.5 H Sodium 142 Potassium 4.0 D Chloride 107 Carbon Dioxide 25.9 Anion Gap 9 BUN 13 Creatinine 1.2 Estim Creat Clear Calc 52.4 L eGFR > 60 BUN/Creatinine Ratio 11 L Glucose 89 Calculated Osmolality 282 Calcium 8.8 Quality Measures Quality Measures VTE therapy Advance care planning discussed with:: patient Assessment & Plan Assessment Current Active Medications: Generic Name Dose Route Start Last Admin Trade Name Freq PRN Reason Stop Dose Admin Acetaminophen 650 mg 02/15/25 00:38 Acetaminophen 325 Mg Tablet PO 03/17/25 00:37 Q6H PRN Fever >100.4 Hydrocodone Bitart/Acetaminophen 1 tab 02/16/25 15:22 02/16/25 15:55 Hydrocodone/Apap 5/325 Tablet PO 02/21/25 15:21 1 tab Q6HR PRN Administration PAIN SCALE 4-10(Mod-Sev Cyclobenzaprine HCl 10 mg 02/15/25 22:05 02/16/25 01:27 Cyclobenzaprine 5 Mg Tablet PO 03/17/25 22:04 10 mg BID PRN Administration MUSCLE SPASMS Heparin Sodium/Dextrose 25,000 unit in 250 mls @ 13.064 mls/hr 02/14/25 23:45 02/16/25 15:17 Heparin In D5w Ivpb IV 02/28/25 23:44 16 units/kg/hr .Q19H9M BETH 11.612 mls/hr Protocol Administration 18 UNITS/KG/HR Levothyroxine Sodium 125 mcg 02/17/25 06:00 Levothyroxine Sodium 125 Mcg Tablet PO 03/19/25 05:59 0600 BETH Lorazepam 1 mg 02/15/25 22:05 02/15/25 22:24 Lorazepam 0.5 Mg Tablet PO 02/20/25 22:04 1 mg HS PRN Administration SLEEPLESSNESS Ondansetron HCl 4 mg 02/15/25 00:38 Ondansetron Inj 2 Mg/Ml Inj 2 Ml IVP 03/17/25 00:37 Q6H PRN NAUSEA OR VOMITING Protocol Pantoprazole Sodium 40 mg 02/15/25 09:00 02/16/25 09:21 Pantoprazole Inj 40 Mg Vial IVP 03/17/25 08:59 40 mg QDAY BETH Administration Plan Patient 74-year-old male with a history of hypothyroidism, arthritis, prostate cancer status post radical prostatectomy (performed by Dr. Cordero at [facility] on 12/05/2024, patient follows Dr. Mckeon currently), neurogenic bladder (secondary to laminectomy performed back in 2002, patient self catheterizes), incarcerated left femoral hernia status post hernia repair (01/29/2025), CKD stage IIIb (sees Dr. Coe for nephrology), chronic lower back pain, and varicose veins who presented to the ED the evening of 02/14/2025 with left lower extremity pain and swelling. Cardiology consulted for possible thrombectomy of DVT. 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 #Inguinal hernia with fluid present. Patient underwent mechanical computer-assisted vacuum thrombectomy of the left common femoral, superficial femoral, popliteal, peroneal, and greater saphenous vein on 02/07/25 Extensive thrombus of approximately 300-400 g was removed. The patient was discharged on Eliquis. Patient presented to ED with left lower extremity pain swelling and stiffness Venous Doppler showed extensive DVT involving the entire deep venous system. - Continue heparin drip - Plan for thrombectomy and placement of left iliac vein stent - Monitor hemoglobin - If less than 8, transfuse 1 unit. Quiring goal hemoglobin 9.5?10 #Large pelvic cystic mass - 8.8 cm s/p IR drainage 02/07/25 CT abdomen pelvis on 02/07/25 showed an 8 cm diameter mass pushing on the bladder and ureters causing hydronephrosis and iliac vein obstruction with external compression Patient underwent successful CT-guided percutaneous catheter drainage of the left pelvic lymphocele on 02/07/25 Patient had associated hydrocele prior to drainage, improved after drainage Again noted on USG today -CTA shows recurrence of lymphocele and pelvis Incidental note thrombus in the left popliteal, left superficial left commol femoral veins with extensive edema in the subcutaneous tissues left lower extremity -he will need to have f/u after dc with uology #Paroxysmal Atrial fibrillation Per chart review of patient's history Patient takes Eliquis [id number] score 3: Age over 75 (+2) Male (0) Vascular disease history (+1) Has bled score 2 Age over 65 (+1) Medication use predisposing to bleeding (+1) Plan: Continue heparin gtt. and does not appear to take any rate or rhythm control medications at this time. #Hypothyroidism #CKD Stage IIIa #Chronic lower back pain #Incarcerated L inguinal hernia s/p repair 01/29/25 #Prostate cancer s/p radical prostatectomy 12/05/2024 Primary care team to manage above conditions and ongoing care needs. The patient's management plan was discussed with my attending physician Dr. Mcconnell. Candace Danielson, PGY-2
[2025-02-17] VITALS (7 sets, daily range): BP systolic 93–134; BP diastolic 52–88; PULSE 60–90; RESP 16–95; TEMP 36.4–37.1; O2SAT 95–97
[2025-02-17] MEDS: LEVOTHYROXINE SODIUM 125 MCG TABLET PO (05:18)
[2025-02-17 05:49] LABS: Basophils # (Auto) 0.0 Thou/mm3 (0.0-0.2); Basophils % (Auto) 1 % (0-2.5); Eosinophils # (Auto) 0.3 Thou/mm3 (0.0-0.5); Eosinophils % (Auto) 8 % (0-10); Hematocrit 26.5 % (41.0-53.0); Immature Granulocytes Auto 0.01 Thou/mm3 (0.00-0.00); Lymphocytes # (Auto) 1.4 Thou/mm3 (1.0-4.8); Lymphocytes % (Auto) 33 % (10-50); Mean Corpuscular HGB Conc 32.5 g/dl (31.0-37.0); Mean Corpuscular Hemoglobin 30.2 pg (25.0-35.0); Mean Corpuscular Volume 93 fL (80-100); Monocytes # (Auto) 0.7 Thou/mm3 (0.0-0.8); Monocytes % (Auto) 16 % (0-12); Neutrophils # (Auto) 1.9 Thou/mm3 (1.8-7.7); Neutrophils % (Auto) 43 % (37-80); Nucleated Red Blood Cell # 0.00 Thou/mm3 (0.00-0.00); Nucleated Red Blood Cell % 0 /100 WBC (0); Platelet Count 344 Thou/mm3 (140-440); RDW Standard Deviation 47.4 fL (35.1-43.9); Red Blood Count 2.85 Miln/mm3 (4.50-5.90); White Blood Count 4.4 Thou/mm3 (3.8-10.6)
[2025-02-17 05:50] LABS: Hemoglobin 8.6 g/dL (13.5-16.0)
[2025-02-17 06:14] LABS: Alanine Aminotransferase 13 U/L (10-49); Albumin, Serum 3.7 gm/dL (3.4-4.8); Albumin/Globulin Ratio 1.5 (1.2-2.2); Alkaline Phosphatase 81 U/L (46-116); Anion Gap 11 (7-16); Aspartate Amino Transferase 13 U/L (0-34); BUN/Creatinine Ratio 11 Ratio (12-20); Bilirubin,Total 0.4 mg/dL (0.3-1.2); Blood Urea Nitrogen 14 mg/dL (9-23); Calcium 8.7 mg/dL (8.3-10.6); Calcium (Corrected) 8.9 mg/dL (8.5-10.1); Carbon Dioxide 24.9 mMol/L (20.0-31.0); Chloride 107 mMol/L (98-107); Creatinine (Component) 1.3 mg/dL (0.6-1.3); Estimated Creatinine Clearance 48.3 mL/min (>60); Globulin 2.4 gm/dL (2.3-3.5); Glucose 103 mg/dL (74-106); Magnesium 1.7 mg/dL (1.6-2.6); Osmolality,Calculated 285 (275-295); Phosphorous 3.4 mg/dL (2.4-5.1); Potassium 3.7 mMol/L (3.4-5.1); Sodium 143 mMol/L (136-145); Total Protein 6.1 gm/dL (5.7-8.2); eGFR 57 See Note
[2025-02-17 06:46] LABS: Partial Thromboplastin Time 70.4 Seconds (22.0-36.0)
[2025-02-17] MEDS: HYDROcodone/APAP 5/325 TABLET 1 TAB PO ×3 (08:42→21:44)
[2025-02-17] MEDS: Heparin/D5w 25K 250 ML Ivpb 25,000 UNIT/250 ML BAG 11.612 UNIT IV (11:37)
--- NOTE | 2025-02-17 12:41 | ESPR_ITS ---
<Statement entered by Jas Horn MD - 02/17/25 15:46> No acute overnight events. Seen and examined at bedside and patient resting comfortably in bed. Will continue heparin drip for significant left lower extremity DVT. Plans with cardiology to undergo thrombectomy with possible stent placement either tomorrow or Tuesday. Vital signs stable. CBC shows stable hemoglobin. Chem panel showing slight decreased renal function but overall unremarkable. Will follow-up with cardiology recommendations. ----- Note reviewed and agree with care plan as documented. Please refer to the note below for further details. Plan discussed with attending physician Dr. Mady Horn MD PGY-2 Internal Medicine Documentation for date of: 02/17/25 Subjective Subjective Interval history: Patient this morning doing well, states his pain is well controlled. States his leg feels slightly more mobile, feeling better Vitals are stable. Plan to continue heparin drip and get stents with Dr. Mcconnell in the next 1/2 days. Exam Vital Signs Temp Pulse Resp BP Pulse Ox O2 Del Method 97.7 F 82 17 134/84 H 96 Room Air 02/17/25 08:00 02/17/25 08:00 02/17/25 04:00 02/17/25 08:00 02/17/25 08:00 02/17/25 08:00 Narrative Exam General: No acute distress; A&Ox3 Skin: Warm, dry, intact, no obvious rash. HENT: NCAT, EOMI/PERRL, not icteric. External ears normal. No rhinorrhea. Moist mucous membranes Cardiovascular: Regular rate and rhythm, no murmur, +S1/S2. Respiratory: Lungs CTAB GI: Soft, nontender, non-distended. No guarding or rebound tenderness. : No suprapubic tenderness. No flank tenderness bilaterally. Extremities: LLE swolen, non-tender, 2+pitting edema, warm to touch, pulses present. Bandages along Left extremity. Right lower extremity notable for varicose veins (L-side as well, but less noticeable) Neuro: Grossly nonfocal. Moving all 4 extremities. CN not formally tested but appear grossly intact. Psychiatric: Cooperative, appropriate affect. Objective Labs 02/18/25 06:16 02/18/25 06:16 Labs: Laboratory Results - last 24 hr 02/17/25 05:19 WBC 4.4 RBC 2.85 L Hgb 8.6 L Hct 26.5 L MCV 93 MCH 30.2 MCHC 32.5 RDW Std Deviation 47.4 H Plt Count 344 Neut % (Auto) 43 Lymph % (Auto) 33 [place] % (Auto) 16 H Eos % (Auto) 8 Baso % (Auto) 1 Neut # (Auto) 1.9 Lymph # (Auto) 1.4 [place] # (Auto) 0.7 Eos # (Auto) 0.3 Baso # (Auto) 0.0 Immature Gran # (Auto) 0.01 H Absolute Nucleated RBC 0.00 Immature Gran % 0 Nucleated RBC % 0 APTT 70.4 H Sodium 143 Potassium 3.7 Chloride 107 Carbon Dioxide 24.9 Anion Gap 11 BUN 14 Creatinine 1.3 Estim Creat Clear Calc 48.3 L eGFR 57 L BUN/Creatinine Ratio 11 L Glucose 103 Calculated Osmolality 285 Calcium 8.7 Corrected Calcium 8.9 Phosphorus 3.4 Magnesium 1.7 Total Bilirubin 0.4 AST 13 ALT 13 Alkaline Phosphatase 81 Total Protein 6.1 Albumin 3.7 Globulin 2.4 Albumin/Globulin Ratio 1.5 Quality Measures Quality Measures VTE therapy Advance care planning discussed with:: patient Assessment & Plan Assessment Current Active Medications: Generic Name Dose Route Start Last Admin Trade Name Freq PRN Reason Stop Dose Admin Acetaminophen 650 mg 02/15/25 00:38 Acetaminophen 325 Mg Tablet PO 03/17/25 00:37 Q6H PRN Fever >100.4 Hydrocodone Bitart/Acetaminophen 1 tab 02/16/25 15:22 02/17/25 08:42 Hydrocodone/Apap 5/325 Tablet PO 02/21/25 15:21 1 tab Q6HR PRN Administration PAIN SCALE 4-10(Mod-Sev Cyclobenzaprine HCl 10 mg 02/15/25 22:05 02/17/25 00:11 Cyclobenzaprine 5 Mg Tablet PO 03/17/25 22:04 10 mg BID PRN Administration MUSCLE SPASMS Heparin Sodium/Dextrose 25,000 unit in 250 mls @ 13.064 mls/hr 02/14/25 23:45 02/17/25 11:37 Heparin In D5w Ivpb IV 02/28/25 23:44 16 units/kg/hr .Q19H9M BETH 11.612 mls/hr Protocol Administration 18 UNITS/KG/HR Levothyroxine Sodium 125 mcg 02/17/25 06:00 02/17/25 05:18 Levothyroxine Sodium 125 Mcg Tablet PO 03/19/25 05:59 125 mcg 0600 BETH Administration Lorazepam 1 mg 02/15/25 22:05 02/17/25 00:11 Lorazepam 0.5 Mg Tablet PO 02/20/25 22:04 1 mg HS PRN Administration SLEEPLESSNESS Ondansetron HCl 4 mg 02/15/25 00:38 Ondansetron Inj 2 Mg/Ml Inj 2 Ml IVP 03/17/25 00:37 Q6H PRN NAUSEA OR VOMITING Protocol Pantoprazole Sodium 40 mg 02/15/25 09:00 02/17/25 08:43 Pantoprazole Inj 40 Mg Vial IVP 03/17/25 08:59 40 mg QDAY BETH Administration Plan Patient 74-year-old male with a history of hypothyroidism, arthritis, prostate cancer status post radical prostatectomy (performed by Dr. Cordero at [facility] on 12/05/2024, patient follows Dr. Mckeon currently), neurogenic bladder (secondary to laminectomy performed back in 2002, patient self catheterizes), incarcerated left femoral hernia status post hernia repair (01/29/2025), CKD stage IIIb (sees Dr. Coe for nephrology), chronic lower back pain, and varicose veins who presented to the ED the evening of 02/14/2025 with left lower extremity pain and swelling. Currently on heparin drip; plan for thrombectomy/stent with Dr. Mcconnell in the next day or two. #Extensive LLE DVT Patient underwent mechanical computer-assisted vacuum thrombectomy of the left common femoral, superficial femoral, popliteal, peroneal, and greater saphenous vein on 02/07/25 Extensive thrombus of approximately 300-400 g was removed. The patient was discharged on Eliquis. Patient presented to ED with left lower extremity pain swelling and stiffness Venous Doppler showed extensive DVT involving the entire deep venous system. Likely provoked by post-surgical complication vs compression by lymphocele. CT AP: Moderate left hydronephrosis related to the recurrent lymphocele in the pelvis; Negative for significant obstructive arterial disease; Fluid-containing left inguinal hernia; Incidental note thrombus in the left popliteal, left superficial left common femoral veins with extensive edema in the subcutaneous tissues left lower extremity Plan: -Continue pain management. -Continue heparin gttand target APTT of 60 to 80 seconds. -Likely patient will require lifelong coagulation given the extensive nature of patient's DVT. -Plan for Thrombectomy/Stents with Dr. Mcconnell on Tuesday -He may benefit from a hypercoagulable panel at a later date. -Monitor for signs of bleeding. #Large pelvic cystic mass - 8.8 cm s/p IR drainage 02/07/25 CT abdomen pelvis on 02/07/25 showed an 8 cm diameter mass pushing on the bladder and ureters causing hydronephrosis and iliac vein obstruction with external compression Patient underwent successful CT-guided percutaneous catheter drainage of the left pelvic lymphocele on 02/07/25 Patient had associated hydrocele prior to drainage, improved after drainage Again noted on USG today Plan: -Follow-up CTA results with IR for possible drainage of lymph -Will contact Dr. Mckeon 02/18 to see if able to do surgery outpatient if IR can not drain it. #Paroxysmal Atrial fibrillation Per chart review of patient's history Patient takes Eliquis [id number] score 3: Age over 75 (+2) Male (0) Vascular disease history (+1) Has bled score 2 Age over 65 (+1) Medication use predisposing to bleeding (+1) Plan: -Continue heparin gtt. and does not appear to take any rate or rhythm control medications at this time. #Hypothyroidism Thyroid labs within normal limits on 02/05/2025 Plan: -Continue home levothyroxine 125 mcg daily #CKD Stage IIIa Follows nephrology Dr. Coe Creatinine 1.3 on admission and appears to be his baseline BUN 17 Plan: Renally dose medications Avoid nephrotoxic agents Follow-up outpatient nephrology #Chronic lower back pain Per patient history Plan: -Pain management as needed #Incarcerated L inguinal hernia s/p repair 01/29/25 #Prostate cancer s/p radical prostatectomy 12/05/2024 Per chart review patient's history Plan: -No direct invention at this time DVT ppx: Heparin drip GI ppx: Pantoprazole 40 mg IV daily Diet: Regular IV lines: Peripheral IVs Code status: Full code Dispo: Med/tele, cardiology consulted, extensive DVT recurrence, started heparin drip. Patient plan of care was discussed with the attending physician, Dr. Earl & senior resident Dr. Justina Russo MD PGY-1 Attending Provider Attestation/Addendum I have examined the patient, reviewed labs and imaging findings, discussed the case with the resident(s), and reviewed entered orders. I agree with the plan of care as outlined in this note. Dr. Mady MD
--- NOTE | 2025-02-17 15:12 | PC.SS ---
Manpreet Hancock is a 75 year-old male admitted to [facility] for DVT. SS conducted bedside contact with the patient to complete initial assessment and to discuss discharge planning. Role and reason explained. Patient confirmed demographic information. Patient identifies his friend Eduarda Rae [phone] as his surrogate decision maker. Pt states he is able to complete all ADL?s independent. Pt does not possesses any DME. Pts PCP is Edouard Michelle. Pharmacy of choice is [facility]. Discharge options discussed and the pt wishes to return home.? Pt family will provide transport. No further intervention required at this time, social work specialist would be available to address any further concerns. DC Plan: Home Contact: Eduarda Davis Address: Confirmed on face sheet PCP: Edouard
--- NOTE | 2025-02-17 16:20 | PC.SS ---
Rounding: Cardio following, thrombectomy pending 02/19
[2025-02-18] VITALS (9 sets, daily range): BP systolic 119–136; BP diastolic 69–84; PULSE 64–94; RESP 14–19; TEMP 36.6–37; O2SAT 94–100; BMI 23.6
[2025-02-18 06:43] LABS: Basophils # (Auto) 0.0 Thou/mm3 (0.0-0.2); Basophils % (Auto) 1 % (0-2.5); Eosinophils # (Auto) 0.4 Thou/mm3 (0.0-0.5); Eosinophils % (Auto) 8 % (0-10); Hematocrit 27.5 % (41.0-53.0); Hemoglobin 8.9 g/dL (13.5-16.0); Immature Granulocytes Auto 0.01 Thou/mm3 (0.00-0.00); Lymphocytes # (Auto) 1.7 Thou/mm3 (1.0-4.8); Lymphocytes % (Auto) 33 % (10-50); Mean Corpuscular HGB Conc 32.4 g/dl (31.0-37.0); Mean Corpuscular Hemoglobin 29.8 pg (25.0-35.0); Mean Corpuscular Volume 92 fL (80-100); Monocytes # (Auto) 0.9 Thou/mm3 (0.0-0.8); Monocytes % (Auto) 17 % (0-12); Neutrophils # (Auto) 2.1 Thou/mm3 (1.8-7.7); Neutrophils % (Auto) 41 % (37-80); Nucleated Red Blood Cell # 0.00 Thou/mm3 (0.00-0.00); Nucleated Red Blood Cell % 0 /100 WBC (0); Platelet Count 315 Thou/mm3 (140-440); RDW Standard Deviation 47.3 fL (35.1-43.9); Red Blood Count 2.99 Miln/mm3 (4.50-5.90); White Blood Count 5.1 Thou/mm3 (3.8-10.6)
[2025-02-18 07:08] LABS: Partial Thromboplastin Time 64.1 Seconds (22.0-36.0)
[2025-02-18 07:42] LABS: Alanine Aminotransferase 9 U/L (10-49); Albumin, Serum 3.5 gm/dL (3.4-4.8); Albumin/Globulin Ratio 1.5 (1.2-2.2); Alkaline Phosphatase 73 U/L (46-116); Anion Gap 9 (7-16); Aspartate Amino Transferase 11 U/L (0-34); BUN/Creatinine Ratio 11 Ratio (12-20); Bilirubin,Total 0.3 mg/dL (0.3-1.2); Blood Urea Nitrogen 14 mg/dL (9-23); Calcium 8.6 mg/dL (8.3-10.6); Calcium (Corrected) 9.0 mg/dL (8.5-10.1); Carbon Dioxide 26.6 mMol/L (20.0-31.0); Chloride 109 mMol/L (98-107); Creatinine (Component) 1.3 mg/dL (0.6-1.3); Estimated Creatinine Clearance 48.3 mL/min (>60); Globulin 2.3 gm/dL (2.3-3.5); Glucose 94 mg/dL (74-106); Magnesium 1.5 mg/dL (1.6-2.6); Osmolality,Calculated 289 (275-295); Phosphorous 3.6 mg/dL (2.4-5.1); Potassium 3.8 mMol/L (3.4-5.1); Sodium 145 mMol/L (136-145); Total Protein 5.8 gm/dL (5.7-8.2); eGFR 57 See Note
--- NOTE | 2025-02-18 08:00 | XR_ITS ---
EXAMINATION: Left leg venogram Fluoroscopy 20 spot fluoroscopic films of the left lower extremity Date and time: February 16, 2025, 0954 hours INDICATIONS: Postop prostatectomy with lymphocele complication with deep vein thrombus in the left lower extremity TECHNIQUE AND FINDINGS: Informed consent provided. Timeout performed. Hand injection 20 cc [id number] in the intravenous line in the ankle with 20 spot fluoroscopic films of the deep venous system Superficial veins failed, no filling of the tributaries to the popliteal vein, popliteal vein superficial femoral vein or common femoral vein IMPRESSION: Extensive occlusive thrombus involving the entire deep venous system left lower extremity PLAN: Initiate local intravenous thrombolytic therapy, Cathflo, 0.7 mg/h continuous IV infusion
[2025-02-18] MEDS: LEVOTHYROXINE SODIUM 125 MCG TABLET PO (08:22)
[2025-02-18] MEDS: Heparin/D5w 25K 250 ML Ivpb 25,000 UNIT/250 ML BAG 11.612 UNIT IV (09:26)
--- NOTE | 2025-02-18 10:11 | ESPR_ITS ---
<Statement entered by Jas Horn MD - 02/18/25 12:52> No acute overnight events. Seen and examined at bedside and patient resting comfortably in bed. States that left lower extremity pain is well-controlled on current regimen. Vital signs stable as he is on room air and afebrile. CBC showing stable hemoglobin and is above 8 per cardiology recommendations. CHEM panel showing low magnesium and repleted but otherwise unremarkable. Underwent venogram today that showed extensive occlusive thrombus of the entire deep venous system of the left lower extremity and per cardiology will initiate local IV thrombolytic therapy in addition to heparin drip. ----- Note reviewed and agree with care plan as documented. Please refer to the note below for further details. Plan discussed with attending physician Dr. Mady Horn MD PGY-2 Internal Medicine Documentation for date of: 02/18/25 Subjective Subjective Interval history: Patient this morning doing well, states his pain is well controlled. Reached out to Dr. Mckeon regarding lymphocele. Vitals are stable. Plan to continue heparin drip and get stents with Dr. Mcconnell 02/19 Thrombolytic given s/p venogram 02/19 Exam Vital Signs Temp Pulse Resp BP Pulse Ox O2 Del Method 98.1 F 64 18 127/79 99 Room Air 02/18/25 08:00 02/18/25 08:00 02/18/25 08:00 02/18/25 08:00 02/18/25 08:00 02/18/25 08:00 Narrative Exam General: No acute distress; A&Ox3 Skin: Warm, dry, intact, no obvious rash. HENT: NCAT, EOMI/PERRL, not icteric. External ears normal. No rhinorrhea. Moist mucous membranes Cardiovascular: Regular rate and rhythm, no murmur, +S1/S2. Respiratory: Lungs CTAB GI: Soft, nontender, non-distended. No guarding or rebound tenderness. : No suprapubic tenderness. No flank tenderness bilaterally. Extremities: LLE swolen, non-tender, 2+pitting edema, warm to touch, pulses present. Bandages along Left extremity. Right lower extremity notable for varicose veins (L-side as well, but less noticeable) Neuro: Grossly nonfocal. Moving all 4 extremities. CN not formally tested but appear grossly intact. Psychiatric: Cooperative, appropriate affect. Objective Labs 12/18/25 05:20 02/21/25 05:20 Labs: Laboratory Results - last 24 hr 02/18/25 06:16 WBC 5.1 RBC 2.99 L Hgb 8.9 L Hct 27.5 L MCV 92 MCH 29.8 MCHC 32.4 RDW Std Deviation 47.3 H Plt Count 315 Neut % (Auto) 41 Lymph % (Auto) 33 [place] % (Auto) 17 H Eos % (Auto) 8 Baso % (Auto) 1 Neut # (Auto) 2.1 Lymph # (Auto) 1.7 [place] # (Auto) 0.9 H Eos # (Auto) 0.4 Baso # (Auto) 0.0 Immature Gran # (Auto) 0.01 H Absolute Nucleated RBC 0.00 Immature Gran % 0 Nucleated RBC % 0 APTT 64.1 H Sodium 145 Potassium 3.8 Chloride 109 H Carbon Dioxide 26.6 Anion Gap 9 BUN 14 Creatinine 1.3 Estim Creat Clear Calc 48.3 L eGFR 57 L BUN/Creatinine Ratio 11 L Glucose 94 Calculated Osmolality 289 Calcium 8.6 Corrected Calcium 9.0 Phosphorus 3.6 Magnesium 1.5 L Total Bilirubin 0.3 AST 11 ALT 9 L Alkaline Phosphatase 73 Total Protein 5.8 Albumin 3.5 Globulin 2.3 Albumin/Globulin Ratio 1.5 Quality Measures Quality Measures VTE therapy Advance care planning discussed with:: patient Assessment & Plan Assessment Current Active Medications: Generic Name Dose Route Start Last Admin Trade Name Freq PRN Reason Stop Dose Admin Acetaminophen 650 mg 02/15/25 00:38 Acetaminophen 325 Mg Tablet PO 03/17/25 00:37 Q6H PRN Fever >100.4 Hydrocodone Bitart/Acetaminophen 1 tab 02/16/25 15:22 02/17/25 21:44 Hydrocodone/Apap 5/325 Tablet PO 02/21/25 15:21 1 tab Q6HR PRN Administration PAIN SCALE 4-10(Mod-Sev Cyclobenzaprine HCl 10 mg 02/15/25 22:05 02/17/25 23:32 Cyclobenzaprine 5 Mg Tablet PO 03/17/25 22:04 10 mg BID PRN Administration MUSCLE SPASMS Heparin Sodium/Dextrose 25,000 unit in 250 mls @ 13.064 mls/hr 02/14/25 23:45 02/18/25 09:26 Heparin In D5w Ivpb IV 02/28/25 23:44 16 units/kg/hr .Q19H9M BETH 11.612 mls/hr Protocol Administration 18 UNITS/KG/HR Magnesium Sulfate 4 gm in 50 mls @ 12.5 mls/hr 02/18/25 08:01 Magnesium Sulfate Ivpb IV 02/18/25 12:00 X1 ONE Levothyroxine Sodium 125 mcg 02/17/25 06:00 02/18/25 08:22 Levothyroxine Sodium 125 Mcg Tablet PO 03/19/25 05:59 125 mcg 0600 BETH Administration Lorazepam 1 mg 02/15/25 22:05 02/17/25 23:32 Lorazepam 0.5 Mg Tablet PO 02/20/25 22:04 1 mg HS PRN Administration SLEEPLESSNESS Ondansetron HCl 4 mg 02/15/25 00:38 Ondansetron Inj 2 Mg/Ml Inj 2 Ml IVP 03/17/25 00:37 Q6H PRN NAUSEA OR VOMITING Protocol Pantoprazole Sodium 40 mg 02/15/25 09:00 02/18/25 08:22 Pantoprazole Inj 40 Mg Vial IVP 03/17/25 08:59 40 mg QDAY BETH Administration Plan Patient 74-year-old male with a history of hypothyroidism, arthritis, prostate cancer status post radical prostatectomy (performed by Dr. Cordero at [facility] on 12/05/2024, patient follows Dr. Mckeon currently), neurogenic bladder (secondary to laminectomy performed back in 2002, patient self catheterizes), incarcerated left femoral hernia status post hernia repair (01/29/2025), CKD stage IIIb (sees Dr. Coe for nephrology), chronic lower back pain, and varicose veins who presented to the ED the evening of 02/14/2025 with left lower extremity pain and swelling. Currently on heparin drip; plan for thrombectomy/stent with Dr. Mcconnell in the next day or two. #Extensive LLE DVT Patient underwent mechanical computer-assisted vacuum thrombectomy of the left common femoral, superficial femoral, popliteal, peroneal, and greater saphenous vein on 02/07/25 Extensive thrombus of approximately 300-400 g was removed. The patient was discharged on Eliquis. Patient presented to ED with left lower extremity pain swelling and stiffness Venous Doppler showed extensive DVT involving the entire deep venous system. Likely provoked by post-surgical complication vs compression by lymphocele. CT AP: Moderate left hydronephrosis related to the recurrent lymphocele in the pelvis; Negative for significant obstructive arterial disease; Fluid-containing left inguinal hernia; Incidental note thrombus in the left popliteal, left superficial left common femoral veins with extensive edema in the subcutaneous tissues left lower extremity Plan: -Continue pain management. -Continue heparin gttand target APTT of 60 to 80 seconds. -For provoked DVT, patient will need 3-6 months anti-coagulation -Venogram 02/18 showed extensive occlusive thrombus, initiated IV thrombolytic infusion -Plan for Thrombectomy/Stents with Dr. Mcconnell on 02/19. -He may benefit from a hypercoagulable panel at a later date. -Monitor for signs of bleeding. #Large pelvic cystic mass - 8.8 cm s/p IR drainage 02/07/25 CT abdomen pelvis on 02/07/25 showed an 8 cm diameter mass pushing on the bladder and ureters causing hydronephrosis and iliac vein obstruction with external compression Patient underwent successful CT-guided percutaneous catheter drainage of the left pelvic lymphocele on 02/07/25 Patient had associated hydrocele prior to drainage, improved after drainage Again noted on USG today Plan: -Follow-up CTA results with IR for possible drainage of lymph -Contacted Dr. Mckeon 02/18 regarding lymphocele. #Paroxysmal Atrial fibrillation Per chart review of patient's history Patient takes Eliquis [id number] score 3: Age over 75 (+2) Male (0) Vascular disease history (+1) Has bled score 2 Age over 65 (+1) Medication use predisposing to bleeding (+1) Plan: -Continue heparin gtt. and does not appear to take any rate or rhythm control medications at this time. #Hypothyroidism Thyroid labs within normal limits on 02/05/2025 Plan: -Continue home levothyroxine 125 mcg daily #CKD Stage IIIa Follows nephrology Dr. Coe Creatinine 1.3 on admission and appears to be his baseline BUN 17 Plan: Renally dose medications Avoid nephrotoxic agents Follow-up outpatient nephrology #Chronic lower back pain Per patient history Plan: -Pain management as needed #Incarcerated L inguinal hernia s/p repair 01/29/25 #Prostate cancer s/p radical prostatectomy 12/05/2024 Per chart review patient's history Plan: -No direct invention at this time DVT ppx: Heparin drip GI ppx: Pantoprazole 40 mg IV daily Diet: Regular IV lines: Peripheral IVs Code status: Full code Dispo: Tele; cardiology consulted, extensive DVT recurrence, started heparin drip. Patient plan of care was discussed with the attending physician, Dr. Earl & senior resident Dr. Justina Russo MD PGY-1 Attending Provider Attestation/Addendum I have examined the patient, reviewed labs and imaging findings, discussed the case with the resident(s), and reviewed entered orders. I agree with the plan of care as outlined in this note. Dr. Mady MD
--- NOTE | 2025-02-18 12:39 | ESPR_ITS ---
RE: RAMIREZ MARTELL : 1950 DATE OF SERVICE: 02/17/2025 HISTORY OF PRESENT ILLNESS: The patient is a 75-year-old male with a history of prostate carcinoma, underwent robotic surgery end of December, and had deep vein thrombosis, extensive iliofemoral vein thrombosis, and underwent thrombectomy more than 10 days ago. Lymphocele was drained but lymphocele has come back, has severe swelling of the left leg and groin, and came back with the lymphocele recurrence as well as extensive DVT again. 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 Common iliac vein is nearly 90% stenosed on the left side. The patient as a result have recurrent DVT even with anticoagulation on board, mainly because of underlying malignancy and pelvic surgery with robotic surgery for prostatectomy only 2 months ago. Patient is feeling a little better but still having some swelling. The patient is to continue on IV heparin drip therapeutic doses with. PHYSICAL EXAMINATION: GENERAL: He is well-nourished male, alert, awake in no acute distress. VITAL SIGNS: Blood pressure 127/85, pulse rate 60, respirations 16, temperature normal. NECK: Supple, no JVD. CHEST AND LUNGS: Clear to auscultation. HEART: Irregular rate and rhythm. ABDOMEN: Thin and soft. EXTREMITIES: Left lower extremity is still swollen. Groin has healed well. AND RECTAL: Not performed. NEUROLOGIC: Normal. DIAGNOSTIC DATA: Echocardiogram shows atrial fibrillation. LABORATORY DATA: Showed hemoglobin stable at 8.6 and hematocrit 26, which is stable over last 3 days, no further drop. Chemistry panel shows creatinine stable 1.3, BUN 14. Potassium is normal. IMPRESSION: 1. Recurrent episodes of deep vein thrombosis. 2. 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 3. Lymphocele, recurrent, following robotic prostatectomy at the [facility]. 4. Atrial fibrillation, chronic. RECOMMENDATION: We will continue IV heparin drip. We will probably consider doing a repeat thrombectomy if the thrombus is still present. I am ordering a venogram tomorrow to assess the patency of the popliteal vein in order to planning to do this procedure most likely Tuesday if we can get a more definition of an anatomy. If the common femoral vein is patent, we will go through upper thigh approach to do angioplasty on the on the stent placement on left iliac vein. This will be planned for Tuesday. The patient will continue on heparin drip until then. If the patient does go undergo the iliac stent placement, we will probably add Plavix to the Eliquis as well. Patient may require transfusion if he loses any more blood since his hemoglobin is 8.6, stable. We will watch it closely. DT: 23:04:55 TT: 23:52:00 Ref: [id number] - TID: [id number]
[2025-02-18] MEDS: Magnesium Sulfate 4 GM Ivpb 4 GM/50 ML BAG IV (12:42)
[2025-02-18] MEDS: CATHFLO (ALTEPLASE) INJ 4 MG in SODIUM CHLORIDE 0.9% 76 ML, Sterile Water 4 ML 14 MG IV ×3 (12:42→23:10)
[2025-02-18] MEDS: HYDROcodone/APAP 5/325 TABLET 1 TAB PO ×2 (16:14→22:16)
[2025-02-18 18:16] LABS: Partial Thromboplastin Time 52.4 Seconds (22.0-36.0)
--- NOTE | 2025-02-18 20:02 | ESPR_ITS ---
<Statement entered by Jose E Mcconnell MD - 02/21/25 23:44> I personally evaluated examined this patient who presented to the hospital recurrent deep vein thrombosis extensive thrombosis iliac vein occlusion due to possible scarring or postop complication following robotic partial surgery patient is a candidate for repeat thrombectomy followed by venous stent placement in the patient for procedure tomorrow eval the patient with resident physician Dr. Danielson PGY2 continue IV heparin till tomorrow procedure is scheduled in the morning. Risk benefits alternatives explained he agreed to have the procedure performed. Documentation for date of: 02/18/25 Subjective Subjective Interval history: Patient examined at bedside. Has no major complaints. Likely feeling well not endorsing any pain in lower extremity. He received local alteplase in left leg preemptively for thrombectomy tomorrow. Venogram done this morning showed extensive occlusive thrombus in the left lower extremity. Plan for iliac venous stent placement tomorrow and mechanical thrombectomy as previously done. Patient to be n.p.o. at midnight and discontinue heparin and Cathflo at 6 AM. Exam Vital Signs Temp Pulse Resp BP Pulse Ox O2 Del Method 98.6 F 79 18 130/78 95 Room Air 02/18/25 16:00 02/18/25 16:00 02/18/25 16:00 02/18/25 16:00 02/18/25 16:00 02/18/25 16:00 Narrative Exam General: Alert and oriented x3. No acute distress, cooperative HEENT: NCAT, No JVD noted. Mucosa moist. Pupils are equal and reactive to light bilaterally Cardiovascular: Normal S1 and S2. Regular rate and rhythm. Respiratory: Lungs are clear to auscultation bilaterally. No wheezing or crackles heard. Abdomen: Soft, nontender, not distended, normal bowel sounds. Skin: Warm to touch, dry, no rashes noted Musculoskeletal: No gross injuries. Able to move all 4 extremities. No pitting edema. Right lower extremity varicose veins, no erythema or swelling in left lower extremity. Neuro: Alert and oriented x3. No focal neuro deficits. Psych: Normal affect and mood Objective Labs 02/18/25 06:16 02/18/25 06:16 Labs: Laboratory Results - last 24 hr 02/18/25 02/18/25 06:16 17:24 WBC 5.1 RBC 2.99 L Hgb 8.9 L Hct 27.5 L MCV 92 MCH 29.8 MCHC 32.4 RDW Std Deviation 47.3 H Plt Count 315 Neut % (Auto) 41 Lymph % (Auto) 33 [place] % (Auto) 17 H Eos % (Auto) 8 Baso % (Auto) 1 Neut # (Auto) 2.1 Lymph # (Auto) 1.7 [place] # (Auto) 0.9 H Eos # (Auto) 0.4 Baso # (Auto) 0.0 Immature Gran # (Auto) 0.01 H Absolute Nucleated RBC 0.00 Immature Gran % 0 Nucleated RBC % 0 APTT 64.1 H 52.4 H D Sodium 145 Potassium 3.8 Chloride 109 H Carbon Dioxide 26.6 Anion Gap 9 BUN 14 Creatinine 1.3 Estim Creat Clear Calc 48.3 L eGFR 57 L BUN/Creatinine Ratio 11 L Glucose 94 Calculated Osmolality 289 Calcium 8.6 Corrected Calcium 9.0 Phosphorus 3.6 Magnesium 1.5 L Total Bilirubin 0.3 AST 11 ALT 9 L Alkaline Phosphatase 73 Total Protein 5.8 Albumin 3.5 Globulin 2.3 Albumin/Globulin Ratio 1.5 Quality Measures Quality Measures VTE therapy Advance care planning discussed with:: patient Assessment & Plan Assessment Current Active Medications: Generic Name Dose Route Start Last Admin Trade Name Freq PRN Reason Stop Dose Admin Acetaminophen 650 mg 02/15/25 00:38 Acetaminophen 325 Mg Tablet PO 03/17/25 00:37 Q6H PRN Fever >100.4 Hydrocodone Bitart/Acetaminophen 1 tab 02/16/25 15:22 02/18/25 16:14 Hydrocodone/Apap 5/325 Tablet PO 02/21/25 15:21 1 tab Q6HR PRN Administration PAIN SCALE 4-10(Mod-Sev Cyclobenzaprine HCl 10 mg 02/15/25 22:05 02/17/25 23:32 Cyclobenzaprine 5 Mg Tablet PO 03/17/25 22:04 10 mg BID PRN Administration MUSCLE SPASMS Heparin Sodium/Dextrose 25,000 unit in 250 mls @ 13.064 mls/hr 02/14/25 23:45 02/18/25 09:26 Heparin In D5w Ivpb IV 02/28/25 23:44 16 units/kg/hr .Q19H9M BETH 11.612 mls/hr Protocol Administration 18 UNITS/KG/HR Alteplase, Recombinant 4 mg/ 80 mls @ 14 mls/hr 02/18/25 10:31 02/18/25 17:20 Sodium Chloride/ Sterile Water IV 02/21/25 10:30 0.7 mg/hr .Q5H43M BETH 14 mls/hr 0.7 MG/HR Administration Levothyroxine Sodium 125 mcg 02/17/25 06:00 02/18/25 08:22 Levothyroxine Sodium 125 Mcg Tablet PO 03/19/25 05:59 125 mcg 0600 BETH Administration Lorazepam 1 mg 02/15/25 22:05 02/17/25 23:32 Lorazepam 0.5 Mg Tablet PO 02/20/25 22:04 1 mg HS PRN Administration SLEEPLESSNESS Ondansetron HCl 4 mg 02/15/25 00:38 Ondansetron Inj 2 Mg/Ml Inj 2 Ml IVP 03/17/25 00:37 Q6H PRN NAUSEA OR VOMITING Protocol Pantoprazole Sodium 40 mg 02/15/25 09:00 02/18/25 08:22 Pantoprazole Inj 40 Mg Vial IVP 03/17/25 08:59 40 mg QDAY BETH Administration Plan Patient 74-year-old male with a history of hypothyroidism, arthritis, prostate cancer status post radical prostatectomy (performed by Dr. Cordero at [facility] on 12/05/2024, patient follows Dr. Mckeon currently), neurogenic bladder (secondary to laminectomy performed back in 2002, patient self catheterizes), incarcerated left femoral hernia status post hernia repair (01/29/2025), CKD stage IIIb (sees Dr. Coe for nephrology), chronic lower back pain, and varicose veins who presented to the ED the evening of 02/14/2025 with left lower extremity pain and swelling. Cardiology consulted for possible thrombectomy of DVT. 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 #Inguinal hernia with fluid present. Patient underwent mechanical computer-assisted vacuum thrombectomy of the left common femoral, superficial femoral, popliteal, peroneal, and greater saphenous vein on 02/07/25 Extensive thrombus of approximately 300-400 g was removed. The patient was discharged on Eliquis. Patient presented to ED with left lower extremity pain swelling and stiffness Venous Doppler showed extensive DVT involving the entire deep venous system. Venogram done 02/18--extensive occlusive thrombus in the left lower extremity. - Continue heparin drip until 6 AM tomorrow -stop alteplase cath flow 6 AM toomorrow - Plan for thrombectomy and placement of left iliac vein stent - Monitor hemoglobin - If less than 8, transfuse 1 unit. Quiring goal hemoglobin 9.5?10 #Large pelvic cystic mass - 8.8 cm s/p IR drainage 02/07/25 CT abdomen pelvis on 02/07/25 showed an 8 cm diameter mass pushing on the bladder and ureters causing hydronephrosis and iliac vein obstruction with external compression Patient underwent successful CT-guided percutaneous catheter drainage of the left pelvic lymphocele on 02/07/25 Patient had associated hydrocele prior to drainage, improved after drainage Again noted on USG today -CTA shows recurrence of lymphocele and pelvis Incidental note thrombus in the left popliteal, left superficial left commol femoral veins with extensive edema in the subcutaneous tissues left lower extremity -he will need to have f/u after dc with uology #Paroxysmal Atrial fibrillation Per chart review of patient's history Patient takes Eliquis [id number] score 3: Age over 75 (+2) Male (0) Vascular disease history (+1) Has bled score 2 Age over 65 (+1) Medication use predisposing to bleeding (+1) Plan: Continue heparin gtt. and does not appear to take any rate or rhythm control medications at this time. #Hypothyroidism #CKD Stage IIIa #Chronic lower back pain #Incarcerated L inguinal hernia s/p repair 01/29/25 #Prostate cancer s/p radical prostatectomy 12/05/2024 Primary care team to manage above conditions and ongoing care needs. The patient's management plan was discussed with my attending physician Dr. Mcconnell. Candace Danielson, PGY-2
[2025-02-19] VITALS (21 sets, daily range): BP systolic 96–142; BP diastolic 59–97; PULSE 69–102; RESP 10–20; TEMP 35.8–36.8; O2SAT 93–99
[2025-02-19] MEDS: CATHFLO (ALTEPLASE) INJ 4 MG in SODIUM CHLORIDE 0.9% 76 ML, Sterile Water 4 ML 14 MG IV (05:02)
[2025-02-19 05:44] LABS: Basophils # (Auto) 0.0 Thou/mm3 (0.0-0.2); Basophils % (Auto) 1 % (0-2.5); Eosinophils # (Auto) 0.5 Thou/mm3 (0.0-0.5); Eosinophils % (Auto) 8 % (0-10); Hematocrit 27.0 % (41.0-53.0); Immature Granulocytes Auto 0.00 Thou/mm3 (0.00-0.00); Lymphocytes # (Auto) 1.6 Thou/mm3 (1.0-4.8); Lymphocytes % (Auto) 29 % (10-50); Mean Corpuscular HGB Conc 32.6 g/dl (31.0-37.0); Mean Corpuscular Hemoglobin 30.1 pg (25.0-35.0); Mean Corpuscular Volume 93 fL (80-100); Monocytes # (Auto) 0.9 Thou/mm3 (0.0-0.8); Monocytes % (Auto) 16 % (0-12); Neutrophils # (Auto) 2.5 Thou/mm3 (1.8-7.7); Neutrophils % (Auto) 46 % (37-80); Nucleated Red Blood Cell # 0.00 Thou/mm3 (0.00-0.00); Nucleated Red Blood Cell % 0 /100 WBC (0); Platelet Count 315 Thou/mm3 (140-440); RDW Standard Deviation 47.8 fL (35.1-43.9); Red Blood Count 2.92 Miln/mm3 (4.50-5.90); White Blood Count 5.4 Thou/mm3 (3.8-10.6)
[2025-02-19 06:28] LABS: Partial Thromboplastin Time 52.8 Seconds (22.0-36.0)
[2025-02-19 06:30] LABS: Hemoglobin 8.8 g/dL (13.5-16.0)
[2025-02-19 06:48] LABS: Alanine Aminotransferase 10 U/L (10-49); Albumin, Serum 3.5 gm/dL (3.4-4.8); Albumin/Globulin Ratio 1.6 (1.2-2.2); Alkaline Phosphatase 75 U/L (46-116); Anion Gap 8 (7-16); Aspartate Amino Transferase 12 U/L (0-34); BUN/Creatinine Ratio 12 Ratio (12-20); Bilirubin,Total 0.3 mg/dL (0.3-1.2); Blood Urea Nitrogen 15 mg/dL (9-23); Calcium 8.4 mg/dL (8.3-10.6); Calcium (Corrected) 8.8 mg/dL (8.5-10.1); Carbon Dioxide 26.2 mMol/L (20.0-31.0); Chloride 109 mMol/L (98-107); Creatinine (Component) 1.3 mg/dL (0.6-1.3); Estimated Creatinine Clearance 46.8 mL/min (>60); Globulin 2.2 gm/dL (2.3-3.5); Glucose 101 mg/dL (74-106); Magnesium 1.9 mg/dL (1.6-2.6); Osmolality,Calculated 285 (275-295); Phosphorous 3.6 mg/dL (2.4-5.1); Potassium 3.8 mMol/L (3.4-5.1); Sodium 143 mMol/L (136-145); Total Protein 5.7 gm/dL (5.7-8.2); eGFR 57 See Note
--- NOTE | 2025-02-19 07:28 | PC.NURSE ---
PT TRANSFER TO [facility] VIA [facility]. PT ALERT AND ORIENTED X4. PT ACCOMPANIED BY EVE EDWARDS.
[2025-02-19] MEDS: SODIUM CHLORIDE 0.45 % 500 ML 100 ML IV (11:43)
[2025-02-19] MEDS: HYDROcodone/APAP 5/325 TABLET 1 TAB PO ×3 (12:15→23:05)
--- NOTE | 2025-02-19 12:34 | ESPR_ITS ---
<Statement entered by Jas Horn MD - 02/19/25 14:48> No acute overnight events. Seen and examined at bedside prior to procedure today and laying comfortably in bed. Eventually went to [employer] [employer] [facility] for thrombectomy with or without stent placement. Will follow-up with results and cardiology recommendations afterwards. Also reached out to Dr. Mckeon regarding lymphocele. Otherwise, vital signs stable. CBC showing hemoglobin stable at 8.8. CHEM panel largely unremarkable. ----- Note reviewed and agree with care plan as documented. Please refer to the note below for further details. Plan discussed with attending physician Dr. Cedric Horn MD PGY-2 Internal Medicine Documentation for date of: 02/19/25 Subjective Subjective Interval history: Patient having operation for extensive DVT today Reached out to Dr. Mckeon regarding lymphocele. Vitals are stable. Will follow up operative reports and updates from Dr. Mcconnell Exam Vital Signs Temp Pulse Resp BP Pulse Ox O2 Del Method 96.9 F 93 12 101/66 95 Room Air 02/19/25 11:30 02/19/25 12:15 02/19/25 12:15 02/19/25 12:15 02/19/25 12:15 02/19/25 12:15 Narrative Exam General: No acute distress; A&Ox3 Skin: Warm, dry, intact, no obvious rash. HENT: NCAT, EOMI/PERRL, not icteric. External ears normal. No rhinorrhea. Moist mucous membranes Cardiovascular: Regular rate and rhythm, no murmur, +S1/S2. Respiratory: Lungs CTAB GI: Soft, nontender, non-distended. No guarding or rebound tenderness. : No suprapubic tenderness. No flank tenderness bilaterally. Extremities: LLE swolen, non-tender, 2+pitting edema, warm to touch, pulses present. Bandages along Left extremity. Right lower extremity notable for varicose veins (L-side as well, but less noticeable) Neuro: Grossly nonfocal. Moving all 4 extremities. CN not formally tested but appear grossly intact. Psychiatric: Cooperative, appropriate affect. Objective Labs 02/19/25 04:18 02/19/25 04:18 Labs: Laboratory Results - last 24 hr 02/18/25 02/19/25 17:24 04:18 WBC 5.4 RBC 2.92 L Hgb 8.8 L Hct 27.0 L MCV 93 MCH 30.1 MCHC 32.6 RDW Std Deviation 47.8 H Plt Count 315 Neut % (Auto) 46 Lymph % (Auto) 29 [place] % (Auto) 16 H Eos % (Auto) 8 Baso % (Auto) 1 Neut # (Auto) 2.5 Lymph # (Auto) 1.6 [place] # (Auto) 0.9 H Eos # (Auto) 0.5 Baso # (Auto) 0.0 Immature Gran # (Auto) 0.00 Absolute Nucleated RBC 0.00 Immature Gran % 0 Nucleated RBC % 0 APTT 52.4 H D 52.8 H Sodium 143 Potassium 3.8 Chloride 109 H Carbon Dioxide 26.2 Anion Gap 8 BUN 15 Creatinine 1.3 Estim Creat Clear Calc 46.8 L eGFR 57 L BUN/Creatinine Ratio 12 Glucose 101 Calculated Osmolality 285 Calcium 8.4 Corrected Calcium 8.8 Phosphorus 3.6 Magnesium 1.9 Total Bilirubin 0.3 AST 12 ALT 10 Alkaline Phosphatase 75 Total Protein 5.7 Albumin 3.5 Globulin 2.2 L Albumin/Globulin Ratio 1.6 Quality Measures Quality Measures VTE therapy Advance care planning discussed with:: patient Assessment & Plan Assessment Current Active Medications: Generic Name Dose Route Start Last Admin Trade Name Freq PRN Reason Stop Dose Admin Acetaminophen 650 mg 02/15/25 00:38 Acetaminophen 325 Mg Tablet PO 03/17/25 00:37 Q6H PRN Fever >100.4 Hydrocodone Bitart/Acetaminophen 1 tab 02/16/25 15:22 02/19/25 12:15 Hydrocodone/Apap 5/325 Tablet PO 02/21/25 15:21 1 tab Q6HR PRN Administration PAIN SCALE 4-10(Mod-Sev Cyclobenzaprine HCl 10 mg 02/15/25 22:05 02/18/25 23:46 Cyclobenzaprine 5 Mg Tablet PO 03/17/25 22:04 10 mg BID PRN Administration MUSCLE SPASMS Sodium Chloride 500 mls @ 100 mls/hr 02/19/25 11:45 02/19/25 11:43 Ns 0.45% IV 03/21/25 11:44 100 mls/hr .Q5H BETH Administration Heparin Sodium/Dextrose 25,000 unit in 250 mls @ 13.002 mls/hr 02/19/25 15:16 Heparin In D5w Ivpb IV 03/05/25 15:15 .[id number] [facility] Protocol 18 UNITS/KG/HR Levothyroxine Sodium 125 mcg 02/17/25 06:00 02/19/25 05:07 Levothyroxine Sodium 125 Mcg Tablet PO 03/19/25 05:59 Not Given 0600 [facility] Lorazepam 1 mg 02/15/25 22:05 02/18/25 23:46 Lorazepam 0.5 Mg Tablet PO 02/20/25 22:04 1 mg HS PRN Administration SLEEPLESSNESS Ondansetron HCl 4 mg 02/15/25 00:38 Ondansetron Inj 2 Mg/Ml Inj 2 Ml IVP 03/17/25 00:37 Q6H PRN NAUSEA OR VOMITING Protocol Pantoprazole Sodium 40 mg 02/15/25 09:00 02/19/25 09:20 Pantoprazole Inj 40 Mg Vial IVP 03/17/25 08:59 Not Given QDAY [facility] Plan Patient 74-year-old male with a history of hypothyroidism, arthritis, prostate cancer status post radical prostatectomy (performed by Dr. Cordero at [facility] on 12/05/2024, patient follows Dr. Mckeon currently), neurogenic bladder (secondary to laminectomy performed back in 2002, patient self catheterizes), incarcerated left femoral hernia status post hernia repair (01/29/2025), CKD stage IIIb (sees Dr. Coe for nephrology), chronic lower back pain, and varicose veins who presented to the ED the evening of 02/14/2025 with left lower extremity pain and swelling. Received heparin drip in preparation of planned thrombectomy/stent with Dr. Mcconnell 02/19. #Extensive LLE DVT Patient underwent mechanical computer-assisted vacuum thrombectomy of the left common femoral, superficial femoral, popliteal, peroneal, and greater saphenous vein on 02/07/25 Extensive thrombus of approximately 300-400 g was removed. The patient was discharged on Eliquis. Patient presented to ED with left lower extremity pain swelling and stiffness Venous Doppler showed extensive DVT involving the entire deep venous system. Likely provoked by post-surgical complication vs compression by lymphocele. CT AP: Moderate left hydronephrosis related to the recurrent lymphocele in the pelvis; Negative for significant obstructive arterial disease; Fluid-containing left inguinal hernia; Incidental note thrombus in the left popliteal, left superficial left common femoral veins with extensive edema in the subcutaneous tissues left lower extremity -Venogram 02/18 showed extensive occlusive thrombus, initiated IV thrombolytic infusion Plan: -Continue pain management. -Continue heparin gtt and target APTT of 60 to 80 seconds. -For provoked DVT, patient will need 3-6 months anti-coagulation -Plan for Thrombectomy/Stents with Dr. Mcconnell on 02/19. -He may benefit from a hypercoagulable panel at a later date. -Monitor for signs of bleeding. #Large pelvic cystic mass - 8.8 cm s/p IR drainage 02/07/25 CT abdomen pelvis on 02/07/25 showed an 8 cm diameter mass pushing on the bladder and ureters causing hydronephrosis and iliac vein obstruction with external compression Patient underwent successful CT-guided percutaneous catheter drainage of the left pelvic lymphocele on 02/07/25 Patient had associated hydrocele prior to drainage, improved after drainage Again noted on USG today Plan: -Follow-up CTA results with IR for possible drainage of lymph -Contacted Dr. Mckeon 02/18 regarding lymphocele. #Paroxysmal Atrial fibrillation Per chart review of patient's history Patient takes Eliquis [id number] score 3: Age over 75 (+2) Male (0) Vascular disease history (+1) Has bled score 2 Age over 65 (+1) Medication use predisposing to bleeding (+1) Plan: -Continue heparin gtt. and does not appear to take any rate or rhythm control medications at this time. #Hypothyroidism Thyroid labs within normal limits on 02/05/2025 Plan: -Continue home levothyroxine 125 mcg daily #CKD Stage IIIa Follows nephrology Dr. Coe Creatinine 1.3 on admission and appears to be his baseline BUN 17 Plan: Renally dose medications Avoid nephrotoxic agents Follow-up outpatient nephrology #Chronic lower back pain Per patient history Plan: -Pain management as needed #Incarcerated L inguinal hernia s/p repair 01/29/25 #Prostate cancer s/p radical prostatectomy 12/05/2024 Per chart review patient's history Plan: -No direct invention at this time DVT ppx: Heparin drip GI ppx: Pantoprazole 40 mg IV daily Diet: Regular IV lines: Peripheral IVs Code status: Full code Dispo: Tele; cardiology consulted, extensive DVT recurrence, started heparin drip. Patient plan of care was discussed with the attending physician, Dr. Steele & senior resident Dr. Justina Russo MD PGY-1 Attending Provider Attestation/Addendum I, Kathleen Steele DO, attest that I was physically present for the paul portions of the service and evaluated the patient with the resident and I reviewed and discussed the case with the resident and agree with the resident's findings and plans of care as documented above Patient seen and evaluated this afternoon following thrombectomy. Patient currently complains of pain in his back due to discomfort from laying flat on his back. Patient takes tramadol at home for his back pain. Will give morphine for pain control. Plan for drainage of lymphocoele tomorrow by IR.
[2025-02-19 13:41] LABS: ACT (CATH LAB ONLY) 235.0 Seconds (89-169)
[2025-02-19 13:58] LABS: Partial Thromboplastin Time 26.7 Seconds (22.0-36.0)
[2025-02-19] MEDS: Heparin/D5w 25K 250 ML Ivpb 25,000 UNIT/250 ML BAG 13.002 UNIT IV (14:00)
[2025-02-19] MEDS: HEPARIN SOD INJ 5000 UNIT/ML VIAL 6000 UNIT IV (14:15)
[2025-02-19] MEDS: MORPHINE SULF INJ 4 MG/ML VIAL 1 MG IVP ×2 (15:56→19:57)
[2025-02-19] MEDS: SODIUM CHLORIDE 0.45 % 1,000 ML 100 ML IV (15:57)
--- NOTE | 2025-02-19 16:00 | ESPR_ITS ---
<Statement entered by Jose E Mcconnell MD - 02/21/25 23:43> I personally examined the patient after the procedure patient had a successful thrombectomy venous stent placement of the left common iliac and external leg vein successfully no complications estimated blood loss 300 mL will continue to monitor CBC transfuse if hemoglobin drops below 8 agree with the treatment plan recommendation as documented by Dr. Gonzalez PGY2 Documentation for date of: 02/19/25 Subjective Subjective Interval history: 02/18: Patient examined at bedside. Has no major complaints. Likely feeling well not endorsing any pain in lower extremity. He received local alteplase in left leg preemptively for thrombectomy tomorrow. Venogram done this morning showed extensive occlusive thrombus in the left lower extremity. Plan for iliac venous stent placement tomorrow and mechanical thrombectomy as previously done. Patient to be n.p.o. at midnight and discontinue heparin and Cathflo at 6 AM. 02/19: Patient examined at bedside. He underwent mechanical thrombectomy this morning after receiving alteplase/heparin yesterday. Significant amount of clot retrieved and successful placement of 2 iliac venous stents. Imaging had shown almost complete occlusion preprocedure. Post procedure, patient has some pain but no bleeding from site. Continue pain management. Plan to repeat CBC at 6 PM tonight. If hemoglobin less than 8 transfuse 1 unit PRBC. He will undergo IR CT-guided drain of pelvic lymphocele tomorrow morning. Plan to hold heparin at 6 AM and resume heparin 2 hours postprocedure. Patient will be transition to [facility] the following day. Encouraged patient to ambulate lower extremity as tolerated. Vitals reviewed, stable. Exam Vital Signs Temp Pulse Resp BP Pulse Ox O2 Del Method 96.9 F 93 20 116/73 95 Room Air 02/19/25 11:30 02/19/25 13:54 02/19/25 13:54 02/19/25 13:54 02/19/25 13:54 02/19/25 13:54 Narrative Exam General: Alert and oriented x3. No acute distress, cooperative HEENT: NCAT, No JVD noted. Mucosa moist. Pupils are equal and reactive to light bilaterally Cardiovascular: Normal S1 and S2. Regular rate and rhythm. Respiratory: Lungs are clear to auscultation bilaterally. No wheezing or crackles heard. Abdomen: Soft, nontender, not distended, normal bowel sounds. Skin: Warm to touch, dry, no rashes noted Musculoskeletal: No gross injuries. Able to move all 4 extremities. No pitting edema. Right lower extremity varicose veins, no erythema or swelling in left lower extremity. IV cath flow in left foot, no bleeding from site of procedure, tenderness to palpation Neuro: Alert and oriented x3. No focal neuro deficits. Psych: Normal affect and mood Objective Labs 02/19/25 04:18 02/19/25 04:18 Labs: Laboratory Results - last 24 hr 02/18/25 02/19/25 02/19/25 17:24 04:18 09:55 WBC 5.4 RBC 2.92 L Hgb 8.8 L Hct 27.0 L MCV 93 MCH 30.1 MCHC 32.6 RDW Std Deviation 47.8 H Plt Count 315 Neut % (Auto) 46 Lymph % (Auto) 29 [place] % (Auto) 16 H Eos % (Auto) 8 Baso % (Auto) 1 Neut # (Auto) 2.5 Lymph # (Auto) 1.6 [place] # (Auto) 0.9 H Eos # (Auto) 0.5 Baso # (Auto) 0.0 Immature Gran # (Auto) 0.00 Absolute Nucleated RBC 0.00 Immature Gran % 0 Nucleated RBC % 0 APTT 52.4 H D 52.8 H Activated Clotting Time 235.0 H Sodium 143 Potassium 3.8 Chloride 109 H Carbon Dioxide 26.2 Anion Gap 8 BUN 15 Creatinine 1.3 Estim Creat Clear Calc 46.8 L eGFR 57 L BUN/Creatinine Ratio 12 Glucose 101 Calculated Osmolality 285 Calcium 8.4 Corrected Calcium 8.8 Phosphorus 3.6 Magnesium 1.9 Total Bilirubin 0.3 AST 12 ALT 10 Alkaline Phosphatase 75 Total Protein 5.7 Albumin 3.5 Globulin 2.2 L Albumin/Globulin Ratio 1.6 Blood Type Antibody Screen Blood Bank Wristband ID 02/19/25 02/19/25 12:00 13:24 WBC RBC Hgb Hct MCV MCH MCHC RDW Std Deviation Plt Count Neut % (Auto) Lymph % (Auto) [place] % (Auto) Eos % (Auto) Baso % (Auto) Neut # (Auto) Lymph # (Auto) [place] # (Auto) Eos # (Auto) Baso # (Auto) Immature Gran # (Auto) Absolute Nucleated RBC Immature Gran % Nucleated RBC % APTT 26.7 D Activated Clotting Time Sodium Potassium Chloride Carbon Dioxide Anion Gap BUN Creatinine Estim Creat Clear Calc eGFR BUN/Creatinine Ratio Glucose Calculated Osmolality Calcium Corrected Calcium Phosphorus Magnesium Total Bilirubin AST ALT Alkaline Phosphatase Total Protein Albumin Globulin Albumin/Globulin Ratio Blood Type A Positive Antibody Screen NEGATIVE Blood Bank Wristband ID Yes Quality Measures Quality Measures VTE therapy Advance care planning discussed with:: patient Assessment & Plan Assessment Current Active Medications: Generic Name Dose Route Start Last Admin Trade Name Freq PRN Reason Stop Dose Admin Acetaminophen 650 mg 02/15/25 00:38 Acetaminophen 325 Mg Tablet PO 03/17/25 00:37 Q6H PRN Fever >100.4 Hydrocodone Bitart/Acetaminophen 1 tab 02/19/25 13:21 Hydrocodone/Apap 5/325 Tablet PO 02/21/25 15:21 Q4HR PRN PAIN SCALE 4-10(Mod-Sev Cyclobenzaprine HCl 10 mg 02/15/25 22:05 02/18/25 23:46 Cyclobenzaprine 5 Mg Tablet PO 03/17/25 22:04 10 mg BID PRN Administration MUSCLE SPASMS Heparin Sodium/Dextrose 25,000 unit in 250 mls @ 13.002 mls/hr 02/19/25 14:00 02/19/25 14:00 Heparin In D5w Ivpb IV 03/05/25 13:59 18 units/kg/hr .[id number] BETH 13.002 mls/hr Protocol Administration 18 UNITS/KG/HR Sodium Chloride 1,000 mls @ 100 mls/hr 02/19/25 15:25 02/19/25 15:57 Ns 0.45% IV 02/20/25 01:24 100 mls/hr .Q10H ONE Administration Levothyroxine Sodium 125 mcg 02/17/25 06:00 02/19/25 05:07 Levothyroxine Sodium 125 Mcg Tablet PO 03/19/25 05:59 Not Given 0600 BETH Lorazepam 1 mg 02/15/25 22:05 02/18/25 23:46 Lorazepam 0.5 Mg Tablet PO 02/20/25 22:04 1 mg HS PRN Administration SLEEPLESSNESS Morphine Sulfate 1 mg 02/19/25 15:41 02/19/25 15:56 Morphine Sulf Inj 4 Mg/Ml Vial IVP 02/24/25 15:40 1 mg Q4HR PRN Administration severe pain Protocol Ondansetron HCl 4 mg 02/15/25 00:38 Ondansetron Inj 2 Mg/Ml Inj 2 Ml IVP 03/17/25 00:37 Q6H PRN NAUSEA OR VOMITING Protocol Pantoprazole Sodium 40 mg 02/15/25 09:00 02/19/25 09:20 Pantoprazole Inj 40 Mg Vial IVP 03/17/25 08:59 Not Given QDAY BETH Plan Patient 74-year-old male with a history of hypothyroidism, arthritis, prostate cancer status post radical prostatectomy (performed by Dr. Cordero at [facility] on 12/05/2024, patient follows Dr. Mckeon currently), neurogenic bladder (secondary to laminectomy performed back in 2002, patient self catheterizes), incarcerated left femoral hernia status post hernia repair (01/29/2025), CKD stage IIIb (sees Dr. Coe for nephrology), chronic lower back pain, and varicose veins who presented to the ED the evening of 02/14/2025 with left lower extremity pain and swelling. Cardiology consulted for possible thrombectomy of DVT. 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 #Inguinal hernia with fluid present. Patient underwent mechanical computer-assisted vacuum thrombectomy of the left common femoral, superficial femoral, popliteal, peroneal, and greater saphenous vein on 02/07/25 Extensive thrombus of approximately 300-400 g was removed. The patient was discharged on Eliquis. Patient presented to ED with left lower extremity pain swelling and stiffness Venous Doppler showed extensive DVT involving the entire deep venous system. Venogram done 02/18--extensive occlusive thrombus in the left lower extremity. 02/19--s/p thrombectomy and placement of 2 venous stents. - Continue heparin drip until 6 AM tomorrow -he will have IR CT guided drainage of pelvis lymphocele -resume heparin drip 2 hrs after IR procedure -repeat Hb at 6 pm tonight - If less than 8, transfuse 1 unit. -IV pain mgmt #Large pelvic cystic mass - 8.8 cm s/p IR drainage 02/07/25 CT abdomen pelvis on 02/07/25 showed an 8 cm diameter mass pushing on the bladder and ureters causing hydronephrosis and iliac vein obstruction with external compression Patient underwent successful CT-guided percutaneous catheter drainage of the left pelvic lymphocele on 02/07/25 Patient had associated hydrocele prior to drainage, improved after drainage Again noted on USG today -CTA shows recurrence of lymphocele and pelvis Incidental note thrombus in the left popliteal, left superficial left commol femoral veins with extensive edema in the subcutaneous tissues left lower extremity -he will need to have f/u after dc with uology #Paroxysmal Atrial fibrillation Per chart review of patient's history Patient takes Eliquis [id number] score 3: Age over 75 (+2) Male (0) Vascular disease history (+1) Has bled score 2 Age over 65 (+1) Medication use predisposing to bleeding (+1) Plan: Continue heparin gtt. and does not appear to take any rate or rhythm control medications at this time. #Hypothyroidism #CKD Stage IIIa #Chronic lower back pain #Incarcerated L inguinal hernia s/p repair 01/29/25 #Prostate cancer s/p radical prostatectomy 12/05/2024 Primary care team to manage above conditions and ongoing care needs. The patient's management plan was discussed with my attending physician Dr. Mcconnell. Candace Danielson, PGY-2
[2025-02-19 18:52] LABS: Basophils # (Auto) 0.0 Thou/mm3 (0.0-0.2); Basophils % (Auto) 0 % (0-2.5); Eosinophils # (Auto) 0.0 Thou/mm3 (0.0-0.5); Eosinophils % (Auto) 0 % (0-10); Hematocrit 27.1 % (41.0-53.0); Immature Granulocytes Auto 0.02 Thou/mm3 (0.00-0.00); Lymphocytes # (Auto) 0.9 Thou/mm3 (1.0-4.8); Lymphocytes % (Auto) 12 % (10-50); Mean Corpuscular HGB Conc 32.5 g/dl (31.0-37.0); Mean Corpuscular Hemoglobin 30.1 pg (25.0-35.0); Mean Corpuscular Volume 93 fL (80-100); Monocytes # (Auto) 0.6 Thou/mm3 (0.0-0.8); Monocytes % (Auto) 8 % (0-12); Neutrophils # (Auto) 6.1 Thou/mm3 (1.8-7.7); Neutrophils % (Auto) 79 % (37-80); Nucleated Red Blood Cell # 0.00 Thou/mm3 (0.00-0.00); Nucleated Red Blood Cell % 0 /100 WBC (0); Platelet Count 327 Thou/mm3 (140-440); RDW Standard Deviation 48.3 fL (35.1-43.9); Red Blood Count 2.92 Miln/mm3 (4.50-5.90); White Blood Count 7.8 Thou/mm3 (3.8-10.6)
[2025-02-19 18:53] LABS: Hemoglobin 8.8 g/dL (13.5-16.0)
[2025-02-19 21:37] LABS: Partial Thromboplastin Time 97.4 Seconds (22.0-36.0)
[2025-02-19] MEDS: CLOPIDOGREL BISULFATE 75 MG TABLET 300 MG PO (22:10)
--- NOTE | 2025-02-19 22:26 | ESOP_ITS ---
RE: RAMIREZ MARTELL : 1950 PROCEDURES PERFORMED: 1. Emergency percutaneous computer-assisted vacuum thrombectomy of the left popliteal and femoral vein. CPT 14784 2. Percutaneous computer-assisted vacuum thrombectomy of the left external iliac and common iliac veins. CPT 41696 3. Percutaneous transluminal angioplasty of the left femoral vein, superficial femoral vein, and left common femoral vein. CPT 55213 4. Percutaneous transluminal angioplasty of the left external iliac vein and left common iliac vein. 5. Stent placement of the left common iliac vein using a self-expanding Venovo, 16 mm x 100 mm length self-expanding stent. CPT 77296 6. Stent placement of the left external iliac vein, placement of a 14 mm x 80 mm length Venovo stent placement. CPT 22210 7. Ultrasound-guided access to the left popliteal vein. 8. Intravascular ultrasound (IVUS) examination of the left common and external iliac veins. CPT 34205 9. Conscious sedation, 2-hour duration. DIAGNOSIS: Extensive venous thrombosis of the left lower extremity including iliac vein occlusion, common femoral occlusion with painful lower extremity. HISTORY AND INDICATIONS: The patient is a 75-year-old male who underwent a robotic prostatectomy on 01/04/2025. A couple of weeks later, he started having left lower extremity swelling and was diagnosed with deep vein thrombosis on 02/04/2025 and underwent thrombectomy of the left femoral and popliteal veins. At that time, the iliac vein was occluded. The patient had a lymphocele that was drained. There was some improvement and he was discharged home on Eliquis 10 mg twice daily. A week later, he returned to the hospital with severe swelling of the left lower extremity, a lot of pain, significant pain with complete occlusion of the iliac and femoral veins with no flow. Venogram showed no antegrade flow whatsoever above the popliteal vein with acute occlusion of the venous system; hence, venous thrombectomy, computer-assisted thrombectomy of the left common and external iliac veins and femoral veins was recommended with stent placement because of occlusion of the left common femoral vein. DESCRIPTION OF PROCEDURE: The patient was brought to the cardiac catheterization laboratory and was given conscious sedation. The patient was placed in the prone position. The left popliteal vein was cannulated under ultrasound guidance and a 7-Colombian sheath was introduced. Using a stiff angled guidewire, I was able to pass the wire up into the left external iliac vein and a 17-Colombian sheath by the MEEP technology was used. A short sheath was placed in the left popliteal vein. A venogram showed that there was evidence of a patent popliteal vein. There was some thrombus, but the femoral vein was occluded completely, the common femoral vein was occluded completely, and the iliac vein, external iliac, and common iliac vein were completely occluded. Following the diagnostic procedure, I proceeded with the thrombectomy with the Penumbra device. A Penumbra flash catheter was then advanced [id number] technique. Thrombectomy of the left popliteal vein, left femoral vein, common femoral vein, and left external iliac vein was performed. Subsequently, I was unable to pass this past the initial lesion. Hence, the initial lesion in ____ valve was the stenosis. A 7 mm x 40 mm Conquest balloon was used to dilate the femoral vein. The same balloon was used to dilate the external iliac vein and common iliac vein as well. Subsequently, a venogram showed that the flow was still absent in the iliac veins because of near-total occlusion and elastic recoil. Subsequently, balloon angioplasty was performed on the left common and external iliac veins using a 12 mm x 40 mm Conquest balloon, which was used to dilate the common and external iliac veins and common femoral vein with some establishment of the flow, but still total occlusion in the common femoral vein. Using an OptiCross, 0.035 guidewire was used to perform imaging of the left iliac veins, external and common iliac veins. Intravascular ultrasound examination was performed, showed that there was severe stenosis of the left common iliac vein, 90% stenosis, near-total occlusion. The left external iliac vein showed 80% stenosis and extensive recoil. The common femoral was patent. Subsequently, there was also thrombus present in the common femoral vein. Angioplasty of the common femoral was performed by using a 12 x 40 balloon. Subsequently, I did one more pass of atherectomy using a Penumbra flash catheter. A 12-Colombian catheter was then advanced into the common femoral vein, and thrombectomy of the common femoral vein was performed successfully and extensive clot was removed. After angioplasty, stent placement was performed. Common iliac stent and external iliac vein stent placement were performed by using a 16 x 100 mm Venovo Bard self-expanding stent, which was deployed successfully from the origin of the left common femoral vein all the way to the external iliac vein. Subsequently, additional stent placement was performed in the external iliac vein. A 14 mm x 80 mm length Venovo self-expanding stent was deployed in the left external iliac vein. Subsequently, a final angiogram showed a widely patent left common iliac vein and left external iliac veins. Post-stent deployment, angioplasty was then performed, optimizing using a 16 mm x 40 mm [place] balloon, which was then used to post-dilate the common iliac and external iliac stents. Subsequently, a 12 x 40 [place] was used to dilate the external and common iliac veins stent with 10 atmospheric pressures. Subsequently, overlap stent angioplasty was performed, post-stent deployment angioplasty using a 16 x 40 [place] balloon. A final angiogram showed a widely patent common femoral vein, external iliac vein, and common iliac vein with an excellent result. Flow was established. Subsequently, a [id number] suture was used, the sheath was removed, and 50 mg of protamine was given to reverse the heparin. The anticoagulation regimen used was a total of 7000 units, followed by an additional 4000 units during the procedure. Procedure time was approximately 125 minutes. Cardiac fluoroscopy was used during the procedure. Estimated blood loss was 350 mL. Extensive amount of thrombus was also removed. DT: 21:53:46 TT: 22:26:00 Ref: [id number] - TID: [id number]
--- NOTE | 2025-02-19 23:57 | PC.NURSE ---
MD Nichols made aware that pt wanting stronger pain meds, Morphine is due in a minute, per MD Nichols give the Morphine now and if pt still complain of pain in 30 mins to give him a call.Will administer IV Morphine now as ordered.
[2025-02-20] VITALS (15 sets, daily range): BP systolic 90–137; BP diastolic 59–89; PULSE 77–106; RESP 13–26; TEMP 36.1–37.1; O2SAT 96–100
[2025-02-20] MEDS: MORPHINE SULF INJ 4 MG/ML VIAL 1 MG IVP ×2 (00:06→04:07)
[2025-02-20 05:41] LABS: Basophils # (Auto) 0.0 Thou/mm3 (0.0-0.2); Basophils % (Auto) 1 % (0-2.5); Eosinophils # (Auto) 0.1 Thou/mm3 (0.0-0.5); Eosinophils % (Auto) 2 % (0-10); Hematocrit 25.2 % (41.0-53.0); Immature Granulocytes Auto 0.02 Thou/mm3 (0.00-0.00); Lymphocytes # (Auto) 1.0 Thou/mm3 (1.0-4.8); Lymphocytes % (Auto) 16 % (10-50); Mean Corpuscular HGB Conc 32.5 g/dl (31.0-37.0); Mean Corpuscular Hemoglobin 30.0 pg (25.0-35.0); Mean Corpuscular Volume 92 fL (80-100); Monocytes # (Auto) 0.9 Thou/mm3 (0.0-0.8); Monocytes % (Auto) 15 % (0-12); Neutrophils # (Auto) 4.2 Thou/mm3 (1.8-7.7); Neutrophils % (Auto) 66 % (37-80); Nucleated Red Blood Cell # 0.00 Thou/mm3 (0.00-0.00); Nucleated Red Blood Cell % 0 /100 WBC (0); Platelet Count 299 Thou/mm3 (140-440); RDW Standard Deviation 48.4 fL (35.1-43.9); Red Blood Count 2.73 Miln/mm3 (4.50-5.90); White Blood Count 6.4 Thou/mm3 (3.8-10.6)
[2025-02-20 05:53] LABS: Hemoglobin 8.2 g/dL (13.5-16.0)
[2025-02-20 06:02] LABS: Partial Thromboplastin Time 62.6 Seconds (22.0-36.0)
[2025-02-20 06:04] LABS: Alanine Aminotransferase 13 U/L (10-49); Albumin, Serum 3.5 gm/dL (3.4-4.8); Albumin/Globulin Ratio 1.5 (1.2-2.2); Alkaline Phosphatase 82 U/L (46-116); Anion Gap 11 (7-16); Aspartate Amino Transferase 19 U/L (0-34); BUN/Creatinine Ratio 12 Ratio (12-20); Bilirubin,Total 0.4 mg/dL (0.3-1.2); Blood Urea Nitrogen 14 mg/dL (9-23); Calcium 8.6 mg/dL (8.3-10.6); Calcium (Corrected) 9.0 mg/dL (8.5-10.1); Carbon Dioxide 25.6 mMol/L (20.0-31.0); Chloride 104 mMol/L (98-107); Creatinine (Component) 1.2 mg/dL (0.6-1.3); Estimated Creatinine Clearance 50.7 mL/min (>60); Globulin 2.4 gm/dL (2.3-3.5); Glucose 118 mg/dL (74-106); Magnesium 1.7 mg/dL (1.6-2.6); Osmolality,Calculated 282 (275-295); Phosphorous 3.6 mg/dL (2.4-5.1); Potassium 4.0 mMol/L (3.4-5.1); Sodium 141 mMol/L (136-145); Total Protein 5.9 gm/dL (5.7-8.2); eGFR > 60 See Note
[2025-02-20 08:39] LABS: INR 1.1 (0.9-1.3); Prothrombin Time 11.4 Seconds (9.0-12.2)
--- NOTE | 2025-02-20 10:30 | XR_ITS ---
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 A timeout was completed verifying correct patient, procedure, site and positioning. Technique: Axial 3 mm sections were obtained for localization of the pelvic cystic mass Appropriate area is marked. The patient's site was prepped and draped in sterile fashion Maximal sterile barrier technique utilized, including hand hygiene Local anesthesia was obtained with 1% lidocaine. Low dose protocols were performed. One or more of the following dose reduction techniques were used; automated exposure control, adjustment of the mA and/or KV according to patient size, use of iterative reconstruction technique. Utilizing CT fluoroscopic guidance 5 Serbian catheter placed percutaneously in the pelvic cystic mass 0.35 wire guide dilators placed over the wire guide followed by a 6 Serbian pigtail drainage catheter in satisfactory position Patient appears in stable condition during this procedure. At completion of the procedure, the patient is in satisfactory condition. Estimated blood loss 2 cc . Impression: Successful CT-guided percutaneous placement drainage catheter left pelvic cystic mass
[2025-02-20] MEDS: fentaNYL CIT INJ 50 mCg/ML AMP 2ML 75 MCG IVP (11:09)
[2025-02-20] MEDS: LIDOCAINE INJ PF 1% 30 ML VIAL INFL (11:10)
[2025-02-20] MEDS: HYDROcodone/APAP 5/325 TABLET 1 TAB PO ×3 (13:10→22:32)
--- NOTE | 2025-02-20 15:12 | ESPR_ITS ---
<Statement entered by Jose E Mcconnell MD - 02/21/25 23:42> I personally examined evaluated the patient with resident physician PGY 2 Dr. Gonzalez patient underwent successful thrombectomy and 19 February today patient underwent successful removal of the fluid lymphocele drainage catheter placed drained nearly 600 to 700 cc already serosanguineous fluid will be kept on IV heparin and Plavix continued patient continues to drain fluid but will monitor this closely discussed with Dr. Arlet Mckeon urologist as well. Documentation for date of: 02/20/25 Subjective Subjective Interval history: 02/18: Patient examined at bedside. Has no major complaints. Likely feeling well not endorsing any pain in lower extremity. He received local alteplase in left leg preemptively for thrombectomy tomorrow. Venogram done this morning showed extensive occlusive thrombus in the left lower extremity. Plan for iliac venous stent placement tomorrow and mechanical thrombectomy as previously done. Patient to be n.p.o. at midnight and discontinue heparin and Cathflo at 6 AM. 02/19: Patient examined at bedside. He underwent mechanical thrombectomy this morning after receiving alteplase/heparin yesterday. Significant amount of clot retrieved and successful placement of 2 iliac venous stents. Imaging had shown almost complete occlusion preprocedure. Post procedure, patient has some pain but no bleeding from site. Continue pain management. Plan to repeat CBC at 6 PM tonight. If hemoglobin less than 8 transfuse 1 unit PRBC. He will undergo IR CT-guided drain of pelvic lymphocele tomorrow morning. Plan to hold heparin at 6 AM and resume heparin 2 hours postprocedure. Patient will be transition to [facility] the following day. Encouraged patient to ambulate lower extremity as tolerated. Vitals reviewed, stable. 02/20: Patient seen at bedside. Pain in left lower extremity improving from yesterday. No active bleeding from site of thrombectomy. This morning he underwent placement of a percutaneous catheter drain in pelvic region. For treatment of recurring lymphocele. The drain has output of 200cc. Vitals are stable, hemoglobin stable around 8 after blood loss of 350cc from thrombectomy yesterday. Continue to monitor while inpatient. If less than 8 transfuse 1 unit PRBC. Started on Plavix 75 mg daily s/p bare metal sent in left external iliac vein and left common iliac vein. Exam Vital Signs Temp Pulse Resp BP Pulse Ox O2 Del Method O2 Flow Rate 98.1 F 97 19 99/77 97 Room Air 3 02/20/25 12:00 02/20/25 12:00 02/20/25 12:00 02/20/25 12:00 02/20/25 12:00 02/20/25 12:00 02/20/25 11:10 Narrative Exam General: Alert and oriented x3. No acute distress, cooperative HEENT: NCAT, No JVD noted. Mucosa moist. Pupils are equal and reactive to light bilaterally Cardiovascular: Normal S1 and S2. Regular rate and rhythm. Respiratory: Lungs are clear to auscultation bilaterally. No wheezing or crackles heard. Abdomen: Soft, nontender, not distended, normal bowel sounds. Percutaneous cath draining in bag. Skin: Warm to touch, dry, no rashes noted Musculoskeletal: No gross injuries. Able to move all 4 extremities. No pitting edema. Right lower extremity varicose veins, no erythema or swelling in left lower extremity. IV cath flow in left foot, no bleeding from site of procedure, tenderness to palpation Neuro: Alert and oriented x3. No focal neuro deficits. Psych: Normal affect and mood Objective Labs 02/20/25 04:42 02/20/25 04:42 Labs: Laboratory Results - last 24 hr 02/19/25 02/19/25 02/20/25 18:12 20:34 04:42 WBC 7.8 D 6.4 RBC 2.92 L 2.73 L Hgb 8.8 L 8.2 L Hct 27.1 L 25.2 L MCV 93 92 MCH 30.1 30.0 MCHC 32.5 32.5 RDW Std Deviation 48.3 H 48.4 H Plt Count 327 299 Neut % (Auto) 79 66 Lymph % (Auto) 12 16 [place] % (Auto) 8 15 H Eos % (Auto) 0 2 Baso % (Auto) 0 1 Neut # (Auto) 6.1 4.2 Lymph # (Auto) 0.9 L 1.0 [place] # (Auto) 0.6 0.9 H Eos # (Auto) 0.0 0.1 Baso # (Auto) 0.0 0.0 Immature Gran # (Auto) 0.02 H 0.02 H Absolute Nucleated RBC 0.00 0.00 Immature Gran % 0 0 Nucleated RBC % 0 0 PT 11.4 INR 1.1 APTT 97.4 H D 62.6 H D Sodium 141 Potassium 4.0 Chloride 104 Carbon Dioxide 25.6 Anion Gap 11 BUN 14 Creatinine 1.2 Estim Creat Clear Calc 50.7 L eGFR > 60 BUN/Creatinine Ratio 12 Glucose 118 H Calculated Osmolality 282 Calcium 8.6 Corrected Calcium 9.0 Phosphorus 3.6 Magnesium 1.7 Total Bilirubin 0.4 AST 19 ALT 13 Alkaline Phosphatase 82 Total Protein 5.9 Albumin 3.5 Globulin 2.4 Albumin/Globulin Ratio 1.5 Quality Measures Quality Measures VTE therapy Advance care planning discussed with:: patient Assessment & Plan Assessment Current Active Medications: Generic Name Dose Route Start Last Admin Trade Name Freq PRN Reason Stop Dose Admin Acetaminophen 650 mg 02/15/25 00:38 Acetaminophen 325 Mg Tablet PO 03/17/25 00:37 Q6H PRN Fever >100.4 Hydrocodone Bitart/Acetaminophen 1 tab 02/19/25 13:21 02/20/25 13:10 Hydrocodone/Apap 5/325 Tablet PO 02/21/25 15:21 1 tab Q4HR PRN Administration PAIN SCALE 4-10(Mod-Sev Clopidogrel Bisulfate 75 mg 02/20/25 09:00 02/20/25 10:09 Clopidogrel Bisulfate 75 Mg Tablet PO 03/22/25 08:59 Not Given QDAY BETH Cyclobenzaprine HCl 10 mg 02/15/25 22:05 02/19/25 16:41 Cyclobenzaprine 5 Mg Tablet PO 03/17/25 22:04 10 mg BID PRN Administration MUSCLE SPASMS Levothyroxine Sodium 125 mcg 02/17/25 06:00 02/20/25 05:13 Levothyroxine Sodium 125 Mcg Tablet PO 03/19/25 05:59 Not Given 0600 BETH Lorazepam 1 mg 02/15/25 22:05 02/19/25 23:47 Lorazepam 0.5 Mg Tablet PO 02/20/25 22:04 1 mg HS PRN Administration SLEEPLESSNESS Morphine Sulfate 1 mg 02/19/25 15:41 02/20/25 04:07 Morphine Sulf Inj 4 Mg/Ml Vial IVP 02/24/25 15:40 1 mg Q4HR PRN Administration severe pain Protocol Ondansetron HCl 4 mg 02/15/25 00:38 Ondansetron Inj 2 Mg/Ml Inj 2 Ml IVP 03/17/25 00:37 Q6H PRN NAUSEA OR VOMITING Protocol Pantoprazole Sodium 40 mg 02/15/25 09:00 02/20/25 10:09 Pantoprazole Inj 40 Mg Vial IVP 03/17/25 08:59 Not Given QDAY BETH Plan Patient 74-year-old male with a history of hypothyroidism, arthritis, prostate cancer status post radical prostatectomy (performed by Dr. Cordero at [facility] on 12/05/2024, patient follows Dr. Mckeon currently), neurogenic bladder (secondary to laminectomy performed back in 2002, patient self catheterizes), incarcerated left femoral hernia status post hernia repair (01/29/2025), CKD stage IIIb (sees Dr. Coe for nephrology), chronic lower back pain, and varicose veins who presented to the ED the evening of 02/14/2025 with left lower extremity pain and swelling. Cardiology consulted for possible thrombectomy of DVT. 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 #Inguinal hernia with fluid present. Patient underwent mechanical computer-assisted vacuum thrombectomy of the left common femoral, superficial femoral, popliteal, peroneal, and greater saphenous vein on 02/07/25 Extensive thrombus of approximately 300-400 g was removed. The patient was discharged on Eliquis. Patient presented to ED with left lower extremity pain swelling and stiffness Venous Doppler showed extensive DVT involving the entire deep venous system. Venogram done 02/18--extensive occlusive thrombus in the left lower extremity. 02/19--s/p thrombectomy and placement of 2 venous stents. 02/20--placement of a percutaneous catheter drain in pelvic region -Started on Plavix 75 mg daily - If Hb less than 8, transfuse 1 unit. -IV pain mgmt #Large pelvic cystic mass - 8.8 cm s/p IR drainage 02/07/25 CT abdomen pelvis on 02/07/25 showed an 8 cm diameter mass pushing on the bladder and ureters causing hydronephrosis and iliac vein obstruction with external compression Patient underwent successful CT-guided percutaneous catheter drainage of the left pelvic lymphocele on 02/07/25 Patient had associated hydrocele prior to drainage, improved after drainage Again noted on USG today -CTA shows recurrence of lymphocele and pelvis Incidental note thrombus in the left popliteal, left superficial left commol femoral veins with extensive edema in the subcutaneous tissues left lower extremity -he will need to have f/u after dc with uology #Paroxysmal Atrial fibrillation Per chart review of patient's history Patient takes Eliquis [id number] score 3: Age over 75 (+2) Male (0) Vascular disease history (+1) Has bled score 2 Age over 65 (+1) Medication use predisposing to bleeding (+1) Plan: Continue heparin gtt. and does not appear to take any rate or rhythm control medications at this time. #Hypothyroidism #CKD Stage IIIa #Chronic lower back pain #Incarcerated L inguinal hernia s/p repair 01/29/25 #Prostate cancer s/p radical prostatectomy 12/05/2024 Primary care team to manage above conditions and ongoing care needs. The patient's management plan was discussed with my attending physician Dr. Mcconnell. Candace Danielson, PGY-2
--- NOTE | 2025-02-20 16:14 | ESPR_ITS ---
<Statement entered by Jas Horn MD - 02/20/25 16:30> No acute overnight events. Seen and examined at bedside prior to undergoing IR placement of catheter for lymphocele drainage and states he was in significant pain yesterday after undergoing thrombectomy but pain is much controlled upon evaluation. Eventually underwent CT-guided percutaneous placement of drainage catheter and left pelvic cystic mass. Will need to follow-up with urology upon discharge. Per cardiology, will continue heparin and Plavix while inpatient and plans to be DC'd on Plavix and Eliquis. Will continue to monitor hemoglobin and transfuse if less than 8 and continue current pain management regimen. ----- Note reviewed and agree with care plan as documented. Please refer to the note below for further details. Plan discussed with attending physician Dr. Cedric Horn MD PGY-2 Internal Medicine Documentation for date of: 02/20/25 Subjective Subjective Interval history: Patient s/p thrombectomy/stents of dvt; having operation for lymphocele drainage today Vitals are stable. Patient states his pain is controlled at rest, with movement becomes excruciating; continuing pain reg Will follow up operative reports operation Physical therapy referred. Exam Vital Signs Temp Pulse Resp BP Pulse Ox O2 Del Method O2 Flow Rate 98.1 F 90 16 107/69 97 Room Air 3 02/20/25 16:00 02/20/25 16:00 02/20/25 16:00 02/20/25 16:00 02/20/25 16:00 02/20/25 16:00 02/20/25 11:10 Narrative Exam General: No acute distress; A&Ox3 Skin: Warm, dry, intact, no obvious rash. HENT: NCAT, EOMI/PERRL, not icteric. External ears normal. No rhinorrhea. Moist mucous membranes Cardiovascular: Regular rate and rhythm, no murmur, +S1/S2. Respiratory: Lungs CTAB GI: Soft, nontender, non-distended. No guarding or rebound tenderness. : No suprapubic tenderness. No flank tenderness bilaterally. Extremities: LLE swolen, non-tender, 1+pitting edema, warm to touch, pulses present. Right lower extremity notable for varicose veins (L-side as well, but less noticeable) Neuro: Grossly nonfocal. Moving all 4 extremities. CN not formally tested but appear grossly intact. Psychiatric: Cooperative, appropriate affect. Objective Labs 02/20/25 04:42 02/20/25 04:42 Labs: Laboratory Results - last 24 hr 02/19/25 02/19/25 02/20/25 18:12 20:34 04:42 WBC 7.8 D 6.4 RBC 2.92 L 2.73 L Hgb 8.8 L 8.2 L Hct 27.1 L 25.2 L MCV 93 92 MCH 30.1 30.0 MCHC 32.5 32.5 RDW Std Deviation 48.3 H 48.4 H Plt Count 327 299 Neut % (Auto) 79 66 Lymph % (Auto) 12 16 [place] % (Auto) 8 15 H Eos % (Auto) 0 2 Baso % (Auto) 0 1 Neut # (Auto) 6.1 4.2 Lymph # (Auto) 0.9 L 1.0 [place] # (Auto) 0.6 0.9 H Eos # (Auto) 0.0 0.1 Baso # (Auto) 0.0 0.0 Immature Gran # (Auto) 0.02 H 0.02 H Absolute Nucleated RBC 0.00 0.00 Immature Gran % 0 0 Nucleated RBC % 0 0 PT 11.4 INR 1.1 APTT 97.4 H D 62.6 H D Sodium 141 Potassium 4.0 Chloride 104 Carbon Dioxide 25.6 Anion Gap 11 BUN 14 Creatinine 1.2 Estim Creat Clear Calc 50.7 L eGFR > 60 BUN/Creatinine Ratio 12 Glucose 118 H Calculated Osmolality 282 Calcium 8.6 Corrected Calcium 9.0 Phosphorus 3.6 Magnesium 1.7 Total Bilirubin 0.4 AST 19 ALT 13 Alkaline Phosphatase 82 Total Protein 5.9 Albumin 3.5 Globulin 2.4 Albumin/Globulin Ratio 1.5 Quality Measures Quality Measures VTE therapy Advance care planning discussed with:: patient Assessment & Plan Assessment Current Active Medications: Generic Name Dose Route Start Last Admin Trade Name Freq PRN Reason Stop Dose Admin Acetaminophen 650 mg 02/15/25 00:38 Acetaminophen 325 Mg Tablet PO 03/17/25 00:37 Q6H PRN Fever >100.4 Hydrocodone Bitart/Acetaminophen 1 tab 02/19/25 13:21 02/20/25 13:10 Hydrocodone/Apap 5/325 Tablet PO 02/21/25 15:21 1 tab Q4HR PRN Administration PAIN SCALE 4-10(Mod-Sev Clopidogrel Bisulfate 75 mg 02/20/25 09:00 02/20/25 10:09 Clopidogrel Bisulfate 75 Mg Tablet PO 03/22/25 08:59 Not Given QDAY [facility] Cyclobenzaprine HCl 10 mg 02/15/25 22:05 02/19/25 16:41 Cyclobenzaprine 5 Mg Tablet PO 03/17/25 22:04 10 mg BID PRN Administration MUSCLE SPASMS Levothyroxine Sodium 125 mcg 02/17/25 06:00 02/20/25 05:13 Levothyroxine Sodium 125 Mcg Tablet PO 03/19/25 05:59 Not Given 0600 [facility] Lorazepam 1 mg 02/15/25 22:05 02/19/25 23:47 Lorazepam 0.5 Mg Tablet PO 02/20/25 22:04 1 mg HS PRN Administration SLEEPLESSNESS Morphine Sulfate 1 mg 02/19/25 15:41 02/20/25 04:07 Morphine Sulf Inj 4 Mg/Ml Vial IVP 02/24/25 15:40 1 mg Q4HR PRN Administration severe pain Protocol Ondansetron HCl 4 mg 02/15/25 00:38 Ondansetron Inj 2 Mg/Ml Inj 2 Ml IVP 03/17/25 00:37 Q6H PRN NAUSEA OR VOMITING Protocol Pantoprazole Sodium 40 mg 02/15/25 09:00 02/20/25 10:09 Pantoprazole Inj 40 Mg Vial IVP 03/17/25 08:59 Not Given QDAY [facility] Plan Patient 74-year-old male with a history of hypothyroidism, arthritis, prostate cancer status post radical prostatectomy (performed by Dr. Cordero at [facility] on 12/05/2024, patient follows Dr. Mckeon currently), neurogenic bladder (secondary to laminectomy performed back in 2002, patient self catheterizes), incarcerated left femoral hernia status post hernia repair (01/29/2025), CKD stage IIIb (sees Dr. Coe for nephrology), chronic lower back pain, and varicose veins who presented to the ED the evening of 02/14/2025 with left lower extremity pain and swelling. S/p thrombectomy/stent with Dr. Mcconnell 02/19. Plan for lymphocele drainage 02/20. #Extensive LLE DVT s/p thrombectomy & stents 02/19 Patient underwent mechanical computer-assisted vacuum thrombectomy of the left common femoral, superficial femoral, popliteal, peroneal, and greater saphenous vein on 02/07/25 Extensive thrombus of approximately 300-400 g was removed. The patient was discharged on Eliquis. Patient presented to ED with left lower extremity pain swelling and stiffness Venous Doppler showed extensive DVT involving the entire deep venous system. Likely provoked by post-surgical complication vs compression by lymphocele. CT AP: Moderate left hydronephrosis related to the recurrent lymphocele in the pelvis; Negative for significant obstructive arterial disease; Fluid-containing left inguinal hernia; Incidental note thrombus in the left popliteal, left superficial left common femoral veins with extensive edema in the subcutaneous tissues left lower extremity -Venogram 02/18 showed extensive occlusive thrombus, initiated IV thrombolytic infusion Plan: -Continue pain management. -Discontinued heparin gtt -will start eliquis tomorrow -started plavix 75 mg qd -He may benefit from a hypercoagulable panel at a later date. -Monitor for signs of bleeding. #Large pelvic cystic mass #Lymphocele - 8.8 cm s/p IR drainage 02/07/25 CT abdomen pelvis on 02/07/25 showed an 8 cm diameter mass pushing on the bladder and ureters causing hydronephrosis and iliac vein obstruction with external compression Patient underwent successful CT-guided percutaneous catheter drainage of the left pelvic lymphocele on 02/07/25 Patient had associated hydrocele prior to drainage, improved after drainage Again noted on USG today Plan: -Follow-up IR for drainage of lymphocele -Urology #Paroxysmal Atrial fibrillation Per chart review of patient's history Patient takes Eliquis [id number] score 3: Age over 75 (+2) Male (0) Vascular disease history (+1) Has bled score 2 Age over 65 (+1) Medication use predisposing to bleeding (+1) Plan: -plan to start eliquis tomorrow #Hypothyroidism Thyroid labs within normal limits on 02/05/2025 Plan: -Continue home levothyroxine 125 mcg daily #CKD Stage IIIa Follows nephrology Dr. Coe Creatinine 1.3 on admission and appears to be his baseline BUN 17 Plan: Renally dose medications Avoid nephrotoxic agents Follow-up outpatient nephrology #Chronic lower back pain Per patient history Plan: -Pain management as needed #Incarcerated L inguinal hernia s/p repair 01/29/25 #Prostate cancer s/p radical prostatectomy 12/05/2024 Per chart review patient's history Plan: -No direct invention at this time DVT ppx: Heparin -> eliquis yenifer GI ppx: Pantoprazole 40 mg IV daily Diet: Regular IV lines: Peripheral IVs Code status: Full code Dispo: med surg - s/p thrombectomy with stents & s/p lymphocele drainage Patient plan of care was discussed with the attending physician, Dr. Steele & senior resident Dr. Justina Russo MD PGY-1 Attending Provider Attestation/Addendum I, Kathleen Steele DO, attest that I was physically present for the paul portions of the service and evaluated the patient with the resident and I reviewed and discussed the case with the resident and agree with the resident's findings and plans of care as documented above Patient seen and eval this afternoon. Patient had undergone drainage of the lymphocele in his pelvis this morning. It is currently draining serosanguineous fluid of about 250 cc. Patient reports that he feels some pain relief since the lymphocele has decreased in size with drainage, but he continues to have what appears to be electric shocks in his left leg with movement. There is mild edema noted in his left lower extremity. Catheter placed in his left lower pelvic area. Clean dry and intact. Patient reports good pain control with morphine otherwise. Will have physical therapy work with patient in AM. Continue with heparin drip and Plavix.
[2025-02-20] MEDS: Milk Of Magnesia Susp 30 ML UDC PO (20:23)
[2025-02-21] VITALS (10 sets, daily range): BP systolic 99–145; BP diastolic 55–73; PULSE 72–116; RESP 12–20; TEMP 36.2–37.1; O2SAT 93–97; BMI 12.0
[2025-02-21] MEDS: LEVOTHYROXINE SODIUM 125 MCG TABLET PO (05:16)
[2025-02-21 06:02] LABS: Basophils # (Auto) 0.0 Thou/mm3 (0.0-0.2); Basophils % (Auto) 0 % (0-2.5); Eosinophils # (Auto) 0.3 Thou/mm3 (0.0-0.5); Eosinophils % (Auto) 5 % (0-10); Hematocrit 22.2 % (41.0-53.0); Immature Granulocytes Auto 0.01 Thou/mm3 (0.00-0.00); Lymphocytes # (Auto) 1.2 Thou/mm3 (1.0-4.8); Lymphocytes % (Auto) 20 % (10-50); Mean Corpuscular HGB Conc 32.9 g/dl (31.0-37.0); Mean Corpuscular Hemoglobin 30.3 pg (25.0-35.0); Mean Corpuscular Volume 92 fL (80-100); Monocytes # (Auto) 0.9 Thou/mm3 (0.0-0.8); Monocytes % (Auto) 15 % (0-12); Neutrophils # (Auto) 3.5 Thou/mm3 (1.8-7.7); Neutrophils % (Auto) 60 % (37-80); Nucleated Red Blood Cell # 0.00 Thou/mm3 (0.00-0.00); Nucleated Red Blood Cell % 0 /100 WBC (0); Platelet Count 244 Thou/mm3 (140-440); RDW Standard Deviation 48.5 fL (35.1-43.9); Red Blood Count 2.41 Miln/mm3 (4.50-5.90); White Blood Count 5.9 Thou/mm3 (3.8-10.6)
[2025-02-21 06:04] LABS: Hemoglobin 7.3 g/dL (13.5-16.0)
[2025-02-21 06:34] LABS: Alanine Aminotransferase 10 U/L (10-49); Albumin, Serum 3.3 gm/dL (3.4-4.8); Albumin/Globulin Ratio 1.6 (1.2-2.2); Alkaline Phosphatase 74 U/L (46-116); Anion Gap 8 (7-16); Aspartate Amino Transferase 12 U/L (0-34); BUN/Creatinine Ratio 14 Ratio (12-20); Bilirubin,Total 0.3 mg/dL (0.3-1.2); Blood Urea Nitrogen 17 mg/dL (9-23); Calcium 8.3 mg/dL (8.3-10.6); Calcium (Corrected) 8.9 mg/dL (8.5-10.1); Carbon Dioxide 27.4 mMol/L (20.0-31.0); Chloride 107 mMol/L (98-107); Creatinine (Component) 1.2 mg/dL (0.6-1.3); Estimated Creatinine Clearance 50.7 mL/min (>60); Globulin 2.1 gm/dL (2.3-3.5); Glucose 108 mg/dL (74-106); Magnesium 1.6 mg/dL (1.6-2.6); Osmolality,Calculated 285 (275-295); Phosphorous 3.3 mg/dL (2.4-5.1); Potassium 4.2 mMol/L (3.4-5.1); Sodium 142 mMol/L (136-145); Total Protein 5.4 gm/dL (5.7-8.2); eGFR > 60 See Note
--- NOTE | 2025-02-21 07:53 | PC.NURSE ---
Called to about heparin order. RN asking for confirmation for heparin order being onhold or not. states I will discuss with cardiology and get back to you. No new orders at this time.
[2025-02-21] MEDS: MORPHINE SULF INJ 4 MG/ML VIAL 1 MG IVP ×2 (09:14→17:09)
[2025-02-21] MEDS: CLOPIDOGREL BISULFATE 75 MG TABLET PO (09:15)
[2025-02-21 12:30] LABS: Partial Thromboplastin Time 33.3 Seconds (22.0-36.0)
[2025-02-21] MEDS: HYDROcodone/APAP 5/325 TABLET 1 TAB PO ×2 (13:07→20:13)
--- NOTE | 2025-02-21 13:32 | ESPR_ITS ---
<Statement entered by Jas Horn MD - 02/21/25 14:59> No acute overnight events. Seen and examined at bedside and resting comfortably in bed. KYM catheter in place and insertion site C/D/I. States that pain is well-controlled with current regimen. Touched base with cardiology and recommended to continue heparin drip with Plavix for now and currently transfusing 1 unit PRBC given that hemoglobin is less than 8. Touched base with urology who stated that patient will require transfer for particular urological procedure at [facility]. Will touch base again tomorrow. Patient informed of change of plans and in agreement. Otherwise, vital signs stable. CBC showing hemoglobin of 7.3 and as noted will be transfusing 1 unit PRBC and follow-up repeat H&H. CHEM panel unremarkable. ----- Note reviewed and agree with care plan as documented. Please refer to the note below for further details. Plan discussed with attending physician Dr. Mady Horn MD PGY-2 Internal Medicine Documentation for date of: 02/21/25 Subjective Subjective Interval history: Patient s/p lymphocele drainage, had some drainage yesterday, minimal today. Was recommended to be transferred, possibly tomorrow, per Dr. Mckeon, unsure of exact procedure, will follow up. Vitals are stable. Patient states his pain is controlled at rest, with movement becomes excruciating; continuing pain reg Patient will have heparin resumed today. Exam Vital Signs Temp Pulse Resp BP Pulse Ox O2 Del Method O2 Flow Rate 98.5 F 96 12 119/67 96 Room Air 3 02/21/25 12:51 02/21/25 12:51 02/21/25 12:51 02/21/25 12:51 02/21/25 12:51 02/21/25 12:00 02/20/25 11:10 Narrative Exam General: No acute distress; A&Ox3 Skin: Warm, dry, intact, no obvious rash. HENT: NCAT, EOMI/PERRL, not icteric. External ears normal. No rhinorrhea. Moist mucous membranes Cardiovascular: Regular rate and rhythm, no murmur, +S1/S2. Respiratory: Lungs CTAB GI: Soft, nontender, non-distended. No guarding or rebound tenderness. L ymphocele drain in place : No suprapubic tenderness. No flank tenderness bilaterally. Extremities: LLE swolen, non-tender, 1+pitting edema, warm to touch, pulses present. Right lower extremity notable for varicose veins (L-side as well, but less noticeable) Neuro: Grossly nonfocal. Moving all 4 extremities. CN not formally tested but appear grossly intact. Psychiatric: Cooperative, appropriate affect. Objective Labs 02/21/25 15:33 02/21/25 05:20 Labs: Laboratory Results - last 24 hr 02/19/25 02/21/25 12:00 05:20 WBC 5.9 RBC 2.41 L Hgb 7.3 L Hct 22.2 L MCV 92 MCH 30.3 MCHC 32.9 RDW Std Deviation 48.5 H Plt Count 244 D Neut % (Auto) 60 Lymph % (Auto) 20 [place] % (Auto) 15 H Eos % (Auto) 5 Baso % (Auto) 0 Neut # (Auto) 3.5 Lymph # (Auto) 1.2 [place] # (Auto) 0.9 H Eos # (Auto) 0.3 Baso # (Auto) 0.0 Immature Gran # (Auto) 0.01 H Absolute Nucleated RBC 0.00 Immature Gran % 0 Nucleated RBC % 0 APTT 33.3 D Sodium 142 Potassium 4.2 Chloride 107 Carbon Dioxide 27.4 Anion Gap 8 BUN 17 Creatinine 1.2 Estim Creat Clear Calc 50.7 L eGFR > 60 BUN/Creatinine Ratio 14 Glucose 108 H Calculated Osmolality 285 Calcium 8.3 Corrected Calcium 8.9 Phosphorus 3.3 Magnesium 1.6 Total Bilirubin 0.3 AST 12 ALT 10 Alkaline Phosphatase 74 Total Protein 5.4 L Albumin 3.3 L Globulin 2.1 L Albumin/Globulin Ratio 1.6 Blood Type A Positive Antibody Screen NEGATIVE Crossmatch See Detail Blood Bank Wristband ID Yes Quality Measures Quality Measures VTE therapy Advance care planning discussed with:: patient Assessment & Plan Assessment Current Active Medications: Generic Name Dose Route Start Last Admin Trade Name Freq PRN Reason Stop Dose Admin Acetaminophen 650 mg 02/15/25 00:38 Acetaminophen 325 Mg Tablet PO 03/17/25 00:37 Q6H PRN Fever >100.4 Hydrocodone Bitart/Acetaminophen 1 tab 02/19/25 13:21 02/21/25 13:07 Hydrocodone/Apap 5/325 Tablet PO 02/21/25 15:21 1 tab Q4HR PRN Administration PAIN SCALE 4-10(Mod-Sev Clopidogrel Bisulfate 75 mg 02/20/25 09:00 02/21/25 09:15 Clopidogrel Bisulfate 75 Mg Tablet PO 03/22/25 08:59 75 mg QDAY BETH Administration Cyclobenzaprine HCl 10 mg 02/15/25 22:05 02/20/25 23:45 Cyclobenzaprine 5 Mg Tablet PO 03/17/25 22:04 10 mg BID PRN Administration MUSCLE SPASMS Heparin Sodium/Dextrose 25,000 unit in 250 mls @ 13.002 mls/hr 02/21/25 12:00 Heparin In D5w Ivpb IV 03/07/25 11:59 On Hold: 02/21/25 12:05 .[id number] BETH Comment: PENDING PTT Protocol 18 UNITS/KG/HR Levothyroxine Sodium 125 mcg 02/17/25 06:00 02/21/25 05:16 Levothyroxine Sodium 125 Mcg Tablet PO 03/19/25 05:59 125 mcg 0600 BETH Administration Lorazepam 1 mg 02/20/25 22:51 02/20/25 23:45 Lorazepam 0.5 Mg Tablet PO 02/25/25 22:50 1 mg HS PRN Administration AGITATION OR ANXIETY Morphine Sulfate 1 mg 02/19/25 15:41 02/21/25 09:14 Morphine Sulf Inj 4 Mg/Ml Vial IVP 02/24/25 15:40 1 mg Q4HR PRN Administration severe pain Protocol Ondansetron HCl 4 mg 02/15/25 00:38 Ondansetron Inj 2 Mg/Ml Inj 2 Ml IVP 03/17/25 00:37 Q6H PRN NAUSEA OR VOMITING Protocol Pantoprazole Sodium 40 mg 02/15/25 09:00 02/21/25 09:21 Pantoprazole Inj 40 Mg Vial IVP 03/17/25 08:59 40 mg QDAY BETH Administration Plan Patient 74-year-old male with a history of hypothyroidism, arthritis, prostate cancer status post radical prostatectomy (performed by Dr. Cordero at [facility] on 12/05/2024, patient follows Dr. Mckeon currently), neurogenic bladder (secondary to laminectomy performed back in 2002, patient self catheterizes), incarcerated left femoral hernia status post hernia repair (01/29/2025), CKD stage IIIb (sees Dr. Coe for nephrology), chronic lower back pain, and varicose veins who presented to the ED the evening of 02/14/2025 with left lower extremity pain and swelling. S/p thrombectomy/stent with Dr. Mcconnell 02/19; S/P lymphocele drainage 02/20. Lymphocele catheter draining. Patient was recommended to be transferred, possibly tomorrow, per Dr. Mckeon, unsure of exact procedure, will follow up. #Extensive LLE DVT s/p thrombectomy & stents 02/19 Patient underwent mechanical computer-assisted vacuum thrombectomy of the left common femoral, superficial femoral, popliteal, peroneal, and greater saphenous vein on 02/07/25 Extensive thrombus of approximately 300-400 g was removed. The patient was discharged on Eliquis. Patient presented to ED with left lower extremity pain swelling and stiffness Venous Doppler showed extensive DVT involving the entire deep venous system. Likely provoked by post-surgical complication vs compression by lymphocele. CT AP: Moderate left hydronephrosis related to the recurrent lymphocele in the pelvis; Negative for significant obstructive arterial disease; Fluid-containing left inguinal hernia; Incidental note thrombus in the left popliteal, left superficial left common femoral veins with extensive edema in the subcutaneous tissues left lower extremity -Venogram 02/18 showed extensive occlusive thrombus, initiated IV thrombolytic infusion Plan: -Continue pain management. -Restarted heparin drip -will start eliquis on discharge -plavix 75 mg qd -He may benefit from a hypercoagulable panel at a later date. -Monitor for signs of bleeding. #Large pelvic cystic mass #Lymphocele s/p drainage - 8.8 cm s/p IR drainage 02/07/25 CT abdomen pelvis on 02/07/25 showed an 8 cm diameter mass pushing on the bladder and ureters causing hydronephrosis and iliac vein obstruction with external compression Patient underwent successful CT-guided percutaneous catheter drainage of the left pelvic lymphocele on 02/07/25 Patient had associated hydrocele prior to drainage, improved after drainage Again noted on USG today Lymphocele drained 02/20, has drainage catheter in place, drained some initially, less and less now though. Plan: -Was recommended to be transferred, possibly tomorrow, per Dr. Mckeon, unsure of exact procedure, will follow up. #Paroxysmal Atrial fibrillation Per chart review of patient's history Patient takes Eliquis [id number] score 3: Age over 75 (+2) Male (0) Vascular disease history (+1) Has bled score 2 Age over 65 (+1) Medication use predisposing to bleeding (+1) Plan: -restarted heparin drip -plan to start eliquis on discharge #Hypothyroidism Thyroid labs within normal limits on 02/05/2025 Plan: -Continue home levothyroxine 125 mcg daily #CKD Stage IIIa Follows nephrology Dr. Coe Creatinine 1.3 on admission and appears to be his baseline BUN 17 Plan: Renally dose medications Avoid nephrotoxic agents Follow-up outpatient nephrology #Chronic lower back pain Per patient history Plan: -Pain management as needed #Incarcerated L inguinal hernia s/p repair 01/29/25 #Prostate cancer s/p radical prostatectomy 12/05/2024 Per chart review patient's history Plan: -No direct invention at this time DVT ppx: Heparin -> eliquis yenifer GI ppx: Pantoprazole 40 mg IV daily Diet: Regular IV lines: Peripheral IVs Code status: Full code Dispo: med surg - s/p thrombectomy with stents & s/p lymphocele drainage Patient plan of care was discussed with the attending physician, Dr. Earl & senior resident Dr. Justina Russo MD PGY-1 Attending Provider Attestation/Addendum I have examined the patient, reviewed labs and imaging findings, discussed the case with the resident(s), and reviewed entered orders. I agree with the plan of care as outlined in this note. Dr. Mady MD
--- NOTE | 2025-02-21 15:21 | PC.NURSE ---
Per Pharmacist Yandy need a PTT draw now, cannot use [address] Russo aware and PTT ordered. Alvaro in lab aware of PTT order STAT.
[2025-02-21 15:46] LABS: Hematocrit 26.7 % (41.0-53.0)
[2025-02-21 15:48] LABS: Hemoglobin 8.7 g/dL (13.5-16.0)
[2025-02-21 16:05] LABS: Partial Thromboplastin Time 29.8 Seconds (22.0-36.0)
--- NOTE | 2025-02-21 17:01 | PC.PT ---
Patient is safe to ambulate to the bathroom and in the halls with 1 staff and a FWW. RN made aware.
[2025-02-21] MEDS: Heparin/D5w 25K 250 ML Ivpb 25,000 UNIT/250 ML BAG 13.002 UNIT IV (17:03)
[2025-02-21] MEDS: HEPARIN SOD INJ 5000 UNIT/ML VIAL 2900 UNIT IV (17:03)
--- NOTE | 2025-02-21 17:08 | ESPR_ITS ---
<Statement entered by Jose E Mcconnell MD - 02/21/25 23:37> I personally examined evaluated the patient who had extensive problems with following prostate surgery patient developed extensive deep vein thrombosis and left iliac occlusion complete occlusion underwent successful thrombectomy post thrombectomy patient is feeling better but has a lot of pain still. Lymphocele drainage was performed yesterday close to a liter of fluid came out but appears to have clotted up now does not know whether this is reaccumulating Patient had extensive problems and complication following robotic proximal surgery including recurrent lymphocele discussed with Dr. 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 I removed the suture at the pursestring suture that was placed for venous thrombectomy 2 days ago with no problems no bleeding is detected. Patient will continue IV heparin since the patient may require multiple procedures or surgeries for the lymphocele and subsequently switch to Eliquis. Because patient had multiple stents in the iliac veins Plavix should be continued for about 30 days afterwards can be discontinued once the heparin indication is over 10 we will switch to Eliquis without discharge. Documentation for date of: 02/21/25 Subjective Subjective Interval history: 02/18: Patient examined at bedside. Has no major complaints. Likely feeling well not endorsing any pain in lower extremity. He received local alteplase in left leg preemptively for thrombectomy tomorrow. Venogram done this morning showed extensive occlusive thrombus in the left lower extremity. Plan for iliac venous stent placement tomorrow and mechanical thrombectomy as previously done. Patient to be n.p.o. at midnight and discontinue heparin and Cathflo at 6 AM. 02/19: Patient examined at bedside. He underwent mechanical thrombectomy this morning after receiving alteplase/heparin yesterday. Significant amount of clot retrieved and successful placement of 2 iliac venous stents. Imaging had shown almost complete occlusion preprocedure. Post procedure, patient has some pain but no bleeding from site. Continue pain management. Plan to repeat CBC at 6 PM tonight. If hemoglobin less than 8 transfuse 1 unit PRBC. He will undergo IR CT-guided drain of pelvic lymphocele tomorrow morning. Plan to hold heparin at 6 AM and resume heparin 2 hours postprocedure. Patient will be transition to Eliquis the following day. Encouraged patient to ambulate lower extremity as tolerated. Vitals reviewed, stable. 02/20: Patient seen at bedside. Pain in left lower extremity improving from yesterday. No active bleeding from site of thrombectomy. This morning he underwent placement of a percutaneous catheter drain in pelvic region. For treatment of recurring lymphocele. The drain has output of 200cc. Vitals are stable, hemoglobin stable around 8 after blood loss of 350cc from thrombectomy yesterday. Continue to monitor while inpatient. If less than 8 transfuse 1 unit PRBC. Started on Plavix 75 mg daily s/p bare metal sent in left external iliac vein and left common iliac vein. 02/21: Today patient is doing better. His LE pain is improving but hip pain is worse. Per nursing, output in drain has been about 40cc. There is concern about blockage in catheter and possible reaccumulation of fluid again in pelvis. Urology stated that patient will need to be transferred for masrupial procedure. As treatment for pelvic lymphocele that reoccurs. He can be started on heparin drip in anticipation for potential procedure. Hemoglobin down trended to 7.3. He had received 1 units PRBC today. Vitals are stable, creatinine 1.2, magnesium 1.6. Replete magnesium with 4 g. Cotinue Plavix. Exam Vital Signs Temp Pulse Resp BP Pulse Ox O2 Del Method O2 Flow Rate 98.7 F 95 15 145/67 H 97 Room Air 3 02/21/25 15:00 02/21/25 15:00 02/21/25 15:00 02/21/25 15:00 02/21/25 15:00 02/21/25 12:00 02/20/25 11:10 Narrative Exam General: Alert and oriented x3. No acute distress, cooperative HEENT: NCAT, No JVD noted. Mucosa moist. Pupils are equal and reactive to light bilaterally Cardiovascular: Normal S1 and S2. Regular rate and rhythm. Respiratory: Lungs are clear to auscultation bilaterally. No wheezing or crackles heard. Abdomen: Soft, nontender, not distended, normal bowel sounds. Percutaneous cath draining in bag. Skin: Warm to touch, dry, no rashes noted Musculoskeletal: No gross injuries. Able to move all 4 extremities. No pitting edema. Right lower extremity varicose veins, no erythema or swelling in left lower extremity. IV cath flow in left foot removed, no bleeding from site of procedure, tenderness to palpation Neuro: Alert and oriented x3. No focal neuro deficits. Psych: Normal affect and mood Objective Labs 02/21/25 15:33 02/21/25 05:20 Labs: Laboratory Results - last 24 hr 02/19/25 02/21/25 02/21/25 12:00 05:20 15:33 WBC 5.9 RBC 2.41 L Hgb 7.3 L 8.7 L Hct 22.2 L 26.7 L MCV 92 MCH 30.3 MCHC 32.9 RDW Std Deviation 48.5 H Plt Count 244 D Neut % (Auto) 60 Lymph % (Auto) 20 Overton % (Auto) 15 H Eos % (Auto) 5 Baso % (Auto) 0 Neut # (Auto) 3.5 Lymph # (Auto) 1.2 Overton # (Auto) 0.9 H Eos # (Auto) 0.3 Baso # (Auto) 0.0 Immature Gran # (Auto) 0.01 H Absolute Nucleated RBC 0.00 Immature Gran % 0 Nucleated RBC % 0 APTT 33.3 D 29.8 Sodium 142 Potassium 4.2 Chloride 107 Carbon Dioxide 27.4 Anion Gap 8 BUN 17 Creatinine 1.2 Estim Creat Clear Calc 50.7 L eGFR > 60 BUN/Creatinine Ratio 14 Glucose 108 H Calculated Osmolality 285 Calcium 8.3 Corrected Calcium 8.9 Phosphorus 3.3 Magnesium 1.6 Total Bilirubin 0.3 AST 12 ALT 10 Alkaline Phosphatase 74 Total Protein 5.4 L Albumin 3.3 L Globulin 2.1 L Albumin/Globulin Ratio 1.6 Blood Type A Positive Antibody Screen NEGATIVE Crossmatch See Detail Blood Bank Wristband ID Yes Quality Measures Quality Measures VTE therapy Advance care planning discussed with:: patient Assessment & Plan Assessment Current Active Medications: Generic Name Dose Route Start Last Admin Trade Name Freq PRN Reason Stop Dose Admin Acetaminophen 650 mg 02/15/25 00:38 Acetaminophen 325 Mg Tablet PO 03/17/25 00:37 Q6H PRN Fever >100.4 Clopidogrel Bisulfate 75 mg 02/20/25 09:00 02/21/25 09:15 Clopidogrel Bisulfate 75 Mg Tablet PO 03/22/25 08:59 75 mg QDAY BETH Administration Cyclobenzaprine HCl 10 mg 02/15/25 22:05 02/20/25 23:45 Cyclobenzaprine 5 Mg Tablet PO 03/17/25 22:04 10 mg BID PRN Administration MUSCLE SPASMS Heparin Sodium/Dextrose 25,000 unit in 250 mls @ 13.002 mls/hr 02/21/25 12:00 02/21/25 17:03 Heparin In D5w Ivpb IV 03/07/25 11:59 18 units/kg/hr .[id number] BETH 13.002 mls/hr Protocol Administration 18 UNITS/KG/HR Levothyroxine Sodium 125 mcg 02/17/25 06:00 02/21/25 05:16 Levothyroxine Sodium 125 Mcg Tablet PO 03/19/25 05:59 125 mcg 0600 BETH Administration Lorazepam 1 mg 02/20/25 22:51 02/20/25 23:45 Lorazepam 0.5 Mg Tablet PO 02/25/25 22:50 1 mg HS PRN Administration AGITATION OR ANXIETY Morphine Sulfate 1 mg 02/19/25 15:41 02/21/25 09:14 Morphine Sulf Inj 4 Mg/Ml Vial IVP 02/24/25 15:40 1 mg Q4HR PRN Administration severe pain Protocol Ondansetron HCl 4 mg 02/15/25 00:38 Ondansetron Inj 2 Mg/Ml Inj 2 Ml IVP 03/17/25 00:37 Q6H PRN NAUSEA OR VOMITING Protocol Pantoprazole Sodium 40 mg 02/15/25 09:00 02/21/25 09:21 Pantoprazole Inj 40 Mg Vial IVP 03/17/25 08:59 40 mg QDAY BETH Administration Plan Patient 74-year-old male with a history of hypothyroidism, arthritis, prostate cancer status post radical prostatectomy (performed by Dr. Cordero at [facility] on 12/05/2024, patient follows Dr. Mckeon currently), neurogenic bladder (secondary to laminectomy performed back in 2002, patient self catheterizes), incarcerated left femoral hernia status post hernia repair (01/29/2025), CKD stage IIIb (sees Dr. Coe for nephrology), chronic lower back pain, and varicose veins who presented to the ED the evening of 02/14/2025 with left lower extremity pain and swelling. Cardiology consulted for possible thrombectomy of DVT. 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 #Inguinal hernia with fluid present. Patient underwent mechanical computer-assisted vacuum thrombectomy of the left common femoral, superficial femoral, popliteal, peroneal, and greater saphenous vein on 02/07/25 Extensive thrombus of approximately 300-400 g was removed. The patient was discharged on Eliquis. Patient presented to ED with left lower extremity pain swelling and stiffness Venous Doppler showed extensive DVT involving the entire deep venous system. Venogram done 02/18--extensive occlusive thrombus in the left lower extremity. 02/19--s/p thrombectomy and placement of 2 venous stents. 02/20--placement of a percutaneous catheter drain in pelvic region -start heparin drip in anticipation for possible marsupial procedure -Started on Plavix 75 mg daily - If Hb less than 8, transfuse 1 unit. -IV pain mgmt #Large pelvic cystic mass - 8.8 cm s/p IR drainage 02/07/25 CT abdomen pelvis on 02/07/25 showed an 8 cm diameter mass pushing on the bladder and ureters causing hydronephrosis and iliac vein obstruction with external compression Patient underwent successful CT-guided percutaneous catheter drainage of the left pelvic lymphocele on 02/07/25 Patient had associated hydrocele prior to drainage, improved after drainage Again noted on USG today -CTA shows recurrence of lymphocele and pelvis Incidental note thrombus in the left popliteal, left superficial left commol femoral veins with extensive edema in the subcutaneous tissues left lower extremity -planning for transfter as recommended by urology #Paroxysmal Atrial fibrillation Per chart review of patient's history Patient takes Eliquis [id number] score 3: Age over 75 (+2) Male (0) Vascular disease history (+1) Has bled score 2 Age over 65 (+1) Medication use predisposing to bleeding (+1) Plan: Continue heparin gtt. and does not appear to take any rate or rhythm control medications at this time. #Hypothyroidism #CKD Stage IIIa #Chronic lower back pain #Incarcerated L inguinal hernia s/p repair 01/29/25 #Prostate cancer s/p radical prostatectomy 12/05/2024 Primary care team to manage above conditions and ongoing care needs. The patient's management plan was discussed with my attending physician Dr. Mcconnell. Candace Danielson, PGY-2
--- NOTE | 2025-02-21 17:25 | PC.CC ---
Addendum entered by Moris Egan RN 02/21/25 20:22: 0815: completed uploading all images via gamaliel link. Called [facility], left to inform them of images being uploaded also with contact information for Med surg. Spoke to DALLAS Clemons and hand off report given Addendum entered by Moris Egan RN 02/21/25 17:30: 1701: received SpecifiedBy link. will create CD Original Note: [id number]: multiple calls made to [facility] transfer center, unable to leave a or reach the transfer center. @ 1658: i finally got through, intake initiate. email will be sent to me. Nurse will call back 1604: clinicals sent to [facility]. 1531: received order for transfer for urology for marsupialiation of left pelvic lymphocele. Per Dr. Earl, the DVT's are secondary to the pelvic lymphocele.
--- NOTE | 2025-02-21 19:04 | PC.NURSE ---
Dr. Mcconnell at beside, aware of appearance of clot at opening of drain site. assessed and is concerned drain is clotted. awaiting visit from Dr. Estrada to discuss plans for transfer. Plans to transfer to [facility] vs [facility]. no new orders at this time.
[2025-02-21 23:52] LABS: Partial Thromboplastin Time 67.1 Seconds (22.0-36.0)
[2025-02-22] VITALS: BP 126/84; PULSE 92; RESP 15; TEMP 36.9; O2SAT 98
[2025-02-22] MEDS: HYDROcodone/APAP 5/325 TABLET 1 TAB PO ×4 (00:43→15:29)
[2025-02-22] MEDS: MELATONIN 3 MG TABLET 6 MG PO (02:52)
[2025-02-22 04:00] VITALS: BP 104/73; PULSE 82; RESP 17; TEMP 36.7; O2SAT 95
[2025-02-22] MEDS: MORPHINE SULF INJ 4 MG/ML VIAL 1 MG IVP (04:09)
[2025-02-22] MEDS: LEVOTHYROXINE SODIUM 125 MCG TABLET PO (05:03)
--- NOTE | 2025-02-22 07:29 | PC.CC ---
Addendum entered by Moris Egan RN 02/22/25 18:11: ambulance transport arranged for orange picker machine operator of [address]. received orders from Dr. Earl to discontinue cardiac monitoring on transfer and to discontinue heparin gtt on transfer. Update provided to bedside nurse Trent and CN Anatoly. Transfer packet w/ 1CD taken to the floor. Addendum entered by Moris Egan RN 02/22/25 17:10: 1703: received email and call with bed information. Bed will be available at 2100. will arrange transport 1. ?Unit and Room Number: [id number];?9307A 2. Telephone Number for Report: [phone] 3.?Room is available at 02/22/2025, 9:00 PM?and will not be ready to safely?accommodate patient before this time 4. Arrange ambulance to arrive at?[address] [place] [address] Addendum entered by Moris Egan RN 02/22/25 15:32: 1520: received call from Ana Rosa w/ [facility]. She informed me that pt has been financially cleared. She will now request for a bed and keep us posted Addendum entered by Moris Egan RN 02/22/25 13:43: 1340: spoke to FRANK Cordova at [facility] to f/u on insurance auth, she stated her medical advisor approved auth. She will have ancillary staff create auth and send it to [facility]. [facility] contact info provided. Addendum entered by Moris Egan RN 02/22/25 12:51: 1020: Signed TBA sent to [facility]. Per Ana Rosa, pt is pending financial clearance and bed. Addendum entered by Moris Egan RN 02/22/25 09:10: 0900: Dr. Earl and Dr. Pina discussed the medical necessity of transfer, Dr. Pina accepted at 0902. 0857: received call from Ana Rosa for peer to peer. She was unable to reach Dr. Earl. I called Dr. Earl and informed him that peer to peer is requested. Addendum entered by Moris Egan RN 02/22/25 08:51: 0843: called [facility], spoke to FRANK Cordova to inform her of the transfer request for Urology services for marsupialization of left pelvic lymphocele. Per Dr. Earl, recurrent DVTS are secondary to the left pelvic lymphocele. Dr. Mckeon recommends pt goes back to [facility] since he had a previous procedure at [facility] on 12/05/24. Tasha stated she will present to her student support services director Dr. Nunn. Addendum entered by Moris Egan RN 02/22/25 08:43: 0830 received call from Ana Rosa from [facility]. i confirmed receipt of TBA. Per Ana Rosa, need to obtain insurance auth. 0813: received TBA via email from [facility]. Original Note: 1125: Called [facility] to f/u on transfer request, left to return my call.
[2025-02-22 08:00] VITALS: BP 106/66; PULSE 59; PULSE 95; RESP 18; TEMP 36.6; O2SAT 97
[2025-02-22] MEDS: CLOPIDOGREL BISULFATE 75 MG TABLET PO (08:35)
[2025-02-22 09:48] LABS: Basophils # (Auto) 0.0 Thou/mm3 (0.0-0.2); Basophils % (Auto) 1 % (0-2.5); Eosinophils # (Auto) 0.2 Thou/mm3 (0.0-0.5); Eosinophils % (Auto) 3 % (0-10); Hematocrit 26.1 % (41.0-53.0); Immature Granulocytes Auto 0.02 Thou/mm3 (0.00-0.00); Lymphocytes # (Auto) 1.1 Thou/mm3 (1.0-4.8); Lymphocytes % (Auto) 19 % (10-50); Mean Corpuscular HGB Conc 32.6 g/dl (31.0-37.0); Mean Corpuscular Hemoglobin 29.4 pg (25.0-35.0); Mean Corpuscular Volume 90 fL (80-100); Monocytes # (Auto) 0.9 Thou/mm3 (0.0-0.8); Monocytes % (Auto) 15 % (0-12); Neutrophils # (Auto) 3.9 Thou/mm3 (1.8-7.7); Neutrophils % (Auto) 63 % (37-80); Nucleated Red Blood Cell # 0.00 Thou/mm3 (0.00-0.00); Nucleated Red Blood Cell % 0 /100 WBC (0); Platelet Count 239 Thou/mm3 (140-440); RDW Standard Deviation 51.0 fL (35.1-43.9); Red Blood Count 2.89 Miln/mm3 (4.50-5.90); White Blood Count 6.2 Thou/mm3 (3.8-10.6)
[2025-02-22 09:49] LABS: Hemoglobin 8.5 g/dL (13.5-16.0)
[2025-02-22 10:15] LABS: Alanine Aminotransferase 11 U/L (10-49); Albumin, Serum 3.1 gm/dL (3.4-4.8); Albumin/Globulin Ratio 1.5 (1.2-2.2); Alkaline Phosphatase 74 U/L (46-116); Anion Gap 9 (7-16); Aspartate Amino Transferase 12 U/L (0-34); BUN/Creatinine Ratio 16 Ratio (12-20); Bilirubin,Total 0.4 mg/dL (0.3-1.2); Blood Urea Nitrogen 21 mg/dL (9-23); Calcium 8.3 mg/dL (8.3-10.6); Calcium (Corrected) 9.0 mg/dL (8.5-10.1); Carbon Dioxide 25.3 mMol/L (20.0-31.0); Chloride 105 mMol/L (98-107); Creatinine (Component) 1.3 mg/dL (0.6-1.3); Estimated Creatinine Clearance 46.8 mL/min (>60); Globulin 2.1 gm/dL (2.3-3.5); Glucose 127 mg/dL (74-106); Osmolality,Calculated 282 (275-295); Potassium 4.4 mMol/L (3.4-5.1); Sodium 139 mMol/L (136-145); Total Protein 5.2 gm/dL (5.7-8.2); eGFR 57 See Note
[2025-02-22 10:16] LABS: INR 1.0 (0.9-1.3); Partial Thromboplastin Time 64.0 Seconds (22.0-36.0); Prothrombin Time 10.9 Seconds (9.0-12.2)
--- NOTE | 2025-02-22 10:53 | ESDS_ITS ---
<Statement entered by Mandie William MD - 02/22/25 16:26> Patient was seen and examined at bedside. Continues to be on heparin drip. Senior Auditor Dr. Chavez recommended to transfer the patient to [facility] to address his pelvic lymphocele which is the reason for his iliac vein compression and thrombosis. Dr. Mckeon on board on this decision. Dr. Cordero from [facility] accepted the patient. Spoke with the welfare case worker mentioned that the patient still pending financial authorization and bed availability. - Patient's plan and care discussed with my attending, Dr. Mady William MD Internal Medicine PGY-3 Planned Discharge Date 02/22/25 DS: Providers Provider Date of admission: 02/15/25 00:38 Primary care physician: Jose Nunn MD Admitting Provider: Padmini Hardy MD Attending Provider on Admission: Kathleen Steele DO Consults: 02/14/25 22:56 Consult to Cardiology Stat Comment: Consulting Provider: Jose E Chavez 02/15/25 02:37 Referral Infection Control Routine Comment: Reason for Infection Control Referral: Readmitted within 30 days 02/18/25 17:30 Consult to Urology Routine Comment: Lymphocele evaluation Consulting Provider: Arlet Mckeon 02/20/25 16:18 Referral Physical Therapy Routine Comment: Physician Instructions: 02/21/25 15:31 Referral - Budget Technician Routine Service Needed for Transfer: Urology Addl Comments:: Patient found to have Left Pelvic Lymphocele 8.[address] 01/07/2025 which was drained by IR 02/07/2025. Abdomen CTA 02/15/2025 showed Moderate Left hydronephrosis likely related to recurrent lymphocele in pelvis. Pelvic lymphocele drained again on 02/20. Urologist Dr. Mckeon recommended patient be transferred to [facility] for marsupialization of Left pelvic lymphocele Attending Provider on DC: Slava Earl MD Discharging Provider: Slava Earl MD DS: Diagnosis Problem List Completed Was Problem List Reviewed/Reconciled?: Yes Hospital Course Hospital Course Hospital course: 74-year-old male with a history of hypothyroidism, arthritis, prostate cancer status post radical prostatectomy (performed by Dr. Cordero at [facility] on 12/05/2024, patient follows Dr. Mckeon currently), neurogenic bladder (secondary to laminectomy performed back in 2002, patient self catheterizes), incarcerated left femoral hernia status post hernia repair (01/29/2025), CKD stage IIIb (sees Dr. Coe for nephrology), chronic lower back pain, and varicose veins who presented to the ED at [facility] the evening of 02/14/2025 with left lower extremity pain and swelling. Patient recenetly underwent mechanical computer-assisted vacuum thrombectomy of the left popliteal vein and left femoral vein and the left external iliac vein on 02/07/2025. Extensive thrombus of approximately 300- 400 g was removed. The patient was discharged on Eliquis. On presentation this admission, the patient was found to have recurrent DVT involving the entire deep venous system. Patient endorsed pain and swelling in the left lower extremity. Patient was started on heparin drip and underwent mechanical thrombectomy. Significant amount of clot was retrieved and successful placement of 2 iliac venous stents. Imaging had shown almost complete occlusion preprocedure. Post procedure, patient has some pain but no bleeding from site. Continue pain management. Discharge Instructions: - Patient being transferred to Dr. Cordero at [facility] for marsupialization of Left pelvic lymphocele ? Take clopidogrel 75 mg daily and also take eliquis 5 mg twice per day for one month ? Continue taking all other home medications as prescribed ? Follow-up with PCP within 1-2 weeks of discharge ? FOLLOW-UP WITH DR. CHAVEZ BEFORE THE ? If you do not have a PCP, you can follow-up at the [facility] (you can call [phone] to make an appointment) ? Return to ED if symptoms worsen or recur #Extensive LLE DVT s/p thrombectomy & stents 02/19 #Large pelvic cystic mass #Lymphocele s/p drainage #Paroxysmal Atrial fibrillation #Hypothyroidism #CKD Stage IIIa #Chronic lower back pain #Incarcerated L inguinal hernia s/p repair 01/29/25 #Prostate cancer s/p radical prostatectomy 12/05/2024 Patient plan of care was discussed with the attending physician, Dr. Earl & senior resident Dr. Stewart Russo MD PGY-1 Time Spent with Patient Time attestation: Total time spent providing and/or coordinating discharge services: Time spent: Greater than 30 minutes Exam Vital Signs Temp Pulse Resp BP Pulse Ox O2 Del Method O2 Flow Rate 97.8 F 59 L 18 106/66 97 Room Air 3 02/22/25 08:00 02/22/25 08:00 02/22/25 08:00 02/22/25 08:00 02/22/25 08:00 02/22/25 04:00 02/20/25 11:10 Narrative Exam General: No acute distress; A&Ox3 Skin: Warm, dry, intact, no obvious rash. HENT: NCAT, EOMI/PERRL, not icteric. External ears normal. No rhinorrhea. Moist mucous membranes Cardiovascular: Regular rate and rhythm, no murmur, +S1/S2. Respiratory: Lungs CTAB GI: Soft, nontender, non-distended. No guarding or rebound tenderness. Lymphocele drain in place : No suprapubic tenderness. No flank tenderness bilaterally. Extremities: LLE swolen, non-tender, 1+pitting edema, warm to touch, pulses present. Right lower extremity notable for varicose veins (L-side as well, but less noticeable) Neuro: Grossly nonfocal. Moving all 4 extremities. CN not formally tested but appear grossly intact. Psychiatric: Cooperative, appropriate affect. Discharge Plan Plan Patient Disposition: [facility] Facility Pt Being Transferred to: [facility] Service Needed for Transfer: Urology Patient condition on transfer: Stable Care Plan Goals: - Patient being transferred to Dr. Cordero at [facility] for marsupialization of Left pelvic lymphocele ? Take clopidogrel 75 mg daily and also take eliquis 5 mg twice per day for one month ? Continue taking all other home medications as prescribed ? Follow-up with PCP within 1-2 weeks of discharge ? FOLLOW-UP WITH DR. CHAVEZ BEFORE THE ? If you do not have a PCP, you can follow-up at the [facility] (you can call [phone] to make an appointment) ? Return to ED if symptoms worsen or recur Prescriptions/Referrals Prescriptions/Med Rec: New clopidogrel 75 mg Tablet 75 mg PO QDAY 30 Days Qty: 30 0RF Eliquis 5 mg tablet 5 mg PO BID 30 Days Qty: 60 0RF Continued lorazepam 1 mg tablet 1 mg PO .PRN cyclobenzaprine 10 mg tablet 1 tab PO DAILY levothyroxine 125 mcg Tablet 125 mcg PO QDAY tramadol 50 mg tablet 50 mg PO Q8H PRN (Reason: pain) Patient Comments: TAKE 1 TABLET BY MOUTH 3 TIMES A DAY NEEDED FOR BACK PAIN M54.50 psyllium husk [Daily Fiber] 0.4 gram capsule 0.4 g PO QDAY prednisone 20 mg tablet 20 mg PO QDAY PRN (Reason: stiffness) Patient Comments: TAKE 1 TABLET BY MOUTH EVERY DAY Rx Instructions: 20 mg orally PRN; diclofenac sodium [Arthritis Pain (diclofenac)] 1 % gel 2 g topical QID Rx Instructions: apply to single elbow, wrist or hand; for hand includes palm/fingers/back of hand Discontinued Eliquis DVT-PE Treat 30D Start 5 mg (74 tabs) tablets,dose pack 5 mg PO BID Qty: 74 0RF Referrals: Jose Nunn MD [Primary Care Provider, Family Practice] Patient/Caregiver Discharge Instructions Print Language: Arabic Stand Alone Forms: Leydi Award Info., Patient Portal Info Letter Discharge Order Discharge Orders: Discharge (Routine); Ordered 02/22/25 Ordered By: Tim Gonzalez Quality Discharge Quality Measures VTE prophylaxis Attestestation MD Attestation I have examined the patient, reviewed labs and imaging findings, discussed the case with the resident(s), and reviewed entered orders. I agree with the plan of care as outlined in this note. Time Spent: [address] Mady MD
[2025-02-22 12:00] VITALS: BP 115/71; PULSE 100; PULSE 90; RESP 18; TEMP 36.4; O2SAT 96
[2025-02-22] MEDS: Heparin/D5w 25K 250 ML Ivpb 25,000 UNIT/250 ML BAG 13.002 UNIT IV (13:06)
[2025-02-22 15:52] LABS: Partial Thromboplastin Time 37.6 Seconds (22.0-36.0)
[2025-02-22 16:00] VITALS: BP 119/86; PULSE 86; PULSE 88; RESP 19; TEMP 36.4; O2SAT 95
--- NOTE | 2025-02-22 17:48 | ESPR_ITS ---
<Statement entered by Jose E Mcconnell MD - 02/23/25 18:48> I personally examined evaluate this patient who has had extensive deep vein thrombosis iliac vein stent placement also lymphocele following prostate surgery robotic prostatectomy at [facility] after successful stent placement iliac veins swelling improved he has been placed on heparin and Plavix to be given for 30 days patient has lymphocele recurrent event despite drainage more than 800 to 900 cc fluid removal will be transferring to the [facility] try tonight for a possible marsupialization of the lymphocele. Elevated the patient resident physician treatment plan discussed patient can stop heparin during transfer and resume when he arrives at [facility] recommended him to continue IV heparin until procedure after that switch to Eliquis also continue clopidogrel because of stent for 30 days Documentation for date of: 02/22/25 Subjective Subjective Interval history: 02/18: Patient examined at bedside. Has no major complaints. Likely feeling well not endorsing any pain in lower extremity. He received local alteplase in left leg preemptively for thrombectomy tomorrow. Venogram done this morning showed extensive occlusive thrombus in the left lower extremity. Plan for iliac venous stent placement tomorrow and mechanical thrombectomy as previously done. Patient to be n.p.o. at midnight and discontinue heparin and Cathflo at 6 AM. 02/19: Patient examined at bedside. He underwent mechanical thrombectomy this morning after receiving alteplase/heparin yesterday. Significant amount of clot retrieved and successful placement of 2 iliac venous stents. Imaging had shown almost complete occlusion preprocedure. Post procedure, patient has some pain but no bleeding from site. Continue pain management. Plan to repeat CBC at 6 PM tonight. If hemoglobin less than 8 transfuse 1 unit PRBC. He will undergo IR CT-guided drain of pelvic lymphocele tomorrow morning. Plan to hold heparin at 6 AM and resume heparin 2 hours postprocedure. Patient will be transition to Eliquis the following day. Encouraged patient to ambulate lower extremity as tolerated. Vitals reviewed, stable. 02/20: Patient seen at bedside. Pain in left lower extremity improving from yesterday. No active bleeding from site of thrombectomy. This morning he underwent placement of a percutaneous catheter drain in pelvic region. For treatment of recurring lymphocele. The drain has output of 200cc. Vitals are stable, hemoglobin stable around 8 after blood loss of 350cc from thrombectomy yesterday. Continue to monitor while inpatient. If less than 8 transfuse 1 unit PRBC. Started on Plavix 75 mg daily s/p bare metal sent in left external iliac vein and left common iliac vein. 02/21: Today patient is doing better. His LE pain is improving but hip pain is worse. Per nursing, output in drain has been about 40cc. There is concern about blockage in catheter and possible reaccumulation of fluid again in pelvis. Urology stated that patient will need to be transferred for masrupial procedure. As treatment for pelvic lymphocele that reoccurs. He can be started on heparin drip in anticipation for potential procedure. Hemoglobin down trended to 7.3. He had received 1 units PRBC today. Vitals are stable, creatinine 1.2, magnesium 1.6. Replete magnesium with 4 g. Cotinue Plavix. 02/22: Patient is comfortable, pain in leg improving. Hb today 8.5 after transfusion yesterday. [facility] has accepted patient for transfer. Will under go marsupialization of Left pelvic lymphocele. He should continue Eliquis 5mg BID post procedure and remain on Plavix for one month. Follow up in my clinic after discharge. Exam Vital Signs Temp Pulse Resp BP Pulse Ox O2 Del Method O2 Flow Rate 97.6 F 100 18 115/71 96 Room Air 3 02/22/25 12:02/22/25 12:02/22/25 12:02/22/25 12:02/22/25 12:02/22/25 12:02/20/25 11:10 Narrative Exam General: Alert and oriented x3. No acute distress, cooperative HEENT: NCAT, No JVD noted. Mucosa moist. Pupils are equal and reactive to light bilaterally Cardiovascular: Normal S1 and S2. Regular rate and rhythm. Respiratory: Lungs are clear to auscultation bilaterally. No wheezing or crackles heard. Abdomen: Soft, nontender, not distended, normal bowel sounds. Percutaneous cath draining in bag. Skin: Warm to touch, dry, no rashes noted Musculoskeletal: No gross injuries. Able to move all 4 extremities. No pitting edema. Right lower extremity varicose veins, no erythema or swelling in left lower extremity. IV cath flow in left foot removed, no bleeding from site of procedure, tenderness to palpation Neuro: Alert and oriented x3. No focal neuro deficits. Psych: Normal affect and mood Objective Labs 02/22/25 09:15 02/22/25 09:15 Labs: Laboratory Results - last 24 hr 02/21/25 02/22/25 02/22/25 23:15 09:15 15:24 WBC 6.2 RBC 2.89 L Hgb 8.5 L Hct 26.1 L MCV 90 MCH 29.4 MCHC 32.6 RDW Std Deviation 51.0 H Plt Count 239 Neut % (Auto) 63 Lymph % (Auto) 19 Mcduffie % (Auto) 15 H Eos % (Auto) 3 Baso % (Auto) 1 Neut # (Auto) 3.9 Lymph # (Auto) 1.1 Mcduffie # (Auto) 0.9 H Eos # (Auto) 0.2 Baso # (Auto) 0.0 Immature Gran # (Auto) 0.02 H Absolute Nucleated RBC 0.00 Immature Gran % 0 Nucleated RBC % 0 PT 10.9 INR 1.0 APTT 67.1 H D 64.0 H 37.6 H D Sodium 139 Potassium 4.4 Chloride 105 Carbon Dioxide 25.3 Anion Gap 9 BUN 21 Creatinine 1.3 Estim Creat Clear Calc 46.8 L eGFR 57 L BUN/Creatinine Ratio 16 Glucose 127 H Calculated Osmolality 282 Calcium 8.3 Corrected Calcium 9.0 Total Bilirubin 0.4 AST 12 ALT 11 Alkaline Phosphatase 74 Total Protein 5.2 L Albumin 3.1 L Globulin 2.1 L Albumin/Globulin Ratio 1.5 Quality Measures Quality Measures VTE prophylaxis Advance care planning discussed with:: patient Assessment & Plan Assessment Current Active Medications: Generic Name Dose Route Start Last Admin Trade Name Freq PRN Reason Stop Dose Admin Acetaminophen 650 mg 02/15/25 00:38 Acetaminophen 325 Mg Tablet PO 03/17/25 00:37 Q6H PRN Fever >100.4 Hydrocodone Bitart/Acetaminophen 1 tab 02/21/25 18:04 02/22/25 15:29 Hydrocodone/Apap 5/325 Tablet PO 02/26/25 18:03 1 tab Q4HR PRN Administration Pain 4-10 Clopidogrel Bisulfate 75 mg 02/20/25 09:00 02/22/25 08:35 Clopidogrel Bisulfate 75 Mg Tablet PO 03/22/25 08:59 75 mg QDAY BETH Administration Cyclobenzaprine HCl 10 mg 02/15/25 22:05 02/21/25 23:44 Cyclobenzaprine 5 Mg Tablet PO 03/17/25 22:04 10 mg BID PRN Administration MUSCLE SPASMS Heparin Sodium/Dextrose 25,000 unit in 250 mls @ 13.002 mls/hr 02/21/25 12:00 02/22/25 13:06 Heparin In D5w Ivpb IV 03/07/25 11:59 18 units/kg/hr .[id number] BETH 13.002 mls/hr Protocol Administration 18 UNITS/KG/HR Levothyroxine Sodium 125 mcg 02/17/25 06:00 02/22/25 05:03 Levothyroxine Sodium 125 Mcg Tablet PO 03/19/25 05:59 125 mcg 0600 BETH Administration Lorazepam 1 mg 02/20/25 22:51 02/21/25 23:45 Lorazepam 0.5 Mg Tablet PO 02/25/25 22:50 1 mg HS PRN Administration AGITATION OR ANXIETY Morphine Sulfate 1 mg 02/19/25 15:41 02/22/25 04:09 Morphine Sulf Inj 4 Mg/Ml Vial IVP 02/24/25 15:40 1 mg Q4HR PRN Administration severe pain Protocol Ondansetron HCl 4 mg 02/15/25 00:38 Ondansetron Inj 2 Mg/Ml Inj 2 Ml IVP 03/17/25 00:37 Q6H PRN NAUSEA OR VOMITING Protocol Pantoprazole Sodium 40 mg 02/15/25 09:00 02/22/25 08:35 Pantoprazole Inj 40 Mg Vial IVP 03/17/25 08:59 40 mg QDAY BETH Administration Plan Patient 74-year-old male with a history of hypothyroidism, arthritis, prostate cancer status post radical prostatectomy (performed by Dr. Cordero at [facility] on 12/05/2024, patient follows Dr. Mckeon currently), neurogenic bladder (secondary to laminectomy performed back in 2002, patient self catheterizes), incarcerated left femoral hernia status post hernia repair (01/29/2025), CKD stage IIIb (sees Dr. Coe for nephrology), chronic lower back pain, and varicose veins who presented to the ED the evening of 02/14/2025 with left lower extremity pain and swelling. Cardiology consulted for possible thrombectomy of DVT. 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 #Inguinal hernia with fluid present. Patient underwent mechanical computer-assisted vacuum thrombectomy of the left common femoral, superficial femoral, popliteal, peroneal, and greater saphenous vein on 02/07/25 Extensive thrombus of approximately 300-400 g was removed. The patient was discharged on Eliquis. Patient presented to ED with left lower extremity pain swelling and stiffness Venous Doppler showed extensive DVT involving the entire deep venous system. Venogram done 02/18--extensive occlusive thrombus in the left lower extremity. 02/19--s/p thrombectomy and placement of 2 venous stents. 02/20--placement of a percutaneous catheter drain in pelvic region -start heparin drip in anticipation for possible marsupial procedure -Started on Plavix 75 mg daily -Eliquis 5mg BID after procedure - If Hb less than 8, transfuse 1 unit. -IV pain mgmt #Large pelvic cystic mass - 8.8 cm s/p IR drainage 02/07/25 CT abdomen pelvis on 02/07/25 showed an 8 cm diameter mass pushing on the bladder and ureters causing hydronephrosis and iliac vein obstruction with external compression Patient underwent successful CT-guided percutaneous catheter drainage of the left pelvic lymphocele on 02/07/25 Patient had associated hydrocele prior to drainage, improved after drainage Again noted on USG today -CTA shows recurrence of lymphocele and pelvis Incidental note thrombus in the left popliteal, left superficial left commol femoral veins with extensive edema in the subcutaneous tissues left lower extremity -planning for transfter as recommended by urology #Paroxysmal Atrial fibrillation Per chart review of patient's history Patient takes Eliquis [id number] score 3: Age over 75 (+2) Male (0) Vascular disease history (+1) Has bled score 2 Age over 65 (+1) Medication use predisposing to bleeding (+1) Plan: Continue heparin gtt. and does not appear to take any rate or rhythm control medications at this time. #Hypothyroidism #CKD Stage IIIa #Chronic lower back pain #Incarcerated L inguinal hernia s/p repair 01/29/25 #Prostate cancer s/p radical prostatectomy 12/05/2024 Primary care team to manage above conditions and ongoing care needs. The patient's management plan was discussed with my attending physician Dr. Mcconnell. Candace Danielson, PGY-2
[2025-02-22] MEDS: HEPARIN SOD INJ 5000 UNIT/ML VIAL 2900 UNIT IVP (17:55)
[2025-02-22 18:25] VITALS: BMI 13.0
--- NOTE | 2025-02-22 19:20 | PC.NURSE ---
Per Dr. Mcconnell, heparin drip discontinued for transfer to [facility]. To be resumed upon arrival to [facility]. Rafi EDWARDS at [facility] given report and Dr. Mcconnell's instructions to restart heparin drip and plavix upon arrival to [facility].
--- NOTE | 2025-02-22 20:51 | ESOP_ITS ---
RE: RAMIREZ MARTELL : 1950 DATE OF OPERATION: 02/22/2025 CHIEF COMPLAINT: 1. Prostate cancer, status post robotic-assisted radical prostatectomy and bilateral pelvic lymph node dissections done by Dr. Cordero at [facility] on 12/05/2024. Patient did very well. Subsequently, he developed DVT. He had vacuum thrombectomy done by Dr. Mcconnell of the left popliteal vein, left femoral vein, left external iliac vein on 02/07/2025. 2. He had a large lymphocele, left side. He had drainage done under CT guidance. About 300 mL of fluid was obtained. Patient has recurrence of the lymphocele again. He also complains of pain and swelling of left lower extremity. He had a CAT scan done, which revealed large lymphocele left pelvis and left hydronephrosis. Patient was admitted in the hospital for his DVT management. COMORBID CONDITION: 1. Neurogenic bladder secondary to laminectomy performed back in 2002. 2. Patient has been on intermittent catheterization due to neurogenic bladder. 3. He had incarcerated left femoral hernia, status post hernia repair done on 01/29/2025. 4. Chronic kidney disease stage IIIB; Dr. Coe is the market risk analyst who is taking care of it. 5. Chronic lower back pain. PHYSICAL EXAMINATION: General: Condition is satisfactory; orientation x3. HEENT: Normocephalic, atraumatic. Eyes: No anemia and jaundice. Neck: Supple. Trachea is central. Thyroid is not enlarged. Extremities: Revealed no edema, cyanosis, or clubbing. Lower extremity notable, larger than the right, with 2+ pitting edema, cold to the touch; surgical bandage is in place. Vital Signs: Stable. They are in HPI, in EMR. Chest: Symmetrical. Heart: Regular rate and rhythm. Abdomen: Soft, nondistended, nontender. CURRENT MEDICATIONS: 1. Eliquis 10 mg twice a day for 7 days, followed by 5 mg twice daily. 2. Cyclobenzaprine 1 tablet daily. 3. Diclofenac topical. 4. Levothyroxine 125 daily. 5. Lorazepam 1 mg as needed. 6. Prednisone 20 mg daily. 7. Fiber supplements. 8. Tramadol 50 mg q. 8 hours as needed. VARIOUS LAB: Serum sodium is 141, potassium 4.5, BUN is 17, creatinine is 1.3. Hemoglobin 8.9, hematocrit 27.7. RECOMMENDATION: Transfer to [facility] under Dr. Cordero. I have called the department and I have made arrangement for patient to be transferred to [facility]. He is going to need marsupialization of his lymphocele, left side. DT: 16:54:49 TT: 20:50:00 Ref: - TID: [id number]
== END 2025-02-22 19:29 | disposition short-term general hospital (02) | DRG 271 ==
LOC: SERX 22:55 → SERHOLD 02-15 01:09 → S3SX 02-15 02:17
PROVIDERS: Internal Medicine Cardiovascular Disease; Physician Assistant; Student in an Organized Health Care Education/Training Program; Admitting Provider Student in an Organized Health Care Education/Training Program; Emergency Provider Emergency Medicine; PCP Family Medicine; Visit Provider Internal Medicine
PROC: 04CD3ZZ Extirpation of Matter from Left Common Iliac Artery, Percutaneous Approach (ICD-10-PCS; principal; 2025-02-19 08:30)
DX: I82.412 Acute embolism and thrombosis of left femoral vein (principal); N13.30 Unspecified hydronephrosis; I82.432 Acute embolism and thrombosis of left popliteal vein; I82.422 Acute embolism and thrombosis of left iliac vein; Z87.891 Personal history of nicotine dependence; Z85.46 Personal history of malignant neoplasm of prostate; E03.9 Hypothyroidism, unspecified; Z90.79 Acquired absence of other genital organ(s); N18.32 Chronic kidney disease, stage 3b; I89.8 Other specified noninfective disorders of lymphatic vessels and lymph nodes; I48.0 Paroxysmal atrial fibrillation; N43.3 Hydrocele, unspecified; N31.9 Neuromuscular dysfunction of bladder, unspecified; I83.90 Asymptomatic varicose veins of unspecified lower extremity; G89.29 Other chronic pain; M54.50 Low back pain, unspecified; Z79.01 Long term (current) use of anticoagulants; Z79.890 Hormone replacement therapy
CPT/HCPCS: 36415; 75635; 75710; 75820; 75989; 80048; 80053; 83735; 84100; 85014; 85018; 85025; 85347; 85610; 85730; 86850; 86900; 86901; 86923; 87081; 93225; 93971; 97163; 99152; 99153; 99283; A4216; A4649; C1725; C1729; C1753; C1769; C1887; C1894; J0461; J1643; J1644; J2250; J2270; J2312; J2371; J2470; J2720; J2997; J3010; J3475; J3490; J7030; J7050; P9016; Q9967; A9270